=== PATIENT | male | born 1955 | race Caucasian/White ===

== ENCOUNTER 2021-01-15 13:41 | Outpatient (RCR) | payer MEDICAID, SELFPAY ==
[2021-01-15 14:12] VITALS: BP 151/73; PULSE 66; RESP 18; TEMP 36.4; BMI 59.1
--- NOTE | 2021-01-15 15:26 | PN.PCM_ITS ---
History of Present Illness Date of Service: 01/15/21 Chief Complaint: Onel is a 65 YO male who presents to the [facility] today with a deep open wound on the R lateral leg at about mid calf. He denies injury and told me that it just broke open a few weeks ago. This wound has recurred in the past and he has previously been treated at [place]. He has had skin grafting. He has not been seen in the previous wound care center since the beginning of the year. He has been using silver alginate to dress the wound which was left over from the last time the wound was open. He tells me that not too long ago he was in a SNF after he fell and fractured his left ankle. 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 He has a lot of difficulty ambulating because of severe OA in the BL knees. He has seen an orthopedic doctor about knee replacements and tells me that he can not have surgery because he is too old. More likely than not it is due to his super obesity, BMI is 59.1. He is not trying to lose weight. He does not exercise. He does not limit his salt intake. His legs are chronically swollen and he uses a tubigrip to help control the edema. 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 He has not spoken to his doctor about a weight loss program. 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 His STOP BANG score is high and he is at high risk for having TATIANA. He has never had a sleep study. He has been told by his that he snores......they now sleep in different rooms. He seems agitated about being at the [facility] and gets defensive when I discuss salt restriction, weight loss, TATIANA and how it can cause pulmonary HTN leading to increased leg edema. He denies fevers/night sweats and shaking chills. The last time he had venous or arterial studies done was about 4 years ago. Objective Data Objective Data Vital Signs: Vital Signs Temp Pulse Resp BP 97.6 F L 66 18 151/73 H 01/15/21 14:12 01/15/21 14:12 01/15/21 14:12 01/15/21 14:12 Oxygen Delivery Method Room Air Weight: 400 lb Body Mass Index (BMI) 59.1 Charges/Coding Procedures Integumentary [id number]: [id number] Jannette subq tissue 20 sq cm/< Physical Exam Const alert, oriented x3 and no apparent distress Constitutional Narrative: morbidly obese Eyes PERRL, EOMs intact bilaterally, conjunctivae normal and no scleral icterus Resp normal respiratory effort and clear to auscultation bilaterally Cardio regular rate, regular rhythm and no gallops GI soft to palpation and non-tender GI Narrative: obese Skin Wound Narrative: There is a deep wound on the lateral side of the R leg. Please see the measurements below. I can not say why there is such a discrepancy between the nurses measurements but, the post debridement measurements I did myself and they are accurate. There is no odor from the wound. There is no purulent DC. No tunnelling and no undermining. there is mild erythema just at the wound margins but, there is not increased warmth to touch. there is no purulent DC. The base of the wound is 70 % slough with some granulation tissue. The skin of the LE's BL is dry and flakey. He is developing a goblet deformity due to long standing swelling with begining fibrosis of the skin which is no longer elastic distally. His pedal pulse are difficult to palpate with the edema but, I can palpate the DP BL and I can find the PT pulses with the venous doppler. Psych Psych Narrative: He is gruff and ill tempered. He seems as though he is angry and he is abrupt. Debridement Note Debridement Note Wound debrided: venous stasis ulcer RLE with fat layer exposed Laterality: Right Type of Debridement: Excisional debridement Anesthesia Used: 4% Lidocaine Solution Depth: Down to and including healthy tissue and in the subcutaneous layer Percentage of wound debrided: 100 Instrument Used: 5mm curette and Forceps Tissue Removed: necrotic slough and biofilm. Severity: Fat Layer Exposed Amount of bleeding with debridement: Mild Bleeding Controlled with: Pressure Patient tolerated procedure: Patient tolerated procedure well Operative Diagnosis: venous stasis ulcer of the RLE with fat layer exposed Post-Debridement Measurements and Additional Note: Post-Debridement Measurements/Treatment WC - Nurse 1 - General Ulcer Assessment Start: 01/15/21 13:36 Freq: Status: Active Protocol: RADHA.LOWEXT Activity Type Activity Date Activity User E-Sign Co-Sign Detail Recorded Client Recorded Date Recorded By Document 01/15/21 14:12 [facility] [id number] 01/15/21 14:28 [facility] 01/15/21 14:12 WC - Today's Visit Information Type of service Initial Visit Arrival Mode Ambulatory,Cane Transfer Assistance None Patient Identification Verified (Name & Yes ) Patient Requires Transmission-Based No Precautions Height and Weight Height 5 ft 9 in Weight 400 lb Weight in Pounds 400.0 lbs Weight Measurement Method Stated by Patient Body Mass Index (BMI) 59.1 BMI Classification Obese BSA - Bonnie 2.77 Vital Signs Temperature (97.8 F-99.1 F) 97.6 F L Temperature Source Temporal Pulse Rate (60-100) 66 Pulse Location Monitor Respiratory Rate (12-18) 18 Respiratory rate source Observation Oxygen Delivery Method Room Air Blood Pressure (90/60-120/80) 151/73 H Blood Pressure Mean (mm Hg) 99 Source Monitor Position Sitting Blood Pressure Location Left Forearm History Since Last Visit- (Skip if this is Patient's initial visit) Left Footwear Regular Shoe Right Footwear Regular Shoe Pain Scale: 0-10 Numeric Is Patient Pain Free? Yes Lower Extremity Assessment/ Foot Assessment/ Toe Nail Assessment Right -Posterior Tibial Palpable No -Posterior Tibial Doppler Multiphasic -Dorsalis Pedis Palpable Yes -Dorsalis Pedis Doppler Multiphasic -Extremity Color Hyperpigmented -Hair Growth on Legs Yes -Hair Growth on Toes No -Temperature of Extremity Warm -Other Deformity No -Prior Foot Ulcer No -Charcot Joint No -Prior Amputation No -Thick No -Discolored No -Deformed No -Improper Length & Hygeine No Left -Posterior Tibial Palpable No -Posterior Tibial Doppler Monophasic -Dorsalis Pedis Palpable Yes -Dorsalis Pedis Doppler Multiphasic -Extremity Color Hyperpigmented -Hair Growth on Legs Yes -Hair Growth on Toes No -Temperature of Extremity Warm -Other Deformity No -Prior Foot Ulcer No -Charcot Joint No -Prior Amputation No -Thick No -Discolored No -Deformed No -Improper Length & Hygeine No Neuropathy Assessment Feet - Top Side and Bottom <Entered> (a) Communication Assessment Preferred language Chinese Lamination Machine Operator Required No Able to Read Yes Able to Write Yes Communication Tools None Right Hearing Abillity Normal Left Hearing Abillity Normal Visual Assistive Devices Glasses Teaching Assessment Preferences Verbal,Written, Audio/Visual, Demonstration Barriers to Learning None Readiness To Learn Excellent Willingness to Engage in Self Management High Activies Readiness to Engage in Self Management High Activities Anxiety Level Calm Cooperation Cooperative Perception Coherent Interest in Health Problem Asks Questions Education Importance Acknowledges Need Does Patient Smoke tobacco or other No substances Smoking Status Never smoker Is Patient Diabetic No 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 Cultural/Cheondoism Needs that may affect No Treatment Plan Teaching: Wound Center *Welcome to the Wound Center -Person Taught Patient -Teaching Method Discussion -Response to teaching Verbalize understanding Welcome to the Wound Care Center Chinese (a) 1 - + WC - Nurse 1 - General Ulcer Measurement Start: 01/15/21 13:36 Freq: Status: Active Protocol: Activity Type Activity Date Activity User E-Sign Co-Sign Detail Recorded Client Recorded Date Recorded By Document 01/15/21 14:12 [facility] [id number] 01/15/21 14:28 [facility] 01/15/21 14:12 Wound Center Nurse 1 #1- R LAT LE -Combined with other wound No -Current Size (cm) - Length 7 -Current Size (cm) - Width 3 -Current Size (cm) - Depth 1.2 -Total Square Cm 21 -Date of Last Picture (Recall this 01/15/21 field) -Photo Taken Yes -Epithelialization None Present -Tunneling No -Undermining/Tunneling No -Circular Undermining No -Exudate Amt Large -Exudate Type Serosanguineous -Wound Margin Distinct, Outline Attached -Granulation Amt Medium (34-66%) -Granulation Quality Red -Slough/Fibrin Yes -Necrosis Amt Medium (34-66%) -Necrotic Tissue Type Adherent Slough -Texture (Bertha-wound Skin Appearance) Assessed, Excoriation, Scarring,Rash -Moisture (Bertha-wound Skin Appearance) Assessed -Color (Bertha-wound Skin Appearance) Assessed, Erythema -Temperature (Bretha-wound Skin No Abnormality Appearance) (Pt Warm) -Tenderness on Palpation (Bertha-wound No Skin Appearance) -Ulcer Cleansing Soap and Water -Foul Odor after Cleansing No -Anesthetic Used 4% Lidocaine Solution Lower Limb Edema Present Yes Right Calf (cm) 61 Right Ankle (cm) 32 Left Calf (cm) 62 Left Ankle (cm) 34.8 WC - Nurse 2 - General Ulcer CM Notes Start: 01/15/21 13:36 Freq: Status: Active Protocol: Activity Type Activity Date Activity User E-Sign Co-Sign Detail Recorded Client Recorded Date Recorded By Document 01/15/21 14:49 [id number] 01/15/21 15:04 [facility] 01/15/21 14:49 Wound Center Nurse 2 #1- R LAT LE -Time 14:50 -Correct Patient Yes -Correct Side, Site, Position Yes -Correct Procedure Yes -Procedure Performed Yes -Type of Procedure Debridement -Clinical Debridement Subcutaneous -Tissue Removed Subcutaneous -Post Debridement (cm) - Length 7.4 -Post Debridement (cm) - Width 7.5 -Post Debridement (cm) - Depth 0.6 -Total Square (Post) (cm) 55.50 -Area of Debridement (cm) - Length 7.4 -Area of Debridement (cm) - Width 7.5 -Total Square (Area) (cm) 55.50 -Tunneling No -Undermining/Tunneling No -Circular Undermining No -Wound/Ulcer Outcome Not Healed -Ulcer Cleansing Rinsed/ Irrigated with Saline -Foul Odor after Cleansing No -Bioengineered Tissue No -Bleeding Controlled with Pressure -Offloading No -Treatment Response Procedure Tolerated Well -Debridement - Subq, 1st 20sq cm Yes -Debridement, SubQ, ea addt'l 20sq cm 2 or part thereof Pain Scale: 0-10 Numeric Is Patient Pain Free? Yes WC - Nurse 3 - General Ulcer D/C NN Start: 01/15/21 13:36 Freq: Status: Active Protocol: Activity Type Activity Date Activity User E-Sign Co-Sign Detail Recorded Client Recorded Date Recorded By Document 01/15/21 15:19 [facility] [id number] 01/15/21 15:19 [facility] 01/15/21 15:19 Wound Care Nurse 3 #1- R LAT LE -Ulcer Cleansing Rinsed/ Irrigated with Saline -Foul Odor after Cleansing No -Primary Dressing Applied Aquacel AG 4x4 -Primary Dressing Covered/Secured with Dry Gauze & Roll Gauze, Secured with Tape -Other Covering DRSG PER DL BUSINESS INFO CONSULTANT -Aquacel AG 4x4 1 Right -Tubular Bandage Double Layer -Size of Tubigrip Used Size F -Size F ($) 2 Left -Tubular Bandage Double Layer -Size of Tubigrip Used Size F -Size F ($) 2 Treatment Response Procedure Tolerated Well Pain Scale: 0-10 Numeric Is Patient Pain Free? Yes WC - Visit Discharge Discharge Condition Stable Ambulatory Status Ambulatory,Cane Transportation Private Auto Assessment/Plan Assessment/Plan (1) Lymphedema associated with obesity: CODE(S): I89.0 - Lymphedema, not elsewhere classified; E66.9 - Obesity, unspecified (2) History of venous thromboembolism: CODE(S): Z86.718 - Personal history of other venous thrombosis and embolism (3) Morbid obesity: CODE(S): E66.01 - Morbid (severe) obesity due to excess calories (4) Venous stasis ulcer with fat layer exposed with varicose veins: CODE(S): I83.009 - Varicose veins of unspecified lower extremity with ulcer of unspecified site; L97.902 - Non-pressure chronic ulcer of unspecified part of unspecified lower leg with fat layer exposed QUALIFIERS: Venous stasis ulcer site: calf Laterality: left Qualified Code(s): I83.022 - Varicose veins of left lower extremity with ulcer of calf; L97.222 - Non-pressure chronic ulcer of left calf with fat layer exposed PLAN: 1. Wellbutrin XL 150 mg Q AM - he is going to think about this and we will discuss again at the next visit. I stressed the importance of weight loss and exercise if he is ever going to be able to have joint replacements done. Wellbutrin suppresses appetite and he does not have a seizure disorder or glaucoma so he could try Wellbutrin. Effexor XR would be another option. He is very angry that he can not find a doctor to do knee replacements. 2. I told him if the wound is too heal we will have to control the edema and he needs more compression than the Tubigrips. He must elevate his legs and decrease salt. He needs to have a sleep study. I suspect he likely has significant pulmonary hypertension. I doubt a TTE would be able to accurately determine a RV pressure due to his body habitus. He would need a R heart cath or a KIMBERLY. I think he would benefit from a cardiology consult because of the LE edema. 3. He will need venous and arterial studies 4. If he does not have DVT and he has adequate arterial supply will likely need lymphedema pumps. 5. I recommended he consider the [employer] program to lose weight. 6. Continue the Aquacel AG with daily dressing changes 7. RT the WCC in 1 week.
== END 2021-01-17 23:59 ==
LOC: WC 13:41
PROVIDERS: PCP Preventive Medicine Occupational Medicine; Visit Provider Internal Medicine
DX: I83.018 Varicose veins of right lower extremity with ulcer other part of lower leg (principal); L97.812 Non-pressure chronic ulcer of other part of right lower leg with fat layer exposed; E66.9 Obesity, unspecified; I89.0 Lymphedema, not elsewhere classified; Z68.43 Body mass index [BMI] 50.0-59.9, adult; Z86.718 Personal history of other venous thrombosis and embolism
CPT/HCPCS: 11042; 11045; 99203; G0463

== ENCOUNTER 2021-01-28 14:00 | Outpatient (RCR) | payer MEDICAID, SELFPAY ==
[2021-01-18 00:40] VITALS: BP 151/73; PULSE 66; RESP 18; TEMP 36.4; BMI 59.1
--- NOTE | 2021-01-28 12:22 | VDLE_ITS ---
Reason For Study: edema, ulcer RIGHT LEFT CFV is compressible, spontaneous, phasic, FV is compressible, spontaneous, phasic, competent and demonstrates normal competent and demonstrates normal augmentation. augmentation. FV is compressible, spontaneous, phasic, POP V is compressible, spontaneous, phasic, competent and demonstrates normal competent and demonstrates normal augmentation. augmentation. POP V is compressible, spontaneous, phasic, T/P Trunk is compressible. competent and demonstrates normal PTV is compressible. augmentation. LT PerV is compressible. T/P Trunk is compressible. Unable to image CFV due to pt body habitus. PTV is compressible. GSV proximal thigh measures .83 x .78 cm. RT PerV is compressible. GSV at knee measures .95 x 1.04 cm. GSV proximal thigh measures .89 x .84 cm. GSV INCOMPETENT throughout for greater than GSV at knee measures 1.04 x 1.09 cm. 0.5 seconds. GSV INCOMPETENT throughout for greater than SSV proximal calf is INCOMPETENT for greater 0.5 seconds. than 0.5 seconds and measures .4 x .47 cm. SSV proximal calf is competent and measures .32 x .35 cm. ASV mid thigh is INCOMPETENT for greater than 0.5 seconds and measures .77 x .77 cm. Procedure Exam performed in department. The exam was diagnostic. VL/Venous Duplex US - Sonny Extrem Interpretation Summary Deep veins of the lower extremities are bilaterally patent and compressible seg mentally. There is no evidence of deep vein thrombosis on either side. Valvular competence appears in tact within the proximal deep venous systems bilaterally. The great saphenous veins appear bila terally patent and compressible segmentally. The left common femoral vein was not visualized due t o the patient's body habitus. Segmental valvular incompetence is noted within the great saphenous ve ins bilaterally. The right small saphenous vein is patent and competent. The left small saphenous ve in is patent and incompetent. The accessory saphenous vein in the right mid-thigh is incompetent . Ordering Physician: Shelia Hope Performed By: Guilherme Swenson RVT
--- NOTE | 2021-01-28 12:23 | ART_ITS ---
Reason For Study: PAD Procedure A bilateral lower extremity continuous wave Doppler with analog waveform analysis,segmental pressures,and ankle brachial indexes without exercise. No thigh cuff pressures due to pt body habitus. Left Segmental Pressures Left brachial= 156mmHg. Left posterior tibial artery = 153mmHg. Left dorsalis pedis artery = 159mmHg. Left digit = 122 mmHg. The left dorsalis pedis waveforms are triphasic. The left posterior tibial artery waveforms are triphasic. Right Segmental Pressures Right brachial= 149mmHg. Right posterior tibial artery = 157mmHg. Right dorsalis pedis artery = 159mmHg. Right digit = 128 mmHg. The right dorsalis pedis waveforms are triphasic. The right posterior tibial artery waveforms are triphasic. Indices The right ankle brachial index by the dorsalis pedis is 1.02. The right ankle brachial index by the posterior tibial artery is 1.01. The right digital-brachial index is .82. The left ankle brachial index by the posterior tibial artery is .98. The left ankle brachial index by the dorsalis pedis is 1.02. The left digital-brachial index is .78. VL/Lower Ext Art Exam w/o Exercis Interpretation Summary Triphasic Doppler waveforms are noted at ankle level bilaterally. Pulse-volume recordings appear satisfactory at all levels bilaterally, including calf, ankle, and digital leve ls. Resting ankle- brachial indices are normal bilaterally. Digital-brachial indices are normal bi laterally. There is no evidence of significant arterial occlusive disease in the lower extremities bilaterally. Ordering Physician: Shelia Hope Performed By: Guilherme Swenson RVT
== END 2021-02-17 23:59 ==
LOC: CVS 14:00
PROVIDERS: PCP Preventive Medicine Occupational Medicine; Referring Provider Internal Medicine; Visit Provider Internal Medicine
DX: L97.919 Non-pressure chronic ulcer of unspecified part of right lower leg with unspecified severity (principal); R60.0 Localized edema; I73.9 Peripheral vascular disease, unspecified
CPT/HCPCS: 11042; 11045; 93923; 93970

== ENCOUNTER 2021-02-04 09:00 | Outpatient (RCR) | payer MEDICAID, SELFPAY ==
[2021-01-22 13:37] VITALS: BP 119/74; PULSE 70; RESP 18; TEMP 36.3
--- NOTE | 2021-01-22 18:24 | PCM.WC.PN ---
History of Present Illness Date of Service: 01/22/21 Chief Complaint: Onel is a 65 YO male who presents to the [facility] today with a deep open wound on the R lateral leg at about mid calf. He denies injury and told me that it just broke open a few weeks ago. This wound has recurred in the past and he has previously been treated at [facility]. He has had skin grafting. He has not been seen in the previous wound care center since the beginning of the year. He has been using silver alginate to dress the wound which was left over from the last time the wound was open. He tells me that not too long ago he was in a SNF after he fell and fractured his left ankle. 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 He has a lot of difficulty ambulating because of severe OA in the BL knees. He has seen an orthopedic doctor about knee replacements and tells me that he can not have surgery because he is too old. More likely than not it is due to his super obesity, BMI is 59.1. He is not trying to lose weight. He does not exercise. He does not limit his salt intake. His legs are chronically swollen and he uses a tubigrip to help control the edema. 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 He has not spoken to his doctor about a weight loss program. 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 His STOP BANG score is high and he is at high risk for having TATIANA. He has never had a sleep study. He has been told by his that he snores......they now sleep in different rooms. He seems agitated about being at the [facility] and gets defensive when I discuss salt restriction, weight loss, TATIANA and how it can cause pulmonary HTN leading to increased leg edema. He denies fevers/night sweats and shaking chills. The last time he had venous or arterial studies done was about 4 years ago. Subjective Subjective Onel denies fevers/night sweats/shaking chills. He has been trying to elevate his legs more but, he has not tried to limit salt intake. He is scheduled for arterial and venous studies today after his appt with me. He has had VTE in the past but, he is no longer on anticoagulation. He has not received wound care supplies and tells me that no one has contacted him about compression stockings. He has been taking the Wellbutrin with no adverse side effects and he has noticed that it decreases his appetite. He is less disagreeable today and he is not arguing with me today. He is changing the dressing daily and using Aquacel Ag covered with dry gauze and secured with a roll of gauze and tape. He does not tape to the skin, he tapes to the gauze. Objective Data Objective Data Vital Signs: Vital Signs Temp Pulse Resp BP 97.3 F L 70 18 119/74 01/22/21 13:37 01/22/21 13:37 01/22/21 13:37 01/22/21 13:37 Oxygen Delivery Method Room Air Charges/Coding Procedures Integumentary [id number]: [id number] Jannette subq tissue 20 sq cm/< (28.7 cm) Physical Exam Skin Wound Narrative: The wound is not as deep this week. The length was 7.4 cm, the width 7.5 cm and the depth 0.6 cm at the last visit for a total square area of 55.5 cm?. Today it measures 4.1 in length, 7 cm in width and 0.7 cm in depth for a total of 28.7 cm?. Serosanguineous drainage is present but no purulent discharge. He tells me that the dressing is not saturated when he removes the dressing but it is wet. The area immediately around the wound, where the gauze topper is applied over the Aquacel AG is red, dry and irritated (it has the appearance of dyshidrotic eczema). There is no increased warmth to touch and no odor to the wound. There is no tunnelling and no undermining. Debridement Note Debridement Note Wound debrided: Venous stasis ulcer of the distal LLE Laterality: Left Type of Debridement: Excisional debridement Anesthesia Used: 5% Lidocaine Gel Depth: Down to and including healthy tissue and in the subcutaneous layer Percentage of wound debrided: 100 Instrument Used: 5mm curette Tissue Removed: biofilm and slough Severity: Fat Layer Exposed Amount of bleeding with debridement: Mild Bleeding Controlled with: Pressure Patient tolerated procedure: Patient tolerated procedure well Operative Diagnosis: non-helaing venous stasis ulcer of the LLE Post-Debridement Measurements and Additional Note: Post-Debridement Measurements/Treatment - Nurse 1 - General Ulcer Assessment Start: 01/22/21 13:35 Freq: Status: Active Protocol: AJDEN Activity Type Activity Date Activity User E-Sign Co-Sign Detail Recorded Client Recorded Date Recorded By Document 01/22/21 13:37 [facility] [id number] 01/22/21 13:46 [facility] 01/22/21 13:37 WC - Today's Visit Information Type of service Follow-up Visit (Physician/[employer] ) Arrival Mode Ambulatory,Cane Transfer Assistance None Patient Identification Verified (Name & Yes ) Patient Requires Transmission-Based No Precautions Vital Signs Temperature (97.8 F-99.1 F) 97.3 F L Temperature Source Temporal Pulse Rate (60-100) 70 Pulse Location Monitor Respiratory Rate (12-18) 18 Respiratory rate source Observation Oxygen Delivery Method Room Air Blood Pressure (90/60-120/80) 119/74 Blood Pressure Mean (mm Hg) 89 Source Monitor Position Sitting Blood Pressure Location Right Forearm History Since Last Visit- (Skip if this is Patient's initial visit) Have you changed medications since your No last visit? Any new allergies or adverse reactions No Had a fall/change in ADL's that may No increase risk of falls Signs or symptoms of abuse and/or No neglect since last visit Have you been in the hospital since your No last visit? Has dressing in place as prescribed Yes Has compression in place as prescribed Yes Has offloadiing in place as prescribed N/A Experienced any changes in pain level or No management Left Footwear Regular Shoe Right Footwear Regular Shoe Pain Scale: 0-10 Numeric Is Patient Pain Free? Yes - Nurse 1 - General Ulcer Measurement Start: 01/22/21 13:35 Freq: Status: Active Protocol: Activity Type Activity Date Activity User E-Sign Co-Sign Detail Recorded Client Recorded Date Recorded By Document 01/22/21 13:37 [facility] [id number] 01/22/21 13:46 [facility] 01/22/21 13:37 Wound Center Nurse 1 #1- R LAT LE -Combined with other wound No -Current Size (cm) - Length 8 -Current Size (cm) - Width 5.8 -Current Size (cm) - Depth 1.2 -Total Square Cm 46.4 -Photo Taken No -Epithelialization None Present -Tunneling No -Undermining/Tunneling No -Circular Undermining No -Exudate Amt Large -Exudate Type Serosanguineous -Wound Margin Distinct, Outline Attached -Granulation Amt Medium (34-66%) -Granulation Quality Red -Slough/Fibrin Yes -Necrosis Amt Medium (34-66%) -Necrotic Tissue Type Adherent Slough -Texture (Bertha-wound Skin Appearance) Assessed, Excoriation, Scarring -Moisture (Bertha-wound Skin Appearance) Assessed, Maceration,Dry/ Scaly -Color (Bertha-wound Skin Appearance) Assessed, Erythema, Hemosiderin Staining -Temperature (Bertha-wound Skin No Abnormality Appearance) (Pt Warm) -Tenderness on Palpation (Bertha-wound No Skin Appearance) -Ulcer Cleansing Rinsed/ Irrigated with Saline -Foul Odor after Cleansing No -Anesthetic Used 5% Lidocaine Gel Lower Limb Edema Present Yes Right Calf (cm) 62 Right Ankle (cm) 32.4 WC - Nurse 2 - General Ulcer CM Notes Start: 01/22/21 13:35 Freq: Status: Active Protocol: Activity Type Activity Date Activity User E-Sign Co-Sign Detail Recorded Client Recorded Date Recorded By Document 01/22/21 14:41 MW [id number] 01/22/21 14:50 MW 01/22/21 14:41 Wound Center Nurse 2 #1- R LAT LE -Time 14:41 -Correct Patient Yes -Correct Side, Site, Position Yes -Correct Procedure Yes -Procedure Performed Yes -Type of Procedure Debridement -Clinical Debridement Subcutaneous -Tissue Removed Subcutaneous -Post Debridement (cm) - Length 4.1 -Post Debridement (cm) - Width 7.0 -Post Debridement (cm) - Depth 0.7 -Total Square (Post) (cm) 28.70 -Area of Debridement (cm) - Length 4.1 -Area of Debridement (cm) - Width 7.0 -Total Square (Area) (cm) 28.70 -Tunneling No -Undermining/Tunneling No -Circular Undermining No -Wound/Ulcer Outcome Not Healed -Ulcer Cleansing Rinsed/ Irrigated with Saline -Foul Odor after Cleansing No -Bioengineered Tissue No -Bleeding Controlled with Pressure -Offloading No -Treatment Response Procedure Tolerated Well -Debridement - Subq, 1st 20sq cm Yes -Debridement, SubQ, ea addt'l 20sq cm 1 or part thereof Pain Scale: 0-10 Numeric Is Patient Pain Free? Yes WC - Nurse 3 - General Ulcer D/C NN Start: 01/22/21 13:35 Freq: Status: Active Protocol: Activity Type Activity Date Activity User E-Sign Co-Sign Detail Recorded Client Recorded Date Recorded By Document 01/22/21 15:06 [id number] 01/22/21 15:07 [email or web address] 01/22/21 15:06 Wound Care Nurse 3 #1- R LAT LE -Ulcer Cleansing Rinsed/ Irrigated with Saline -Foul Odor after Cleansing No -Primary Dressing Applied Aquacel AG 4x4 -Primary Dressing Covered/Secured with Dry Gauze & Roll Gauze, Secured with Tape -Aquacel AG 4x4 1 Right -Tubular Bandage Double Layer -Size of Tubigrip Used Size F -Size F ($) 2 Pain Scale: 0-10 Numeric Is Patient Pain Free? Yes WC - Visit Discharge Discharge Condition Stable Ambulatory Status Ambulatory,Cane Transportation Private Auto Medication Reconcilliation completed & Yes provided to patient/care provider Clinical Summary of Care Provided Yes Assessment/Plan Assessment/Plan (1) Venous stasis ulcer with fat layer exposed with varicose veins: CODE(S): I83.009 - Varicose veins of unspecified lower extremity with ulcer of unspecified site; L97.902 - Non-pressure chronic ulcer of unspecified part of unspecified lower leg with fat layer exposed QUALIFIERS: Venous stasis ulcer site: calf Laterality: left Qualified Code(s): I83.022 - Varicose veins of left lower extremity with ulcer of calf; L97.222 - Non-pressure chronic ulcer of left calf with fat layer exposed (2) Lymphedema associated with obesity: CODE(S): I89.0 - Lymphedema, not elsewhere classified; E66.9 - Obesity, unspecified (3) Venous insufficiency of both lower extremities: CODE(S): I87.2 - Venous insufficiency (chronic) (peripheral) (4) History of venous thromboembolism: CODE(S): Z86.718 - Personal history of other venous thrombosis and embolism (5) Morbid obesity: CODE(S): E66.01 - Morbid (severe) obesity due to excess calories (6) Dyshidrotic eczema: CODE(S): L30.1 - Dyshidrosis [pompholyx] PLAN: 1. Continue Aquacel Ag. May need to change the dressing twice a day because of the Dishidrotic eczema which is due to the area being wet. Could consider using a combination of a low potency steroid and Amlactin due to the area immediately around the wound to heal the eczema. Will continue to monitor and will re-examine in 1 week. 2. There is no sign of infection so no need for antibiotics. 3. He does not have adequate compression of the legs with the Tubigrip, even with double layer of Tubigrip. Mary will check on the Circaids and the dressing supplies. 4. RTC in 1 week. Call if any fevers/chills or night sweats. 5. He would benefit from lymphedema pumps going forward. I stressed to him that because the skin is fibrotic and can no longer stretch that when the swelling increases the only way to relieve the pressure with the increased venous HTN is for the skin to break open. I reiterated the importance of elevatio, salt restriction, weight loss and increased activity in controlling edema to prevent this from recurring going forward. 6. Will review the results of the arterial and venous studies at the next visit in 1 week. 7. Would consider an advanced wound care product was the edema is controlled and there is a better chance of the graft being successful.
[2021-01-28 10:27] VITALS: BP 178/81; PULSE 62; TEMP 35.8
--- NOTE | 2021-01-30 10:05 | PN.PCM_ITS ---
History of Present Illness Date of Service: 01/28/21 Chief Complaint: Right lateral leg ulcer History of Wound: 65 year old male who presented to the wound center at the end of December. He was originally seen by Dr. Hope. His right lateral leg ulcer re-opened earlier in December. He states that he has a history of an infected ulcer from 2013 and he was being seen at the [facility] wound center. He states that he has had issues with this ulcer on an off for years. He had a fracture of his left ankle which required him to be placed in a SNF and the ulcer on the right improved during that time. 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 He is obese with a BMI 59.1. He sleeps in a recliner because his mattress makes his back hurt. He has significant amount of lower extremity edema. Wound care Silver alginate dressings covered with gauze daily. Double tubigrip for compression. He is scheduled today for vascular studies, his last studies were [address] Hope has ordered compression pumps and some compression stockings. Neither of these have been approved yet. I would like to see his vascular studies before putting compression on him and would like to improve his edema before ordering his stockings. Today he denies fever, chills, nausea or vomiting. He states his appetite is good. Progress of Wound: Right lateral leg ulcer is stable. Objective Data Objective Data Vital Signs: Vital Signs Temp Pulse Resp BP 96.5 F L 62 18 178/81 H 01/28/21 10:27 01/28/21 10:27 01/22/21 13:37 01/28/21 10:27 Oxygen Delivery Method Room Air Charges/Coding Procedures Integumentary 111xxx-113xx: [id number] Jannette subq tissue 20 sq cm/< Add On Codes: 43180 Jannette subq tissue add-on Physical Exam Const alert and oriented x3 HEENT normocephalic Head and Scalp: atraumatic Lymph Lymphatic Narrative: Bilateral lower extremity edema. Resp normal respiratory effort and clear to auscultation bilaterally Cardio regular rate and regular rhythm GI normal to inspection, nondistended, normoactive bowel sounds and non-tender Palpation: soft Extremity normal capillary refill General Extremity: edema Skin Wound Narrative: Right lateral leg ulcer that has increased slough. Bilateral legs and feet are +3 edematous Neuro CN's II-XII intact bilaterally Psych Appearance: grossly normal Debridement Note Debridement Note Wound debrided: Lateral leg ulcer Laterality: Right Type of Debridement: Excisional debridement Anesthesia Used: 5% Lidocaine Gel Depth: Down to and including healthy tissue and in the subcutaneous layer Percentage of wound debrided: 100 Instrument Used: 5mm curette Tissue Removed: Subcutaneous tissue and slough Severity: Fat Layer Exposed Amount of bleeding with debridement: Mild Bleeding Controlled with: Pressure Patient tolerated procedure: Patient tolerated procedure well Post-Debridement Measurements and Additional Note: Post-Debridement Measurements/Treatment - Nurse 1 - General Ulcer Assessment Start: 01/22/21 13:35 Freq: Status: Active Protocol: RADHANovarra Activity Type Activity Date Activity User E-Sign Co-Sign Detail Recorded Client Recorded Date Recorded By Document 01/22/21 13:37 [facility] [id number] 01/22/21 13:46 [facility] Document 01/28/21 10:27 [facility] [id number] 01/28/21 10:34 [facility] 01/22/21 01/28/21 13:37 10:27 - Today's Visit Information Type of service Follow-up Visit Follow-up Visit (Physician/CYBER FORENSIC SPECIALIST (Physician/CYBER FORENSIC SPECIALIST ) ) Arrival Mode Ambulatory,Cane Ambulatory,Cane Transfer Assistance None None Patient Identification Verified (Name & Yes Yes ) Patient Requires Transmission-Based No No Precautions Vital Signs Temperature (97.8 F-99.1 F) 97.3 F L 96.5 F L Temperature Source Temporal Temporal Pulse Rate (60-100) 70 62 Pulse Location Monitor Monitor Respiratory Rate (12-18) 18 Respiratory rate source Observation Observation Oxygen Delivery Method Room Air Room Air Blood Pressure (90/60-120/80) 119/74 178/81 H Blood Pressure Mean (mm Hg) 89 113 Source Monitor Monitor Position Sitting Sitting Blood Pressure Location Right Forearm Left Forearm History Since Last Visit- (Skip if this is Patient's initial visit) Have you changed medications since your No No last visit? Any new allergies or adverse reactions No No Had a fall/change in ADL's that may No No increase risk of falls Signs or symptoms of abuse and/or No No neglect since last visit Have you been in the hospital since your No No last visit? Has dressing in place as prescribed Yes Yes Has compression in place as prescribed Yes Yes Has offloadiing in place as prescribed N/A N/A Experienced any changes in pain level or No No management Left Footwear Regular Shoe Regular Shoe Right Footwear Regular Shoe Regular Shoe Pain Scale: 0-10 Numeric Is Patient Pain Free? Yes Yes WC - Nurse 1 - General Ulcer Measurement Start: 01/22/21 13:35 Freq: Status: Active Protocol: Activity Type Activity Date Activity User E-Sign Co-Sign Detail Recorded Client Recorded Date Recorded By Document 01/22/21 13:37 [facility] [id number] 01/22/21 13:46 BM Document 01/28/21 10:27 [facility] [id number] 01/28/21 10:34 BMF 01/22/21 01/28/21 13:37 10:27 Wound Center Nurse 1 #2- R MED LE cluster -Combined with other wound No -Current Size (cm) - Length 2.5 -Current Size (cm) - Width 1.2 -Current Size (cm) - Depth 0.1 -Total Square Cm 3.00 -Date of Last Picture (Recall this 01/28/21 field) -Photo Taken Yes -Epithelialization None Present -Tunneling No -Undermining/Tunneling No -Circular Undermining No -Exudate Amt Medium -Exudate Type Serosanguineous -Wound Margin Distinct, Outline Attached -Granulation Amt Large (67-100%) -Granulation Quality Red -Slough/Fibrin Yes -Necrosis Amt Small (1-33%) -Necrotic Tissue Type Adherent Slough -Texture (Bertha-wound Skin Appearance) Assessed, Excoriation, Scarring -Moisture (Bertha-wound Skin Appearance) Assessed -Color (Bertha-wound Skin Appearance) Assessed, Erythema -Temperature (Bertha-wound Skin No Abnormality Appearance) (Pt Warm) -Tenderness on Palpation (Bertha-wound No Skin Appearance) -Ulcer Cleansing Rinsed/ Irrigated with Saline -Foul Odor after Cleansing Yes, Due to Product Use -Anesthetic Used 4% Lidocaine Solution #1- R LAT LE -Combined with other wound No No -Current Size (cm) - Length 8 7 -Current Size (cm) - Width 5.8 2.9 -Current Size (cm) - Depth 1.2 1.8 -Total Square Cm 46.4 20.3 -Photo Taken No No -Epithelialization None Present None Present -Tunneling No No -Undermining/Tunneling No No -Circular Undermining No No -Exudate Amt Large Large -Exudate Type Serosanguineous Serosanguineous -Wound Margin Distinct, Distinct, Outline Outline Attached Attached -Granulation Amt Medium (34-66%) Small (1-33%) -Granulation Quality Red Red -Slough/Fibrin Yes Yes -Necrosis Amt Medium (34-66%) Large (67-100%) -Necrotic Tissue Type Adherent Slough Adherent Slough -Texture (Bertha-wound Skin Appearance) Assessed, Assessed, Excoriation, Excoriation, Scarring Scarring,Rash -Moisture (Bertha-wound Skin Appearance) Assessed, Assessed, Maceration,Dry/ Maceration Scaly -Color (Bertha-wound Skin Appearance) Assessed, Assessed, Erythema, Erythema,Palor Hemosiderin Staining -Temperature (Bertha-wound Skin No Abnormality No Abnormality Appearance) (Pt Warm) (Pt Warm) -Tenderness on Palpation (Bertha-wound No No Skin Appearance) -Ulcer Cleansing Rinsed/ Rinsed/ Irrigated with Irrigated with Saline Saline -Foul Odor after Cleansing No No -Anesthetic Used 5% Lidocaine 4% Lidocaine Gel Solution Lower Limb Edema Present Yes Yes Right Calf (cm) 62 63 Right Ankle (cm) 32.4 35.2 WC - Nurse 2 - General Ulcer CM Notes Start: 01/22/21 13:35 Freq: Status: Active Protocol: Activity Type Activity Date Activity User E-Sign Co-Sign Detail Recorded Client Recorded Date Recorded By Document 01/22/21 14:41 MW [id number] 01/22/21 14:50 MW Document 01/28/21 10:47 JF [id number] 01/28/21 11:04 01/22/21 01/28/21 14:41 10:47 Wound Center Nurse 2 #2- R MED LE cluster -Time 10:53 -Correct Patient Yes -Correct Side, Site, Position Yes -Correct Procedure Yes -Procedure Performed Yes -Type of Procedure Debridement -Clinical Debridement Subcutaneous -Tissue Removed Subcutaneous -Post Debridement (cm) - Length 1 -Post Debridement (cm) - Width 2.3 -Post Debridement (cm) - Depth 0.1 -Total Square (Post) (cm) 2.3 -Area of Debridement (cm) - Length 1 -Area of Debridement (cm) - Width 2.3 -Total Square (Area) (cm) 2.3 -Tunneling No -Undermining/Tunneling No -Circular Undermining No -Wound/Ulcer Outcome Not Healed -Ulcer Cleansing Rinsed/ Irrigated with Saline -Foul Odor after Cleansing No -Bioengineered Tissue No -Bleeding Controlled with Pressure -Offloading No -Treatment Response Procedure Tolerated Well -Debridement - Subq, 1st 20sq cm No #1- R LAT LE -Time 14:41 10:54 -Correct Patient Yes Yes -Correct Side, Site, Position Yes Yes -Correct Procedure Yes Yes -Procedure Performed Yes Yes -Type of Procedure Debridement Debridement -Clinical Debridement Subcutaneous Subcutaneous -Tissue Removed Subcutaneous Subcutaneous -Post Debridement (cm) - Length 4.1 5.5 -Post Debridement (cm) - Width 7.0 6.7 -Post Debridement (cm) - Depth 0.7 1 -Total Square (Post) (cm) 28.70 36.85 -Area of Debridement (cm) - Length 4.1 5.5 -Area of Debridement (cm) - Width 7.0 6.7 -Total Square (Area) (cm) 28.70 36.85 -Tunneling No No -Undermining/Tunneling No No -Circular Undermining No No -Wound/Ulcer Outcome Not Healed Not Healed -Ulcer Cleansing Rinsed/ Rinsed/ Irrigated with Irrigated with Saline Saline -Foul Odor after Cleansing No No -Bioengineered Tissue No No -Bleeding Controlled with Pressure Pressure -Offloading No No -Treatment Response Procedure Procedure Tolerated Well Tolerated Well -Debridement - Subq, 1st 20sq cm Yes Yes -Debridement, SubQ, ea addt'l 20sq cm 1 1 or part thereof Pain Scale: 0-10 Numeric Is Patient Pain Free? Yes Yes - Nurse 3 - General Ulcer D/C NN Start: 01/22/21 13:35 Freq: Status: Active Protocol: Activity Type Activity Date Activity User E-Sign Co-Sign Detail Recorded Client Recorded Date Recorded By Document 01/22/21 15:06 JF [id number] 01/22/21 15:07 JF Document 01/28/21 11:34 DL [id number] 01/28/21 11:36 DL 01/22/21 01/28/21 15:06 11:34 Wound Care Nurse 3 #2- R MED LE cluster -Ulcer Cleansing Rinsed/ Irrigated with Saline -Foul Odor after Cleansing No -Primary Dressing Applied C Hydrogel ($) -Primary Dressing Covered/Secured with Dry Gauze & Roll Gauze, Secured with Tape #1- R LAT LE -Ulcer Cleansing Rinsed/ Rinsed/ Irrigated with Irrigated with Saline Saline -Foul Odor after Cleansing No No -Primary Dressing Applied Aquacel AG 4x4 Aquacel AG 4x4 -Primary Dressing Covered/Secured with Dry Gauze & Dry Gauze & Roll Gauze, Roll Gauze, Secured with Secured with Tape Tape -Aquacel AG 4x4 1 1 Right -Tubular Bandage Double Layer Single Layer -Size of Tubigrip Used Size F Size F -Size F ($) 2 1 -Other padmini Treatment Response Procedure Tolerated Well Pain Scale: 0-10 Numeric Is Patient Pain Free? Yes Yes WC - Visit Discharge Discharge Condition Stable Stable Ambulatory Status Ambulatory,Cane Ambulatory,Cane Transportation Private Auto Private Auto Medication Reconcilliation completed & Yes provided to patient/care provider Clinical Summary of Care Provided Yes Assessment/Plan Assessment/Plan (1) Ulcer of left lower extremity with fat layer exposed: CODE(S): L97.922 - Non-pressure chronic ulcer of unspecified part of left lower leg with fat layer exposed (2) Venous stasis ulcer with fat layer exposed with varicose veins: CODE(S): I83.009 - Varicose veins of unspecified lower extremity with ul cer of unspecified site; L97.902 - Non-pressure chronic ulcer of unspecified part of unspecified lower leg with fat layer exposed QUALIFIERS: Laterality: left Venous stasis ulcer site: calf Qualified Code(s): I83.022 - Varicose veins of left lower extremity with ulcer of calf; L97.222 - Non-pressure chronic ulcer of left calf with fat layer exposed (3) Morbid obesity: CODE(S): E66.01 - Morbid (severe) obesity due to excess calories (4) Lymphedema associated with obesity: CODE(S): I89.0 - Lymphedema, not elsewhere classified; E66.9 - Obesity, unspecified (5) Bilateral edema of lower extremity: CODE(S): R60.0 - Localized edema (6) History of venous thromboembolism: CODE(S): Z86.718 - Personal history of other venous thrombosis and embolism PLAN: Wound care right lateral leg ulcer will place daily Silver alginate covered by gauze. Right medial leg will place Collagen hydrogel covered with gauze daily. Compression will be double tubigrip. He is scheduled for vascular studies later today. Discussed increased protein to help with wound healing and taking Vitamin C 1,000 mg. Discussed decreasing his sodium intake to help with the swelling of his legs. Encourage ambulation but avoid legs in an dependent position. Instructed him that sleeping in a bed would be beneficial to help with his leg edema. Follow up one week.
[2021-02-04 08:56] VITALS: BP 129/73; PULSE 63; RESP 24; TEMP 36.4
--- NOTE | 2021-02-04 10:47 | PCM.WC.PN ---
History of Present Illness Date of Service: 02/04/21 Chief Complaint: Right lateral leg ulcer History of Wound: 65 year old male who presented to the wound center at the end of December. He was originally seen by Dr. Hope. His right lateral leg ulcer re-opened earlier in December. He states that he has a history of an infected ulcer from 2013 and he was being seen at the [facility] wound center. He states that he has had issues with this ulcer on an off for years. He had a fracture of his left ankle which required him to be placed in a SNF and the ulcer on the right improved during that time. 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 He is obese with a BMI 59.1. He sleeps in a recliner because his mattress makes his back hurt. He has significant amount of lower extremity edema. Wound care Silver alginate dressings covered with gauze daily. Double tubigrip for compression. Arterial studies from 01/28/21 right AFIA by dorsalis pedis is 1.02. Right AFIA by posterior tibial artery is 1.01. Left AFIA by posterior tibial artery is 0.98. The left AFIA by dorsalis pedis is 1.02. Bilateral triphasic doppler wavelength at ankle level. Venous Duplex ultrasound on 01/28/21 showed segmental valvular incompetence is noted within the great saphenous veins bilaterally. The right small saphenous vein is patent and competent. The left small saphenous vein is patent and incompetent. The accessory saphenous vein in the right mid-thigh is incompetent. We will refer him to Dr. Mathis for further evaluation. Today he denies fever, chills, nausea or vomiting. He states his appetite is good. Progress of Wound: Right lateral leg ulcer is stable. Right medial leg ulcer is almost healed. Objective Data Objective Data Vital Signs: Vital Signs Temp Pulse Resp BP 97.6 F L 63 24 H 129/73 H 02/04/21 08:56 02/04/21 08:56 02/04/21 08:56 02/04/21 08:56 Oxygen Delivery Method Room Air Charges/Coding Procedures Integumentary 111xxx-113xx: 39086 Jannette subq tissue 20 sq cm/< Add On Codes: 28247 Jannette subq tissue add-on Physical Exam Const alert and oriented x3 HEENT normocephalic Head and Scalp: atraumatic Eyes PERRL Resp normal respiratory effort Cardio regular rate GI non-tender Palpation: soft Extremity Extremity Narrative: +3 edema bilateral lower legs Skin Wound Narrative: Right lateral leg ulcer with increased slough and biofilm. Right medial leg ulcer is almost healed. Neuro CN's II-XII intact bilaterally Psych Appearance: grossly normal Debridement Note Debridement Note Wound debrided: lateral leg ulcer Laterality: Right Wound Grade/Stage: Stage IV Type of Debridement: Excisional debridement Anesthesia Used: 5% Lidocaine Gel Depth: Down to and including healthy tissue and in the subcutaneous layer Percentage of wound debrided: 100 Instrument Used: 5mm curette Tissue Removed: Subcutaneous tissue and slough Severity: Fat Layer Exposed Amount of bleeding with debridement: Mild Bleeding Controlled with: Pressure and Compression and gauze Patient tolerated procedure: Patient tolerated procedure well Post-Debridement Measurements and Additional Note: Post-Debridement Measurements/Treatment - Nurse 1 - General Ulcer Assessment Start: 01/22/21 13:35 Freq: Status: Active Protocol: JADEN Activity Type Activity Date Activity User E-Sign Co-Sign Detail Recorded Client Recorded Date Recorded By Document 01/22/21 13:37 [facility] [id number] 01/22/21 13:46 [facility] Document 01/28/21 10:27 [facility] [id number] 01/28/21 10:34 [facility] Document 02/04/21 08:56 DL [id number] 02/04/21 09:04 DL 01/22/21 01/28/21 02/04/21 13:37 10:27 08:56 - Today's Visit Information Type of service Follow-up Visit Follow-up Visit Follow-up Visit (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 (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 (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 ) ) ) Arrival Mode Ambulatory,Cane Ambulatory,Cane Ambulatory,Cane Transfer Assistance None None None Patient Identification Verified (Name & Yes Yes Yes ) Patient Requires Transmission-Based No No No Precautions Vital Signs Temperature (97.8 F-99.1 F) 97.3 F L 96.5 F L 97.6 F L Temperature Source Temporal Temporal Temporal Pulse Rate (60-100) 70 62 63 Pulse Location Monitor Monitor Monitor Respiratory Rate (12-18) 18 24 H Respiratory rate source Observation Observation Observation Oxygen Delivery Method Room Air Room Air Blood Pressure (90/60-120/80) 119/74 178/81 H 129/73 H Blood Pressure Mean (mm Hg) 89 113 91 Source Monitor Monitor Monitor Position Sitting Sitting Blood Pressure Location Right Forearm Left Forearm History Since Last Visit- (Skip if this is Patient's initial visit) Have you changed medications since your No No No last visit? Any new allergies or adverse reactions No No No Had a fall/change in ADL's that may No No No increase risk of falls Signs or symptoms of abuse and/or No No No neglect since last visit Have you been in the hospital since your No No No last visit? Has dressing in place as prescribed Yes Yes Yes Has compression in place as prescribed Yes Yes Yes Has offloadiing in place as prescribed N/A N/A N/A Experienced any changes in pain level or No No No management Left Footwear Regular Shoe Regular Shoe Right Footwear Regular Shoe Regular Shoe Pain Scale: 0-10 Numeric Is Patient Pain Free? Yes Yes Yes WC - Nurse 1 - General Ulcer Measurement Start: 01/22/21 13:35 Freq: Status: Active Protocol: Activity Type Activity Date Activity User E-Sign Co-Sign Detail Recorded Client Recorded Date Recorded By Document 01/22/21 13:37 [facility] [id number] 01/22/21 13:46 BM Document 01/28/21 10:27 [facility] [id number] 01/28/21 10:34 BM Document 02/04/21 08:56 DL [id number] 02/04/21 09:04 DL 01/22/21 01/28/21 02/04/21 13:37 10:27 08:56 Wound Center Nurse 1 #2- R MED LE cluster -Combined with other wound No -Current Size (cm) - Length 2.5 0.2 -Current Size (cm) - Width 1.2 0.2 -Current Size (cm) - Depth 0.1 0.1 -Total Square Cm 3.00 0.04 -Date of Last Picture (Recall this 01/28/21 field) -Photo Taken Yes No -Epithelialization None Present -Tunneling No -Undermining/Tunneling No -Circular Undermining No -Exudate Amt Medium None Present -Exudate Type Serosanguineous -Wound Margin Distinct, Distinct, Outline Outline Attached Attached -Granulation Amt Large (67-100%) Large (67-100%) -Granulation Quality Red Red -Slough/Fibrin Yes -Necrosis Amt Small (1-33%) Small (1-33%) -Necrotic Tissue Type Adherent Slough Adherent Slough -Structure Exposed N/A -Texture (Berhta-wound Skin Appearance) Assessed, Scarring Excoriation, Scarring -Moisture (Bertha-wound Skin Appearance) Assessed Dry/Scaly -Color (Bertha-wound Skin Appearance) Assessed, Hemosiderin Erythema Staining -Temperature (Bertha-wound Skin No Abnormality No Abnormality Appearance) (Pt Warm) (Pt Warm) -Tenderness on Palpation (Bertha-wound No No Skin Appearance) -Ulcer Cleansing Rinsed/ Soap and Water Irrigated with Saline -Foul Odor after Cleansing Yes, Due to No Product Use -Anesthetic Used 4% Lidocaine 4% Lidocaine Solution Solution #1- R LAT LE -Combined with other wound No No -Current Size (cm) - Length 8 7 8.5 -Current Size (cm) - Width 5.8 2.9 3 -Current Size (cm) - Depth 1.2 1.8 0.8 -Total Square Cm 46.4 20.3 25.5 -Photo Taken No No No -Epithelialization None Present None Present -Tunneling No No -Undermining/Tunneling No No -Circular Undermining No No -Exudate Amt Large Large Medium -Exudate Type Serosanguineous Serosanguineous Serosanguineous -Wound Margin Distinct, Distinct, Distinct, Outline Outline Outline Attached Attached Attached -Granulation Amt Medium (34-66%) Small (1-33%) Large (67-100%) -Granulation Quality Red Red Red -Slough/Fibrin Yes Yes -Necrosis Amt Medium (34-66%) Large (67-100%) Small (1-33%) -Necrotic Tissue Type Adherent Slough Adherent Slough Adherent Slough -Structure Exposed N/A -Texture (Bertha-wound Skin Appearance) Assessed, Assessed, Excoriation Excoriation, Excoriation, Scarring Scarring,Rash -Moisture (Bertha-wound Skin Appearance) Assessed, Assessed, Dry/Scaly Maceration,Dry/ Maceration Scaly -Color (Bertha-wound Skin Appearance) Assessed, Assessed, Mottled Erythema, Erythema,Palor Hemosiderin Staining -Temperature (Bertha-wound Skin No Abnormality No Abnormality No Abnormality Appearance) (Pt Warm) (Pt Warm) (Pt Warm) -Tenderness on Palpation (Bertha-wound No No No Skin Appearance) -Ulcer Cleansing Rinsed/ Rinsed/ Soap and Water Irrigated with Irrigated with Saline Saline -Foul Odor after Cleansing No No No -Anesthetic Used 5% Lidocaine 4% Lidocaine 4% Lidocaine Gel Solution Solution Lower Limb Edema Present Yes Yes Right Calf (cm) 62 63 48 Right Ankle (cm) 32.4 35.2 31 WC - Nurse 2 - General Ulcer CM Notes Start: 01/22/21 13:35 Freq: Status: Active Protocol: Activity Type Activity Date Activity User E-Sign Co-Sign Detail Recorded Client Recorded Date Recorded By Document 01/22/21 14:41 MW [id number] 01/22/21 14:50 MW Document 01/28/21 10:47 JF [id number] 01/28/21 11:04 JF Document 02/04/21 09:27 JF [id number] 02/04/21 09:32 JF 01/22/21 01/28/21 02/04/21 14:41 10:47 09:27 Wound Center Nurse 2 #2- R MED LE cluster -Time 10:53 09:27 -Correct Patient Yes Yes -Correct Side, Site, Position Yes Yes -Correct Procedure Yes Yes -Procedure Performed Yes Yes -Type of Procedure Debridement Debridement -Clinical Debridement Subcutaneous Subcutaneous -Tissue Removed Subcutaneous Subcutaneous -Post Debridement (cm) - Length 1 0.5 -Post Debridement (cm) - Width 2.3 0.4 -Post Debridement (cm) - Depth 0.1 0.1 -Total Square (Post) (cm) 2.3 0.20 -Area of Debridement (cm) - Length 1 0.5 -Area of Debridement (cm) - Width 2.3 0.4 -Total Square (Area) (cm) 2.3 0.20 -Tunneling No No -Undermining/Tunneling No No -Circular Undermining No No -Wound/Ulcer Outcome Not Healed Not Healed -Ulcer Cleansing Rinsed/ Rinsed/ Irrigated with Irrigated with Saline Saline -Foul Odor after Cleansing No No -Bioengineered Tissue No No -Bleeding Controlled with Pressure Pressure -Offloading No No -Treatment Response Procedure Procedure Tolerated Well Tolerated Well -Debridement - Subq, 1st 20sq cm No Yes -Debridement, SubQ, ea addt'l 20sq cm 1 or part thereof #1- R LAT LE -Time 14:41 10:54 09:28 -Correct Patient Yes Yes Yes -Correct Side, Site, Position Yes Yes Yes -Correct Procedure Yes Yes Yes -Procedure Performed Yes Yes Yes -Type of Procedure Debridement Debridement Debridement -Clinical Debridement Subcutaneous Subcutaneous Subcutaneous -Tissue Removed Subcutaneous Subcutaneous Subcutaneous -Post Debridement (cm) - Length 4.1 5.5 5.8 -Post Debridement (cm) - Width 7.0 6.7 6.3 -Post Debridement (cm) - Depth 0.7 1 0.8 -Total Square (Post) (cm) 28.70 36.85 36.54 -Area of Debridement (cm) - Length 4.1 5.5 5.8 -Area of Debridement (cm) - Width 7.0 6.7 6.3 -Total Square (Area) (cm) 28.70 36.85 36.54 -Tunneling No No No -Undermining/Tunneling No No -Circular Undermining No No No -Wound/Ulcer Outcome Not Healed Not Healed Not Healed -Ulcer Cleansing Rinsed/ Rinsed/ Rinsed/ Irrigated with Irrigated with Irrigated with Saline Saline Saline -Foul Odor after Cleansing No No No -Bioengineered Tissue No No No -Bleeding Controlled with Pressure Pressure Pressure -Offloading No No No -Treatment Response Procedure Procedure Procedure Tolerated Well Tolerated Well Tolerated Well -Debridement - Subq, 1st 20sq cm Yes Yes No -Debridement, SubQ, ea addt'l 20sq cm 1 1 1 or part thereof Pain Scale: 0-10 Numeric Is Patient Pain Free? Yes Yes Yes WC - Nurse 3 - General Ulcer D/C NN Start: 01/22/21 13:35 Freq: Status: Active Protocol: Activity Type Activity Date Activity User E-Sign Co-Sign Detail Recorded Client Recorded Date Recorded By Document 01/22/21 15:06 JF [id number] 01/22/21 15:07 JF Document 01/28/21 11:34 DL [id number] 01/28/21 11:36 DL Document 02/04/21 09:58 ML [id number] 02/04/21 10:03 ML 01/22/21 01/28/21 02/04/21 15:06 11:34 09:58 Wound Care Nurse 3 #2- R MED LE cluster -Ulcer Cleansing Rinsed/ Rinsed/ Irrigated with Irrigated with Saline Saline -Foul Odor after Cleansing No -Primary Dressing Applied C Hydrogel ($) -Other Dressing hydrogel -Primary Dressing Covered/Secured with Dry Gauze & Dry Gauze, Roll Gauze, Secured with Secured with Tape Tape #1- R LAT LE -Ulcer Cleansing Rinsed/ Rinsed/ Rinsed/ Irrigated with Irrigated with Irrigated with Saline Saline Saline -Foul Odor after Cleansing No No -Primary Dressing Applied Aquacel AG 4x4 Aquacel AG 4x4 Aquacel AG 4x4 -Other Dressing super absorb -Primary Dressing Covered/Secured with Dry Gauze & Dry Gauze & Roll Gauze, Roll Gauze, Secured with Secured with Tape Tape -Aquacel AG 4x4 1 1 1 Left -Tubular Bandage Double Layer -Size of Tubigrip Used Size F -Size F ($) 2 Right -Multi-Layered Wrap Application Multi-Layer Comp - Right ($ ) -Tubular Bandage Double Layer Single Layer Double Layer -Size of Tubigrip Used Size F Size F Size F -Size F ($) 2 1 2 -Other padmini Treatment Response Procedure Tolerated Well Pain Scale: 0-10 Numeric Is Patient Pain Free? Yes Yes Yes WC - Visit Discharge Discharge Condition Stable Stable Stable Ambulatory Status Ambulatory,Cane Ambulatory,Cane Ambulatory,Cane Transportation Private Auto Private Auto Private Auto Medication Reconcilliation completed & Yes No provided to patient/care provider Clinical Summary of Care Provided Yes Yes Additional Wound Wound debrided: medial leg ulcer Laterality: Right Type of Debridement: Excisional debridement Anesthesia Used: 4% Lidocaine Solution Depth: Down to and including healthy tissue and in the subcutaneous layer Percentage of wound debrided: 100 Instrument Used: 3mm curette Tissue Removed: Subcutaneous tissue and slough Severity: Limited To Skin Breakdown Amount of bleeding with debridement: Mild Bleeding Controlled with: Pressure Patient tolerated procedure: Patient tolerated procedure well Assessment/Plan Assessment/Plan (1) Ulcer of left lower extremity with fat layer exposed: CODE(S): L97.922 - Non-pressure chronic ulcer of unspecified part of left lower leg with fat layer exposed (2) Morbid obesity: CODE(S): E66.01 - Morbid (severe) obesity due to excess calories (3) Venous insufficiency of both lower extremities: CODE(S): I87.2 - Venous insufficiency (chronic) (peripheral) (4) Venous stasis ulcer with fat layer exposed with varicose veins: CODE(S): I83.009 - Varicose veins of unspecified lower extremity with ulcer of unspecified site; L97.902 - Non-pressure chronic ulcer of unspecified part of unspecified lower leg with fat layer exposed QUALIFIERS: Venous stasis ulcer site: calf Laterality: left Qualified Code(s): I83.022 - Varicose veins of left lower extremity with ulcer of calf; L97.222 - Non-pressure chronic ulcer of left calf with fat layer exposed (5) Bilateral edema of lower extremity: CODE(S): R60.0 - Localized edema (6) Lymphedema associated with obesity: CODE(S): I89.0 - Lymphedema, not elsewhere classified; E66.9 - Obesity, unspecified (7) History of venous thromboembolism: CODE(S): Z86.718 - Personal history of other venous thrombosis and embolism PLAN: Wound care right lateral leg ulcer will place Silver alginate covered by super absorbant gauze. Right medial leg will place Collagen hydrogel covered with gauze. Will place 3 M 2layer wraps today. He will leave then on until when he will remove them. He is unable to come into the wound center more than once per week to have his 3 M2L compression placed. After removes the 3M2L wrap on , he will change the dressings to both ulcers daily and place double layer tubigrip. We will refer him to Dr. Mathis for further evaluation of his vascular status. Discussed increased protein to help with wound healing and taking Vitamin C 1,000 mg. Discussed decreasing his sodium intake to help with the swelling of his legs. Encourage ambulation but avoid legs in an dependent position. 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 Instructed him that sleeping in a bed would be beneficial to help with his leg edema. Follow up one week.
== END 2021-02-17 23:59 ==
LOC: WC 09:00
PROVIDERS: PCP Preventive Medicine Occupational Medicine; Visit Provider Nurse Practitioner Family
DX: I83.012 Varicose veins of right lower extremity with ulcer of calf (principal); L97.212 Non-pressure chronic ulcer of right calf with fat layer exposed; I89.0 Lymphedema, not elsewhere classified; E66.01 Morbid (severe) obesity due to excess calories; L30.1 Dyshidrosis [pompholyx]; Z86.711 Personal history of pulmonary embolism; Z68.43 Body mass index [BMI] 50.0-59.9, adult; M17.0 Bilateral primary osteoarthritis of knee; I87.2 Venous insufficiency (chronic) (peripheral); Z86.718 Personal history of other venous thrombosis and embolism; R60.0 Localized edema
CPT/HCPCS: 11042; 11045; 29581

== ENCOUNTER 2021-03-04 10:45 | Outpatient (RCR) | payer MEDICAID, SELFPAY ==
[2021-02-18 00:31] VITALS: BP 129/73; PULSE 63; RESP 24; TEMP 36.4
[2021-02-18 11:23] VITALS: BP 167/78; PULSE 70; TEMP 36.2
--- NOTE | 2021-02-18 12:47 | PN.PCM_ITS ---
History of Present Illness Date of Service: 02/18/21 Chief Complaint: Right lateral leg ulcer History of Wound: 65 year old male who presented to the wound center at the end of December. He was originally seen by Dr. Hope. His right lateral leg ulcer re-opened earlier in December. He states that he has a history of an infected ulcer from 2013 and he was being seen at the [place] wound center. He states that he has had issues with this ulcer on an off for years. He had a fracture of his left ankle which required him to be placed in a SNF and the ulcer on the right improved during that time. 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 He is obese with a BMI 59.1. He sleeps in a recliner because his mattress makes his back hurt. He has significant amount of lower extremity edema. Wound care Silver alginate dressings covered with gauze daily. Double tubigrip for compression. Arterial studies from 01/28/21 right AFIA by dorsalis pedis is 1.02. Right AFIA by posterior tibial artery is 1.01. Left AFIA by posterior tibial artery is 0.98. The left AFIA by dorsalis pedis is 1.02. Bilateral triphasic doppler wavelength at ankle level. Venous Duplex ultrasound on 01/28/21 showed segmental valvular incompetence is noted within the great saphenous veins bilaterally. The right small saphenous vein is patent and competent. The left small saphenous vein is patent and incompetent. The accessory saphenous vein in the right mid- thigh is incompetent. We will refer him to Dr. Mathis for further evaluation. Today he denies fever, chills, nausea or vomiting. He states his appetite is good. Progress of Wound: Right medial leg cluster is healed. Left lateral leg ulcer is stable Objective Data Objective Data Vital Signs: Vital Signs Temp Pulse Resp BP 97.1 F L 70 24 H 167/78 H 02/18/21 11:23 02/18/21 11:23 02/18/21 00:31 02/18/21 11:23 Charges/Coding Procedures Integumentary [id number]: [id number] Jannette subq tissue 20 sq cm/< Add On Codes: 10265 Jannette subq tissue add-on (x2) Physical Exam Const alert and oriented x3 HEENT normocephalic Lymph Lymphatic: no lymphedema noted Resp normal respiratory effort Cardio regular rate GI non-tender Extremity normal capillary refill Extremity Narrative: Bilateral lower leg edema. General Extremity: edema Skin Wound Narrative: Right lateral leg ulcer is pink with increased biofilm. Right medial leg ulcer is healed today. Neuro CN's II-XII intact bilaterally Psych Appearance: grossly normal Debridement Note Debridement Note Wound debrided: lateral leg ulcer Laterality: Right Type of Debridement: Excisional debridement Anesthesia Used: 5% Lidocaine Gel Depth: Down to and including healthy tissue and in the subcutaneous layer Percentage of wound debrided: 100 Instrument Used: 5mm curette Tissue Removed: Subcutaneous tissue and slough Severity: Fat Layer Exposed Amount of bleeding with debridement: Mild Bleeding Controlled with: Pressure and Compression and gauze Patient tolerated procedure: Patient tolerated procedure well Post-Debridement Measurements and Additional Note: Post-Debridement Measurements/Treatment WC - Nurse 1 - General Ulcer Assessment Start: 02/18/21 11:23 Freq: Status: Active Protocol: JADEN Activity Type Activity Date Activity User E-Sign Co-Sign Detail Recorded Client Recorded Date Recorded By Document 02/18/21 11:23 KR Desktop 02/18/21 11:32 KR 02/18/21 11:23 WC - Today's Visit Information Type of service Follow-up Visit (Physician/SUPERVISOR TREATING [employer] PUMPING ) Arrival Mode Ambulatory,Cane Patient Identification Verified (Name & Yes ) Vital Signs Temperature (97.8 F-99.1 F) 97.1 F L Temperature Source Temporal Pulse Rate (60-100) 70 Pulse Location Monitor Blood Pressure (90/60-120/80) 167/78 H Blood Pressure Mean (mm Hg) 107 Source Monitor Position Sitting Blood Pressure Location Right Arm History Since Last Visit- (Skip if this is Patient's initial visit) Have you changed medications since your No last visit? Any new allergies or adverse reactions No Had a fall/change in ADL's that may No increase risk of falls Signs or symptoms of abuse and/or No neglect since last visit Have you been in the hospital since your No last visit? Has dressing in place as prescribed Yes Has compression in place as prescribed N/A Has offloadiing in place as prescribed N/A Experienced any changes in pain level or No management Left Footwear Regular Shoe Right Footwear Regular Shoe Pain Scale: 0-10 Numeric Is Patient Pain Free? Yes WC - Nurse 1 - General Ulcer Measurement Start: 02/18/21 11:23 Freq: Status: Active Protocol: Activity Type Activity Date Activity User E-Sign Co-Sign Detail Recorded Client Recorded Date Recorded By Document 02/18/21 11:23 KR Desktop 02/18/21 11:32 KR 02/18/21 11:23 Wound Center Nurse 1 #2- R MED LE cluster -Current Size (cm) - Length 0.1 -Current Size (cm) - Width 0.1 -Current Size (cm) - Depth 0.1 -Total Square Cm 0.01 -Exudate Amt None Present -Wound Margin Distinct, Outline Attached -Granulation Amt Small (1-33%) -Granulation Quality [place] -Necrosis Amt None Present (0 %) -Texture (Bertha-wound Skin Appearance) Assessed, Scarring -Moisture (Bertha-wound Skin Appearance) Assessed,Dry/ Scaly -Color (Bertha-wound Skin Appearance) No Abnormality, Assessed -Temperature (Bertha-wound Skin No Abnormality Appearance) (Pt Warm) -Tenderness on Palpation (Bertha-wound No Skin Appearance) -Ulcer Cleansing Rinsed/ Irrigated with Saline #1- R LAT LE -Current Size (cm) - Length 5.2 -Current Size (cm) - Width 6.7 -Current Size (cm) - Depth 0.6 -Total Square Cm 34.84 -Exudate Amt Large -Exudate Type Serosanguineous -Wound Margin Distinct, Outline Attached -Granulation Amt Medium (34-66%) -Granulation Quality Red -Necrosis Amt Medium (34-66%) -Necrotic Tissue Type Adherent Slough -Texture (Bertha-wound Skin Appearance) Assessed, Scarring -Moisture (Bertha-wound Skin Appearance) Assessed,Dry/ Scaly -Color (Bertha-wound Skin Appearance) No Abnormality, Assessed -Temperature ([place]-wound Skin No Abnormality Appearance) (Pt Warm) -Tenderness on Palpation (Bertha-wound No Skin Appearance) -Ulcer Cleansing Rinsed/ Irrigated with Saline -Foul Odor after Cleansing No -Anesthetic Used 4% Lidocaine Solution Right Calf (cm) 55.5 Right Ankle (cm) 34.5 WC - Nurse 2 - General Ulcer CM Notes Start: 02/18/21 11:23 Freq: Status: Active Protocol: Activity Type Activity Date Activity User E-Sign Co-Sign Detail Recorded Client Recorded Date Recorded By Document 02/18/21 12:17 [id number] [id number] 02/18/21 12:21 JAZMÍN 02/18/21 12:17 Wound Center Nurse 2 #2- R MED SEJAL cluster -Time 12:18 -Correct Patient No -Correct Side, Site, Position No -Correct Procedure No -Procedure Performed No -Clinical Debridement Epidermis / Dermis -Post Debridement (cm) - Length 0 -Post Debridement (cm) - Width 0 -Post Debridement (cm) - Depth 0 -Total Square (Post) (cm) 0 -Area of Debridement (cm) - Length 0 -Area of Debridement (cm) - Width 0 -Total Square (Area) (cm) 0 -Tunneling No -Undermining/Tunneling No -Circular Undermining No -Wound/Ulcer Outcome Healed- Epithelialized -Ulcer Cleansing Rinsed/ Irrigated with Saline -Foul Odor after Cleansing No -Bioengineered Tissue No -Bleeding Controlled with Pressure -Offloading No -Treatment Response Procedure Tolerated Well -Debridement - Subq, 1st 20sq cm Yes #1- R LAT LE -Time 12:18 -Correct Patient Yes -Correct Side, Site, Position Yes -Correct Procedure Yes -Procedure Performed Yes -Type of Procedure Debridement -Clinical Debridement Subcutaneous -Tissue Removed Subcutaneous -Post Debridement (cm) - Length 6.8 -Post Debridement (cm) - Width 6.2 -Post Debridement (cm) - Depth 0.7 -Total Square (Post) (cm) 42.16 -Area of Debridement (cm) - Length 6.8 -Area of Debridement (cm) - Width 6.2 -Total Square (Area) (cm) 42.16 -Tunneling No -Undermining/Tunneling No -Circular Undermining No -Wound/Ulcer Outcome Not Healed -Ulcer Cleansing Rinsed/ Irrigated with Saline -Foul Odor after Cleansing No -Bioengineered Tissue No -Bleeding Controlled with Pressure -Offloading No -Treatment Response Procedure Tolerated Well -Debridement - Subq, 1st 20sq cm Yes -Debridement, SubQ, ea addt'l 20sq cm 2 or part thereof Pain Scale: 0-10 Numeric Is Patient Pain Free? Yes Assessment/Plan Assessment/Plan (1) Ulcer of left lower extremity with fat layer exposed: CODE(S): L97.922 - Non-pressure chronic ulcer of unspecified part of left lower leg with fat layer exposed (2) Venous stasis ulcer with fat layer exposed with varicose veins: CODE(S): I83.009 - Varicose veins of unspecified lower extremity with ulcer of unspecified site; L97.902 - Non-pressure chronic ulcer of unspecified part of unspecified lower leg with fat layer exposed QUALIFIERS: Venous stasis ulcer site: calf Laterality: left Qualified Code(s): I83.022 - Varicose veins of left lower extremity with ulcer of calf; L97.222 - Non-pressure chronic ulcer of left calf with fat layer exposed (3) Venous insufficiency of both lower extremities: CODE(S): I87.2 - Venous insufficiency (chronic) (peripheral) (4) Morbid obesity: CODE(S): E66.01 - Morbid (severe) obesity due to excess calories (5) Bilateral edema of lower extremity: CODE(S): R60.0 - Localized edema (6) Lymphedema associated with obesity: CODE(S): I89.0 - Lymphedema, not elsewhere classified; E66.9 - Obesity, unspecified PLAN: Wound care right lateral leg ulcer will place Silver alginate covered by super absorbant gauze daily. Right medial leg is healed today. Double tubigrip for compression. He sees Dr. Cheney, vascular surgeon in practice with Dr. Mathis on Thursday for further evaluation of his vascular status. Discussed increased protein to help with wound healing and taking Vitamin C 1,000 mg. Discussed decreasing his sodium intake to help with the swelling of his legs. Encourage ambulation but avoid legs in an dependent position. 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 Instructed him that sleeping in a bed would be beneficial to help with his leg edema. Follow up two weeks.
[2021-03-04 11:01] VITALS: BP 157/104; PULSE 69; RESP 18; TEMP 36.4
--- NOTE | 2021-03-04 15:46 | PCM.WC.PN ---
History of Present Illness Date of Service: 03/04/21 Chief Complaint: Right lateral leg ulcer History of Wound: 65 year old male who presented to the wound center at the end of December. He was originally seen by Dr. Hope. His right lateral leg ulcer re-opened earlier in December. He states that he has a history of an infected ulcer from 2013 and he was being seen at the [place] wound center. He states that he has had issues with this ulcer on an off for years. He had a fracture of his left ankle which required him to be placed in a SNF and the ulcer on the right improved during that time. 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 He is obese with a BMI 59.1. He sleeps in a recliner because his mattress makes his back hurt. He has significant amount of lower extremity edema. Wound care to right lateral leg ulcer is Silver alginate dressings covered with ABD. Excoriated bertha-wound will apply A&D ointment or aquaphor 1-2 times daily. Double tubigrip and ESTEFANIA wrap for compression. Arterial studies from 01/28/21 right AFIA by dorsalis pedis is 1.02. Right AFIA by posterior tibial artery is 1.01. Left AFIA by posterior tibial artery is 0.98. The left AFIA by dorsalis pedis is 1.02. Bilateral triphasic doppler wavelength at ankle level. Venous Duplex ultrasound on 01/28/21 showed segmental valvular incompetence is noted within the great saphenous veins bilaterally. The right small saphenous vein is patent and competent. The left small saphenous vein is patent and incompetent. The accessory saphenous vein in the right mid-thigh is incompetent. We will refer him to Dr. Mathis for further evaluation. Today he denies fever, chills, nausea or vomiting. He states his appetite is good. Progress of Wound: Right medial leg cluster remains healed. Right lateral leg ulcer is stable. Bertha wound is excoriated. Objective Data Objective Data Vital Signs: Vital Signs Temp Pulse Resp BP 97.6 F L 69 18 157/104 H 03/04/21 11:01 03/04/21 11:01 03/04/21 11:01 03/04/21 11:01 Charges/Coding Procedures Integumentary 111xxx-113xx: [id number] Jannette subq tissue 20 sq cm/< Physical Exam Const alert and oriented x3 HEENT normocephalic Resp normal respiratory effort Cardio regular rate Extremity normal capillary refill General Extremity: edema Neuro CN's II-XII intact bilaterally Psych Appearance: grossly normal Debridement Note Debridement Note Wound debrided: lateral leg ulcer Laterality: Right Type of Debridement: Excisional debridement Anesthesia Used: 5% Lidocaine Gel Depth: Down to and including healthy tissue and in the subcutaneous layer Percentage of wound debrided: 100 Instrument Used: 5mm curette Tissue Removed: Subcutaneous tissue and slough Severity: Fat Layer Exposed Amount of bleeding with debridement: Mild Bleeding Controlled with: Pressure Patient tolerated procedure: Patient tolerated procedure well Post-Debridement Measurements and Additional Note: Post-Debridement Measurements/Treatment - Nurse 1 - General Ulcer Assessment Start: 02/18/21 11:23 Freq: Status: Active Protocol: JADEN Activity Type Activity Date Activity User E-Sign Co-Sign Detail Recorded Client Recorded Date Recorded By Document 02/18/21 11:23 KR Desktop 02/18/21 11:32 KR Document 03/04/21 11:01 DL [id number] 03/04/21 11:08 DL 02/18/21 03/04/21 11:23 11:01 - Today's Visit Information Type of service Follow-up Visit Follow-up Visit (Physician/MARKET RESEARCH ASSOCIATE (Physician/MARKET RESEARCH ASSOCIATE ) ) Arrival Mode Ambulatory,Cane Ambulatory Transfer Assistance None Patient Identification Verified (Name & Yes Yes ) Patient Requires Transmission-Based No Precautions Vital Signs Temperature (97.8 F-99.1 F) 97.1 F L 97.6 F L Temperature Source Temporal Temporal Pulse Rate (60-100) 70 69 Pulse Location Monitor Monitor Respiratory Rate (12-18) 18 Respiratory rate source Observation Blood Pressure (90/60-120/80) 167/78 H 157/104 H Blood Pressure Mean (mm Hg) 107 121 Source Monitor Monitor Position Sitting Blood Pressure Location Right Arm History Since Last Visit- (Skip if this is Patient's initial visit) Have you changed medications since your No No last visit? Any new allergies or adverse reactions No No Had a fall/change in ADL's that may No No increase risk of falls Signs or symptoms of abuse and/or No No neglect since last visit Have you been in the hospital since your No No last visit? Has dressing in place as prescribed Yes Yes Has compression in place as prescribed N/A Yes Has offloadiing in place as prescribed N/A N/A Experienced any changes in pain level or No No management Left Footwear Regular Shoe Right Footwear Regular Shoe Pain Scale: 0-10 Numeric Is Patient Pain Free? Yes Yes WC - Nurse 1 - General Ulcer Measurement Start: 02/18/21 11:23 Freq: Status: Active Protocol: Activity Type Activity Date Activity User E-Sign Co-Sign Detail Recorded Client Recorded Date Recorded By Document 02/18/21 11:23 KR Desktop 02/18/21 11:32 KR Document 03/04/21 11:01 DL [id number] 03/04/21 11:08 DL 02/18/21 03/04/21 11:23 11:01 Wound Center Nurse 1 #2- R MED LE cluster -Current Size (cm) - Length 0.1 -Current Size (cm) - Width 0.1 -Current Size (cm) - Depth 0.1 -Total Square Cm 0.01 -Exudate Amt None Present -Wound Margin Distinct, Outline Attached -Granulation Amt Small (1-33%) -Granulation Quality [place] -Necrosis Amt None Present (0 %) -Texture (Bertha-wound Skin Appearance) Assessed, Scarring -Moisture (Bertha-wound Skin Appearance) Assessed,Dry/ Scaly -Color (Bertha-wound Skin Appearance) No Abnormality, Assessed -Temperature (Bertha-wound Skin No Abnormality Appearance) (Pt Warm) -Tenderness on Palpation (Bertha-wound No Skin Appearance) -Ulcer Cleansing Rinsed/ Irrigated with Saline #1- R LAT LE -Current Size (cm) - Length 5.2 5.5 -Current Size (cm) - Width 6.7 6.1 -Current Size (cm) - Depth 0.6 0.4 -Total Square Cm 34.84 33.55 -Photo Taken No -Exudate Amt Large Medium -Exudate Type Serosanguineous Serosanguineous -Wound Margin Distinct, Distinct, Outline Outline Attached Attached -Granulation Amt Medium (34-66%) Small (1-33%) -Granulation Quality Red Red -Necrosis Amt Medium (34-66%) Large (67-100%) -Necrotic Tissue Type Adherent Slough Adherent Slough -Structure Exposed N/A -Texture (Bertha-wound Skin Appearance) Assessed, Excoriation, Scarring Scarring,Rash -Moisture (Bertha-wound Skin Appearance) Assessed,Dry/ Dry/Scaly Scaly -Color (Bertha-wound Skin Appearance) No Abnormality, Hemosiderin Assessed Staining -Temperature (Bertha-wound Skin No Abnormality No Abnormality Appearance) (Pt Warm) (Pt Warm) -Tenderness on Palpation (Bertha-wound No No Skin Appearance) -Ulcer Cleansing Rinsed/ Soap and Water Irrigated with Saline -Foul Odor after Cleansing No No -Anesthetic Used 4% Lidocaine 4% Lidocaine Solution Solution Right Calf (cm) 55.5 64 Right Ankle (cm) 34.5 30.3 WC - Nurse 2 - General Ulcer CM Notes Start: 02/18/21 11:23 Freq: Status: Active Protocol: Activity Type Activity Date Activity User E-Sign Co-Sign Detail Recorded Client Recorded Date Recorded By Document 02/18/21 12:17 JF [id number] 02/18/21 12:21 JF Edit Result 02/18/21 12:17 JF (1) [id number] 02/19/21 07:03 PL Document 03/04/21 11:44 JF [id number] 03/04/21 11:48 JF (1) #2- R MED LE cluster - Clinical Debridement Epidermis / Dermis => - Debridement - Subq, 1st 20sq cm Yes => 02/18/21 03/04/21 12:17 11:44 Wound Center Nurse 2 #2- R MED LE cluster -Time 12:18 -Correct Patient No -Correct Side, Site, Position No -Correct Procedure No -Procedure Performed No -Post Debridement (cm) - Length 0 -Post Debridement (cm) - Width 0 -Post Debridement (cm) - Depth 0 -Total Square (Post) (cm) 0 -Area of Debridement (cm) - Length 0 -Area of Debridement (cm) - Width 0 -Total Square (Area) (cm) 0 -Tunneling No -Undermining/Tunneling No -Circular Undermining No -Wound/Ulcer Outcome Healed- Epithelialized -Ulcer Cleansing Rinsed/ Irrigated with Saline -Foul Odor after Cleansing No -Bioengineered Tissue No -Bleeding Controlled with Pressure -Offloading No -Treatment Response Procedure Tolerated Well #1- R LAT LE -Time 12:18 11:44 -Correct Patient Yes Yes -Correct Side, Site, Position Yes Yes -Correct Procedure Yes Yes -Procedure Performed Yes Yes -Type of Procedure Debridement Debridement -Clinical Debridement Subcutaneous Subcutaneous -Tissue Removed Subcutaneous Subcutaneous -Post Debridement (cm) - Length 6.8 6.5 -Post Debridement (cm) - Width 6.2 7 -Post Debridement (cm) - Depth 0.7 0.6 -Total Square (Post) (cm) 42.16 45.5 -Area of Debridement (cm) - Length 6.8 6.5 -Area of Debridement (cm) - Width 6.2 7 -Total Square (Area) (cm) 42.16 45.5 -Tunneling No No -Undermining/Tunneling No No -Circular Undermining No No -Wound/Ulcer Outcome Not Healed Not Healed -Ulcer Cleansing Rinsed/ Rinsed/ Irrigated with Irrigated with Saline Saline -Foul Odor after Cleansing No No -Bioengineered Tissue No No -Bleeding Controlled with Pressure Pressure -Offloading No No -Treatment Response Procedure Procedure Tolerated Well Tolerated Well -Debridement - Subq, 1st 20sq cm Yes Yes -Debridement, SubQ, ea addt'l 20sq cm 2 2 or part thereof Pain Scale: 0-10 Numeric Is Patient Pain Free? Yes Yes - Nurse 3 - General Ulcer D/C NN Start: 02/18/21 11:23 Freq: Status: Active Protocol: Activity Type Activity Date Activity User E-Sign Co-Sign Detail Recorded Client Recorded Date Recorded By Document 03/04/21 11:55 DL [id number] 03/04/21 11:57 DL 03/04/21 11:55 Wound Care Nurse 3 #1- R LAT LE -Ulcer Cleansing Soap and Water -Foul Odor after Cleansing No -Primary Dressing Applied Aquacel AG 4x4 -Primary Dressing Covered/Secured with Dry Gauze & Roll Gauze, Secured with Tape -Aquacel AG 4x4 1 Right -Tubular Bandage Double Layer -Size of Tubigrip Used Size F -Size F ($) 1 -Other estefania Treatment Response Procedure Tolerated Well Pain Scale: 0-10 Numeric Is Patient Pain Free? Yes - Visit Discharge Discharge Condition Stable Ambulatory Status Ambulatory Transportation Private Auto Assessment/Plan Assessment/Plan (1) Venous stasis ulcer with fat layer exposed with varicose veins: CODE(S): I83.009 - Varicose veins of unspecified lower extremity with ulcer of unspecified site; L97.902 - Non-pressure chronic ulcer of unspecified part of unspecified lower leg with fat layer exposed QUALIFIERS: Venous stasis ulcer site: calf Laterality: left Qualified Code(s): I83.022 - Varicose veins of left lower extremity with ulcer of calf; L97.222 - Non-pressure chronic ulcer of left calf with fat layer exposed (2) Ulcer of right lower extremity with fat layer exposed: CODE(S): L97.912 - Non-pressure chronic ulcer of unspecified part of right lower leg with fat layer exposed (3) Bilateral edema of lower extremity: CODE(S): R60.0 - Localized edema (4) Venous insufficiency of both lower extremities: CODE(S): I87.2 - Venous insufficiency (chronic) (peripheral) (5) Morbid obesity: CODE(S): E66.01 - Morbid (severe) obesity due to excess calories (6) Lymphedema associated with obesity: CODE(S): I89.0 - Lymphedema, not elsewhere classified; E66.9 - Obesity, unspecified (7) History of venous thromboembolism: CODE(S): Z86.718 - Personal history of other venous thrombosis and embolism PLAN: Wound care right lateral leg ulcer will place Silver alginate covered by super absorbant gauze daily. His bertha wound is excoriated so instructed him to moisturize with A&D ointment or aquaphor 1-2 times daily. Right medial leg is healed today. Double tubigrip and ESTEFANIA wrap for compression. He saw Dr. Cheney, vascular surgeon in practice with Dr. Mathis. He states they have some plans but is unable to tell me what those are. Discussed increased protein to help with wound healing and taking Vitamin C 1,000 mg. Discussed decreasing his sodium intake to help with the swelling of his legs. Encourage ambulation but avoid legs in an dependent position. 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 He has been approved for his lymphedema pumps. Encouraged him to use them at least 2 times per day. He states that may be difficult because sometimes he is gone for work at least 12 hours. Instructed him that sleeping in a bed would be beneficial to help with his leg edema. Follow up two weeks.
== END 2021-03-19 23:59 ==
LOC: WC 10:45
PROVIDERS: PCP Preventive Medicine Occupational Medicine; Visit Provider Nurse Practitioner Family
DX: I83.012 Varicose veins of right lower extremity with ulcer of calf (principal); E66.9 Obesity, unspecified; Z68.43 Body mass index [BMI] 50.0-59.9, adult; R60.0 Localized edema; L97.212 Non-pressure chronic ulcer of right calf with fat layer exposed; I87.2 Venous insufficiency (chronic) (peripheral); I89.0 Lymphedema, not elsewhere classified
CPT/HCPCS: 11042; 11045

== ENCOUNTER 2022-12-17 10:30 | Outpatient (RCR) | payer MEDICARE, OTHER, SELFPAY ==
[2022-11-26 10:13] VITALS: BP 267/72; PULSE 89; RESP 20; TEMP 36.2; BMI 59.1
--- NOTE | 2022-11-26 11:39 | PCM.WC.HP ---
History of Present Illness Date of Service: 11/26/22 Chief Complaint: Right lateral leg ulcer History of Wound: 66-year-old white obese male. He appears here with a very large deep wound on his right posterior lower leg. He suffers from venous ulcers, and this 1 has been going on for 2 to 3 months. Other than covering it with a gauze dressing he has done nothing else. These are reoccurring ulcer openings have never been taking care of properly because of COVID. Patient did have arterial brachial and venous studies done and 2020 but never got to see the vascular surgeon for repair. Arterial studies fine its his venous he is got a lot of incompetence sees right where all of his wounds are. Patient suffers from cellulitis and also overgrowth of keratosis. He states that he has a history of an infected ulcer from 2013 and he was being seen at the [place] [facility]. He states that he has had issues with this ulcer on an off for years. He states had a fracture of his left ankle which required him to be placed in a SNF and the ulcer on the right improved during that time. 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 He is obese with a BMI 59.1. He sleeps in a recliner because his mattress makes his back hurt. He has significant amount of lower extremity edema. 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 Right AFIA by posterior tibial artery is 1.01. Left AFIA by posterior tibial artery is 0.98. The left AFIA by dorsalis pedis is 1.02. Bilateral triphasic doppler wavelength at ankle level. Venous Duplex ultrasound on 01/28/21 showed segmental valvular incompetence is noted within the great saphenous veins bilaterally. The right small saphenous vein is patent and competent. The left small saphenous vein is patent and incompetent. The accessory saphenous vein in the right mid-thigh is incompetent. We will refer him to Dr. Solis for further evaluation. Today he denies fever, chills, nausea or vomiting. He states his appetite is good. We did discuss weight loss and maybe he needs to try getting those injections from his doctor. 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 [facility] Medical History (Reviewed 11/26/22 @ 11:46 by Krystin Johnson [employer], [employer]) Morbid obesity Venous insufficiency of both lower extremities Home Medications albuterol sulfate 90 mcg/actuation aerosol inhaler (ProAir HFA) 2 puff inhalation Q4H PRN Wheezing 01/15/21 [History Last Taken Unknown] allopurinol 300 mg tablet 300 mg PO DAILY 01/15/21 [History Last Taken 11/26/22] betamethasone dipropionate 0.05 % topical cream 1 applic topical DAILY PRN Rash 01/15/21 [History Last Taken Unknown] fluticasone 250 mcg-salmeterol 50 mcg/dose blistr powdr for inhalation 1 inh inhalation BID 01/15/21 [History Last Taken Unknown] losartan 50 mg tablet 50 mg PO DAILY 01/15/21 [History Last Taken Unknown] metoprolol succinate 100 mg tablet,extended release 24 hr 25 mg PO DAILY 01/15/21 [History Last Taken Unknown] rivaroxaban 20 mg tablet (Xarelto) 20 mg PO DAILY 01/15/21 [History Last Taken 11/26/22] diltiazem HCl 120 mg tablet (Cardizem) 120 mg PO Q8H 11/26/22 [History Last Taken Unknown] furosemide 20 mg tablet (Lasix) 20 mg PO DAILY 11/26/22 [History Last Taken Unknown] levothyroxine 50 mcg tablet (Levo-T) 50 mcg PO DAILY 11/26/22 [History Last Taken Unknown] Allergy/AdvReac Type Severity Reaction Status Date / Time silver AdvReac Rash Verified 11/26/22 10:34 Social History Smoking Status: Never smoker ROS Constitutional Constitutional: Reports systems reviewed and no addt'l complaints, except as documented Eyes Eyes: Reports systems reviewed and no addt'l complaints, except as documented ENT HEENT: Reports systems reviewed and no addt'l complaints, except as documented Cardiovascular Cardiovascular: Reports systems reviewed and no addt'l complaints, except as documented Respiratory/Chest Respiratory/Chest: Reports systems reviewed and no addt'l complaints, except as documented Gastrointestinal Gastrointestinal: Reports systems reviewed and no addt'l complaints, except as documented Genitourinary Genitourinary: Reports systems reviewed and no addt'l complaints, except as documented Musculoskeletal Musculoskeletal: Reports systems reviewed and no addt'l complaints, except as documented and other Details: Suffers from flatfeet Integumentary Integumentary: Reports wounds and other Details: Large cavernous wound on the back of right lower leg. Cellulitis to the anterior part of the right lower leg. Venous insufficiency to bilateral lower legs Neurologic Neurologic: Reports systems reviewed and no addt'l complaints, except as documented Psychiatric Psychiatric: Reports systems reviewed and no addt'l complaints, except as documented Endocrine Endocrinology: Reports systems reviewed and no addt'l complaints, except as documented Hematologic/Lymphatic Hematologic/Lymphatic: Reports systems reviewed and no addt'l complaints, except as documented Allergic/Immunologic Allergic/Immunologic: Reports systems reviewed and no addt'l complaints, except as documented Vital Signs Vital Signs Vital Signs: 11/26/22 10:13 Temperature 97.2 F L Temperature Source Temporal Pulse Rate 89 Respiratory Rate 20 H Blood Pressure 267/72 H Blood Pressure Mean 137 Blood Pressure Source Monitor Weight Weight: 400 lb 13.584 oz Body Mass Index (BMI) 59.1 Physical Exam Const oriented x3 General Appearance: cooperative HEENT normocephalic Head and Scalp: normal to inspection External Ear: external ears normal Eyes PERRL Neck full ROM Resp normal respiratory effort Effort and Inspection: able to speak in complete sentences Auscultation: clear to auscultation bilaterally Cardio regular rate and regular rhythm Palpation: normal PMI Rate: regular rate Rhythm: regular rhythm Extremity Negative for normal to inspection Extremity Narrative: Right lower leg has narrowing from mid hand down to ankle with large wound posterior side of right lower leg calf area Obvious flatfeet with a lot of broken blood vessels in ankle and foot area. No pitting edema noted Coloring of feet and legs good with good cap refill warm to touch General Extremity: normal exam except as noted Skin no rashes or lesions noted Wounds: wounds noted Wound Narrative: Large open wound back of the right lower calf area and cellulitis to the anterior part of the skin of the hand area Has an odor . Psych Appearance: grossly normal Speech: normal speech Thought Content: normal thought content Judgement: judgement good Debridement Note Debridement Note Wound debrided: Right posterior venous insufficiency ulcer Type of Debridement: Excisional debridement Anesthesia Used: 5% Lidocaine Gel Depth: Down to and including healthy tissue and to muscle Percentage of wound debrided: 100 Instrument Used: 7mm curette Tissue Removed: Devitalized tissue fibrin slough Severity: Fat Layer Exposed Amount of bleeding with debridement: Mild Bleeding Controlled with: Compression and gauze Patient tolerated procedure: Patient tolerated procedure well Post-Debridement Measurements and Additional Note: Post-Debridement Measurements/Treatment - Nurse 1 - General Ulcer Assessment Start: 11/26/22 10:13 Freq: Status: Active Protocol: JADEN Activity Type Activity Date Activity User E-sign Co-sign Detail Recorded Client Recorded Date Recorded By Document 11/26/22 10:13 DL [id number] 11/26/22 10:32 DL 11/26/22 10:13 - Today's Visit Information Type of service Initial Visit Arrival Mode Ambulatory, Walker Transfer Assistance None Patient Identification Verified (Name & Yes ) Patient Requires Transmission-Based No Precautions Height and Weight Height 5 ft 9 in Weight 400 lb 13.584 oz Weight in Pounds 400.8 lbs Weight Measurement Method Estimated by Patient Body Mass Index (BMI) 59.1 BMI Classification Obese BSA - Bonnie 2.78 Vital Signs Temperature (97.8 F-99.1 F) 97.2 F L Temperature Source Temporal Pulse Rate (60-100) 89 Pulse Location Monitor Respiratory Rate (12-18) 20 H Respiratory rate source Observation Blood Pressure (90/60-120/80) 267/72 H Blood Pressure Mean 137 Source Monitor History Since Last Visit- (Skip if this is Patient's initial visit) Left Footwear Regular Shoe Right Footwear Regular Shoe Pain Scale: 0-10 Numeric Is Patient Pain Free? Yes Lower Extremity Assessment/ Foot Assessment/ Toe Nail Assessment Left -Posterior Tibial Palpable No -Posterior Tibial Doppler Monophasic -Dorsalis Pedis Palpable No -Dorsalis Pedis Doppler Monophasic -Extremity Color Red, Hyperpigmented, Hemosiderin -Hair Growth on Legs No -Hair Growth on Toes No -Temperature of Extremity Warm -Capillary Refill Greater than 3 Seconds -Dependent Rubor No -Blanched when Elevated No -Lipodermatosclerosis No -Other Deformity No -Prior Foot Ulcer No -Charcot Joint No -Prior Amputation No -Thick No -Discolored No -Deformed No -Improper Length & Hygeine Yes Right -Posterior Tibial Palpable No -Posterior Tibial Doppler Monophasic -Dorsalis Pedis Palpable No -Dorsalis Pedis Doppler Monophasic -Extremity Color Red, Hyperpigmented, Hemosiderin -Hair Growth on Legs No -Hair Growth on Toes No -Temperature of Extremity Warm -Capillary Refill Less than 3 Seconds -Dependent Rubor Yes -Blanched when Elevated No -Lipodermatosclerosis No -Other Deformity No -Prior Foot Ulcer No -Charcot Joint No -Prior Amputation No -Thick No -Discolored No -Deformed No -Improper Length & Hygeine Yes Neuropathy Assessment Feet - Top Side and Bottom <Entered> (a) Communication Assessment Preferred language Palestinian Able to Read Yes Able to Write Yes Communication Tools None Right Hearing Abillity Normal Left Hearing Abillity Normal Visual Assistive Devices Glasses Teaching Assessment Preferences Verbal,Written, Demonstration Barriers to Learning None Readiness To Learn Good Willingness to Engage in Self Management Med Activies Readiness to Engage in Self Management Med Activities Anxiety Level Calm Cooperation Cooperative Perception Coherent Interest in Health Problem Asks Questions Education Importance Acknowledges Need Does Patient Smoke tobacco or other No substances Smoking Status Never smoker Is Patient Diabetic No Functional Assessment Recent Decline in Ability to Perform Ambulation Culture/Voodoo/Coding Spec Cultural/Voodoo Needs that may affect No Treatment Plan Would you allow our hospital deputy county clerk to No meet you for the purpose of spiritual/ emotional support? Coding Spec to contact place of restoration No Teaching: Wound Center Compression Wraps & Stockings -Person Taught Patient Skin Care -Person Taught Patient *Debridement -Person Taught Patient Dressing Your Wound -Person Taught Patient *Welcome to the Wound Center -Person Taught Patient (a) 1 - + WC - Nurse 1 - General Ulcer Measurement Start: 11/26/22 10:13 Freq: Status: Active Protocol: Activity Type Activity Date Activity User E-sign Co-sign Detail Recorded Client Recorded Date Recorded By Document 11/26/22 10:13 DL [id number] 11/26/22 10:32 DL 11/26/22 10:13 Wound Center Nurse 1 #3 R Lat/Post LE -Current Size (cm) - Length 5 -Current Size (cm) - Width 10 -Current Size (cm) - Depth 1.2 -Total Square Cm 50 -Photo Taken Yes -Classification - Thickness Full Thickness without Exposed Support Structure -Exudate Amt Large -Exudate Type Serosanguineous -Wound Margin Distinct, Outline Attached -Granulation Amt Medium (34-66%) -Granulation Quality Red -Necrosis Amt Medium (34-66%) -Necrotic Tissue Type Adherent Slough -Structure Exposed N/A -Texture (Bertha-wound Skin Appearance) Excoriation, Scarring -Moisture (Bertha-wound Skin Appearance) Dry/Scaly -Color (Bertha-wound Skin Appearance) Erythema, Hemosiderin Staining -Temperature (Bertha-wound Skin No Abnormality Appearance) (Pt Warm) -Tenderness on Palpation (Bertha-wound No Skin Appearance) -Ulcer Cleansing Soap and Water -Foul Odor after Cleansing No -Anesthetic Used 4% Lidocaine Solution Right Calf (cm) 69.5 Right Ankle (cm) 32.9 Left Calf (cm) 65.8 Left Ankle (cm) 34.5 RADHA - Nurse 2 - General Ulcer CM Notes Start: 11/26/22 10:13 Freq: Status: Active Protocol: Activity Type Activity Date Activity User E-sign Co-sign Detail Recorded Client Recorded Date Recorded By Document 11/26/22 10:47 MW [id number] 11/26/22 10:58 MW 11/26/22 10:47 Wound Center Nurse 2 #3 R Lat/Post LE -Time 10:53 -Correct Patient Yes -Correct Side, Site, Position Yes -Correct Procedure Yes -Procedure Performed Yes -Type of Procedure Debridement -Clinical Debridement Subcutaneous -Tissue Removed Subcutaneous -Post Debridement (cm) - Length 5.3 -Post Debridement (cm) - Width 10.0 -Post Debridement (cm) - Depth 1.3 -Total Square (Post) (cm) 53.00 -Area of Debridement (cm) - Length 5.3 -Area of Debridement (cm) - Width 10.0 -Total Square (Area) (cm) 53.00 -Tunneling No -Undermining/Tunneling No -Circular Undermining No -Wound/Ulcer Outcome Not Healed -Ulcer Cleansing Rinsed/ Irrigated with Saline -Foul Odor after Cleansing No -Bioengineered Tissue No -Bleeding Controlled with Pressure -Treatment Response Procedure Tolerated Well -Offloading No -Debridement - Subq, 1st 20sq cm Yes -Debridement, SubQ, ea addt'l 20sq cm 2 or part thereof Pain Scale: 0-10 Numeric Is Patient Pain Free? Yes RADHA - Nurse 3 - General Ulcer D/C NN Start: 11/26/22 10:13 Freq: Status: Active Protocol: Activity Type Activity Date Activity User E-sign Co-sign Detail Recorded Client Recorded Date Recorded By Document 11/26/22 11:33 [facility] [id number] 11/26/22 11:34 [facility] 11/26/22 11:33 Wound Care Center Nurse 3 #3 R Lat/Post LE -Ulcer Cleansing Rinsed/ Irrigated with Saline -Foul Odor after Cleansing No -Primary Dressing Applied Fibracol Plus 4x4,NonAdherent Contact Layer -Other Dressing ABD -Primary Dressing Covered/Secured with Dry Gauze & Roll Gauze, Secured with Tape -Fibracol Plus 4x4 2 BLE -Tubular Bandage Single Layer -Size of Tubigrip Used Size F -Size F ($) 2 Treatment Response Procedure Tolerated Well Pain Scale: 0-10 Numeric Is Patient Pain Free? Yes WC - Visit Discharge Discharge Condition Stable Ambulatory Status Ambulatory, Walker Transportation Private Auto Accompanied by Assessment/Plan Assessment/Plan (1) Morbid obesity: CODE(S): E66.01 - Morbid (severe) obesity due to excess calories (2) Venous insufficiency of both lower extremities: CODE(S): I87.2 - Venous insufficiency (chronic) (peripheral) (3) Ulcer of right lower extremity with fat layer exposed: CODE(S): L97.912 - Non-pressure chronic ulcer of unspecified part of right lower leg with fat layer exposed PLAN: Wash right lower leg with antibacterial soap and water. Pat dry Apply Fibracol to wound base with Adaptic over top and ABD and gauze dressing Every day dressing change Double layer Tubigrip or Christiano wrap with Tubigrip over top for compression Cultures were obtained will call patient with results Referral to Dr. Solis for venous insufficiency and swelling Follow-up in 1 week (4) Dyshidrotic eczema: CODE(S): L30.1 - Dyshidrosis [pompholyx]
[2022-12-03 10:20] VITALS: BP 140/66; PULSE 85; RESP 18; TEMP 35.9; BMI 59.1
--- NOTE | 2022-12-03 12:18 | PN.PCM_ITS ---
History of Present Illness Date of Service: 12/03/22 Chief Complaint: Right lateral leg ulcer History of Wound: 66-year-old white obese male. He appears here with a very large deep wound on his right posterior lower leg. He suffers from venous ulcers, and this 1 has been going on for 2 to 3 months. Other than covering it with a gauze dressing he has done nothing else. These are reoccurring ulcer openings have never been taking care of properly because of COVID. Patient did have arterial brachial and venous studies done and 2020 but never got to see the vascular surgeon for repair. Arterial studies fine its his venous he is got a lot of incompetence sees right where all of his wounds are. Patient suffers from cellulitis and also overgrowth of keratosis. He states that he has a history of an infected ulcer from 2013 and he was being seen at the [facility]. He states that he has had issues with this ulcer on an off for years. He states had a fracture of his left ankle which required him to be placed in a SNF and the ulcer on the right improved during that time. 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 He is obese with a BMI 59.1. He sleeps in a recliner because his mattress makes his back hurt. He has significant amount of lower extremity edema. 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 Right AFIA by posterior tibial artery is 1.01. Left AFIA by posterior tibial artery is 0.98. The left AFIA by dorsalis pedis is 1.02. Bilateral triphasic doppler wavelength at ankle level. Venous Duplex ultrasound on 01/28/21 showed segmental valvular incompetence is noted within the great saphenous veins bilaterally. The right small saphenous vein is patent and competent. The left small saphenous vein is patent and incompetent. The accessory saphenous vein in the right mid- thigh is incompetent. We will refer him to Dr. Solis for further evaluation. Today he denies fever, chills, nausea or vomiting. He states his appetite is good. We did discuss weight loss and maybe he needs to try getting those injections from his doctor. 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 Progress of Wound: Wound size is slightly smaller but has a terrible odor. It is growing 4 different bacteria's were still pending on the anaerobes. [facility] on [facility] antibiotic has not gotten to the misread the label and did not give him anything. We will continue with same treatment only adding and Bactroban to the wound base with Fibracol over top Subjective Subjective Family has an appoint with podiatry though daughter did trim his toenails somewhat. Also needs to see Dr. Solis about his lower extremity studies did show incompetence he has back in . Patient should be seen by vascular at this p oint. Objective Data Objective Data Ulcer right lower extremity still has depth still has a bad odor still has that cellulitis on the outside of his legs. We will add in the Bactroban to the wound base with Fibracol over top and moistened Vital Signs: Vital Signs Temp Pulse Resp BP 96.7 F L 85 18 140/66 H 12/03/22 10:20 12/03/22 10:20 12/03/22 10:20 12/03/22 10:20 Weight: 400 lb 13.584 oz Body Mass Index (BMI) 59.1 Lab / Micro Data Micro: Microbiology 11/26/22 10:50 Wound - Leg, Right Gram Stain - Final 11/26/22 10:50 Wound - Leg, Right Wound Culture - Final Proteus mirabilis Escherichia coli Staphylococcus aureus Staphylococcus simulans 11/26/22 10:50 Wound - Leg, Right Anaerobic Culture - Preliminary Checking for anaerobes, further studies to follow. Physical Exam Const oriented x3 General Appearance: cooperative HEENT normocephalic Head and Scalp: normal to inspection External Ear: external ears normal Eyes PERRL Neck full ROM Resp normal respiratory effort Effort and Inspection: able to speak in complete sentences Auscultation: clear to auscultation bilaterally Cardio regular rate and regular rhythm Palpation: normal PMI Rate: regular rate Rhythm: regular rhythm Extremity Negative for normal to inspection Extremity Narrative: Right lower leg has narrowing from mid hand down to ankle with large wound posterior side of right lower leg calf area Obvious flatfeet with a lot of broken blood vessels in ankle and foot area. No pitting edema noted Coloring of feet and legs good with good cap refill warm to touch General Extremity: normal exam except as noted Skin no rashes or lesions noted Wounds: wounds noted Wound Narrative: Large open wound back of the right lower calf area and cellulitis to the anterior part of the skin of the hand area Has an odor . Psych Appearance: grossly normal Speech: normal speech Thought Content: normal thought content Judgement: judgement good Debridement Note Debridement Note Wound debrided: Right lower leg venous insufficiency ulcer now with deep open wound Laterality: Right Type of Debridement: Excisional debridement Anesthesia Used: 5% Lidocaine Gel Depth: in the subcutaneous layer Percentage of wound debrided: 100 Instrument Used: 7mm curette Tissue Removed: Fibrin devitalized tissue Severity: Fat Layer Exposed Amount of bleeding with debridement: Mild Bleeding Controlled with: Compression and gauze Patient tolerated procedure: Patient tolerated procedure well Post-Debridement Measurements and Additional Note: Post-Debridement Measurements/Treatment WC - Nurse 1 - General Ulcer Assessment Start: 11/26/22 10:13 Freq: Status: Active Protocol: JADEN Activity Type Activity Date Activity User E-sign Co-sign Detail Recorded Client Recorded Date Recorded By Document 11/26/22 10:13 DL [id number] 11/26/22 10:32 DL Document 12/03/22 10:20 RB [id number] 12/03/22 10:40 RB 11/26/22 12/03/22 10:13 10:20 - Today's Visit Information Type of service Initial Visit Follow-up Visit (Physician/[employer]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 ) Arrival Mode Ambulatory, Ambulatory, Walker Walker Transfer Assistance None None Patient Identification Verified (Name & Yes Yes ) Patient Requires Transmission-Based No Precautions Height and Weight Height 5 ft 9 in Weight 400 lb 13.584 oz Weight in Pounds 400.8 lbs Weight Measurement Method Estimated by Patient Body Mass Index (BMI) 59.1 59.1 BMI Classification Obese Obese BSA - Bonnie 2.78 Vital Signs Temperature (97.8 F-99.1 F) 97.2 F L 96.7 F L Temperature Source Temporal Temporal Pulse Rate (60-100) 89 85 Pulse Location Monitor Apical Respiratory Rate (12-18) 20 H 18 Respiratory rate source Observation Observation Blood Pressure (90/60-120/80) 267/72 H 140/66 H Blood Pressure Mean (mm Hg) 137 90 Source Monitor Monitor Position Semi-Fowlers Blood Pressure Location Left Arm History Since Last Visit- (Skip if this is Patient's initial visit) Have you changed medications since your No last visit? Any new allergies or adverse reactions No Had a fall/change in ADL's that may No increase risk of falls Signs or symptoms of abuse and/or No neglect since last visit Have you been in the hospital since your No last visit? Has dressing in place as prescribed Yes Has compression in place as prescribed Yes Has offloadiing in place as prescribed No Experienced any changes in pain level or No management Left Footwear Regular Shoe Right Footwear Regular Shoe Pain Scale: 0-10 Numeric Is Patient Pain Free? Yes No Lower Extremity Assessment/ Foot Assessment/ Toe Nail Assessment Left -Posterior Tibial Palpable No -Posterior Tibial Doppler Monophasic -Dorsalis Pedis Palpable No -Dorsalis Pedis Doppler Monophasic -Extremity Color Red, Hyperpigmented, Hemosiderin -Hair Growth on Legs No -Hair Growth on Toes No -Temperature of Extremity Warm -Capillary Refill Greater than 3 Seconds -Dependent Rubor No -Blanched when Elevated No -Lipodermatosclerosis No -Other Deformity No -Prior Foot Ulcer No -Charcot Joint No -Prior Amputation No -Thick No -Discolored No -Deformed No -Improper Length & Hygeine Yes Right -Posterior Tibial Palpable No -Posterior Tibial Doppler Monophasic -Dorsalis Pedis Palpable No -Dorsalis Pedis Doppler Monophasic -Extremity Color Red, Hyperpigmented, Hemosiderin -Hair Growth on Legs No -Hair Growth on Toes No -Temperature of Extremity Warm -Capillary Refill Less than 3 Seconds -Dependent Rubor Yes -Blanched when Elevated No -Lipodermatosclerosis No -Other Deformity No -Prior Foot Ulcer No -Charcot Joint No -Prior Amputation No -Thick No -Discolored No -Deformed No -Improper Length & Hygeine Yes Neuropathy Assessment Feet - Top Side and Bottom <Entered> (a) Communication Assessment Preferred language Icelandic Able to Read Yes Able to Write Yes Communication Tools None Right Hearing Abillity Normal Left Hearing Abillity Normal Visual Assistive Devices Glasses Teaching Assessment Preferences Verbal,Written, Demonstration Barriers to Learning None Readiness To Learn Good Willingness to Engage in Self Management Med Activies Readiness to Engage in Self Management Med Activities Anxiety Level Calm Cooperation Cooperative Perception Coherent Interest in Health Problem Asks Questions Education Importance Acknowledges Need Does Patient Smoke tobacco or other No substances Smoking Status Never smoker Is Patient Diabetic No Functional Assessment Recent Decline in Ability to Perform Ambulation Culture/Roman Catholic/Fixed Capital Clerk Cultural/Roman Catholic Needs that may affect No Treatment Plan Would you allow our hospital batting machine operator insulation to No meet you for the purpose of spiritual/ emotional support? Fixed Capital Clerk to contact place of episcopalian No Teaching: Wound Center Compression Wraps & Stockings -Person Taught Patient Skin Care -Person Taught Patient *Debridement -Person Taught Patient Dressing Your Wound -Person Taught Patient *Welcome to the Wound Center -Person Taught Patient (a) 1 - + WC - Nurse 1 - General Ulcer Measurement Start: 11/26/22 10:13 Freq: Status: Active Protocol: Activity Type Activity Date Activity User E-sign Co-sign Detail Recorded Client Recorded Date Recorded By Document 11/26/22 10:13 DL [id number] 11/26/22 10:32 DL Document 12/03/22 10:20 RB [id number] 12/03/22 10:40 RB 11/26/22 12/03/22 10:13 10:20 Wound Center Nurse 1 #3 R Lat/Post LE -Combined with other wound No -Current Size (cm) - Length 5 5.2 -Current Size (cm) - Width 10 9 -Current Size (cm) - Depth 1.2 1.4 -Total Square Cm 50 46.8 -Photo Taken Yes -Tunneling No -Undermining/Tunneling No -Circular Undermining No -Classification - Thickness Full Thickness without Exposed Support Structure -Exudate Amt Large Medium -Exudate Type Serosanguineous Serosanguineous -Wound Margin Distinct, Distinct, Outline Outline Attached Attached -Granulation Amt Medium (34-66%) Medium (34-66%) -Granulation Quality Red [place] -Slough/Fibrin Yes -Necrosis Amt Medium (34-66%) Medium (34-66%) -Necrotic Tissue Type Adherent Slough Adherent Slough -Structure Exposed N/A N/A -Texture (Bertha-wound Skin Appearance) Excoriation, Assessed Scarring -Moisture (Bertha-wound Skin Appearance) Dry/Scaly Assessed -Color (Bertha-wound Skin Appearance) Erythema, Assessed Hemosiderin Staining -Temperature (Bertha-wound Skin No Abnormality No Abnormality Appearance) (Pt Warm) (Pt Warm) -Tenderness on Palpation (Bertha-wound No No Skin Appearance) -Ulcer Cleansing Soap and Water Wound Cleanser -Foul Odor after Cleansing No No -Anesthetic Used 4% Lidocaine 5% Lidocaine Solution Gel Lower Limb Edema Present Yes Right Calf (cm) 69.5 71 Right Ankle (cm) 32.9 32 Left Calf (cm) 65.8 Left Ankle (cm) 34.5 RADHA - Nurse 2 - General Ulcer CM Notes Start: 11/26/22 10:13 Freq: Status: Active Protocol: Activity Type Activity Date Activity User E-sign Co-sign Detail Recorded Client Recorded Date Recorded By Document 11/26/22 10:47 MW [id number] 11/26/22 10:58 MW Document 12/03/22 10:54 MW [id number] 12/03/22 11:00 MW 11/26/22 12/03/22 10:47 10:54 Wound Center Nurse 2 #3 R Lat/Post LE -Time 10:53 10:54 -Correct Patient Yes Yes -Correct Side, Site, Position Yes Yes -Correct Procedure Yes Yes -Procedure Performed Yes Yes -Type of Procedure Debridement Debridement -Clinical Debridement Subcutaneous Subcutaneous -Tissue Removed Subcutaneous Subcutaneous -Post Debridement (cm) - Length 5.3 5.5 -Post Debridement (cm) - Width 10.0 8.9 -Post Debridement (cm) - Depth 1.3 1.5 -Total Square (Post) (cm) 53.00 48.95 -Area of Debridement (cm) - Length 5.3 5.5 -Area of Debridement (cm) - Width 10.0 8.9 -Total Square (Area) (cm) 53.00 48.95 -Tunneling No No -Undermining/Tunneling No No -Circular Undermining No No -Wound/Ulcer Outcome Not Healed Not Healed -Ulcer Cleansing Rinsed/ Rinsed/ Irrigated with Irrigated with Saline Saline -Foul Odor after Cleansing No No -Bioengineered Tissue No No -Bleeding Controlled with Pressure Pressure -Treatment Response Procedure Procedure Tolerated Well Tolerated Well -Offloading No No -Debridement - Subq, 1st 20sq cm Yes Yes -Debridement, SubQ, ea addt'l 20sq cm 2 2 or part thereof Pain Scale: 0-10 Numeric Is Patient Pain Free? Yes Yes RADHA - Nurse 3 - General Ulcer D/C NN Start: 11/26/22 10:13 Freq: Status: Active Protocol: Activity Type Activity Date Activity User E-sign Co-sign Detail Recorded Client Recorded Date Recorded By Document 11/26/22 11:33 [facility] [id number] 11/26/22 11:34 BM Document 12/03/22 11:26 [facility] [id number] 12/03/22 11:28 [facility] 11/26/22 12/03/22 11:33 11:26 Wound Care Center Nurse 3 #3 R Lat/Post LE -Ulcer Cleansing Rinsed/ Soap and Water Irrigated with Saline -Foul Odor after Cleansing No No -Primary Dressing Applied Fibracol Plus Fibracol Plus 4x4,NonAdherent 4x4,NonAdherent Contact Layer Contact Layer -Other Dressing ABD ABD -Primary Dressing Covered/Secured with Dry Gauze & Dry Gauze & Roll Gauze, Roll Gauze, Secured with Secured with Tape Tape -Fibracol Plus 4x4 2 2 BLE -Tubular Bandage Single Layer -Size of Tubigrip Used Size F -Size F ($) 2 -Other PT REAPPLIED HIS SIZE G. REFUSES SIZE F Treatment Response Procedure Tolerated Well Pain Scale: 0-10 Numeric Is Patient Pain Free? Yes Yes WC - Visit Discharge Discharge Condition Stable Stable Ambulatory Status Ambulatory, Ambulatory, Walker Walker Transportation Private Auto Private Auto Accompanied by Assessment/Plan Assessment/Plan (1) Morbid obesity: CODE(S): E66.01 - Morbid (severe) obesity due to excess calories (2) Venous insufficiency of both lower extremities: CODE(S): I87.2 - Venous insufficiency (chronic) (peripheral) (3) Ulcer of right lower extremity with fat layer exposed: CODE(S): L97.912 - Non-pressure chronic ulcer of unspecified part of right lower leg with fat layer exposed PLAN: Wash right lower leg with antibacterial soap and water. Pat dry Apply Bactroban ointment to wound base nickel thickness then Fibracol to wound base with Adaptic over top and ABD and gauze dressing Every day dressing change Double layer Tubigrip or Christiano wrap with Tubigrip over top for compression Start Levaquin 500 mg 1 p.o. daily for 14 days. Anaerobes still pending Referral to Dr. Solis for venous insufficiency and swelling Follow-up in 1 week (4) Dyshidrotic eczema: CODE(S): L30.1 - Dyshidrosis [pompholyx]
[2022-12-10 10:27] VITALS: BP 112/53; PULSE 81; RESP 16; TEMP 36.6; BMI 59.1
--- NOTE | 2022-12-10 12:44 | PCM.WC.PN ---
History of Present Illness Date of Service: 12/10/22 Chief Complaint: Right lateral leg ulcer History of Wound: 66-year-old white obese male. He appears here with a very large deep wound on his right posterior lower leg. He suffers from venous ulcers, and this 1 has been going on for 2 to 3 months. Other than covering it with a gauze dressing he has done nothing else. These are reoccurring ulcer openings have never been taking care of properly because of COVID. Patient did have arterial brachial and venous studies done and 2020 but never got to see the vascular surgeon for repair. Arterial studies fine its his venous he is got a lot of incompetence sees right where all of his wounds are. Patient suffers from cellulitis and also overgrowth of keratosis. He states that he has a history of an infected ulcer from 2013 and he was being seen at the [facility]. He states that he has had issues with this ulcer on an off for years. He states had a fracture of his left ankle which required him to be placed in a SNF and the ulcer on the right improved during that time. 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 He is obese with a BMI 59.1. He sleeps in a recliner because his mattress makes his back hurt. He has significant amount of lower extremity edema. 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 Right AFIA by posterior tibial artery is 1.01. Left AFIA by posterior tibial artery is 0.98. The left AFIA by dorsalis pedis is 1.02. Bilateral triphasic doppler wavelength at ankle level. Venous Duplex ultrasound on 01/28/21 showed segmental valvular incompetence is noted within the great saphenous veins bilaterally. The right small saphenous vein is patent and competent. The left small saphenous vein is patent and incompetent. The accessory saphenous vein in the right mid-thigh is incompetent. We will refer him to Dr. Solis for further evaluation. Today he denies fever, chills, nausea or vomiting. He states his appetite is good. We did discuss weight loss and maybe he needs to try getting those injections from his doctor. 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 Progress of Wound: Wound size is slightly smaller but has a terrible odor. It is growing 4 different bacteria's into anaerobes. [facility] on his antibiotic has not gotten to the misread the label and did not give him anything. We will continue with same treatment only adding and Bactroban to the wound base with Fibracol over top Much improvement on the depth of the wound was able to scrape out a lot more slough out of the base. No odor noted at this time. Has an appointment with Dr. Solis tomorrow for vascular consult. Patient is on antibiotic and an antimicrobial now Subjective Subjective and are okay with everything Objective Data Objective Data So the medial side of the wound with a deep ended side is improving with shallower and able to actually debride off a lot of slough this time. The lateral aspect of the ankle is much improved also and she can stop using the Xeroform and just start using amLactin cream to the skin area. Vital Signs: Vital Signs Temp Pulse Resp BP O2 Del Method 97.9 F 81 16 112/53 L Room Air 12/10/22 10:27 12/10/22 10:27 12/10/22 10:27 12/10/22 10:27 12/10/22 10:27 Oxygen Delivery Method Room Air Weight: 400 lb 13.584 oz Body Mass Index (BMI) 59.1 Lab / Micro Data Attestation: I reviewed the patient's lab results. Micro: Microbiology 11/26/22 10:50 Wound - Leg, Right Gram Stain - Final 11/26/22 10:50 Wound - Leg, Right Wound Culture - Final Proteus mirabilis Escherichia coli Staphylococcus aureus Staphylococcus simulans 11/26/22 10:50 Wound - Leg, Right Anaerobic Culture - Final Anaerobic cocci Prevotella species Physical Exam Const oriented x3 General Appearance: cooperative HEENT normocephalic Head and Scalp: normal to inspection External Ear: external ears normal Eyes PERRL Neck full ROM Resp normal respiratory effort Effort and Inspection: able to speak in complete sentences Auscultation: clear to auscultation bilaterally Cardio regular rate and regular rhythm Palpation: normal PMI Rate: regular rate Rhythm: regular rhythm Extremity Negative for normal to inspection Extremity Narrative: Right lower leg has narrowing from mid hand down to ankle with large wound posterior side of right lower leg calf area Obvious flatfeet with a lot of broken blood vessels in ankle and foot area. No pitting edema noted Coloring of feet and legs good with good cap refill warm to touch General Extremity: normal exam except as noted Skin no rashes or lesions noted Wounds: wounds noted Wound Narrative: Large open wound back of the right lower calf area and cellulitis to the anterior part of the skin of the hand area Has an odor . Psych Appearance: grossly normal Speech: normal speech Thought Content: normal thought content Judgement: judgement good Debridement Note Debridement Note Wound debrided: Right medial ankle venous ulcer Laterality: Right Type of Debridement: Excisional debridement Anesthesia Used: 5% Lidocaine Gel Depth: in the subcutaneous layer and to muscle Percentage of wound debrided: 100 Instrument Used: 7mm curette Tissue Removed: Devitalized tissue slough Severity: Fat Layer Exposed Amount of bleeding with debridement: Mild Bleeding Controlled with: Compression and gauze Patient tolerated procedure: Patient tolerated procedure well Post-Debridement Measurements and Additional Note: Post-Debridement Measurements/Treatment - Nurse 1 - General Ulcer Assessment Start: 11/26/22 10:13 Freq: Status: Active Protocol: JADEN Activity Type Activity Date Activity User E-sign Co-sign Detail Recorded Client Recorded Date Recorded By Document 11/26/22 10:13 DL [id number] 11/26/22 10:32 DL Document 12/03/22 10:20 RB [id number] 12/03/22 10:40 RB Document 12/10/22 10:27 [facility] Desktop 12/10/22 10:38 [facility] 11/26/22 12/03/22 12/10/22 10:13 10:20 10:27 - Today's Visit Information Type of service Initial Visit Follow-up Visit Follow-up Visit (Physician/[facility] (Physician/[facility] ) ) Arrival Mode Ambulatory, Ambulatory, Ambulatory, Walker Walker Walker Transfer Assistance None None None Patient Identification Verified (Name & Yes Yes Yes ) Patient Requires Transmission-Based No No Precautions Height and Weight Height 5 ft 9 in Weight 400 lb 13.584 oz Weight in Pounds 400.8 lbs Weight Measurement Method Estimated by Patient Body Mass Index (BMI) 59.1 59.1 59.1 BMI Classification Obese Obese Obese BSA - Bonnie 2.78 Vital Signs Temperature (97.8 F-99.1 F) 97.2 F L 96.7 F L 97.9 F Temperature Source Temporal Temporal Temporal Pulse Rate (60-100) 89 85 81 Pulse Location Monitor Apical Monitor Respiratory Rate (12-18) 20 H 18 16 Respiratory rate source Observation Observation Observation Oxygen Delivery Method Room Air Blood Pressure (90/60-120/80) 267/72 H 140/66 H 112/53 L Blood Pressure Mean (mm Hg) 137 90 72 Source Monitor Monitor Monitor Position Semi-Fowlers Sitting Blood Pressure Location Left Arm Right Forearm History Since Last Visit- (Skip if this is Patient's initial visit) Have you changed medications since your No No last visit? Any new allergies or adverse reactions No No Had a fall/change in ADL's that may No No increase risk of falls Signs or symptoms of abuse and/or No No neglect since last visit Have you been in the hospital since your No No last visit? Has dressing in place as prescribed Yes Yes Has compression in place as prescribed Yes No Has offloadiing in place as prescribed No N/A Experienced any changes in pain level or No No management Left Footwear Regular Shoe Regular Shoe Right Footwear Regular Shoe Regular Shoe Pain Scale: 0-10 Numeric Is Patient Pain Free? Yes No Yes Lower Extremity Assessment/ Foot Assessment/ Toe Nail Assessment Left -Posterior Tibial Palpable No -Posterior Tibial Doppler Monophasic -Dorsalis Pedis Palpable No -Dorsalis Pedis Doppler Monophasic -Extremity Color Red, Hyperpigmented, Hemosiderin -Hair Growth on Legs No -Hair Growth on Toes No -Temperature of Extremity Warm -Capillary Refill Greater than 3 Seconds -Dependent Rubor No -Blanched when Elevated No -Lipodermatosclerosis No -Other Deformity No -Prior Foot Ulcer No -Charcot Joint No -Prior Amputation No -Thick No -Discolored No -Deformed No -Improper Length & Hygeine Yes Right -Posterior Tibial Palpable No -Posterior Tibial Doppler Monophasic -Dorsalis Pedis Palpable No -Dorsalis Pedis Doppler Monophasic -Extremity Color Red, Hyperpigmented, Hemosiderin -Hair Growth on Legs No -Hair Growth on Toes No -Temperature of Extremity Warm -Capillary Refill Less than 3 Seconds -Dependent Rubor Yes -Blanched when Elevated No -Lipodermatosclerosis No -Other Deformity No -Prior Foot Ulcer No -Charcot Joint No -Prior Amputation No -Thick No -Discolored No -Deformed No -Improper Length & Hygeine Yes Neuropathy Assessment Feet - Top Side and Bottom <Entered> (a) Communication Assessment Preferred language Citizen Of [place] Able to Read Yes Able to Write Yes Communication Tools None Right Hearing Abillity Normal Left Hearing Abillity Normal Visual Assistive Devices Glasses Teaching Assessment Preferences Verbal,Written, Demonstration Barriers to Learning None Readiness To Learn Good Willingness to Engage in Self Management Med Activies Readiness to Engage in Self Management Med Activities Anxiety Level Calm Cooperation Cooperative Perception Coherent Interest in Health Problem Asks Questions Education Importance Acknowledges Need Does Patient Smoke tobacco or other No substances Smoking Status Never smoker Is Patient Diabetic No Functional Assessment Recent Decline in Ability to Perform Ambulation Culture/Gnosticist/Cell Tuber Hand Cultural/Gnosticist Needs that may affect No Treatment Plan Would you allow [facility] prorate clerk to No meet you for the purpose of spiritual/ emotional support? Cell Tuber Hand to contact place of [facility] No Teaching: Wound Center Compression Wraps & Stockings -Person Taught Patient Skin Care -Person Taught Patient *Debridement -Person Taught Patient Dressing Your Wound -Person Taught Patient *Welcome to the Wound Center -Person Taught Patient (a) 1 - + WC - Nurse 1 - General Ulcer Measurement Start: 11/26/22 10:13 Freq: Status: Active Protocol: Activity Type Activity Date Activity User E-sign Co-sign Detail Recorded Client Recorded Date Recorded By Document 11/26/22 10:13 DL [id number] 11/26/22 10:32 DL Document 12/03/22 10:20 RB [id number] 12/03/22 10:40 RB Document 12/10/22 10:27 [facility] Desktop 12/10/22 10:38 [facility] 11/26/22 12/03/22 12/10/22 10:13 10:20 10:27 Wound Center Nurse 1 #3 R Lat/Post LE -Combined with other wound No No -Current Size (cm) - Length 5 5.2 -Current Size (cm) - Width 10 9 -Current Size (cm) - Depth 1.2 1.4 -Total Square Cm 50 46.8 -Photo Taken Yes -Tunneling No No -Undermining/Tunneling No No -Circular Undermining No No -Classification - Thickness Full Thickness without Exposed Support Structure -Exudate Amt Large Medium Large -Exudate Type Serosanguineous Serosanguineous Serosanguineous -Wound Margin Distinct, Distinct, Distinct, Outline Outline Outline Attached Attached Attached -Granulation Amt Medium (34-66%) Medium (34-66%) Medium (34-66%) -Granulation Quality Red [place] Red -Slough/Fibrin Yes Yes -Necrosis Amt Medium (34-66%) Medium (34-66%) Medium (34-66%) -Necrotic Tissue Type Adherent Slough Adherent Slough Adherent Slough -Structure Exposed N/A N/A -Texture (Bertha-wound Skin Appearance) Excoriation, Assessed Assessed, Scarring Excoriation -Moisture (Bertha-wound Skin Appearance) Dry/Scaly Assessed Assessed, Maceration,Dry/ Scaly -Color (Bertha-wound Skin Appearance) Erythema, Assessed Assessed, Hemosiderin Erythema Staining -Temperature (Bertha-wound Skin No Abnormality No Abnormality No Abnormality Appearance) (Pt Warm) (Pt Warm) (Pt Warm) -Tenderness on Palpation (Bertha-wound No No No Skin Appearance) -Ulcer Cleansing Soap and Water Wound Cleanser Soap and Water -Foul Odor after Cleansing No No No -Anesthetic Used 4% Lidocaine 5% Lidocaine 4% Lidocaine Solution Gel Solution Lower Limb Edema Present Yes Yes Right Calf (cm) 69.5 71 Right Ankle (cm) 32.9 32 32 Left Calf (cm) 65.8 Left Ankle (cm) 34.5 WC - Nurse 2 - General Ulcer CM Notes Start: 11/26/22 10:13 Freq: Status: Active Protocol: Activity Type Activity Date Activity User E-sign Co-sign Detail Recorded Client Recorded Date Recorded By Document 11/26/22 10:47 MW [id number] 11/26/22 10:58 MW Document 12/03/22 10:54 MW [id number] 12/03/22 11:00 MW Document 12/10/22 10:55 MW [id number] 12/10/22 11:01 MW 11/26/22 12/03/22 12/10/22 10:47 10:54 10:55 Wound Center Nurse 2 #3 R Lat/Post LE -Time 10:53 10:54 10:55 -Correct Patient Yes Yes Yes -Correct Side, Site, Position Yes Yes Yes -Correct Procedure Yes Yes Yes -Procedure Performed Yes Yes Yes -Type of Procedure Debridement Debridement Debridement -Clinical Debridement Subcutaneous Subcutaneous Subcutaneous -Tissue Removed Subcutaneous Subcutaneous Subcutaneous -Post Debridement (cm) - Length 5.3 5.5 4.8 -Post Debridement (cm) - Width 10.0 8.9 11.0 -Post Debridement (cm) - Depth 1.3 1.5 0.7 -Total Square (Post) (cm) 53.00 48.95 52.80 -Area of Debridement (cm) - Length 5.3 5.5 4.8 -Area of Debridement (cm) - Width 10.0 8.9 11.0 -Total Square (Area) (cm) 53.00 48.95 52.80 -Tunneling No No No -Undermining/Tunneling No No No -Circular Undermining No No No -Wound/Ulcer Outcome Not Healed Not Healed Not Healed -Ulcer Cleansing Rinsed/ Rinsed/ Rinsed/ Irrigated with Irrigated with Irrigated with Saline Saline Saline -Foul Odor after Cleansing No No No -Bioengineered Tissue No No No -Bleeding Controlled with Pressure Pressure Pressure -Treatment Response Procedure Procedure Procedure Tolerated Well Tolerated Well Tolerated Well -Offloading No No No -Debridement - Subq, 1st 20sq cm Yes Yes Yes -Debridement, SubQ, ea addt'l 20sq cm 2 2 or part thereof Pain Scale: 0-10 Numeric Is Patient Pain Free? Yes Yes Yes WC - Nurse 3 - General Ulcer D/C NN Start: 11/26/22 10:13 Freq: Status: Active Protocol: Activity Type Activity Date Activity User E-sign Co-sign Detail Recorded Client Recorded Date Recorded By Document 11/26/22 11:33 [facility] [id number] 11/26/22 11:34 [facility] Document 12/03/22 11:26 [facility] [id number] 12/03/22 11:28 BM Document 12/10/22 11:36 RB [id number] 12/10/22 11:37 RB 11/26/22 12/03/22 12/10/22 11:33 11:26 11:36 Wound Care Center Nurse 3 #3 R Lat/Post LE -Ulcer Cleansing Rinsed/ Soap and Water Rinsed/ Irrigated with Irrigated with Saline Saline -Foul Odor after Cleansing No No -Primary Dressing Applied Fibracol Plus Fibracol Plus Fibracol Plus 4x4,NonAdherent 4x4,NonAdherent 4x4 Contact Layer Contact Layer -Other Dressing ABD ABD bactroban/abd/ kerlix -Primary Dressing Covered/Secured with Dry Gauze & Dry Gauze & Dry Gauze & Roll Gauze, Roll Gauze, Roll Gauze, Secured with Secured with Secured with Tape Tape Tape -Fibracol Plus 4x4 2 2 1 BLE -Tubular Bandage Single Layer -Size of Tubigrip Used Size F -Size F ($) 2 -Other PT REAPPLIED single layer HIS SIZE G. tubigrip REFUSES SIZE F Treatment Response Procedure Procedure Tolerated Well Tolerated Well Pain Scale: 0-10 Numeric Is Patient Pain Free? Yes Yes Yes WC - Visit Discharge Discharge Condition Stable Stable Stable Ambulatory Status Ambulatory, Ambulatory, Ambulatory, Walker Walker Walker Transportation Private Auto Private Auto Private Auto Accompanied by Medication Reconcilliation completed & No provided to patient/care provider Clinical Summary of Care Provided Yes Assessment/Plan Assessment/Plan (1) Morbid obesity: CODE(S): E66.01 - Morbid (severe) obesity due to excess calories (2) Venous insufficiency of both lower extremities: CODE(S): I87.2 - Venous insufficiency (chronic) (peripheral) (3) Ulcer of right lower extremity with fat layer exposed: CODE(S): L97.912 - Non-pressure chronic ulcer of unspecified part of right lower leg with fat layer exposed PLAN: Wash right lower leg with antibacterial soap and water. Pat dry Apply Bactroban ointment to wound base nickel thickness then Fibracol to wound base moistened with Adaptic over top and ABD and gauze dressing Every day dressing change Double layer Tubigrip or [place] wrap with Tubigrip over top for compression Start Levaquin 500 mg 1 p.o. daily for 14 days. Metronidazole 250 3 times daily for 14 days Keep appointment to Dr. Solis for venous insufficiency and swelling tomorrow 12/11/2022 Follow-up in 1 week (4) Dyshidrotic eczema: CODE(S): L30.1 - Dyshidrosis [pompholyx] PLAN: amLactin cream to all dried Flaky areas of skin
[2022-12-17 10:23] VITALS: BP 149/68; PULSE 99; RESP 22; TEMP 37; BMI 59.1
--- NOTE | 2022-12-17 11:10 | PN.PCM_ITS ---
History of Present Illness Date of Service: 12/17/22 Chief Complaint: Right lateral leg ulcer History of Wound: 66-year-old white obese male. He appears here with a very large deep wound on his right posterior lower leg. He suffers from venous ulcers, and this 1 has been going on for 2 to 3 months. Other than covering it with a gauze dressing he has done nothing else. These are reoccurring ulcer openings have never been taking care of properly because of COVID. Patient did have arterial brachial and venous studies done and 2020 but never got to see the vascular surgeon for repair. Arterial studies fine its his venous he is got a lot of incompetence sees right where all of his wounds are. Patient suffers from cellulitis and also overgrowth of keratosis. He states that he has a history of an infected ulcer from 2013 and he was being seen at the [place] [facility]. He states that he has had issues with this ulcer on an off for years. He states had a fracture of his left ankle which required him to be placed in a SNF and the ulcer on the right improved during that time. 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 He is obese with a BMI 59.1. He sleeps in a recliner because his mattress makes his back hurt. He has significant amount of lower extremity edema. 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 Right AFIA by posterior tibial artery is 1.01. Left AFIA by posterior tibial artery is 0.98. The left AFIA by dorsalis pedis is 1.02. Bilateral triphasic doppler wavelength at ankle level. Venous Duplex ultrasound on 01/28/21 showed segmental valvular incompetence is noted within the great saphenous veins bilaterally. The right small saphenous vein is patent and competent. The left small saphenous vein is patent and incompetent. The accessory saphenous vein in the right mid- thigh is incompetent. We will refer him to Dr. Solis for further evaluation. Today he denies fever, chills, nausea or vomiting. He states his appetite is good. We did discuss weight loss and maybe he needs to try getting those injections from his doctor. 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 Progress of Wound: Wound size is slightly smaller but has a terrible odor. It is growing 4 different bacteria's into anaerobes. Patient is currently on antibiotics and antimicrobials We will continue with same treatment only adding and Bactroban to the wound base with Fibracol over top Much improvement on the depth of the wound was able to scrape out a lot more slough out of the base. No odor noted at this time. Has an appointment with Dr. Solis January 14 for procedures to be done. Patient is on antibiotic and an antimicrobial now Subjective Subjective Discussed applying for TheraSkin for the base of the wound for next week answered all questions. They are open for new treatment Objective Data Objective Data Basically once the procedure is done he should do very well still has a large open area with depth getting smaller but still there no odor noted healing well still debride a lot of fibrin and slough. Vital Signs: Vital Signs Temp Pulse Resp BP O2 Del Method 98.6 F 99 22 H 149/68 H Room Air 12/17/22 10:23 12/17/22 10:23 12/17/22 10:23 12/17/22 10:23 12/10/22 10:27 Oxygen Delivery Method Room Air Weight: 400 lb 13.584 oz Body Mass Index (BMI) 59.1 Lab / Micro Data Attestation: I reviewed the patient's lab results. Micro: Microbiology 11/26/22 10:50 Wound - Leg, Right Gram Stain - Final 11/26/22 10:50 Wound - Leg, Right Wound Culture - Final Proteus mirabilis Escherichia coli Staphylococcus aureus Staphylococcus simulans 11/26/22 10:50 Wound - Leg, Right Anaerobic Culture - Final Anaerobic cocci Prevotella species Physical Exam Const oriented x3 General Appearance: cooperative HEENT normocephalic Head and Scalp: normal to inspection External Ear: external ears normal Eyes PERRL Neck full ROM Resp normal respiratory effort Effort and Inspection: able to speak in complete sentences Auscultation: clear to auscultation bilaterally Cardio regular rate and regular rhythm Palpation: normal PMI Rate: regular rate Rhythm: regular rhythm Extremity Negative for normal to inspection Extremity Narrative: Right lower leg has narrowing from mid hand down to ankle with large wound posterior side of right lower leg calf area Obvious flatfeet with a lot of broken blood vessels in ankle and foot area. No pitting edema noted Coloring of feet and legs good with good cap refill warm to touch General Extremity: normal exam except as noted Skin no rashes or lesions noted Wounds: wounds noted Wound Narrative: Large open wound back of the right lower calf area and cellulitis to the anterior part of the skin of the hand area Has an odor . Psych Appearance: grossly normal Speech: normal speech Thought Content: normal thought content Judgement: judgement good Debridement Note Debridement Note Wound debrided: Right lateral lower leg venous ulcers Laterality: Right Type of Debridement: Excisional debridement Anesthesia Used: 5% Lidocaine Gel Depth: Down to and including healthy tissue Percentage of wound debrided: 100 Instrument Used: 7mm curette Tissue Removed: Slough and fibrin Severity: Fat Layer Exposed Amount of bleeding with debridement: Mild Bleeding Controlled with: Compression and gauze Patient tolerated procedure: Patient tolerated procedure well Post-Debridement Measurements and Additional Note: Post-Debridement Measurements/Treatment - Nurse 1 - General Ulcer Assessment Start: 11/26/22 10:13 Freq: Status: Active Protocol: JADEN Activity Type Activity Date Activity User E-sign Co-sign Detail Recorded Client Recorded Date Recorded By Document 11/26/22 10:13 DL [id number] 11/26/22 10:32 DL Document 12/03/22 10:20 RB [id number] 12/03/22 10:40 RB Document 12/10/22 10:27 [facility] Desktop 12/10/22 10:38 [facility] Document 12/17/22 10:23 PL [id number] 12/17/22 10:24 PL 11/26/22 12/03/22 12/10/22 10:13 10:20 10:27 - Today's Visit Information Type of service Initial Visit Follow-up Visit Follow-up Visit (Physician/ASSISTANT ASSOCIATE FULL PROFESSOR (Physician/ASSISTANT ASSOCIATE FULL PROFESSOR ) ) Arrival Mode Ambulatory, Ambulatory, Ambulatory, Walker Walker Walker Transfer Assistance None None None Patient Identification Verified (Name & Yes Yes Yes ) Patient Requires Transmission-Based No No Precautions Safety Precautions Height and Weight Height 5 ft 9 in Weight 400 lb 13.584 oz Weight in Pounds 400.8 lbs Weight Measurement Method Estimated by Patient Body Mass Index (BMI) 59.1 59.1 59.1 BMI Classification Obese Obese Obese BSA - Bonnie 2.78 Vital Signs Temperature (97.8 F-99.1 F) 97.2 F L 96.7 F L 97.9 F Temperature Source Temporal Temporal Temporal Pulse Rate (60-100) 89 85 81 Pulse Location Monitor Apical Monitor Respiratory Rate (12-18) 20 H 18 16 Respiratory rate source Observation Observation Observation Oxygen Delivery Method Room Air Blood Pressure (90/60-120/80) 267/72 H 140/66 H 112/53 L Blood Pressure Mean (mm Hg) 137 90 72 Source Monitor Monitor Monitor Position Semi-Fowlers Sitting Blood Pressure Location Left Arm Right Forearm History Since Last Visit- (Skip if this is Patient's initial visit) Have you changed medications since your No No last visit? Any new allergies or adverse reactions No No Had a fall/change in ADL's that may No No increase risk of falls Signs or symptoms of abuse and/or No No neglect since last visit Have you been in the hospital since your No No last visit? Has dressing in place as prescribed Yes Yes Has compression in place as prescribed Yes No Has offloadiing in place as prescribed No N/A Experienced any changes in pain level or No No management Left Footwear Regular Shoe Regular Shoe Right Footwear Regular Shoe Regular Shoe Pain Scale: 0-10 Numeric Is Patient Pain Free? Yes No Yes Lower Extremity Assessment/ Foot Assessment/ Toe Nail Assessment Left -Posterior Tibial Palpable No -Posterior Tibial Doppler Monophasic -Dorsalis Pedis Palpable No -Dorsalis Pedis Doppler Monophasic -Extremity Color Red, Hyperpigmented, Hemosiderin -Hair Growth on Legs No -Hair Growth on Toes No -Temperature of Extremity Warm -Capillary Refill Greater than 3 Seconds -Dependent Rubor No -Blanched when Elevated No -Lipodermatosclerosis No -Other Deformity No -Prior Foot Ulcer No -Charcot Joint No -Prior Amputation No -Thick No -Discolored No -Deformed No -Improper Length & Hygeine Yes Right -Posterior Tibial Palpable No -Posterior Tibial Doppler Monophasic -Dorsalis Pedis Palpable No -Dorsalis Pedis Doppler Monophasic -Extremity Color Red, Hyperpigmented, Hemosiderin -Hair Growth on Legs No -Hair Growth on Toes No -Temperature of Extremity Warm -Capillary Refill Less than 3 Seconds -Dependent Rubor Yes -Blanched when Elevated No -Lipodermatosclerosis No -Other Deformity No -Prior Foot Ulcer No -Charcot Joint No -Prior Amputation No -Thick No -Discolored No -Deformed No -Improper Length & Hygeine Yes Neuropathy Assessment Feet - Top Side and Bottom <Entered> (a) Communication Assessment Preferred language Mauritanian Able to Read Yes Able to Write Yes Communication Tools None Right Hearing Abillity Normal Left Hearing Abillity Normal Visual Assistive Devices Glasses Teaching Assessment Preferences Verbal,Written, Demonstration Barriers to Learning None Readiness To Learn Good Willingness to Engage in Self Management Med Activies Readiness to Engage in Self Management Med Activities Anxiety Level Calm Cooperation Cooperative Perception Coherent Interest in Health Problem Asks Questions Education Importance Acknowledges Need Does Patient Smoke tobacco or other No substances Smoking Status Never smoker Is Patient Diabetic No Functional Assessment Recent Decline in Ability to Perform Ambulation Culture/Voodoo/Bulldozer/Loader/Compactor/Scraper Cultural/Voodoo Needs that may affect No Treatment Plan Would you allow our [facility] chief controller to No meet you for the purpose of spiritual/ emotional support? Bulldozer/Loader/Compactor/Scraper to contact place of congregation No Teaching: Wound Center Compression Wraps & Stockings -Person Taught Patient Skin Care -Person Taught Patient *Debridement -Person Taught Patient Dressing Your Wound -Person Taught Patient *Welcome to the Wound Center -Person Taught Patient 12/17/22 10:23 WC - Today's Visit Information Type of service Follow-up Visit (Physician/ASSISTANT ASSOCIATE FULL PROFESSOR ) Arrival Mode Ambulatory, Walker Transfer Assistance None Patient Identification Verified (Name & Yes ) Patient Requires Transmission-Based No Precautions Safety Precautions NA Height and Weight Height Weight Weight in Pounds Weight Measurement Method Body Mass Index (BMI) 59.1 BMI Classification Obese BSA - Bonnie Vital Signs Temperature (97.8 F-99.1 F) 98.6 F Temperature Source Temporal Pulse Rate (60-100) 99 Pulse Location Respiratory Rate (12-18) 22 H Respiratory rate source Oxygen Delivery Method Blood Pressure (90/60-120/80) 149/68 H Blood Pressure Mean (mm Hg) 95 Source Position Blood Pressure Location History Since Last Visit- (Skip if this is Patient's initial visit) Have you changed medications since your No last visit? Any new allergies or adverse reactions No Had a fall/change in ADL's that may No increase risk of falls Signs or symptoms of abuse and/or No neglect since last visit Have you been in the hospital since your No last visit? Has dressing in place as prescribed Yes Has compression in place as prescribed Yes Has offloadiing in place as prescribed N/A Experienced any changes in pain level or No management Left Footwear Right Footwear Pain Scale: 0-10 Numeric Is Patient Pain Free? Yes Lower Extremity Assessment/ Foot Assessment/ Toe Nail Assessment Left -Posterior Tibial Palpable -Posterior Tibial Doppler -Dorsalis Pedis Palpable -Dorsalis Pedis Doppler -Extremity Color -Hair Growth on Legs -Hair Growth on Toes -Temperature of Extremity -Capillary Refill -Dependent Rubor -Blanched when Elevated -Lipodermatosclerosis -Other Deformity -Prior Foot Ulcer -Charcot Joint -Prior Amputation -Thick -Discolored -Deformed -Improper Length & Hygeine Right -Posterior Tibial Palpable -Posterior Tibial Doppler -Dorsalis Pedis Palpable -Dorsalis Pedis Doppler -Extremity Color -Hair Growth on Legs -Hair Growth on Toes -Temperature of Extremity -Capillary Refill -Dependent Rubor -Blanched when Elevated -Lipodermatosclerosis -Other Deformity -Prior Foot Ulcer -Charcot Joint -Prior Amputation -Thick -Discolored -Deformed -Improper Length & Hygeine Neuropathy Assessment Feet - Top Side and Bottom Communication Assessment Preferred language Able to Read Able to Write Communication Tools Right Hearing Abillity Left Hearing Abillity Visual Assistive Devices Teaching Assessment Preferences Barriers to Learning Readiness To Learn Willingness to Engage in Self Management Activies Readiness to Engage in Self Management Activities Anxiety Level Cooperation Perception Interest in Health Problem Education Importance Does Patient Smoke tobacco or other substances Smoking Status Is Patient Diabetic Functional Assessment Recent Decline in Ability to Perform Culture/Voodoo/Bulldozer/Loader/Compactor/Scraper Cultural/Voodoo Needs that may affect Treatment Plan Would you allow our hospital chief controller to meet you for the purpose of spiritual/ emotional support? Bulldozer/Loader/Compactor/Scraper to contact place of congregation Teaching: Wound Center Compression Wraps & Stockings -Person Taught Skin Care -Person Taught *Debridement -Person Taught Dressing Your Wound -Person Taught *Welcome to the Wound Center -Person Taught (a) 1 - + WC - Nurse 1 - General Ulcer Measurement Start: 11/26/22 10:13 Freq: Status: Active Protocol: Activity Type Activity Date Activity User E-sign Co-sign Detail Recorded Client Recorded Date Recorded By Document 11/26/22 10:13 DL [id number] 11/26/22 10:32 DL Document 12/03/22 10:20 RB [id number] 12/03/22 10:40 RB Document 12/10/22 10:27 [facility] Desktop 12/10/22 10:38 BMF 11/26/22 12/03/22 12/10/22 10:13 10:20 10:27 Wound Center Nurse 1 #3 R Lat/Post LE -Combined with other wound No No -Current Size (cm) - Length 5 5.2 -Current Size (cm) - Width 10 9 -Current Size (cm) - Depth 1.2 1.4 -Total Square Cm 50 46.8 -Photo Taken Yes -Tunneling No No -Undermining/Tunneling No No -Circular Undermining No No -Classification - Thickness Full Thickness without Exposed Support Structure -Exudate Amt Large Medium Large -Exudate Type Serosanguineous Serosanguineous Serosanguineous -Wound Margin Distinct, Distinct, Distinct, Outline Outline Outline Attached Attached Attached -Granulation Amt Medium (34-66%) Medium (34-66%) Medium (34-66%) -Granulation Quality Red [place] Red -Slough/Fibrin Yes Yes -Necrosis Amt Medium (34-66%) Medium (34-66%) Medium (34-66%) -Necrotic Tissue Type Adherent Slough Adherent Slough Adherent Slough -Structure Exposed N/A N/A -Texture (Bertha-wound Skin Appearance) Excoriation, Assessed Assessed, Scarring Excoriation -Moisture (Bertha-wound Skin Appearance) Dry/Scaly Assessed Assessed, Maceration,Dry/ Scaly -Color (Bertha-wound Skin Appearance) Erythema, Assessed Assessed, Hemosiderin Erythema Staining -Temperature (Bertha-wound Skin No Abnormality No Abnormality No Abnormality Appearance) (Pt Warm) (Pt Warm) (Pt Warm) -Tenderness on Palpation (Bertha-wound No No No Skin Appearance) -Ulcer Cleansing Soap and Water Wound Cleanser Soap and Water -Foul Odor after Cleansing No No No -Anesthetic Used 4% Lidocaine 5% Lidocaine 4% Lidocaine Solution Gel Solution Lower Limb Edema Present Yes Yes Right Calf (cm) 69.5 71 Right Ankle (cm) 32.9 32 32 Left Calf (cm) 65.8 Left Ankle (cm) 34.5 WC - Nurse 2 - General Ulcer CM Notes Start: 11/26/22 10:13 Freq: Status: Active Protocol: Activity Type Activity Date Activity User E-sign Co-sign Detail Recorded Client Recorded Date Recorded By Document 11/26/22 10:47 MW [id number] 11/26/22 10:58 MW Document 12/03/22 10:54 MW [id number] 12/03/22 11:00 MW Document 12/10/22 10:55 MW [id number] 12/10/22 11:01 MW Edit Result 12/10/22 10:55 MW (1) [id number] 12/11/22 06:32 PL (1) #3 R Lat/Post LE - Debridement, SubQ, ea addt'l 20sq cm => 2 or part thereof 11/26/22 12/03/22 12/10/22 10:47 10:54 10:55 Wound Center Nurse 2 #3 R Lat/Post LE -Time 10:53 10:54 10:55 -Correct Patient Yes Yes Yes -Correct Side, Site, Position Yes Yes Yes -Correct Procedure Yes Yes Yes -Procedure Performed Yes Yes Yes -Type of Procedure Debridement Debridement Debridement -Clinical Debridement Subcutaneous Subcutaneous Subcutaneous -Tissue Removed Subcutaneous Subcutaneous Subcutaneous -Post Debridement (cm) - Length 5.3 5.5 4.8 -Post Debridement (cm) - Width 10.0 8.9 11.0 -Post Debridement (cm) - Depth 1.3 1.5 0.7 -Total Square (Post) (cm) 53.00 48.95 52.80 -Area of Debridement (cm) - Length 5.3 5.5 4.8 -Area of Debridement (cm) - Width 10.0 8.9 11.0 -Total Square (Area) (cm) 53.00 48.95 52.80 -Tunneling No No No -Undermining/Tunneling No No No -Circular Undermining No No No -Wound/Ulcer Outcome Not Healed Not Healed Not Healed -Ulcer Cleansing Rinsed/ Rinsed/ Rinsed/ Irrigated with Irrigated with Irrigated with Saline Saline Saline -Foul Odor after Cleansing No No No -Bioengineered Tissue No No No -Bleeding Controlled with Pressure Pressure Pressure -Treatment Response Procedure Procedure Procedure Tolerated Well Tolerated Well Tolerated Well -Offloading No No No -Debridement - Subq, 1st 20sq cm Yes Yes Yes -Debridement, SubQ, ea addt'l 20sq cm 2 2 2 or part thereof Pain Scale: 0-10 Numeric Is Patient Pain Free? Yes Yes Yes - Nurse 3 - General Ulcer D/C NN Start: 11/26/22 10:13 Freq: Status: Active Protocol: Activity Type Activity Date Activity User E-sign Co-sign Detail Recorded Client Recorded Date Recorded By Document 11/26/22 11:33 [facility] [id number] 11/26/22 11:34 [facility] Document 12/03/22 11:26 [facility] [id number] 12/03/22 11:28 [facility] Document 12/10/22 11:36 RB [id number] 12/10/22 11:37 RB 11/26/22 12/03/22 12/10/22 11:33 11:26 11:36 Wound Care Center Nurse 3 #3 R Lat/Post LE -Ulcer Cleansing Rinsed/ Soap and Water Rinsed/ Irrigated with Irrigated with Saline Saline -Foul Odor after Cleansing No No -Primary Dressing Applied Fibracol Plus Fibracol Plus Fibracol Plus 4x4,NonAdherent 4x4,NonAdherent 4x4 Contact Layer Contact Layer -Other Dressing ABD ABD bactroban/abd/ kerlix -Primary Dressing Covered/Secured with Dry Gauze & Dry Gauze & Dry Gauze & Roll Gauze, Roll Gauze, Roll Gauze, Secured with Secured with Secured with Tape Tape Tape -Fibracol Plus 4x4 2 2 1 BLE -Tubular Bandage Single Layer -Size of Tubigrip Used Size F -Size F ($) 2 -Other PT REAPPLIED single layer HIS SIZE G. tubigrip REFUSES SIZE F Treatment Response Procedure Procedure Tolerated Well Tolerated Well Pain Scale: 0-10 Numeric Is Patient Pain Free? Yes Yes Yes - Visit Discharge Discharge Condition Stable Stable Stable Ambulatory Status Ambulatory, Ambulatory, Ambulatory, Walker Walker Walker Transportation Private Auto Private Auto Private Auto Accompanied by Medication Reconcilliation completed & No provided to patient/care provider Clinical Summary of Care Provided Yes Assessment/Plan Assessment/Plan (1) Morbid obesity: CODE(S): E66.01 - Morbid (severe) obesity due to excess calories (2) Venous insufficiency of both lower extremities: CODE(S): I87.2 - Venous insufficiency (chronic) (peripheral) (3) Ulcer of right lower extremity with fat layer exposed: CODE(S): L97.912 - Non-pressure chronic ulcer of unspecified part of right lower leg with fat layer exposed PLAN: Wash right lower leg with antibacterial soap and water. Pat dry Apply Bactroban ointment to wound base nickel thickness then Fibracol to wound base moistened with Adaptic over top and ABD and gauze dressing Every day dressing change Double layer Tubigrip or [place] wrap with Tubigrip over top for compression Continue Levaquin 500 mg 1 p.o. daily for 14 days. Metronidazole 250 3 times daily for 14 days Keep appointment to Dr. Solis for venous ablation January 14 follow-up in 1 week (4) Dyshidrotic eczema: CODE(S): L30.1 - Dyshidrosis [pompholyx] PLAN: amLactin cream to all dried Flaky areas of skin
== END 2022-12-18 23:59 | disposition home or self-care (01) ==
LOC: WC 10:30
PROVIDERS: PCP Preventive Medicine Occupational Medicine; Referring Provider Preventive Medicine Occupational Medicine; Visit Provider Nurse Practitioner
DX: I87.2 Venous insufficiency (chronic) (peripheral) (principal); L97.312 Non-pressure chronic ulcer of right ankle with fat layer exposed; I48.91 Unspecified atrial fibrillation; E66.01 Morbid (severe) obesity due to excess calories; Z68.43 Body mass index [BMI] 50.0-59.9, adult; G62.9 Polyneuropathy, unspecified; Z79.01 Long term (current) use of anticoagulants; R60.0 Localized edema; Z79.899 Other long term (current) drug therapy; Z79.51 Long term (current) use of inhaled steroids; L30.1 Dyshidrosis [pompholyx]
CPT/HCPCS: 11042; 11045; 87070; 87075; 87077; 87186; 87205; 99203; G0463

== ENCOUNTER 2023-01-06 10:30 | Outpatient (RCR) | payer MEDICARE, OTHER, SELFPAY ==
[2022-12-19 00:08] VITALS: BP 149/68; PULSE 99; RESP 22; TEMP 37; BMI 59.1
[2022-12-24 10:53] VITALS: BP 153/72; PULSE 84; RESP 18; TEMP 36.1; BMI 59.1
--- NOTE | 2022-12-24 12:23 | PCM.WC.PN ---
History of Present Illness Date of Service: 12/24/22 Chief Complaint: Right lateral leg ulcer History of Wound: 66-year-old white obese male. He appears here with a very large deep wound on his right posterior lower leg. He suffers from venous ulcers, and this 1 has been going on for 2 to 3 months. Other than covering it with a gauze dressing he has done nothing else. These are reoccurring ulcer openings have never been taking care of properly because of COVID. Patient did have arterial brachial and venous studies done and 2020 but never got to see the vascular surgeon for repair. Arterial studies fine its his venous he is got a lot of incompetence sees right where all of his wounds are. Patient suffers from cellulitis and also overgrowth of keratosis. He states that he has a history of an infected ulcer from 2013 and he was being seen at the [place] wound center. He states that he has had issues with this ulcer on an off for years. He states had a fracture of his left ankle which required him to be placed in a SNF and the ulcer on the right improved during that time. 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 He is obese with a BMI 59.1. He sleeps in a recliner because his mattress makes his back hurt. He has significant amount of lower extremity edema. 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 Right AFIA by posterior tibial artery is 1.01. Left AFIA by posterior tibial artery is 0.98. The left AFIA by dorsalis pedis is 1.02. Bilateral triphasic doppler wavelength at ankle level. Venous Duplex ultrasound on 01/28/21 showed segmental valvular incompetence is noted within the great saphenous veins bilaterally. The right small saphenous vein is patent and competent. The left small saphenous vein is patent and incompetent. The accessory saphenous vein in the right mid-thigh is incompetent. We will refer him to Dr. Solis for further evaluation. Today he denies fever, chills, nausea or vomiting. He states his appetite is good. We did discuss weight loss and maybe he needs to try getting those injections from his doctor. 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 Progress of Wound: Applied for TheraSkin and was approved patient will get his first application today. Still has an appointment with Dr. Solis on January 14 for vein surgery. Subjective Subjective He was happy that they do not have to do dressing changes. Objective Data Objective Data Measurements are about the same same depth no odor continues to have a large opening we will see how the TheraSkin works to fill in the gap. Surrounding skin looks good outer leg cellulitis is much improved. Brian Gonzalez keeps falling off because the shape of his leg we will try using Coban today. Vital Signs: Vital Signs Temp Pulse Resp BP 96.9 F L 84 18 153/72 H 12/24/22 10:53 12/24/22 10:53 12/24/22 10:53 12/24/22 10:53 Weight: 400 lb 13.584 oz Body Mass Index (BMI) 59.1 Physical Exam Const oriented x3 General Appearance: cooperative HEENT normocephalic Head and Scalp: normal to inspection External Ear: external ears normal Eyes PERRL Neck full ROM Resp normal respiratory effort Effort and Inspection: able to speak in complete sentences Auscultation: clear to auscultation bilaterally Cardio regular rate and regular rhythm Palpation: normal PMI Rate: regular rate Rhythm: regular rhythm Extremity Negative for normal to inspection Extremity Narrative: Right lower leg has narrowing from mid hand down to ankle with large wound posterior side of right lower leg calf area Obvious flatfeet with a lot of broken blood vessels in ankle and foot area. No pitting edema noted Coloring of feet and legs good with good cap refill warm to touch General Extremity: normal exam except as noted Skin no rashes or lesions noted Wounds: wounds noted Wound Narrative: Large open wound back of the right lower calf area and cellulitis to the anterior part of the skin of the hand area Has an odor . Psych Appearance: grossly normal Speech: normal speech Thought Content: normal thought content Judgement: judgement good Debridement Note Debridement Note Wound debrided: Venous ulcer of right lower extremity with fat layer exposed Type of Debridement: Excisional debridement Anesthesia Used: 5% Lidocaine Gel Depth: Down to and including healthy tissue Percentage of wound debrided: 100 Instrument Used: 7mm curette Tissue Removed: Fibrin Severity: Fat Layer Exposed Amount of bleeding with debridement: Mild Bleeding Controlled with: Compression and gauze Patient tolerated procedure: Patient tolerated procedure well Post-Debridement Measurements and Additional Note: Post-Debridement Measurements/Treatment - Nurse 1 - General Ulcer Assessment Start: 12/24/22 10:53 Freq: Status: Active Protocol: JADEN Activity Type Activity Date Activity User E-sign Co-sign Detail Recorded Client Recorded Date Recorded By Document 12/24/22 10:53 MOUSTAPHA [id number] 12/24/22 10:56 MOUSTAPHA 12/24/22 10:53 WC - Today's Visit Information Type of service Follow-up Visit (Physician/AUTOMATIC SPINNING 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 ) Arrival Mode Ambulatory Transfer Assistance None Patient Identification Verified (Name & Yes ) Patient Requires Transmission-Based No Precautions Height and Weight Body Mass Index (BMI) 59.1 BMI Classification Obese Vital Signs Temperature (97.8 F-99.1 F) 96.9 F L Temperature Source Temporal Pulse Rate (60-100) 84 Pulse Location Monitor Respiratory Rate (12-18) 18 Respiratory rate source Observation Blood Pressure (90/60-120/80) 153/72 H Blood Pressure Mean (mm Hg) 99 Source Monitor Position Semi-Fowlers Blood Pressure Location Left Arm History Since Last Visit- (Skip if this is Patient's initial visit) Have you changed medications since your No last visit? Any new allergies or adverse reactions No Had a fall/change in ADL's that may No increase risk of falls Signs or symptoms of abuse and/or No neglect since last visit Have you been in the hospital since your No last visit? Has dressing in place as prescribed Yes Has compression in place as prescribed Yes Has offloadiing in place as prescribed No Experienced any changes in pain level or No management Pain Scale: 0-10 Numeric Is Patient Pain Free? Yes - Nurse 1 - General Ulcer Measurement Start: 12/24/22 10:53 Freq: Status: Active Protocol: Activity Type Activity Date Activity User E-sign Co-sign Detail Recorded Client Recorded Date Recorded By Document 12/24/22 10:53 MOUSTAPHA [id number] 12/24/22 10:56 MOUSTAPHA 12/24/22 10:53 Wound Center Nurse 1 #3 R Lat/Post LE -Combined with other wound No -Current Size (cm) - Length 4.2 -Current Size (cm) - Width 8 -Current Size (cm) - Depth 0.8 -Total Square Cm 33.6 -Tunneling No -Undermining/Tunneling No -Circular Undermining No -Exudate Amt Large -Exudate Type Serosanguineous -Wound Margin Distinct, Outline Attached -Granulation Amt Medium (34-66%) -Granulation Quality [place] -Slough/Fibrin Yes -Necrosis Amt Medium (34-66%) -Necrotic Tissue Type Adherent Slough -Structure Exposed N/A -Texture (Bertha-wound Skin Appearance) Assessed -Moisture (Bertha-wound Skin Appearance) Assessed -Color (Bertha-wound Skin Appearance) Assessed -Temperature (Bertha-wound Skin No Abnormality Appearance) (Pt Warm) -Tenderness on Palpation (Bertha-wound No Skin Appearance) -Ulcer Cleansing Wound Cleanser -Foul Odor after Cleansing No -Anesthetic Used 5% Lidocaine Gel Lower Limb Edema Present Yes Right Calf (cm) 73 Right Ankle (cm) 33 WC - Nurse 2 - General Ulcer CM Notes Start: 12/24/22 10:53 Freq: Status: Active Protocol: Activity Type Activity Date Activity User E-sign Co-sign Detail Recorded Client Recorded Date Recorded By Document 12/24/22 11:02 MW [id number] 12/24/22 11:17 MW 12/24/22 11:02 Wound Center Nurse 2 #3 R Lat/Post LE -Time 11:10 -Correct Patient Yes -Correct Side, Site, Position Yes -Correct Procedure Yes -Procedure Performed Yes -Type of Procedure Debridement -Clinical Debridement Subcutaneous -Tissue Removed Subcutaneous -Post Debridement (cm) - Length 5.0 -Post Debridement (cm) - Width 9.0 -Post Debridement (cm) - Depth 0.8 -Total Square (Post) (cm) 45.00 -Area of Debridement (cm) - Length 5.0 -Area of Debridement (cm) - Width 9.0 -Total Square (Area) (cm) 45.00 -Tunneling No -Undermining/Tunneling No -Circular Undermining No -Wound/Ulcer Outcome Not Healed -Ulcer Cleansing Rinsed/ Irrigated with Saline -Foul Odor after Cleansing No -Bioengineered Tissue Yes -Type of Bioengineered Tissue Theraskin -Expiration Date 08/15/26 -Product Lot Number [id number] -Percent Used 100 -Lot number of Saline Used [id number] -Bleeding Controlled with Pressure -Treatment Response Procedure Tolerated Well -Offloading No -Debridement - Subq, 1st 20sq cm No -Apply Skin Sub - 1st 25 sq cm - Legs 1 -Theraskin (per sq cm) 39 Pain Scale: 0-10 Numeric Is Patient Pain Free? Yes - Nurse 3 - General Ulcer D/C NN Start: 12/24/22 10:53 Freq: Status: Active Protocol: Activity Type Activity Date Activity User E-sign Co-sign Detail Recorded Client Recorded Date Recorded By Document 12/24/22 11:18 MW [id number] 12/24/22 11:19 MW 12/24/22 11:18 Wound Care Center Nurse 3 #3 R Lat/Post LE -Ulcer Cleansing Rinsed/ Irrigated with Saline -Foul Odor after Cleansing No -Negative Pressure Wound Therapy N/A -Primary Dressing Applied Aquacel Extra -Other Dressing abd pad -Other Covering coban -Aquacel Extra 2 Treatment Response Procedure Tolerated Well Pain Scale: 0-10 Numeric Is Patient Pain Free? Yes Teaching: Wound Center Dressing Your Wound -Person Taught Patient -Teaching Method Discussion, Demonstration -Response to teaching Verbalize understanding WC - Visit Discharge Discharge Condition Stable Ambulatory Status Ambulatory, Walker Transportation Private Auto Accompanied by Medication Reconcilliation completed & No provided to patient/care provider Clinical Summary of Care Provided Yes Assessment/Plan Assessment/Plan (1) Morbid obesity: CODE(S): E66.01 - Morbid (severe) obesity due to excess calories (2) Venous insufficiency of both lower extremities: CODE(S): I87.2 - Venous insufficiency (chronic) (peripheral) (3) Ulcer of right lower extremity with fat layer exposed: CODE(S): L97.912 - Non-pressure chronic ulcer of unspecified part of right lower leg with fat layer exposed PLAN: TheraSkin #1 applied to right lateral posterior leg. Using the glue to hold in place veil Steri-Strips then Aquacel extra on top with an absorbent dressing and Coban to hold in place. Instructed not to shower get wet follow-up if there is any issues outside dressing can be changed down to Steri-Strips only. Continue Levaquin 500 mg 1 p.o. daily for 14 days. Metronidazole 250 3 times daily for 14 days Keep appointment to Dr. Solis for venous ablation January 14 follow-up in 1 week (4) Dyshidrotic eczema: CODE(S): L30.1 - Dyshidrosis [pompholyx] PLAN: amLactin cream to all dried Flaky areas of skin
[2023-01-06 10:58] VITALS: BP 141/92; PULSE 92; RESP 20; TEMP 36.2; BMI 59.1
--- NOTE | 2023-01-06 12:29 | PN.PCM_ITS ---
History of Present Illness Date of Service: 01/06/23 Chief Complaint: Right lateral leg ulcer History of Wound: 66-year-old white obese male. He appears here with a very large deep wound on his right posterior lower leg. He suffers from venous ulcers, and this 1 has been going on for 2 to 3 months. Other than covering it with a gauze dressing he has done nothing else. These are reoccurring ulcer openings have never been taking care of properly because of COVID. Patient did have arterial brachial and venous studies done and 2020 but never got to see the vascular surgeon for repair. Arterial studies fine its his venous he is got a lot of incompetence sees right where all of his wounds are. Patient suffers from cellulitis and also overgrowth of keratosis. He states that he has a history of an infected ulcer from 2013 and he was being seen at the [place] wound center. He states that he has had issues with this ulcer on an off for years. He states had a fracture of his left ankle which required him to be placed in a SNF and the ulcer on the right improved during that time. 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 He is obese with a BMI 59.1. He sleeps in a recliner because his mattress makes his back hurt. He has significant amount of lower extremity edema. 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 Right AFIA by posterior tibial artery is 1.01. Left AFIA by posterior tibial artery is 0.98. The left AFIA by dorsalis pedis is 1.02. Bilateral triphasic doppler wavelength at ankle level. Venous Duplex ultrasound on 01/28/21 showed segmental valvular incompetence is noted within the great saphenous veins bilaterally. The right small saphenous vein is patent and competent. The left small saphenous vein is patent and incompetent. The accessory saphenous vein in the right mid- thigh is incompetent. We will refer him to Dr. Solis for further evaluation. Today he denies fever, chills, nausea or vomiting. He states his appetite is good. We did discuss weight loss and maybe he needs to try getting those injections from his doctor. 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 Progress of Wound: DepthApplied for TheraSkin and was approved patient will get his first application today. Still has an appointment with Dr. Solis on January 14 for vein surgery. Patient has not been here for 2 weeks so the wound looks really good though if brought in the skin very well. Patient has an odor though we will we recultured him and will use Aquacel extra till we get the cultures back and reapply TheraSkin next week. Patient has a lot of problems with mobility and sometimes cannot walk because of his weight Subjective Subjective is pleased with outcomes but she states that sometimes he cannot walk because of his weight. Objective Data Objective Data Definitely has a distinct odor so we will culture and recheck him and make sure that there is no bacteria or anaerobes growing. Still to continue seeing Will for reopening of the veins in his right lower leg. Vital Signs: Vital Signs Temp Pulse Resp BP O2 Del Method 97.1 F L 92 20 H 141/92 H Room Air 01/06/23 10:58 01/06/23 10:58 01/06/23 10:58 01/06/23 10:58 01/06/23 10:58 Oxygen Delivery Method Room Air Weight: 400 lb 13.584 oz Body Mass Index (BMI) 59.1 Lab / Micro Data Attestation: I reviewed the patient's lab results. Physical Exam Const oriented x3 General Appearance: cooperative HEENT normocephalic Head and Scalp: normal to inspection External Ear: external ears normal Eyes PERRL Neck full ROM Resp normal respiratory effort Effort and Inspection: able to speak in complete sentences Auscultation: clear to auscultation bilaterally Cardio regular rate and regular rhythm Palpation: normal PMI Rate: regular rate Rhythm: regular rhythm Extremity Negative for normal to inspection Extremity Narrative: Right lower leg has narrowing from mid hand down to ankle with large wound posterior side of right lower leg calf area Obvious flatfeet with a lot of broken blood vessels in ankle and foot area. No pitting edema noted Coloring of feet and legs good with good cap refill warm to touch General Extremity: normal exam except as noted Skin no rashes or lesions noted Wounds: wounds noted Wound Narrative: Large open wound back of the right lower calf area and cellulitis to the anterior part of the skin of the hand area Has an odor . Psych Appearance: grossly normal Speech: normal speech Thought Content: normal thought content Judgement: judgement good Debridement Note Debridement Note Post-Debridement Measurements and Additional Note: Post-Debridement Measurements/Treatment - Nurse 1 - General Ulcer Assessment Start: 12/24/22 10:53 Freq: Status: Active Protocol: RADHA.LOWEXT Activity Type Activity Date Activity User E-sign Co-sign Detail Recorded Client Recorded Date Recorded By Document 12/24/22 10:53 [id number] 12/24/22 10:56 RB Document 01/06/23 10:58 [facility] Desktop 01/06/23 11:09 [facility] 12/24/22 01/06/23 10:53 10:58 - Today's Visit Information Type of service Follow-up Visit Follow-up Visit (Physician/FRUIT CULLER (Physician/FRUIT CULLER ) ) Arrival Mode Ambulatory Ambulatory, Walker Transfer Assistance None None Transfer Assist (Other) Patient Identification Verified (Name & Yes Yes ) Patient Requires Transmission-Based No No Precautions Height and Weight Body Mass Index (BMI) 59.1 59.1 BMI Classification Obese Obese Vital Signs Temperature (97.8 F-99.1 F) 96.9 F L 97.1 F L Temperature Source Temporal Temporal Pulse Rate (60-100) 84 92 Pulse Location Monitor Monitor Respiratory Rate (12-18) 18 20 H Respiratory rate source Observation Observation Oxygen Delivery Method Room Air Blood Pressure (90/60-120/80) 153/72 H 141/92 H Blood Pressure Mean (mm Hg) 99 108 Source Monitor Monitor Position Semi-Fowlers Sitting Blood Pressure Location Left Arm Right Forearm History Since Last Visit- (Skip if this is Patient's initial visit) Have you changed medications since your No No last visit? Any new allergies or adverse reactions No No Had a fall/change in ADL's that may No No increase risk of falls Signs or symptoms of abuse and/or No No neglect since last visit Have you been in the hospital since your No No last visit? Has dressing in place as prescribed Yes Yes Has compression in place as prescribed Yes No Has offloadiing in place as prescribed No N/A Experienced any changes in pain level or No No management Left Footwear Diabetic Shoe Right Footwear Diabetic Shoe Pain Scale: 0-10 Numeric Is Patient Pain Free? Yes Yes - Nurse 1 - General Ulcer Measurement Start: 12/24/22 10:53 Freq: Status: Active Protocol: Activity Type Activity Date Activity User E-sign Co-sign Detail Recorded Client Recorded Date Recorded By Document 12/24/22 10:53 RB [id number] 12/24/22 10:56 RB Document 01/06/23 10:58 [facility] Desktop 01/06/23 11:09 [facility] 12/24/22 01/06/23 10:53 10:58 Wound Center Nurse 1 #3 R Lat/Post LE -Combined with other wound No No -Current Size (cm) - Length 4.2 5.6 -Current Size (cm) - Width 8 8 -Current Size (cm) - Depth 0.8 0.7 -Total Square Cm 33.6 44.8 -Date of Last Picture (Recall this 01/06/23 field) -Photo Taken Yes -Tunneling No No -Undermining/Tunneling No No -Circular Undermining No No -Exudate Amt Large Large -Exudate Type Serosanguineous Serosanguineous -Wound Margin Distinct, Distinct, Outline Outline Attached Attached -Granulation Amt Medium (34-66%) Small (1-33%) -Granulation Quality [place] -Slough/Fibrin Yes Yes -Necrosis Amt Medium (34-66%) Large (67-100%) -Necrotic Tissue Type Adherent Slough Adherent Slough -Structure Exposed N/A -Texture (Bertha-wound Skin Appearance) Assessed Assessed, Scarring -Moisture (Bertha-wound Skin Appearance) Assessed Assessed,Dry/ Scaly -Color (Bertha-wound Skin Appearance) Assessed Assessed -Temperature (Bertha-wound Skin No Abnormality No Abnormality Appearance) (Pt Warm) (Pt Warm) -Tenderness on Palpation (Bertha-wound No No Skin Appearance) -Ulcer Cleansing Wound Cleanser Soap and Water -Foul Odor after Cleansing No No -Anesthetic Used 5% Lidocaine 4% Lidocaine Gel Solution Lower Limb Edema Present Yes Yes Right Calf (cm) 73 71 Right Ankle (cm) 33 31.2 WC - Nurse 2 - General Ulcer CM Notes Start: 12/24/22 10:53 Freq: Status: Active Protocol: Activity Type Activity Date Activity User E-sign Co-sign Detail Recorded Client Recorded Date Recorded By Document 12/24/22 11:02 MW [id number] 12/24/22 11:17 MW Document 01/06/23 11:21 MW Desktop 01/06/23 11:37 MW 12/24/22 01/06/23 11:02 11:21 Wound Center Nurse 2 #3 R Lat/Post LE -Time 11:10 11:31 -Correct Patient Yes Yes -Correct Side, Site, Position Yes Yes -Correct Procedure Yes Yes -Procedure Performed Yes Yes -Type of Procedure Debridement Debridement -Clinical Debridement Subcutaneous Subcutaneous -Tissue Removed Subcutaneous Subcutaneous -Post Debridement (cm) - Length 5.0 5.5 -Post Debridement (cm) - Width 9.0 9.5 -Post Debridement (cm) - Depth 0.8 0.3 -Total Square (Post) (cm) 45.00 52.25 -Area of Debridement (cm) - Length 5.0 5.5 -Area of Debridement (cm) - Width 9.0 9.5 -Total Square (Area) (cm) 45.00 52.25 -Tunneling No No -Undermining/Tunneling No No -Circular Undermining No No -Wound/Ulcer Outcome Not Healed Not Healed -Ulcer Cleansing Rinsed/ Rinsed/ Irrigated with Irrigated with Saline Saline -Foul Odor after Cleansing No No -Bioengineered Tissue Yes No -Type of Bioengineered Tissue Theraskin -Expiration Date 08/15/26 -Product Lot Number [id number] -Percent Used 100 -Lot number of Saline Used [id number] -Bleeding Controlled with Pressure Pressure -Treatment Response Procedure Procedure Not Tolerated Well Tolerated Well -Offloading No -Debridement - Subq, 1st 20sq cm No Yes -Apply Skin Sub - 1st 25 sq cm - Legs 1 -Theraskin (per sq cm) 39 Pain Scale: 0-10 Numeric Is Patient Pain Free? Yes Yes WC - Nurse 3 - General Ulcer D/C NN Start: 12/24/22 10:53 Freq: Status: Active Protocol: Activity Type Activity Date Activity User E-sign Co-sign Detail Recorded Client Recorded Date Recorded By Document 12/24/22 11:18 MW [id number] 12/24/22 11:19 MW Document 01/06/23 11:38 MW Desktop 01/06/23 11:39 MW 09/06/23 09/19/23 11:18 11:38 Wound Care Center Nurse 3 #3 R Lat/Post LE -Ulcer Cleansing Rinsed/ Rinsed/ Irrigated with Irrigated with Saline Saline -Foul Odor after Cleansing No No -Negative Pressure Wound Therapy N/A N/A -Primary Dressing Applied Aquacel Extra Aquacel Extra -Other Dressing abd pad -Primary Dressing Covered/Secured with Dry Gauze & Roll Gauze, Secured with Tape -Other Covering coban ABD, kerlix -Aquacel Extra 2 1 Treatment Response Procedure Procedure Tolerated Well Tolerated Well Pain Scale: 0-10 Numeric Is Patient Pain Free? Yes Yes Teaching: Wound Center Dressing Your Wound -Person Taught Patient Patient -Teaching Method Discussion, Discussion Demonstration -Response to teaching Verbalize Verbalize understanding understanding WC - Visit Discharge Discharge Condition Stable Stable Ambulatory Status Ambulatory, Ambulatory Walker Transportation Private Auto Private Auto Accompanied by Medication Reconcilliation completed & No No provided to patient/care provider Clinical Summary of Care Provided Yes Yes Assessment/Plan Assessment/Plan (1) Morbid obesity: CODE(S): E66.01 - Morbid (severe) obesity due to excess calories (2) Venous insufficiency of both lower extremities: CODE(S): I87.2 - Venous insufficiency (chronic) (peripheral) (3) Ulcer of right lower extremity with fat layer exposed: CODE(S): L97.912 - Non-pressure chronic ulcer of unspecified part of right lower leg with fat layer exposed PLAN: We will start using Aquacel extra moistened with gauze and ABDs over top Iqra and Christiano wrap to right lower leg daily We will call with culture results results Keep appointment to Dr. Solis for venous ablation January 14 follow-up in 1 week (4) Dyshidrotic eczema: CODE(S): L30.1 - Dyshidrosis [pompholyx] PLAN: amLactin cream to all dried Flaky areas of skin
== END 2023-01-17 23:59 | disposition home or self-care (01) ==
LOC: WC 10:30
PROVIDERS: PCP Preventive Medicine Occupational Medicine; Referring Provider Preventive Medicine Occupational Medicine; Visit Provider Nurse Practitioner
DX: I87.2 Venous insufficiency (chronic) (peripheral) (principal); L97.812 Non-pressure chronic ulcer of other part of right lower leg with fat layer exposed; I48.91 Unspecified atrial fibrillation; Z68.43 Body mass index [BMI] 50.0-59.9, adult; E66.01 Morbid (severe) obesity due to excess calories; R26.9 Unspecified abnormalities of gait and mobility; R60.0 Localized edema; Z86.16 Personal history of COVID-19; L30.1 Dyshidrosis [pompholyx]; Z86.718 Personal history of other venous thrombosis and embolism; Z79.01 Long term (current) use of anticoagulants
CPT/HCPCS: 11042; 15271; 87070; 87075; 87077; 87186; 87205; Q4121

== ENCOUNTER 2023-01-14 10:18 | Day surgery (SDC) | payer MEDICARE, OTHER, SELFPAY ==
[2023-01-06 13:08] LABS: Absolute Lymphocyte Count 0.76 X10^3/uL (0.83-4.51); Basophil# 0.03 X10^3/uL; Basophil% 0.3 % (0-1); Eosinophil# 0.26 X10^3/uL; Eosinophils% 2.3 % (0-5); Hematocrit 40.6 % (40-54); Hemoglobin 12.3 g/dL (13.0-16.5); Lymphocyte # 0.76 X10^3/ul (0.83-4.51); Lymphocyte % 6.8 % (19-41); Mean Corp Hgb Conc 30.3 g/dL (32-36); Mean Corpuscular Hgb 27.8 pg (27.0-32.0); Mean Corpuscular Volume 91.6 fL (80-94); Mean Platelet Vol. 10.6 fl (6.2-12.0); Monocyte# 1.13 X10^3/uL; Monocyte% 10.1 % (0-10); NRBC Flagged by Analyzer 0 % (0-5); Neutrophil # 9.02 X10^3/uL (2.7-7.7); Neutrophil % 80.2 % (47-70); Platelet Count 200 K/mm3 (150-450); RBC Distribution Width CV 18.3 % (11.6-14.6); RBC Distribution Width SD 61.9 fl (35.1-43.9); Red Blood Count 4.43 M/mm3 (4.6-6.2); White Blood Count 11.2 K/mm3 (4.4-11.0)
[2023-01-06 13:28] LABS: Anion Gap 3 (5-15); BUN 23 mg/dL (7-18); BUN/Creat Ratio 23.4 RATIO (10-20); Calcium,Total 8.5 mg/dL (8.5-10.1); Chloride 107 mmol/L (98-107); Creatinine, Serum 0.98 mg/dL (0.70-1.30); EST Glomerular Filtration Rate 81 mL/min (>60); Est Glom Filt Rate - Afr Amer 98 mL/min (>60); Glucose 97 mg/dL (74-106); Potassium 4.1 mmol/L (3.5-5.1); Sodium Level 141 mmol/L (136-145)
[2023-01-13 09:28] VITALS: BMI 59.1
--- NOTE | 2023-01-14 13:14 | PCM.HP.STD ---
HPI - General HPI Narrative MICHELE HAWLEY, is a 67 M who presents today for recurrent right lower extremity posterior lateral calf wounds. Previously resolved with local care, compression, and required a skin graft. The location and appearance are consistent with venous etiology and a reflux study revealed significant valvular insufficiency of the RLE. He was wearing compression when most recent wound developed. [facility] Medical History Morbid obesity Venous insufficiency of both lower extremities Home Medications albuterol sulfate 90 mcg/actuation aerosol inhaler (ProAir HFA) 2 puff inhalation Q4H PRN Wheezing 01/15/21 [History Last Taken Unknown] allopurinol 300 mg tablet 300 mg PO DAILY 01/15/21 [History Last Taken 11/26/22] betamethasone dipropionate 0.05 % topical cream 1 applic topical DAILY PRN Rash 01/15/21 [History Last Taken Unknown] metoprolol succinate 100 mg tablet,extended release 24 hr 25 mg PO DAILY 01/15/21 [History Last Taken Unknown] rivaroxaban 20 mg tablet (Xarelto) 20 mg PO DAILY 01/15/21 [History Last Taken 11/26/22] diltiazem HCl 120 mg tablet (Cardizem) 120 mg PO Q8H 11/26/22 [History Last Taken Unknown] levothyroxine 50 mcg tablet (Levo-T) 50 mcg PO DAILY 11/26/22 [History Last Taken Unknown] furosemide 20 mg tablet (Lasix) 20 mg PO DAILY PRN swelling 12/11/22 [History Last Taken Unknown] Allergy/AdvReac Type Severity Reaction Status Date / Time silver AdvReac Rash Verified 12/11/22 14:14 Social History Smoking Status: Never smoker ROS Constitutional Constitutional: Denies chills, fever(s), frequent falls, lethargy or weakness Eyes Eyes: Denies blind spots, change in vision or loss of vision ENT HEENT: Denies bleeding gums, hoarseness or sore throat Cardiovascular Cardiovascular: Denies abdominal pain, bluish discoloration of hand/feet, chest pain with activity, claudication, cold extremities, cyanosis, dyspnea on exertion, erythema on extremities, irregular heart rhythm, leg edema, leg ulcers, numbness in extremities or weakness in extremities Respiratory/Chest Respiratory/Chest: Reports shortness of breath at rest and shortness of breath with exertion; Denies cough, excessive phlegm production or wheezing Gastrointestinal Gastrointestinal: Denies anorexia, change in stool character, constipation, diarrhea, melena or rectal bleeding Genitourinary Genitourinary: Denies dysuria or hematuria Musculoskeletal Musculoskeletal: Denies abnormal gait Integumentary Integumentary: Reports wounds; Denies erythema or non-healing lesions Neurologic Neurologic: Denies abnormal speech, focal weakness, headache(s), loss of vision, numbness, paresthesias or sensory deficit Hematologic/Lymphatic Hematologic/Lymphatic: Denies easy bleeding, easy bruising or lymphadenopathy Vital Signs Vital Signs Vital Signs: Weight Weight: 400 lb Body Mass Index (BMI) 59.1 Physical Exam Const alert, oriented x3 and no apparent distress General Appearance: cooperative; Negative for combative or lethargic Orientation / Consciousness: awake Exam Limitations: no limitations HEENT Head and Scalp: normocephalic and atraumatic Eyes EOMs intact bilaterally General Eye: normal appearance of both eyes Neck full ROM and thyroid normal General: trachea midline Thyroid: thyroid normal Resp normal respiratory effort and no use of accessory muscles Effort and Inspection: Negative for labored, stridor or audible wheezes Cardio regular rate and regular rhythm GI non-tender Back/Spine Cervical Spine: cervical ROM normal Extremity full ROM and normal capillary refill General Extremity: edema Skin no rashes or lesions noted Skin Narrative: lateral right lowerr leg wound Neuro oriented x3 and CN's II-XII intact bilaterally Psych thought process normal, cooperative, affect normal, speech normal and activity/motor behavior normal Results Lab / Micro Data 01/06/23 12:37 01/06/23 12:37 Assessment & Plan Assessment/Plan (1) Venous insufficiency of both lower extremities: PLAN: -right GSV ablation
--- NOTE | 2023-01-14 16:28 | OP.PCM_ITS ---
Report of Operation Date of Procedure: 01/14/23 Pre-Operative Diagnosis: venous insufficiency with ulceration, right lower extr emity Post-Operative Diagnosis: same Surgery/Procedure Performed:: chemical ablation right great saphenous vein Surgeon: Aquiles Solis Type of Anesthesia: Local and Sedation,Conscious Estimated Blood Loss (mL): 2
--- NOTE | 2023-01-14 16:28 | PCM.OPRPT ---
Report of Operation Date of Procedure: 01/14/23 Pre-Operative Diagnosis: venous insufficiency with ulceration, right lower extremity Post-Operative Diagnosis: same Surgery/Procedure Performed:: chemical ablation right great saphenous vein Surgeon: Aquiles Solis Type of Anesthesia: Local and Sedation,Conscious Estimated Blood Loss (mL): 2 Description of Procedure: HPI: Patient is a 67-year-old male with right lower extremity venous insufficiency and ulceration refractory to local care and compression therapy. He is found to have great saphenous vein with reflux throughout from the saphenofemoral junction to the malleolus. Given the extent of reflux she is taken for chemical ablation to treat the entire length of the saphenous vein. Description of procedure: Upon obtaining informed consent and verification correct patient procedure and site patient taken to [facility] where he was positioned prepped and draped in usual sterile fashion. Time was focused performed conscious ideation administered Versed and fentanyl. Saphenous vein was assessed with ultrasound and skin overlying the status vein at the medial malleolus was anesthetized with 1% lidocaine. The vessel was then accessed in retrograde fashion with a microneedle wire then exchanged out for a 7 Czech sheath. Through the 7 Czech sheath an 035 wire was advanced traversing the great saphenous vein up to the knee. At the knee as the vessel became deeper we had poor visualization and there was inability to advance the wire. It appeared as if the saphenous was occluded at this point with reconstitution in the mid thigh via large collaterals. Is felt that ablation of the lower leg segment and then repeat access Senecal ablation of the upper leg segment would give adequate treatment of the vessel so the glue delivery guide was then advanced over the wire and positioned at the knee. The glue was then deposited along the great saphenous vein per revenue manager instructions after which the delivery guide and catheter withdrawn and the sheath withdrawn and manual pressure held with satisfactory hemostasis. Next under ultrasound guidance the mid thigh great saphenous vein was assessed in the skin overlying anesthetized 1% lidocaine. Using micropuncture needle wire we accessed the mid thigh great saphenous vein and then exchanged out for the 7 Czech sheath. Through the 7 Czech sheath a 035 wire was advanced and again of the Inkollu delivery guide advanced to the saphenofemoral junction. This was then withdrawn down 5 cm and the glue delivery catheter advanced through the guide and then made at the hub. Glue deposition was then performed along the remainder of the thigh great saphenous vein. At the completion the saphenofemoral junction and the common femoral vein were assessed with no evidence of thrombus or glue deposition. Patient's leg was then wrapped with Kerlix after dry sterile dressing was applied followed by Christiano wrap from the foot to the proximal thigh. Patient was then taken the recovery room with dissipated discharge home
== END 2023-01-14 16:25 | disposition home or self-care (01) ==
PROVIDERS: PCP Preventive Medicine Occupational Medicine; Referring Provider Surgery Trauma Surgery; Visit Provider Surgery Trauma Surgery
DX: I87.2 Venous insufficiency (chronic) (peripheral) (principal); L97.919 Non-pressure chronic ulcer of unspecified part of right lower leg with unspecified severity; I83.018 Varicose veins of right lower extremity with ulcer other part of lower leg; E66.01 Morbid (severe) obesity due to excess calories; Z68.43 Body mass index [BMI] 50.0-59.9, adult; Z79.899 Other long term (current) drug therapy; Z79.01 Long term (current) use of anticoagulants
CPT/HCPCS: 36415; 36482; 80048; 85025; 99152; 99153; C1894; J7040; A4216

== ENCOUNTER → 2023-01-19 | Outpatient (CLI) | payer MEDICARE, OTHER, SELFPAY ==
--- NOTE | 2023-01-19 09:56 | VDLE_ITS ---
Reason For Study: S/P Venoseal procedure. RIGHT CFV is compressible, spontaneous, phasic, competent and demonstrates normal augmentation. FV is compressible, spontaneous, phasic, competent and demonstrates normal augmentation. POP V is compressible, spontaneous, phasic, competent and demonstrates normal augmentation. T/P Trunk is compressible. PTV is compressible. RT PerV is compressible. PTV and Caridad V visualized in segments. GSV appears compressible and patent from junction to prox thigh. GSV Prox to distal thigh appear partially compressible with bright intraluminal echoes. Flow noted in color and pulsed wave doppler. GSV knee to ankle appears NONCOMPRESSIBLE with bright intraluminal echoes. No flow visualized. Procedure This is a venous duplex using B-mode, color flow and spectral Doppler. Exam performed in department. The study was technically difficult due to body habitus and patient positioning. VL/Venous Duplex US, Unilateral Interpretation Summary Deep veins of the right lower extremity are patent and compressible segmentally . There is no evidence of right lower extremity deep vein thrombosis. Successful chemical ablation of great saphenous vein in calf. Partial ablation of proximal to distal thigh great saphenous vein. Ordering Physician: Francheska Thomas Referring Physician: Scar Andrews Performed By: Markos Chawla RVT
== END | disposition home or self-care (01) ==
LOC: CVS 09:55
PROVIDERS: PCP Preventive Medicine Occupational Medicine; Referring Provider Physician Assistant; Visit Provider Physician Assistant
DX: L97.912 Non-pressure chronic ulcer of unspecified part of right lower leg with fat layer exposed (principal); R60.0 Localized edema
CPT/HCPCS: 93971

== ENCOUNTER 2023-01-21 10:17 | Outpatient (RCR) | payer MEDICARE, OTHER, SELFPAY ==
[2023-01-18 00:11] VITALS: BP 141/92; PULSE 92; RESP 20; TEMP 36.2; BMI 59.1
[2023-01-21 10:19] VITALS: BP 140/67; PULSE 88; RESP 18; TEMP 35.7; BMI 59.1
--- NOTE | 2023-01-21 11:03 | PCM.WC.PN ---
History of Present Illness Date of Service: 01/21/23 Chief Complaint: Right lateral leg ulcer History of Wound: 66-year-old white obese male. He appears here with a very large deep wound on his right posterior lower leg. He suffers from venous ulcers, and this 1 has been going on for 2 to 3 months. Other than covering it with a gauze dressing he has done nothing else. These are reoccurring ulcer openings have never been taking care of properly because of COVID. Patient did have arterial brachial and venous studies done and 2020 but never got to see the vascular surgeon for repair. Arterial studies fine its his venous he is got a lot of incompetence sees right where all of his wounds are. Patient suffers from cellulitis and also overgrowth of keratosis. He states that he has a history of an infected ulcer from 2013 and he was being seen at the [facility]. He states that he has had issues with this ulcer on an off for years. He states had a fracture of his left ankle which required him to be placed in a SNF and the ulcer on the right improved during that time. 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 He is obese with a BMI 59.1. He sleeps in a recliner because his mattress makes his back hurt. He has significant amount of lower extremity edema. 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 Right AFIA by posterior tibial artery is 1.01. Left AFIA by posterior tibial artery is 0.98. The left AFIA by dorsalis pedis is 1.02. Bilateral triphasic doppler wavelength at ankle level. Venous Duplex ultrasound on 01/28/21 showed segmental valvular incompetence is noted within the great saphenous veins bilaterally. The right small saphenous vein is patent and competent. The left small saphenous vein is patent and incompetent. The accessory saphenous vein in the right mid-thigh is incompetent. We will refer him to Dr. Solis for further evaluation. Today he denies fever, chills, nausea or vomiting. He states his appetite is good. We did discuss weight loss and maybe he needs to try getting those injections from his doctor. 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 Progress of Wound: Patient only manages to get here every 2 weeks. Last week he saw Dr. Solis and he ablated that vein in his saphenous area and it looks really good now the wound the depth is gone from 3 cm down to 0.7 cm. Still has odor they do not see Dr. Cool till next week. I am going to reculture the area and see if it changes. Otherwise the wound looks very good Subjective Subjective is pleased with outcomes which she had done this earlier. Noted an odor this morning Objective Data Objective Data Still has a distinct odor in the wound otherwise no erythema the cellulitis on the top part of the foot leg looks very good is gone. Just having that vein opened has helped tremendously with circulation and swelling and healing. Vital Signs: Vital Signs Temp Pulse Resp BP O2 Del Method 96.2 F L 88 18 140/67 H Room Air 01/21/23 10:19 01/21/23 10:19 01/21/23 10:19 01/21/23 10:19 01/21/23 10:19 Oxygen Delivery Method Room Air Weight: 400 lb 13.584 oz Body Mass Index (BMI) 59.1 Lab / Micro Data Attestation: I reviewed the patient's lab results. Physical Exam Const alert, oriented x3 and no apparent distress General Appearance: cooperative; Negative for combative or lethargic Orientation / Consciousness: awake Exam Limitations: no limitations HEENT Head and Scalp: normocephalic and atraumatic Eyes EOMs intact bilaterally General Eye: normal appearance of both eyes Neck full ROM and thyroid normal General: trachea midline Thyroid: thyroid normal Resp normal respiratory effort and no use of accessory muscles Effort and Inspection: Negative for labored, stridor or audible wheezes Cardio regular rate and regular rhythm GI non-tender Back/Spine Cervical Spine: cervical ROM normal Extremity full ROM and normal capillary refill General Extremity: edema Skin no rashes or lesions noted Skin Narrative: lateral right lowerr leg wound Neuro oriented x3 and CN's II-XII intact bilaterally Psych thought process normal, cooperative, affect normal, speech normal and activity/motor behavior normal Debridement Note Debridement Note Wound debrided: Right lower leg posterior venous ulcer Type of Debridement: Excisional debridement Anesthesia Used: 5% Lidocaine Gel Depth: in the subcutaneous layer Percentage of wound debrided: 100 Instrument Used: 5mm curette Tissue Removed: Fibrin Severity: Fat Layer Exposed Amount of bleeding with debridement: Mild Bleeding Controlled with: Compression and gauze Patient tolerated procedure: Patient tolerated procedure well Post-Debridement Measurements and Additional Note: Post-Debridement Measurements/Treatment - Nurse 1 - General Ulcer Assessment Start: 01/21/23 10:19 Freq: Status: Active Protocol: JADEN Activity Type Activity Date Activity User E-sign Co-sign Detail Recorded Client Recorded Date Recorded By Document 01/21/23 10:19 RB [email or web address] 01/21/23 10:29 RB 01/21/23 10:19 WC - Today's Visit Information Type of service Follow-up Visit (Physician/LOSS PREVENTION DETECTIVE ) Arrival Mode Ambulatory, Walker Transfer Assistance None Patient Identification Verified (Name & Yes ) Patient Requires Transmission-Based No Precautions Height and Weight Body Mass Index (BMI) 59.1 BMI Classification Obese Vital Signs Temperature (97.8 F-99.1 F) 96.2 F L Temperature Source Temporal Pulse Rate (60-100) 88 Pulse Location Monitor Respiratory Rate (12-18) 18 Respiratory rate source Observation Oxygen Delivery Method Room Air Blood Pressure (90/60-120/80) 140/67 H Blood Pressure Mean (mm Hg) 91 Source Monitor History Since Last Visit- (Skip if this is Patient's initial visit) Have you changed medications since your No last visit? Any new allergies or adverse reactions No Had a fall/change in ADL's that may No increase risk of falls Have you been in the hospital since your No last visit? Has dressing in place as prescribed Yes Has compression in place as prescribed N/A Has offloadiing in place as prescribed N/A Experienced any changes in pain level or No management Left Footwear Regular Shoe Right Footwear Regular Shoe Pain Scale: 0-10 Numeric Is Patient Pain Free? Yes - Nurse 1 - General Ulcer Measurement Start: 01/21/23 10:19 Freq: Status: Active Protocol: Activity Type Activity Date Activity User E-sign Co-sign Detail Recorded Client Recorded Date Recorded By Document 01/21/23 10:19 RB Desktop 01/21/23 10:29 RB 01/21/23 10:19 Wound Center Nurse 1 #3 R Lat/Post LE -Combined with other wound No -Current Size (cm) - Length 5.5 -Current Size (cm) - Width 8 -Current Size (cm) - Depth 0.6 -Total Square Cm 44.0 -Date of Last Picture (Recall this 01/21/23 field) -Photo Taken Yes -Epithelialization Small 1-33% -Tunneling No -Undermining/Tunneling No -Circular Undermining No -Exudate Amt Large -Exudate Type Serosanguineous -Wound Margin Distinct, Outline Attached -Granulation Amt Small (1-33%) -Granulation Quality Red -Slough/Fibrin Yes -Necrosis Amt Large (67-100%) -Necrotic Tissue Type Adherent Slough -Texture (Bertha-wound Skin Appearance) Assessed, Excoriation, Scarring -Moisture (Bertha-wound Skin Appearance) Assessed -Color (Bertha-wound Skin Appearance) Assessed, Erythema -Temperature (Bertha-wound Skin No Abnormality Appearance) (Pt Warm) -Tenderness on Palpation (Bertha-wound No Skin Appearance) -Ulcer Cleansing Soap and Water -Foul Odor after Cleansing No -Anesthetic Used 4% Lidocaine Solution Lower Limb Edema Present Yes Right Calf (cm) 71 Right Ankle (cm) 33 WC - Nurse 2 - General Ulcer CM Notes Start: 01/21/23 10:19 Freq: Status: Active Protocol: Activity Type Activity Date Activity User E-sign Co-sign Detail Recorded Client Recorded Date Recorded By Document 01/21/23 10:37 MW Desktop 01/21/23 10:46 MW 01/21/23 10:37 Wound Center Nurse 2 #3 R Lat/Post LE -Time 10:38 -Correct Patient Yes -Correct Side, Site, Position Yes -Correct Procedure Yes -Procedure Performed Yes -Type of Procedure Debridement -Clinical Debridement Subcutaneous -Tissue Removed Subcutaneous -Post Debridement (cm) - Length 5.5 -Post Debridement (cm) - Width 8.5 -Post Debridement (cm) - Depth 0.7 -Total Square (Post) (cm) 46.75 -Area of Debridement (cm) - Length 5.5 -Area of Debridement (cm) - Width 8.5 -Total Square (Area) (cm) 46.75 -Tunneling No -Undermining/Tunneling No -Circular Undermining No -Wound/Ulcer Outcome Not Healed -Ulcer Cleansing Rinsed/ Irrigated with Saline -Foul Odor after Cleansing No -Bioengineered Tissue No -Bleeding Controlled with Pressure -Treatment Response Procedure Tolerated Well -Offloading No -Debridement - Subq, 1st 20sq cm Yes Pain Scale: 0-10 Numeric Is Patient Pain Free? Yes - Nurse 3 - General Ulcer D/C NN Start: 01/21/23 10:19 Freq: Status: Active Protocol: Activity Type Activity Date Activity User E-sign Co-sign Detail Recorded Client Recorded Date Recorded By Document 01/21/23 10:50 RB Desktop 01/21/23 10:52 RB 01/21/23 10:50 Wound Care Center Nurse 3 #3 R Lat/Post LE -Ulcer Cleansing Rinsed/ Irrigated with Saline -Primary Dressing Applied Fibracol Plus 4x4 -Other Dressing abd -Primary Dressing Covered/Secured with Dry Gauze,Dry Gauze & Roll Gauze,Secured with Tape -Fibracol Plus 4x4 1 Right -Other tubigrip single pt own Treatment Response Procedure Tolerated Well Pain Scale: 0-10 Numeric Is Patient Pain Free? Yes WC - Visit Discharge Discharge Condition Stable Ambulatory Status Ambulatory, Walker Transportation Private Auto Medication Reconcilliation completed & No provided to patient/care provider Clinical Summary of Care Provided Yes Assessment/Plan Assessment/Plan (1) Morbid obesity: CODE(S): E66.01 - Morbid (severe) obesity due to excess calories (2) Venous insufficiency of both lower extremities: CODE(S): I87.2 - Venous insufficiency (chronic) (peripheral) (3) Ulcer of right lower extremity with fat layer exposed: CODE(S): L97.912 - Non-pressure chronic ulcer of unspecified part of right lower leg with fat layer exposed PLAN: We will start using Fibracol moistened with gauze and ABDs over top Iqra and Christiano wrap to right lower leg daily We will call with culture results results Keep appointment with Dr. Brady in 1 week follow-up in 2 week (4) Dyshidrotic eczema: CODE(S): L30.1 - Dyshidrosis [pompholyx] PLAN: amLactin cream to all dried Flaky areas of skin
== END 2023-02-17 23:59 | disposition home or self-care (01) ==
LOC: WC 10:17
PROVIDERS: PCP Preventive Medicine Occupational Medicine; Referring Provider Preventive Medicine Occupational Medicine; Visit Provider Nurse Practitioner
DX: I87.2 Venous insufficiency (chronic) (peripheral) (principal); L97.812 Non-pressure chronic ulcer of other part of right lower leg with fat layer exposed; I48.91 Unspecified atrial fibrillation; Z68.43 Body mass index [BMI] 50.0-59.9, adult; E66.01 Morbid (severe) obesity due to excess calories; R60.0 Localized edema; Z86.16 Personal history of COVID-19; Z86.718 Personal history of other venous thrombosis and embolism; Z79.01 Long term (current) use of anticoagulants; L30.1 Dyshidrosis [pompholyx]
CPT/HCPCS: 11042; 11045; 87070; 87075; 87077; 87186; 87205

== ENCOUNTER 2023-06-17 09:38 | Outpatient (RCR) | payer MEDICARE, OTHER, SELFPAY ==
[2023-02-18 00:34] VITALS: BP 140/67; PULSE 88; RESP 18; TEMP 35.7; BMI 59.1
--- NOTE | 2023-02-24 08:31 | WC ---
Patient called in requesting more supplies since he didn't get help with [facility]. States he needs Fibracol, ABD pads and Kerlix. Placed an order with [facility] and called patient letting him aware of this but reinforced that with his insurance, he needs to have a current wound visit for billing reasons and his last appt was 01/21/23. He is scheduled to come in next week to see Krystin SALMON and encouraged patient not to cancel appt. He verbalized understanding.
[2023-06-17 09:48] VITALS: BP 117/57; PULSE 80; RESP 18; TEMP 35.8; BMI 59.1
--- NOTE | 2023-06-17 12:06 | PN.PCM_ITS ---
History of Present Illness Date of Service: 06/17/23 Chief Complaint: Right lateral leg ulcer History of Wound: 66-year-old white obese male. He appears here with a very large deep wound on his right posterior lower leg. He suffers from venous ulcers, and this 1 has been going on for 2 to 3 months. Other than covering it with a gauze dressing he has done nothing else. These are reoccurring ulcer openings have never been taking care of properly because of COVID. Patient did have arterial brachial and venous studies done and 2020 but never got to see the vascular surgeon for repair. Arterial studies fine its his venous he is got a lot of incompetence sees right where all of his wounds are. Patient suffers from cellulitis and also overgrowth of keratosis. He states that he has a history of an infected ulcer from 2013 and he was being seen at the [place] wound center. He states that he has had issues with this ulcer on an off for years. He states had a fracture of his left ankle which required him to be placed in a SNF and the ulcer on the right improved during that time. 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 He is obese with a BMI 59.1. He sleeps in a recliner because his mattress makes his back hurt. He has significant amount of lower extremity edema. 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 Right AFIA by posterior tibial artery is 1.01. Left AFIA by posterior tibial artery is 0.98. The left AFIA by dorsalis pedis is 1.02. Bilateral triphasic doppler wavelength at ankle level. Venous Duplex ultrasound on 01/28/21 showed segmental valvular incompetence is noted within the great saphenous veins bilaterally. The right small saphenous vein is patent and competent. The left small saphenous vein is patent and incompetent. The accessory saphenous vein in the right mid- thigh is incompetent. We will refer him to Dr. Solis for further evaluation. Today he denies fever, chills, nausea or vomiting. He states his appetite is good. We did discuss weight loss and maybe he needs to try getting those injections from his doctor. 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 Progress of Wound: Patient was last seen in January 2023 for the same wound. In the meantime he has been hospitalized and was at a retirement and was at [facility] and [facility] also. Still grossly obese wound is much smaller they have been using Fibracol on it at home he is here to follow-up on the wound. The skin around the wound looks good and normal and pink and not hot or red or ugly no drainage noted and the extra skin of his regular legs has been smooth and soft from amLac tin cream. We will continue using the Fibracol with Adaptic and Iqra and Tubigrip's with Christiano wrap over top to get the pressure and Subjective Subjective Patient approved to plan Objective Data Objective Data As stated above no redness or swelling no sign of infection no odor wound is much smaller and flatter hardly any depth looks good Vital Signs: Vital Signs Temp Pulse Resp BP O2 Del Method 96.5 F L 80 18 117/57 L Room Air 06/17/23 09:48 06/17/23 09:48 06/17/23 09:48 06/17/23 09:48 06/17/23 09:48 Oxygen Delivery Method Room Air Weight: 400 lb Body Mass Index (BMI) 59.1 Lab / Micro Data Attestation: I reviewed the patient's lab results. Physical Exam Const alert, oriented x3 and no apparent distress General Appearance: cooperative; Negative for combative or lethargic Orientation / Consciousness: awake Exam Limitations: no limitations HEENT Head and Scalp: normocephalic and atraumatic Eyes EOMs intact bilaterally General Eye: normal appearance of both eyes Neck full ROM and thyroid normal General: trachea midline Thyroid: thyroid normal Resp normal respiratory effort and no use of accessory muscles Effort and Inspection: Negative for labored, stridor or audible wheezes Cardio regular rate and regular rhythm GI non-tender Back/Spine Cervical Spine: cervical ROM normal Extremity full ROM and normal capillary refill General Extremity: edema Skin no rashes or lesions noted Skin Narrative: lateral right lowerr leg wound Neuro oriented x3 and CN's II-XII intact bilaterally Psych thought process normal, cooperative, affect normal, speech normal and activity/motor behavior normal Debridement Note Debridement Note Wound debrided: Right lower leg posterior venous ulcer Type of Debridement: Excisional debridement Anesthesia Used: 5% Lidocaine Gel Depth: in the subcutaneous layer Percentage of wound debrided: 100 Instrument Used: 5mm curette Tissue Removed: Fibrin Severity: Fat Layer Exposed Amount of bleeding with debridement: Mild Bleeding Controlled with: Compression and gauze Patient tolerated procedure: Patient tolerated procedure well Post-Debridement Measurements and Additional Note: Post-Debridement Measurements/Treatment - Nurse 1 - General Ulcer Assessment Start: 06/17/23 09:46 Freq: Status: Active Protocol: JADEN Activity Type Activity Date Activity User E-sign Co-sign Detail Recorded Client Recorded Date Recorded By Document 06/17/23 09:48 [facility] [employer] 06/17/23 09:54 [facility] 06/17/23 09:48 - Today's Visit Information Type of service Initial Visit Arrival Mode Ambulatory, Walker Transfer Assistance None Accompanied by Patient Identification Verified (Name & Yes ) Patient Requires Transmission-Based No Precautions Height and Weight Height 5 ft 9 in Weight 400 lb Weight in Pounds 400.0 lbs Weight Measurement Method Estimated by Patient Body Mass Index (BMI) 59.1 BMI Classification Obese BSA - Bonnie 2.77 Vital Signs Temperature (97.8 F-99.1 F) 96.5 F L Temperature Source Temporal Pulse Rate (60-100) 80 Pulse Location Monitor Respiratory Rate (12-18) 18 Respiratory rate source Observation Oxygen Delivery Method Room Air Blood Pressure (90/60-120/80) 117/57 L Blood Pressure Mean (mm Hg) 77 Source Monitor Position Supine Blood Pressure Location Right Arm History Since Last Visit- (Skip if this is Patient's initial visit) Left Footwear Regular Shoe Right Footwear Regular Shoe Pain Scale: 0-10 Numeric Is Patient Pain Free? Yes - Nurse 1 - General Ulcer Measurement Start: 06/17/23 09:46 Freq: Status: Active Protocol: Activity Type Activity Date Activity User E-sign Co-sign Detail Recorded Client Recorded Date Recorded By Document 06/17/23 09:48 [facility] [employer] 06/17/23 09:54 [facility] 06/17/23 09:48 Wound Center Nurse 1 #4- R LAT LE -Combined with other wound No -Current Size (cm) - Length 1.7 -Current Size (cm) - Width 4.6 -Current Size (cm) - Depth 0.1 -Total Square Cm 7.82 -Date of Last Picture (Recall this 06/17/23 field) -Photo Taken Yes -Tunneling No -Undermining/Tunneling No -Circular Undermining No -Exudate Amt Medium -Exudate Type Serosanguineous -Wound Margin Distinct, Outline Attached -Granulation Amt Large (67-100%) -Granulation Quality Hyper- granulation,Red -Slough/Fibrin Yes -Necrosis Amt Small (1-33%) -Necrotic Tissue Type Adherent Slough -Texture (Bertha-wound Skin Appearance) Assessed, Scarring -Moisture (Bertha-wound Skin Appearance) Assessed,Dry/ Scaly -Color (Bertha-wound Skin Appearance) Assessed -Temperature (Bertha-wound Skin No Abnormality Appearance) (Pt Warm) -Tenderness on Palpation (Bertha-wound No Skin Appearance) -Ulcer Cleansing Rinsed/ Irrigated with Saline -Foul Odor after Cleansing No -Anesthetic Used 5% Lidocaine Gel Lower Limb Edema Present Yes Right Calf (cm) 62 Right Ankle (cm) 29.8 Left Calf (cm) 57.2 Left Ankle (cm) 32.5 WC - Nurse 2 - General Ulcer CM Notes Start: 06/17/23 09:46 Freq: Status: Active Protocol: Activity Type Activity Date Activity User E-sign Co-sign Detail Recorded Client Recorded Date Recorded By Document 06/17/23 10:05 MW Desktop 06/17/23 10:10 MW 06/17/23 10:05 Wound Center Nurse 2 #4- R LAT LE -Time 10:06 -Correct Patient Yes -Correct Side, Site, Position Yes -Correct Procedure Yes -Procedure Performed Yes -Type of Procedure Debridement -Clinical Debridement Subcutaneous -Tissue Removed Subcutaneous -Post Debridement (cm) - Length 1.8 -Post Debridement (cm) - Width 4.4 -Post Debridement (cm) - Depth 0.2 -Total Square (Post) (cm) 7.92 -Area of Debridement (cm) - Length 1.8 -Area of Debridement (cm) - Width 4.4 -Total Square (Area) (cm) 7.92 -Tunneling No -Undermining/Tunneling No -Circular Undermining No -Wound/Ulcer Outcome Not Healed -Ulcer Cleansing Rinsed/ Irrigated with Saline -Foul Odor after Cleansing No -Bioengineered Tissue No -Bleeding Controlled with Pressure -Treatment Response Procedure Tolerated Well -Offloading No -Debridement - Subq, 1st 20sq cm Yes Pain Scale: 0-10 Numeric Is Patient Pain Free? 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 Yes - Visit Discharge Discharge Condition Stable Ambulatory Status Ambulatory, Walker Transportation Private Auto Accompanied by Assessment/Plan Assessment/Plan (1) Morbid obesity: CODE(S): E66.01 - Morbid (severe) obesity due to excess calories (2) Venous insufficiency of both lower extremities: CODE(S): I87.2 - Venous insufficiency (chronic) (peripheral) (3) Ulcer of right lower extremity with fat layer exposed: CODE(S): L97.912 - Non-pressure chronic ulcer of unspecified part of right lower leg with fat layer exposed PLAN: Fibracol moistened with gauze and ABDs over top Iqra and Christiano wrap to right lower leg daily double layer Tubigrip follow-up in 2 week (4) Dyshidrotic eczema: CODE(S): L30.1 - Dyshidrosis [pompholyx] PLAN: amLactin cream to all dried Flaky areas of skin
== END 2023-06-18 23:59 | disposition home or self-care (01) ==
LOC: WC 09:38
PROVIDERS: PCP Preventive Medicine Occupational Medicine; Referring Provider Preventive Medicine Occupational Medicine; Visit Provider Nurse Practitioner
DX: I87.2 Venous insufficiency (chronic) (peripheral) (principal); L97.812 Non-pressure chronic ulcer of other part of right lower leg with fat layer exposed; I48.91 Unspecified atrial fibrillation; Z68.43 Body mass index [BMI] 50.0-59.9, adult; E66.01 Morbid (severe) obesity due to excess calories; R60.0 Localized edema; L30.1 Dyshidrosis [pompholyx]
CPT/HCPCS: 11042; 99213; G0463

== ENCOUNTER 2023-07-15 10:30 | Outpatient (RCR) | payer MEDICARE, OTHER, SELFPAY ==
[2023-06-19 00:21] VITALS: BP 117/57; PULSE 80; RESP 18; TEMP 35.8; BMI 59.1
[2023-07-01 10:06] VITALS: RESP 24; TEMP 35.7; BMI 59.1
--- NOTE | 2023-07-01 12:40 | PN.PCM_ITS ---
History of Present Illness Date of Service: 07/01/23 Chief Complaint: Right lateral leg ulcer History of Wound: 66-year-old white obese male. He appears here with a very large deep wound on his right posterior lower leg. He suffers from venous ulcers, and this 1 has been going on for 2 to 3 months. Other than covering it with a gauze dressing he has done nothing else. These are reoccurring ulcer openings have never been taking care of properly because of COVID. Patient did have arterial brachial and venous studies done and 2020 but never got to see the vascular surgeon for repair. Arterial studies fine its his venous he is got a lot of incompetence sees right where all of his wounds are. Patient suffers from cellulitis and also overgrowth of keratosis. He states that he has a history of an infected ulcer from 2013 and he was being seen at the [place] wound center. He states that he has had issues with this ulcer on an off for years. He states had a fracture of his left ankle which required him to be placed in a SNF and the ulcer on the right improved during that time. 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 He is obese with a BMI 59.1. He sleeps in a recliner because his mattress makes his back hurt. He has significant amount of lower extremity edema. 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 Right AFIA by posterior tibial artery is 1.01. Left AFIA by posterior tibial artery is 0.98. The left AFIA by dorsalis pedis is 1.02. Bilateral triphasic doppler wavelength at ankle level. Venous Duplex ultrasound on 01/28/21 showed segmental valvular incompetence is noted within the great saphenous veins bilaterally. The right small saphenous vein is patent and competent. The left small saphenous vein is patent and incompetent. The accessory saphenous vein in the right mid- thigh is incompetent. We will refer him to Dr. Solis for further evaluation. Today he denies fever, chills, nausea or vomiting. He states his appetite is good. We did discuss weight loss and maybe he needs to try getting those injections from his doctor. 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 Progress of Wound: Measurements are smaller flatter less depth Gettings little hypergranulation in the center will try switching over to Promogran and finish off to get the topping on the wound base. Subjective Subjective and patient happy with outcomes and agreeable with plan Objective Data Objective Data No sign of infection no redness no swelling normal color of the perimeter edges are flat not rolled no drainage noted beefy red in the center debrided well for bloody drainage tolerated well. Will start using Promogran to wound base moistened cover with Adaptic ABDs and Iqra Vital Signs: Vital Signs Temp Pulse Resp BP 96.3 F L 80 24 H 117/57 L 07/01/23 10:06 06/19/23 00:21 07/01/23 10:06 06/19/23 00:21 Weight: 400 lb Body Mass Index (BMI) 59.1 Physical Exam Const alert, oriented x3 and no apparent distress General Appearance: cooperative; Negative for combative or lethargic Orientation / Consciousness: awake Exam Limitations: no limitations HEENT Head and Scalp: normocephalic and atraumatic Eyes EOMs intact bilaterally General Eye: normal appearance of both eyes Neck full ROM and thyroid normal General: trachea midline Thyroid: thyroid normal Resp normal respiratory effort and no use of accessory muscles Effort and Inspection: Negative for labored, stridor or audible wheezes Cardio regular rate and regular rhythm GI non-tender Back/Spine Cervical Spine: cervical ROM normal Extremity full ROM and normal capillary refill General Extremity: edema Skin no rashes or lesions noted Skin Narrative: lateral right lowerr leg wound Neuro oriented x3 and CN's II-XII intact bilaterally Psych thought process normal, cooperative, affect normal, speech normal and activity/motor behavior normal Debridement Note Debridement Note Wound debrided: Right lower leg posterior venous ulcer Type of Debridement: Excisional debridement Anesthesia Used: 5% Lidocaine Gel Depth: in the subcutaneous layer Percentage of wound debrided: 100 Instrument Used: 5mm curette Tissue Removed: Fibrin Severity: Fat Layer Exposed Amount of bleeding with debridement: Mild Bleeding Controlled with: Compression and gauze Patient tolerated procedure: Patient tolerated procedure well Post-Debridement Measurements and Additional Note: Post-Debridement Measurements/Treatment WC - Nurse 1 - General Ulcer Assessment Start: 07/01/23 10:04 Freq: Status: Active Protocol: JADEN Activity Type Activity Date Activity User E-sign Co-sign Detail Recorded Client Recorded Date Recorded By Document 07/01/23 10:06 Desktop 07/01/23 10:15 07/01/23 10:06 - Today's Visit Information Type of service 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 Any new allergies or adverse reactions No Had a fall/change in ADL's that may No increase risk of falls Signs or symptoms of abuse and/or No neglect since last visit Have you been in the hospital since your No last visit? Has dressing in place as prescribed Yes Has compression in place as prescribed Yes Has offloadiing in place as prescribed N/A Experienced any changes in pain level or No management Pain Scale: 0-10 Numeric Is Patient Pain Free? Yes - Nurse 1 - General Ulcer Measurement Start: 07/01/23 10:04 Freq: Status: Active Protocol: Activity Type Activity Date Activity User E-sign Co-sign Detail Recorded Client Recorded Date Recorded By Document 07/01/23 10:06 [employer] 07/01/23 10:15 07/01/23 10:06 Wound Center Nurse 1 #4- R LAT LE -Current Size (cm) - Length 1.5 -Current Size (cm) - Width 3.9 -Current Size (cm) - Depth 0.1 -Total Square Cm 5.85 -Photo Taken No -Exudate Amt Small -Exudate Type Serosanguineous -Wound Margin Distinct, Outline Attached -Granulation Amt None Present (0 %) -Granulation Quality Hyper- granulation -Necrosis Amt Large (67-100%) -Necrotic Tissue Type Adherent Slough -Structure Exposed N/A -Texture (Bertha-wound Skin Appearance) Excoriation, Localized Edema ,Scarring,Rash -Moisture (Bertha-wound Skin Appearance) No Abnormality -Color (Bertha-wound Skin Appearance) Hemosiderin Staining -Temperature (Bertha-wound Skin No Abnormality Appearance) (Pt Warm) -Ulcer Cleansing Soap and Water -Foul Odor after Cleansing No -Anesthetic Used 5% Lidocaine Gel Right Calf (cm) 65 Right Ankle (cm) 30.2 WC - Nurse 2 - General Ulcer CM Notes Start: 07/01/23 10:04 Freq: Status: Active Protocol: Activity Type Activity Date Activity User E-sign Co-sign Detail Recorded Client Recorded Date Recorded By Document 07/01/23 10:34 [facility] Desktop 07/01/23 10:40 [facility] 07/01/23 10:34 Wound Center Nurse 2 #4- R LAT LE -Time 10:35 -Correct Patient Yes -Correct Side, Site, Position Yes -Correct Procedure Yes -Procedure Performed Yes -Type of Procedure Debridement -Clinical Debridement Subcutaneous -Tissue Removed Subcutaneous -Post Debridement (cm) - Length 2.4 -Post Debridement (cm) - Width 4.2 -Post Debridement (cm) - Depth 0.1 -Total Square (Post) (cm) 10.08 -Area of Debridement (cm) - Length 2.4 -Area of Debridement (cm) - Width 4.2 -Total Square (Area) (cm) 10.08 -Tunneling No -Undermining/Tunneling No -Circular Undermining No -Wound/Ulcer Outcome Not Healed -Ulcer Cleansing Rinsed/ Irrigated with Saline -Foul Odor after Cleansing No -Bioengineered Tissue No -Bleeding Controlled with Pressure -Treatment Response Procedure Tolerated Well -Offloading No -Debridement - Subq, 1st 20sq cm Yes Pain Scale: 0-10 Numeric Is Patient Pain Free? Yes Assessment/Plan Assessment/Plan (1) Morbid obesity: CODE(S): E66.01 - Morbid (severe) obesity due to excess calories (2) Venous insufficiency of both lower extremities: CODE(S): I87.2 - Venous insufficiency (chronic) (peripheral) (3) Ulcer of right lower extremity with fat layer exposed: CODE(S): L97.912 - Non-pressure chronic ulcer of unspecified part of right lower leg with fat layer exposed PLAN: Wash leg with Dial rinse pat dry Promogran moistened with gauze and ABDs over top Iqra and Christiano wrap to right lower leg daily double layer Tubigrip follow-up in 1 week (4) Dyshidrotic eczema: CODE(S): L30.1 - Dyshidrosis [pompholyx] PLAN: amLactin cream to all dried Flaky areas of skin
[2023-07-15 10:26] VITALS: BP 119/62; PULSE 81; RESP 20; TEMP 35.9; BMI 59.1
--- NOTE | 2023-07-15 11:51 | PCM.WC.PN ---
History of Present Illness Date of Service: 07/15/23 Chief Complaint: Right lateral leg ulcer History of Wound: 66-year-old white obese male. He appears here with a very large deep wound on his right posterior lower leg. He suffers from venous ulcers, and this 1 has been going on for 2 to 3 months. Other than covering it with a gauze dressing he has done nothing else. These are reoccurring ulcer openings have never been taking care of properly because of COVID. Patient did have arterial brachial and venous studies done and 2020 but never got to see the vascular surgeon for repair. Arterial studies fine its his venous he is got a lot of incompetence sees right where all of his wounds are. Patient suffers from cellulitis and also overgrowth of keratosis. He states that he has a history of an infected ulcer from 2013 and he was being seen at the [place] wound center. He states that he has had issues with this ulcer on an off for years. He states had a fracture of his left ankle which required him to be placed in a SNF and the ulcer on the right improved during that time. 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 He is obese with a BMI 59.1. He sleeps in a recliner because his mattress makes his back hurt. He has significant amount of lower extremity edema. 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 Right AFIA by posterior tibial artery is 1.01. Left AFIA by posterior tibial artery is 0.98. The left AFIA by dorsalis pedis is 1.02. Bilateral triphasic doppler wavelength at ankle level. Venous Duplex ultrasound on 01/28/21 showed segmental valvular incompetence is noted within the great saphenous veins bilaterally. The right small saphenous vein is patent and competent. The left small saphenous vein is patent and incompetent. The accessory saphenous vein in the right mid-thigh is incompetent. We will refer him to Dr. Solis for further evaluation. Today he denies fever, chills, nausea or vomiting. He states his appetite is good. We did discuss weight loss and maybe he needs to try getting those injections from his doctor. 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 Progress of Wound: Measurements are smaller flatter less depth Gettings little hypergranulation in the center will try switching over to Promogran and finish off to get the topping on the wound base. Subjective Subjective Still agreeable to plan Objective Data Objective Data Measuring smaller no odor no sign of infection and healing well with the Promogran. Vital Signs: Vital Signs Temp Pulse Resp BP O2 Del Method 96.6 F L 81 20 H 119/62 Room Air 07/15/23 10:26 07/15/23 10:26 07/15/23 10:07/15/23 10:07/15/23 10:26 Oxygen Delivery Method Room Air Weight: 400 lb Body Mass Index (BMI) 59.1 Physical Exam Const alert, oriented x3 and no apparent distress General Appearance: cooperative; Negative for combative or lethargic Orientation / Consciousness: awake Exam Limitations: no limitations HEENT Head and Scalp: normocephalic and atraumatic Eyes EOMs intact bilaterally General Eye: normal appearance of both eyes Neck full ROM and thyroid normal General: trachea midline Thyroid: thyroid normal Resp normal respiratory effort and no use of accessory muscles Effort and Inspection: Negative for labored, stridor or audible wheezes Cardio regular rate and regular rhythm GI non-tender Back/Spine Cervical Spine: cervical ROM normal Extremity full ROM and normal capillary refill General Extremity: edema Skin no rashes or lesions noted Skin Narrative: lateral right lowerr leg wound Neuro oriented x3 and CN's II-XII intact bilaterally Psych thought process normal, cooperative, affect normal, speech normal and activity/motor behavior normal Debridement Note Debridement Note Wound debrided: Right lower leg posterior venous ulcer Type of Debridement: Excisional debridement Anesthesia Used: 5% Lidocaine Gel Depth: in the subcutaneous layer Percentage of wound debrided: 100 Instrument Used: 5mm curette Tissue Removed: Fibrin Severity: Fat Layer Exposed Amount of bleeding with debridement: Mild Bleeding Controlled with: Compression and gauze Patient tolerated procedure: Patient tolerated procedure well Post-Debridement Measurements and Additional Note: Post-Debridement Measurements/Treatment RADHA - Nurse 1 - General Ulcer Assessment Start: 07/01/23 10:04 Freq: Status: Active Protocol: JADEN Activity Type Activity Date Activity User E-sign Co-sign Detail Recorded Client Recorded Date Recorded By Document 07/01/23 10:06 Desktop 07/01/23 10:15 DL Document 07/15/23 10:26 [email or web address] 07/15/23 10:35 07/01/23 07/15/23 10:06 10:26 - Today's Visit Information Type of service Follow-up Visit Follow-up Visit (Physician/REINFORCED CONCRETE INSPECTOR (Physician/REINFORCED CONCRETE INSPECTOR ) ) Arrival Mode Ambulatory, Ambulatory, Walker Walker Transfer Assistance None Accompanied by Patient Identification Verified (Name & Yes Yes ) Patient Requires Transmission-Based No No Precautions Safety Precautions Fall Prevention Height and Weight Body Mass Index (BMI) 59.1 59.1 BMI Classification Obese Obese Vital Signs Temperature (97.8 F-99.1 F) 96.3 F L 96.6 F L Temperature Source Temporal Temporal Pulse Rate (60-100) 81 Pulse Location Monitor Respiratory Rate (12-18) 24 H 20 H Respiratory rate source Observation Observation Oxygen Delivery Method Room Air Blood Pressure (90/60-120/80) 119/62 Blood Pressure Mean (mm Hg) 81 Source Monitor Position Sitting Blood Pressure Location Right Forearm History Since Last Visit- (Skip if this is Patient's initial visit) Have you changed medications since your No No last visit? Any new allergies or adverse reactions No No Had a fall/change in ADL's that may No No increase risk of falls Signs or symptoms of abuse and/or No No neglect since last visit Have you been in the hospital since your No No last visit? Has dressing in place as prescribed Yes Yes Has compression in place as prescribed Yes Yes Has offloadiing in place as prescribed N/A Yes Experienced any changes in pain level or No No management Left Footwear Regular Shoe Right Footwear Regular Shoe Pain Scale: 0-10 Numeric Is Patient Pain Free? Yes Yes - Nurse 1 - General Ulcer Measurement Start: 07/01/23 10:04 Freq: Status: Active Protocol: Activity Type Activity Date Activity User E-sign Co-sign Detail Recorded Client Recorded Date Recorded By Document 07/01/23 10:06 DL [email or web address] 07/01/23 10:15 DL Document 07/15/23 10:26 [email or web address] 07/15/23 10:35 07/01/23 07/15/23 10:06 10:26 Wound Center Nurse 1 #4- R LAT LE -Current Size (cm) - Length 1.5 1.5 -Current Size (cm) - Width 3.9 4.5 -Current Size (cm) - Depth 0.1 0.1 -Total Square Cm 5.85 6.75 -Photo Taken No No -Epithelialization Small 1-33% -Tunneling No -Undermining/Tunneling No -Circular Undermining No -Exudate Amt Small Small -Exudate Type Serosanguineous Serosanguineous -Wound Margin Distinct, Distinct, Outline Outline Attached Attached -Granulation Amt None Present (0 Medium (34-66%) %) -Granulation Quality Hyper- Red granulation -Necrosis Amt Large (67-100%) Small (1-33%) -Necrotic Tissue Type Adherent Slough -Structure Exposed N/A N/A -Texture (Bertha-wound Skin Appearance) Excoriation, Assessed Localized Edema ,Scarring,Rash -Moisture (Bertha-wound Skin Appearance) No Abnormality Assessed -Color (Bertha-wound Skin Appearance) Hemosiderin Assessed Staining -Temperature (Bertha-wound Skin No Abnormality No Abnormality Appearance) (Pt Warm) (Pt Warm) -Tenderness on Palpation (Bertha-wound No Skin Appearance) -Ulcer Cleansing Soap and Water Soap and Water -Foul Odor after Cleansing No No -Anesthetic Used 5% Lidocaine 5% Lidocaine Gel Gel Right Calf (cm) 65 70 Right Ankle (cm) 30.2 32.4 WC - Nurse 2 - General Ulcer CM Notes Start: 07/01/23 10:04 Freq: Status: Active Protocol: Activity Type Activity Date Activity User E-sign Co-sign Detail Recorded Client Recorded Date Recorded By Document 07/01/23 10:34 [facility] Desktop 07/01/23 10:40 BMF Document 07/15/23 10:54 MW Desktop 07/15/23 10:57 MW 07/01/23 07/15/23 10:34 10:54 Wound Center Nurse 2 #4- R LAT LE -Time 10:35 10:54 -Correct Patient Yes Yes -Correct Side, Site, Position Yes Yes -Correct Procedure Yes Yes -Procedure Performed Yes Yes -Type of Procedure Debridement Debridement -Clinical Debridement Subcutaneous Subcutaneous -Tissue Removed Subcutaneous Subcutaneous -Post Debridement (cm) - Length 2.4 1.5 -Post Debridement (cm) - Width 4.2 4.0 -Post Debridement (cm) - Depth 0.1 0.1 -Total Square (Post) (cm) 10.08 6.00 -Area of Debridement (cm) - Length 2.4 1.5 -Area of Debridement (cm) - Width 4.2 4.0 -Total Square (Area) (cm) 10.08 6.00 -Tunneling No No -Undermining/Tunneling No No -Circular Undermining No No -Wound/Ulcer Outcome Not Healed Not Healed -Ulcer Cleansing Rinsed/ Rinsed/ Irrigated with Irrigated with Saline Saline -Foul Odor after Cleansing No No -Bioengineered Tissue No No -Bleeding Controlled with Pressure Pressure -Treatment Response Procedure Procedure Tolerated Well Tolerated Well -Offloading No No -Debridement - Subq, 1st 20sq cm Yes Yes Pain Scale: 0-10 Numeric Is Patient Pain Free? Yes Yes - Nurse 3 - General Ulcer D/C NN Start: 07/01/23 10:04 Freq: Status: Active Protocol: Activity Type Activity Date Activity User E-sign Co-sign Detail Recorded Client Recorded Date Recorded By Document 07/15/23 11:11 DL Desktop 07/15/23 11:12 DL 07/15/23 11:11 Wound Care Center Nurse 3 #4- R LAT LE -Ulcer Cleansing Rinsed/ Irrigated with Saline -Foul Odor after Cleansing No -Primary Dressing Applied NonAdherent Contact Layer, Promogran -Primary Dressing Covered/Secured with Dry Gauze & Roll Gauze, Secured with Tape -Other Covering tubigrip G -Promogran 1 Treatment Response Procedure Tolerated Well Pain Scale: 0-10 Numeric Is Patient Pain Free? Yes - Visit Discharge Discharge Condition Stable Ambulatory Status Ambulatory, Walker Transportation Private Auto Assessment/Plan Assessment/Plan (1) Morbid obesity: CODE(S): E66.01 - Morbid (severe) obesity due to excess calories (2) Venous insufficiency of both lower extremities: CODE(S): I87.2 - Venous insufficiency (chronic) (peripheral) (3) Ulcer of right lower extremity with fat layer exposed: CODE(S): L97.912 - Non-pressure chronic ulcer of unspecified part of right lower leg with fat layer exposed PLAN: Wash leg with Dial rinse pat dry Promogran moistened with gauze and ABDs over top Iqra and Christiano wrap to right lower leg daily double layer Tubigrip follow-up in 1 week (4) Dyshidrotic eczema: CODE(S): L30.1 - Dyshidrosis [pompholyx] PLAN: amLactin cream to all dried Flaky areas of skin
== END 2023-07-19 23:59 | disposition home or self-care (01) ==
LOC: WC 10:30
PROVIDERS: PCP Preventive Medicine Occupational Medicine; Referring Provider Preventive Medicine Occupational Medicine; Visit Provider Nurse Practitioner
DX: I87.2 Venous insufficiency (chronic) (peripheral) (principal); L97.812 Non-pressure chronic ulcer of other part of right lower leg with fat layer exposed; I48.91 Unspecified atrial fibrillation; E66.01 Morbid (severe) obesity due to excess calories; Z68.43 Body mass index [BMI] 50.0-59.9, adult; R60.0 Localized edema; L30.1 Dyshidrosis [pompholyx]
CPT/HCPCS: 11042

== ENCOUNTER 2023-08-05 10:30 | Outpatient (RCR) | payer MEDICARE, OTHER, SELFPAY ==
[2023-07-20 00:19] VITALS: BP 119/62; PULSE 81; RESP 20; TEMP 35.9; BMI 59.1
[2023-07-22 10:34] VITALS: BP 148/65; PULSE 71; RESP 16; TEMP 35.8; BMI 59.1
--- NOTE | 2023-07-22 11:44 | PN.PCM_ITS ---
History of Present Illness Date of Service: 07/22/23 Chief Complaint: Right lateral leg ulcer History of Wound: 66-year-old white obese male. He appears here with a very large deep wound on his right posterior lower leg. He suffers from venous ulcers, and this 1 has been going on for 2 to 3 months. Other than covering it with a gauze dressing he has done nothing else. These are reoccurring ulcer openings have never been taking care of properly because of COVID. Patient did have arterial brachial and venous studies done and 2020 but never got to see the vascular surgeon for repair. Arterial studies fine its his venous he is got a lot of incompetence sees right where all of his wounds are. Patient suffers from cellulitis and also overgrowth of keratosis. He states that he has a history of an infected ulcer from 2013 and he was being seen at the [place] wound center. He states that he has had issues with this ulcer on an off for years. He states had a fracture of his left ankle which required him to be placed in a SNF and the ulcer on the right improved during that time. 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 He is obese with a BMI 59.1. He sleeps in a recliner because his mattress makes his back hurt. He has significant amount of lower extremity edema. 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 Right AFIA by posterior tibial artery is 1.01. Left AFIA by posterior tibial artery is 0.98. The left AFIA by dorsalis pedis is 1.02. Bilateral triphasic doppler wavelength at ankle level. Venous Duplex ultrasound on 01/28/21 showed segmental valvular incompetence is noted within the great saphenous veins bilaterally. The right small saphenous vein is patent and competent. The left small saphenous vein is patent and incompetent. The accessory saphenous vein in the right mid- thigh is incompetent. We will refer him to Dr. Solis for further evaluation. Today he denies fever, chills, nausea or vomiting. He states his appetite is good. We did discuss weight loss and maybe he needs to try getting those injections from his doctor. 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 Progress of Wound: Measurements are slightly smaller but lots flatter and he is getting a lot of skin buds on top with the Promogran. Subjective Subjective Patient is agreeable to plan continue Promogran Objective Data Objective Data No sign of infection no odor noted measurements are slightly smaller doing well no concerns Vital Signs: Vital Signs Temp Pulse Resp BP O2 Del Method 96.4 F L 71 16 148/65 H Room Air 07/22/23 10:34 07/22/23 10:34 07/22/23 10:34 07/22/23 10:34 07/22/23 10:34 Oxygen Delivery Method Room Air Weight: 400 lb Body Mass Index (BMI) 59.1 Physical Exam Const alert, oriented x3 and no apparent distress General Appearance: cooperative; Negative for combative or lethargic Orientation / Consciousness: awake Exam Limitations: no limitations HEENT Head and Scalp: normocephalic and atraumatic Eyes EOMs intact bilaterally General Eye: normal appearance of both eyes Neck full ROM and thyroid normal General: trachea midline Thyroid: thyroid normal Resp normal respiratory effort and no use of accessory muscles Effort and Inspection: Negative for labored, stridor or audible wheezes Cardio regular rate and regular rhythm GI non-tender Back/Spine Cervical Spine: cervical ROM normal Extremity full ROM and normal capillary refill General Extremity: edema Skin no rashes or lesions noted Skin Narrative: lateral right lowerr leg wound Neuro oriented x3 and CN's II-XII intact bilaterally Psych thought process normal, cooperative, affect normal, speech normal and activity/motor behavior normal Debridement Note Debridement Note Wound debrided: Right lower leg posterior venous ulcer Type of Debridement: Excisional debridement Anesthesia Used: 5% Lidocaine Gel Depth: in the subcutaneous layer Percentage of wound debrided: 100 Instrument Used: 5mm curette Tissue Removed: Fibrin Severity: Fat Layer Exposed Amount of bleeding with debridement: Mild Bleeding Controlled with: Compression and gauze Patient tolerated procedure: Patient tolerated procedure well Post-Debridement Measurements and Additional Note: Post-Debridement Measurements/Treatment WC - Nurse 1 - General Ulcer Assessment Start: 07/22/23 10:33 Freq: Status: Active Protocol: [email or web address].[email or web address] Activity Type Activity Date Activity User E-sign Co-sign Detail Recorded Client Recorded Date Recorded By Document 07/22/23 10:34 [facility] Desktop 07/22/23 10:42 [facility] 07/22/23 10:34 - Today's Visit Information Type of service Follow-up Visit (Physician/TERRA COTTA SETTER ) Arrival Mode Ambulatory, Walker Transfer Assistance None Accompanied by DAUGHTER Patient Identification Verified (Name & Yes ) Patient Requires Transmission-Based No Precautions Height and Weight Body Mass Index (BMI) 59.1 BMI Classification Obese Vital Signs Temperature (97.8 F-99.1 F) 96.4 F L Temperature Source Temporal Pulse Rate (60-100) 71 Pulse Location Monitor Respiratory Rate (12-18) 16 Respiratory rate source Observation Oxygen Delivery Method Room Air Blood Pressure (90/60-120/80) 148/65 H Blood Pressure Mean (mm Hg) 92 Source Monitor Position Sitting Blood Pressure Location Left Arm History Since Last Visit- (Skip if this is Patient's initial visit) Have you changed medications since your No last visit? Any new allergies or adverse reactions No Had a fall/change in ADL's that may No increase risk of falls Signs or symptoms of abuse and/or No neglect since last visit Have you been in the hospital since your No last visit? Has dressing in place as prescribed Yes Has compression in place as prescribed Yes Has offloadiing in place as prescribed N/A Experienced any changes in pain level or No management Left Footwear Regular Shoe Right Footwear Regular Shoe Pain Scale: 0-10 Numeric Is Patient Pain Free? Yes - Nurse 1 - General Ulcer Measurement Start: 07/22/23 10:33 Freq: Status: Active Protocol: Activity Type Activity Date Activity User E-sign Co-sign Detail Recorded Client Recorded Date Recorded By Document 07/22/23 10:34 [facility] [employer] 07/22/23 10:42 [facility] 07/22/23 10:34 Wound Center Nurse 1 #4- R LAT LE -Combined with other wound No -Current Size (cm) - Length 1.2 -Current Size (cm) - Width 3.8 -Current Size (cm) - Depth 0.1 -Total Square Cm 4.56 -Date of Last Picture (Recall this 07/22/23 field) -Photo Taken Yes -Epithelialization None Present -Tunneling No -Undermining/Tunneling No -Circular Undermining No -Exudate Amt Medium -Exudate Type Serosanguineous -Wound Margin Distinct, Outline Attached -Granulation Amt Large (67-100%) -Granulation Quality Red -Slough/Fibrin Yes -Necrosis Amt Small (1-33%) -Necrotic Tissue Type Adherent Slough -Texture (Bertha-wound Skin Appearance) Assessed, Scarring -Moisture (Bertha-wound Skin Appearance) Assessed,Dry/ Scaly -Color (Bertha-wound Skin Appearance) Assessed, Hemosiderin Staining -Temperature (Bertha-wound Skin No Abnormality Appearance) (Pt Warm) -Tenderness on Palpation (Bertha-wound No Skin Appearance) -Ulcer Cleansing Rinsed/ Irrigated with Saline -Foul Odor after Cleansing No -Anesthetic Used 5% Lidocaine Gel Lower Limb Edema Present Yes Right Calf (cm) 71.2 Right Ankle (cm) 30.8 WC - Nurse 2 - General Ulcer CM Notes Start: 07/22/23 10:33 Freq: Status: Active Protocol: Activity Type Activity Date Activity User E-sign Co-sign Detail Recorded Client Recorded Date Recorded By Document 07/22/23 10:54 MW Desktop 07/22/23 10:56 MW 07/22/23 10:54 Wound Center Nurse 2 #4- R LAT LE -Time 10:55 -Correct Patient Yes -Correct Side, Site, Position Yes -Correct Procedure Yes -Procedure Performed Yes -Type of Procedure Debridement -Clinical Debridement Subcutaneous -Tissue Removed Subcutaneous -Post Debridement (cm) - Length 1.5 -Post Debridement (cm) - Width 3.8 -Post Debridement (cm) - Depth 0.1 -Total Square (Post) (cm) 5.70 -Area of Debridement (cm) - Length 1.5 -Area of Debridement (cm) - Width 3.8 -Total Square (Area) (cm) 5.70 -Tunneling No -Undermining/Tunneling No -Circular Undermining No -Wound/Ulcer Outcome Not Healed -Ulcer Cleansing Rinsed/ Irrigated with Saline -Foul Odor after Cleansing No -Bioengineered Tissue No -Bleeding Controlled with Pressure -Treatment Response Procedure Tolerated Well -Offloading No -Debridement - Subq, 1st 20sq cm Yes Pain Scale: 0-10 Numeric Is Patient Pain Free? Yes WC - Nurse 3 - General Ulcer D/C NN Start: 07/22/23 10:33 Freq: Status: Active Protocol: Activity Type Activity Date Activity User E-sign Co-sign Detail Recorded Client Recorded Date Recorded By Document 07/22/23 11:14 [facility] Desktop 07/22/23 11:15 [facility] 07/22/23 11:14 Wound Care Center Nurse 3 #4- R LAT LE -Ulcer Cleansing Rinsed/ Irrigated with Saline -Foul Odor after Cleansing No -Primary Dressing Applied NonAdherent Contact Layer, Promogran -Other Dressing DRSG PER DL SOLAR SALES AMBASSADOR -Primary Dressing Covered/Secured with Dry Gauze & Roll Gauze, Secured with Tape -Promogran 1 Right -Other PTS OWN SINGLE LAYER SIZE G REAPPLIED PER DL SOLAR SALES AMBASSADOR Treatment Response Procedure Tolerated Well Pain Scale: 0-10 Numeric Is Patient Pain Free? Yes WC - Visit Discharge Discharge Condition Stable Ambulatory Status Ambulatory, Walker Transportation Private Auto Accompanied by DAUGHTER Assessment/Plan Assessment/Plan (1) Morbid obesity: CODE(S): E66.01 - Morbid (severe) obesity due to excess calories (2) Venous insufficiency of both lower extremities: CODE(S): I87.2 - Venous insufficiency (chronic) (peripheral) (3) Ulcer of right lower extremity with fat layer exposed: CODE(S): L97.912 - Non-pressure chronic ulcer of unspecified part of right lower leg with fat layer exposed PLAN: Wash leg with Dial rinse pat dry Promogran moistened with gauze and ABDs over top Iqra and Christiano wrap to right lower leg daily double layer Tubigrip follow-up in 1 week (4) Dyshidrotic eczema: CODE(S): L30.1 - Dyshidrosis [pompholyx] PLAN: amLactin cream to all dried Flaky areas of skin
--- NOTE | 2023-07-24 12:09 | WC ---
4.3.24 RT LAT LE
[2023-07-29 10:27] VITALS: BP 132/66; PULSE 57; TEMP 35.7; BMI 59.1
--- NOTE | 2023-07-29 12:26 | PCM.WC.PN ---
History of Present Illness Date of Service: 07/29/23 Chief Complaint: Right lateral leg ulcer History of Wound: 66-year-old white obese male. He appears here with a very large deep wound on his right posterior lower leg. He suffers from venous ulcers, and this 1 has been going on for 2 to 3 months. Other than covering it with a gauze dressing he has done nothing else. These are reoccurring ulcer openings have never been taking care of properly because of COVID. Patient did have arterial brachial and venous studies done and 2020 but never got to see the vascular surgeon for repair. Arterial studies fine its his venous he is got a lot of incompetence sees right where all of his wounds are. Patient suffers from cellulitis and also overgrowth of keratosis. He states that he has a history of an infected ulcer from 2013 and he was being seen at the [facility]. He states that he has had issues with this ulcer on an off for years. He states had a fracture of his left ankle which required him to be placed in a SNF and the ulcer on the right improved during that time. 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 He is obese with a BMI 59.1. He sleeps in a recliner because his mattress makes his back hurt. He has significant amount of lower extremity edema. 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 Right AFIA by posterior tibial artery is 1.01. Left AFIA by posterior tibial artery is 0.98. The left AFIA by dorsalis pedis is 1.02. Bilateral triphasic doppler wavelength at ankle level. Venous Duplex ultrasound on 01/28/21 showed segmental valvular incompetence is noted within the great saphenous veins bilaterally. The right small saphenous vein is patent and competent. The left small saphenous vein is patent and incompetent. The accessory saphenous vein in the right mid-thigh is incompetent. We will refer him to Dr. Solis for further evaluation. Today he denies fever, chills, nausea or vomiting. He states his appetite is good. We did discuss weight loss and maybe he needs to try getting those injections from his doctor. 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 Progress of Wound: Measurements are about the same but flatter and he is getting a lot of skin buds on top with the Promogran. Will try getting cultures this week to see if there is any change that is impeding healing. Subjective Subjective Agreeable to plan Objective Data Objective Data No sign of infection but it stagnant the wound we will try culturing to make sure that there were not missing anything continue with the Promogran seems to be working. Vital Signs: Vital Signs Temp Pulse Resp BP O2 Del Method 96.3 F L 57 L 16 132/66 H Room Air 07/29/23 10:27 07/29/23 10:27 07/22/23 10:34 07/29/23 10:27 07/29/23 10:27 Oxygen Delivery Method Room Air Weight: 400 lb Body Mass Index (BMI) 59.1 Lab / Micro Data Attestation: I reviewed the patient's lab results. Physical Exam Const alert, oriented x3 and no apparent distress General Appearance: cooperative; Negative for combative or lethargic Orientation / Consciousness: awake Exam Limitations: no limitations HEENT Head and Scalp: normocephalic and atraumatic Eyes EOMs intact bilaterally General Eye: normal appearance of both eyes Neck full ROM and thyroid normal General: trachea midline Thyroid: thyroid normal Resp normal respiratory effort and no use of accessory muscles Effort and Inspection: Negative for labored, stridor or audible wheezes Cardio regular rate and regular rhythm GI non-tender Back/Spine Cervical Spine: cervical ROM normal Extremity full ROM and normal capillary refill General Extremity: edema Skin no rashes or lesions noted Skin Narrative: lateral right lowerr leg wound Neuro oriented x3 and CN's II-XII intact bilaterally Psych thought process normal, cooperative, affect normal, speech normal and activity/motor behavior normal Debridement Note Debridement Note Wound debrided: Right lower leg posterior venous ulcer Type of Debridement: Excisional debridement Anesthesia Used: 5% Lidocaine Gel Depth: in the subcutaneous layer Percentage of wound debrided: 100 Instrument Used: 5mm curette Tissue Removed: Fibrin Severity: Fat Layer Exposed Amount of bleeding with debridement: Mild Bleeding Controlled with: Compression and gauze Patient tolerated procedure: Patient tolerated procedure well Post-Debridement Measurements and Additional Note: Post-Debridement Measurements/Treatment WC - Nurse 1 - General Ulcer Assessment Start: 07/22/23 10:33 Freq: Status: Active Protocol: JADEN Activity Type Activity Date Activity User E-sign Co-sign Detail Recorded Client Recorded Date Recorded By Document 07/22/23 10:34 babberly Desktop 07/22/23 10:42 F Document 07/29/23 10:27 babberly Desktop 07/29/23 10:34 BMF 07/22/23 07/29/23 10:34 10:27 - Today's Visit Information Type of service Follow-up Visit Follow-up Visit (Physician/[facility] (Physician/[facility] ) ) Arrival Mode Ambulatory, Ambulatory, Walker Walker Transfer Assistance None None Transfer Assist (Other) Accompanied by DAUGHTER Patient Identification Verified (Name & Yes Yes ) Patient Requires Transmission-Based No No Precautions Height and Weight Body Mass Index (BMI) 59.1 59.1 BMI Classification Obese Obese Vital Signs Temperature (97.8 F-99.1 F) 96.4 F L 96.3 F L Temperature Source Temporal Temporal Pulse Rate (60-100) 71 57 L Pulse Location Monitor Monitor Respiratory Rate (12-18) 16 Respiratory rate source Observation Observation Oxygen Delivery Method Room Air Room Air Blood Pressure (90/60-120/80) 148/65 H 132/66 H Blood Pressure Mean (mm Hg) 92 88 Source Monitor Monitor Position Sitting Sitting Blood Pressure Location Left Arm Left Forearm History Since Last Visit- (Skip if this is Patient's initial visit) Have you changed medications since your No No last visit? Any new allergies or adverse reactions No No Had a fall/change in ADL's that may No No increase risk of falls Signs or symptoms of abuse and/or No No neglect since last visit Have you been in the hospital since your No No last visit? Has dressing in place as prescribed Yes Yes Has compression in place as prescribed Yes Yes Has offloadiing in place as prescribed N/A N/A Experienced any changes in pain level or No No management Left Footwear Regular Shoe Regular Shoe Right Footwear Regular Shoe Regular Shoe Pain Scale: 0-10 Numeric Is Patient Pain Free? Yes Yes - Nurse 1 - General Ulcer Measurement Start: 07/22/23 10:33 Freq: Status: Active Protocol: Activity Type Activity Date Activity User E-sign Co-sign Detail Recorded Client Recorded Date Recorded By Document 07/22/23 10:34 BMF Desktop 07/22/23 10:42 BMF Document 07/29/23 10:27 [facility] Desktop 07/29/23 10:34 F 07/22/23 07/29/23 10:34 10:27 Wound Center Nurse 1 #4- R LAT LE -Combined with other wound No No -Current Size (cm) - Length 1.2 1.3 -Current Size (cm) - Width 3.8 4.7 -Current Size (cm) - Depth 0.1 0.1 -Total Square Cm 4.56 6.11 -Date of Last Picture (Recall this 07/22/23 field) -Photo Taken Yes No -Epithelialization None Present -Tunneling No No -Undermining/Tunneling No No -Circular Undermining No No -Exudate Amt Medium Medium -Exudate Type Serosanguineous Serosanguineous -Wound Margin Distinct, Distinct, Outline Outline Attached Attached -Granulation Amt Large (67-100%) Large (67-100%) -Granulation Quality Red Red -Slough/Fibrin Yes Yes -Necrosis Amt Small (1-33%) Small (1-33%) -Necrotic Tissue Type Adherent Slough Adherent Slough -Texture (Bertha-wound Skin Appearance) Assessed, Assessed, Scarring Scarring -Moisture (Bertha-wound Skin Appearance) Assessed,Dry/ Assessed, Scaly Maceration,Dry/ Scaly -Color (Bertha-wound Skin Appearance) Assessed, Assessed Hemosiderin Staining -Temperature (Bertha-wound Skin No Abnormality No Abnormality Appearance) (Pt Warm) (Pt Warm) -Tenderness on Palpation (Bertha-wound No No Skin Appearance) -Ulcer Cleansing Rinsed/ Rinsed/ Irrigated with Irrigated with Saline Saline -Foul Odor after Cleansing No No -Anesthetic Used 5% Lidocaine 5% Lidocaine Gel Gel Lower Limb Edema Present Yes Yes Right Calf (cm) 71.2 70 Right Ankle (cm) 30.8 30.9 WC - Nurse 2 - General Ulcer CM Notes Start: 07/22/23 10:33 Freq: Status: Active Protocol: Activity Type Activity Date Activity User E-sign Co-sign Detail Recorded Client Recorded Date Recorded By Document 07/22/23 10:54 MW Desktop 07/22/23 10:56 MW Document 07/29/23 10:45 MW Desktop 07/29/23 10:53 MW 07/22/23 07/29/23 10:54 10:45 Wound Center Nurse 2 #4- R LAT LE -Time 10:55 10:46 -Correct Patient Yes Yes -Correct Side, Site, Position Yes Yes -Correct Procedure Yes Yes -Procedure Performed Yes Yes -Type of Procedure Debridement Debridement -Clinical Debridement Subcutaneous Subcutaneous -Tissue Removed Subcutaneous Subcutaneous -Post Debridement (cm) - Length 1.5 1.5 -Post Debridement (cm) - Width 3.8 4.5 -Post Debridement (cm) - Depth 0.1 0.1 -Total Square (Post) (cm) 5.70 6.75 -Area of Debridement (cm) - Length 1.5 1.5 -Area of Debridement (cm) - Width 3.8 4.5 -Total Square (Area) (cm) 5.70 6.75 -Tunneling No No -Undermining/Tunneling No No -Circular Undermining No No -Wound/Ulcer Outcome Not Healed Not Healed -Ulcer Cleansing Rinsed/ Rinsed/ Irrigated with Irrigated with Saline Saline -Foul Odor after Cleansing No No -Bioengineered Tissue No No -Bleeding Controlled with Pressure Pressure -Treatment Response Procedure Procedure Tolerated Well Tolerated Well -Offloading No No -Debridement - Subq, 1st 20sq cm Yes Yes Pain Scale: 0-10 Numeric Is Patient Pain Free? Yes Yes WC - Nurse 3 - General Ulcer D/C NN Start: 07/22/23 10:33 Freq: Status: Active Protocol: Activity Type Activity Date Activity User E-sign Co-sign Detail Recorded Client Recorded Date Recorded By Document 07/22/23 11:14 [facility] Desktop 07/22/23 11:15 [facility] Document 07/29/23 10:59 Desktop 07/29/23 11:01 DL 07/22/23 07/29/23 11:14 10:59 Wound Care Center Nurse 3 #4- R LAT LE -Ulcer Cleansing Rinsed/ Rinsed/ Irrigated with Irrigated with Saline Saline -Foul Odor after Cleansing No No -Primary Dressing Applied NonAdherent NonAdherent Contact Layer, Contact Layer, Promogran Promogran -Other Dressing DRSG PER [employer] -Primary Dressing Covered/Secured with Dry Gauze & Dry Gauze & Roll Gauze, Roll Gauze, Secured with Secured with Tape Tape -Other Covering Tubigrip -Promogran 1 1 Right -Other PTS OWN SINGLE LAYER SIZE G REAPPLIED PER [employer] Treatment Response Procedure Procedure Tolerated Well Tolerated Well Pain Scale: 0-10 Numeric Is Patient Pain Free? Yes Yes WC - Visit Discharge Discharge Condition Stable Stable Ambulatory Status Ambulatory, Ambulatory, Walker Walker Transportation Private Auto Private Auto Accompanied by DAUGHTER Assessment/Plan Assessment/Plan (1) Morbid obesity: CODE(S): E66.01 - Morbid (severe) obesity due to excess calories (2) Venous insufficiency of both lower extremities: CODE(S): I87.2 - Venous insufficiency (chronic) (peripheral) (3) Ulcer of right lower extremity with fat layer exposed: CODE(S): L97.912 - Non-pressure chronic ulcer of unspecified part of right lower leg with fat layer exposed PLAN: Wash leg with Dial rinse pat dry Promogran moistened with gauze and ABDs over top Iqra and Christiano wrap to right lower leg daily double layer Tubigrip follow-up in 1 week (4) Dyshidrotic eczema: CODE(S): L30.1 - Dyshidrosis [pompholyx] PLAN: amLactin cream to all dried Flaky areas of skin
--- NOTE | 2023-07-31 11:00 | WC ---
Krystin ordered ATB Doxycycline Hyclate 100mg PO BID for 14 days d/t wound cultures. Called into PT preferred pharmacy [facility] then called pt and left message to notify him about ATB pickup and start.
[2023-08-05 10:16] VITALS: BP 132/71; PULSE 76; RESP 22; TEMP 35.7; BMI 59.1
--- NOTE | 2023-08-05 10:34 | PCM.WC.PN ---
History of Present Illness Date of Service: 08/05/23 Chief Complaint: Right lateral leg ulcer History of Wound: 66-year-old white obese male. He appears here with a very large deep wound on his right posterior lower leg. He suffers from venous ulcers, and this 1 has been going on for 2 to 3 months. Other than covering it with a gauze dressing he has done nothing else. These are reoccurring ulcer openings have never been taking care of properly because of COVID. Patient did have arterial brachial and venous studies done and 2020 but never got to see the vascular surgeon for repair. Arterial studies fine its his venous he is got a lot of incompetence sees right where all of his wounds are. Patient suffers from cellulitis and also overgrowth of keratosis. He states that he has a history of an infected ulcer from 2013 and he was being seen at the [facility] wound [facility]. He states that he has had issues with this ulcer on an off for years. He states had a fracture of his left ankle which required him to be placed in a SNF and the ulcer on the right improved during that time. 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 He is obese with a BMI 59.1. He sleeps in a recliner because his mattress makes his back hurt. He has significant amount of lower extremity edema. 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 Right AFIA by posterior tibial artery is 1.01. Left AFIA by posterior tibial artery is 0.98. The left AFIA by dorsalis pedis is 1.02. Bilateral triphasic doppler wavelength at ankle level. Venous Duplex ultrasound on 01/28/21 showed segmental valvular incompetence is noted within the great saphenous veins bilaterally. The right small saphenous vein is patent and competent. The left small saphenous vein is patent and incompetent. The accessory saphenous vein in the right mid-thigh is incompetent. We will refer him to Dr. Solis for further evaluation. Today he denies fever, chills, nausea or vomiting. He states his appetite is good. We did discuss weight loss and maybe he needs to try getting those injections from his doctor. 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 Progress of Wound: Measurements are smaller and flatter and he is getting a lot of skin buds on top with the Promogran. Cultures came back with staph so we went ahead and treated him and seems to be helping the antibiotic. Subjective Subjective Agreeable to plan tolerating antibiotic well Objective Data Objective Data No sign of infection and varies much smaller than last week Vital Signs: Vital Signs Temp Pulse Resp BP O2 Del Method 96.3 F L 76 22 H 132/71 H Room Air 08/05/23 10:16 08/05/23 10:16 08/05/23 10:16 08/05/23 10:16 07/29/23 10:27 Oxygen Delivery Method Room Air Weight: 400 lb Body Mass Index (BMI) 59.1 Lab / Micro Data Micro: Microbiology 07/29/23 10:50 Wound - Leg, Right Gram Stain - Final 07/29/23 10:50 Wound - Leg, Right Wound Culture - Final Staphylococcus aureus Corynebacterium striatum 07/29/23 10:50 Wound - Leg, Right Anaerobic Culture - Final No anaerobic bacteria isolated. Physical Exam Const alert, oriented x3 and no apparent distress General Appearance: cooperative; Negative for combative or lethargic Orientation / Consciousness: awake Exam Limitations: no limitations HEENT Head and Scalp: normocephalic and atraumatic Eyes EOMs intact bilaterally General Eye: normal appearance of both eyes Neck full ROM and thyroid normal General: trachea midline Thyroid: thyroid normal Resp normal respiratory effort and no use of accessory muscles Effort and Inspection: Negative for labored, stridor or audible wheezes Cardio regular rate and regular rhythm GI non-tender Back/Spine Cervical Spine: cervical ROM normal Extremity full ROM and normal capillary refill General Extremity: edema Skin no rashes or lesions noted Skin Narrative: lateral right lowerr leg wound Neuro oriented x3 and CN's II-XII intact bilaterally Psych thought process normal, cooperative, affect normal, speech normal and activity/motor behavior normal Debridement Note Debridement Note Wound debrided: Right lower leg posterior venous ulcer Type of Debridement: Excisional debridement Anesthesia Used: 5% Lidocaine Gel Depth: in the subcutaneous layer Percentage of wound debrided: 100 Instrument Used: 3mm curette Tissue Removed: Fibrin Severity: Fat Layer Exposed Amount of bleeding with debridement: Mild Bleeding Controlled with: Compression and gauze Patient tolerated procedure: Patient tolerated procedure well Post-Debridement Measurements and Additional Note: Post-Debridement Measurements/Treatment WC - Nurse 1 - General Ulcer Assessment Start: 07/22/23 10:33 Freq: Status: Active Protocol: JADEN Activity Type Activity Date Activity User E-sign Co-sign Detail Recorded Client Recorded Date Recorded By Document 07/22/23 10:34 BMF Desktop 07/22/23 10:42 BMF Document 07/29/23 10:27 BMF Desktop 07/29/23 10:34 BMF Document 08/05/23 10:16 DL Desktop 08/05/23 10:24 DL 07/22/23 07/29/23 08/05/23 10:34 10:27 10:16 WC - Today's Visit Information Type of service Follow-up Visit Follow-up Visit Follow-up Visit (Physician/DEBT RECOVERY OFFICER (Physician/DEBT RECOVERY OFFICER (Physician/DEBT RECOVERY OFFICER ) ) ) Arrival Mode Ambulatory, Ambulatory, Ambulatory, Walker Walker Walker Transfer Assistance None None None Transfer Assist (Other) Accompanied by DAUGHTER Patient Identification Verified (Name & Yes Yes Yes ) Patient Requires Transmission-Based No No No Precautions Height and Weight Body Mass Index (BMI) 59.1 59.1 59.1 BMI Classification Obese Obese Obese Vital Signs Temperature (97.8 F-99.1 F) 96.4 F L 96.3 F L 96.3 F L Temperature Source Temporal Temporal Temporal Pulse Rate (60-100) 71 57 L 76 Pulse Location Monitor Monitor Monitor Respiratory Rate (12-18) 16 22 H Respiratory rate source Observation Observation Observation Oxygen Delivery Method Room Air Room Air Blood Pressure (90/60-120/80) 148/65 H 132/66 H 132/71 H Blood Pressure Mean (mm Hg) 92 88 91 Source Monitor Monitor Monitor Position Sitting Sitting Blood Pressure Location Left Arm Left Forearm History Since Last Visit- (Skip if this is Patient's initial visit) Have you changed medications since your No No No last visit? Any new allergies or adverse reactions No No No Had a fall/change in ADL's that may No No No increase risk of falls Signs or symptoms of abuse and/or No No No neglect since last visit Have you been in the hospital since your No No No last visit? Has dressing in place as prescribed Yes Yes Yes Has compression in place as prescribed Yes Yes Yes Has offloadiing in place as prescribed N/A N/A Yes Experienced any changes in pain level or No No No management Left Footwear Regular Shoe Regular Shoe Slipper Right Footwear Regular Shoe Regular Shoe Regular Shoe Pain Scale: 0-10 Numeric Is Patient Pain Free? Yes Yes Yes WC - Nurse 1 - General Ulcer Measurement Start: 07/22/23 10:33 Freq: Status: Active Protocol: Activity Type Activity Date Activity User E-sign Co-sign Detail Recorded Client Recorded Date Recorded By Document 07/22/23 10:34 BMF Desktop 07/22/23 10:42 BMF Document 07/29/23 10:27 BMF Desktop 07/29/23 10:34 BMF Document 08/05/23 10:16 DL Desktop 08/05/23 10:24 DL 07/22/23 07/29/23 08/05/23 10:34 10:27 10:16 Wound Center Nurse 1 #4- R LAT LE -Combined with other wound No No -Current Size (cm) - Length 1.2 1.3 1.3 -Current Size (cm) - Width 3.8 4.7 4.4 -Current Size (cm) - Depth 0.1 0.1 0.3 -Total Square Cm 4.56 6.11 5.72 -Date of Last Picture (Recall this 07/22/23 field) -Photo Taken Yes No -Epithelialization None Present -Tunneling No No -Undermining/Tunneling No No -Circular Undermining No No -Exudate Amt Medium Medium Medium -Exudate Type Serosanguineous Serosanguineous Serosanguineous -Wound Margin Distinct, Distinct, Distinct, Outline Outline Outline Attached Attached Attached -Granulation Amt Large (67-100%) Large (67-100%) Large (67-100%) -Granulation Quality Red Red Red -Slough/Fibrin Yes Yes -Necrosis Amt Small (1-33%) Small (1-33%) Small (1-33%) -Necrotic Tissue Type Adherent Slough Adherent Slough Adherent Slough -Structure Exposed N/A -Texture (Bertha-wound Skin Appearance) Assessed, Assessed, Scarring,Rash Scarring Scarring -Moisture (Bertha-wound Skin Appearance) Assessed,Dry/ Assessed, Maceration Scaly Maceration,Dry/ Scaly -Color (Bertha-wound Skin Appearance) Assessed, Assessed Hemosiderin Staining -Temperature (Bertha-wound Skin No Abnormality No Abnormality Appearance) (Pt Warm) (Pt Warm) -Tenderness on Palpation (Bertha-wound No No Skin Appearance) -Ulcer Cleansing Rinsed/ Rinsed/ Soap and Water Irrigated with Irrigated with Saline Saline -Foul Odor after Cleansing No No No -Anesthetic Used 5% Lidocaine 5% Lidocaine 5% Lidocaine Gel Gel Gel Lower Limb Edema Present Yes Yes Right Calf (cm) 71.2 70 66.4 Right Ankle (cm) 30.8 30.9 31.3 WC - Nurse 2 - General Ulcer CM Notes Start: 07/22/23 10:33 Freq: Status: Active Protocol: Activity Type Activity Date Activity User E-sign Co-sign Detail Recorded Client Recorded Date Recorded By Document 07/22/23 10:54 MW Desktop 07/22/23 10:56 MW Document 07/29/23 10:45 MW Desktop 07/29/23 10:53 MW Document 08/05/23 10:30 MW Desktop 08/05/23 10:33 MW 07/22/23 07/29/23 08/05/23 10:54 10:45 10:30 Wound Center Nurse 2 #4- R LAT LE -Time 10:55 10:46 10:32 -Correct Patient Yes Yes Yes -Correct Side, Site, Position Yes Yes Yes -Correct Procedure Yes Yes Yes -Procedure Performed Yes Yes Yes -Type of Procedure Debridement Debridement Debridement -Clinical Debridement Subcutaneous Subcutaneous Subcutaneous -Tissue Removed Subcutaneous Subcutaneous Subcutaneous -Post Debridement (cm) - Length 1.5 1.5 1.5 -Post Debridement (cm) - Width 3.8 4.5 3.8 -Post Debridement (cm) - Depth 0.1 0.1 0.1 -Total Square (Post) (cm) 5.70 6.75 5.70 -Area of Debridement (cm) - Length 1.5 1.5 1.5 -Area of Debridement (cm) - Width 3.8 4.5 3.8 -Total Square (Area) (cm) 5.70 6.75 5.70 -Tunneling No No No -Undermining/Tunneling No No No -Circular Undermining No No No -Wound/Ulcer Outcome Not Healed Not Healed Not Healed -Ulcer Cleansing Rinsed/ Rinsed/ Rinsed/ Irrigated with Irrigated with Irrigated with Saline Saline Saline -Foul Odor after Cleansing No No No -Bioengineered Tissue No No No -Bleeding Controlled with Pressure Pressure Pressure -Treatment Response Procedure Procedure Procedure Tolerated Well Tolerated Well Tolerated Well -Offloading No No No -Debridement - Subq, 1st 20sq cm Yes Yes Yes Pain Scale: 0-10 Numeric Is Patient Pain Free? Yes Yes Yes - Nurse 3 - General Ulcer D/C NN Start: 07/22/23 10:33 Freq: Status: Active Protocol: Activity Type Activity Date Activity User E-sign Co-sign Detail Recorded Client Recorded Date Recorded By Document 07/22/23 11:14 BMF Desktop 07/22/23 11:15 BMF Document 07/29/23 10:59 DL Desktop 07/29/23 11:01 DL 07/22/23 07/29/23 11:14 10:59 Wound Care Center Nurse 3 #4- R LAT LE -Ulcer Cleansing Rinsed/ Rinsed/ Irrigated with Irrigated with Saline Saline -Foul Odor after Cleansing No No -Primary Dressing Applied NonAdherent NonAdherent Contact Layer, Contact Layer, Promogran Promogran -Other Dressing DRSG PER DL [employer]DIAN BLANKET WEAVER -Primary Dressing Covered/Secured with Dry Gauze & Dry Gauze & Roll Gauze, Roll Gauze, Secured with Secured with Tape Tape -Other Covering Tubigrip -Promogran 1 1 Right -Other PTS OWN SINGLE LAYER SIZE G REAPPLIED PER DL [employer] BLANKET WEAVER Treatment Response Procedure Procedure Tolerated Well Tolerated Well Pain Scale: 0-10 Numeric Is Patient Pain Free? Yes Yes - Visit Discharge Discharge Condition Stable Stable Ambulatory Status Ambulatory, Ambulatory, Walker Walker Transportation Private Auto Private Auto Accompanied by DAUGHTER Assessment/Plan Assessment/Plan (1) Morbid obesity: CODE(S): E66.01 - Morbid (severe) obesity due to excess calories (2) Venous insufficiency of both lower extremities: CODE(S): I87.2 - Venous insufficiency (chronic) (peripheral) (3) Ulcer of right lower extremity with fat layer exposed: CODE(S): L97.912 - Non-pressure chronic ulcer of unspecified part of right lower leg with fat layer exposed PLAN: Wash leg with Dial rinse pat dry Promogran moistened with gauze and ABDs over top Iqra and Christiano wrap to right lower leg daily double layer Tubigrip follow-up in 1 week (4) Dyshidrotic eczema: CODE(S): L30.1 - Dyshidrosis [pompholyx] PLAN: amLactin cream to all dried Flaky areas of skin
== END 2023-08-18 23:59 | disposition home or self-care (01) ==
LOC: WC 10:30
PROVIDERS: PCP Preventive Medicine Occupational Medicine; Referring Provider Preventive Medicine Occupational Medicine; Visit Provider Nurse Practitioner
DX: I87.2 Venous insufficiency (chronic) (peripheral) (principal); L97.812 Non-pressure chronic ulcer of other part of right lower leg with fat layer exposed; I48.91 Unspecified atrial fibrillation; E66.01 Morbid (severe) obesity due to excess calories; Z68.43 Body mass index [BMI] 50.0-59.9, adult; R60.0 Localized edema; Z86.718 Personal history of other venous thrombosis and embolism; Z79.01 Long term (current) use of anticoagulants
CPT/HCPCS: 11042; 87070; 87075; 87077; 87186; 87205

== ENCOUNTER 2023-09-09 10:30 | Outpatient (RCR) | payer MEDICARE, OTHER, SELFPAY ==
[2023-08-19 00:41] VITALS: BP 132/71; PULSE 76; RESP 22; TEMP 35.7; BMI 59.1
[2023-08-19 10:45] VITALS: BP 133/75; PULSE 75; RESP 18; TEMP 36; BMI 59.1
--- NOTE | 2023-08-19 12:56 | PCM.WC.PN ---
History of Present Illness Date of Service: 08/19/23 Chief Complaint: Right lateral leg ulcer History of Wound: 66-year-old white obese male. He appears here with a very large deep wound on his right posterior lower leg. He suffers from venous ulcers, and this 1 has been going on for 2 to 3 months. Other than covering it with a gauze dressing he has done nothing else. These are reoccurring ulcer openings have never been taking care of properly because of COVID. Patient did have arterial brachial and venous studies done and 2020 but never got to see the vascular surgeon for repair. Arterial studies fine its his venous he is got a lot of incompetence sees right where all of his wounds are. Patient suffers from cellulitis and also overgrowth of keratosis. He states that he has a history of an infected ulcer from 2013 and he was being seen at the [facility] wound [facility]. He states that he has had issues with this ulcer on an off for years. He states had a fracture of his left ankle which required him to be placed in a SNF and the ulcer on the right improved during that time. 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 He is obese with a BMI 59.1. He sleeps in a recliner because his mattress makes his back hurt. He has significant amount of lower extremity edema. 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 Right AFIA by posterior tibial artery is 1.01. Left AFIA by posterior tibial artery is 0.98. The left AFIA by dorsalis pedis is 1.02. Bilateral triphasic doppler wavelength at ankle level. Venous Duplex ultrasound on 01/28/21 showed segmental valvular incompetence is noted within the great saphenous veins bilaterally. The right small saphenous vein is patent and competent. The left small saphenous vein is patent and incompetent. The accessory saphenous vein in the right mid-thigh is incompetent. We will refer him to Dr. Solis for further evaluation. Today he denies fever, chills, nausea or vomiting. He states his appetite is good. We did discuss weight loss and maybe he needs to try getting those injections from his doctor. 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 Progress of Wound: Measurements are about the same but it looks flatter and more healthy beefy red in the center starting develop cells. No sign of infection no redness around the area skin tissue around the area looks more healthy Subjective Subjective agrees that the wound looks much better than it has in the past and the skin in the area looks much better Objective Data Objective Data Will continue using the Promogran and have patient follow-up in a week or doing well Vital Signs: Vital Signs Temp Pulse Resp BP 96.8 F L 75 18 133/75 H 08/19/23 10:45 08/19/23 10:45 08/19/23 10:45 08/19/23 10:45 Weight: 400 lb Body Mass Index (BMI) 59.1 Physical Exam Const alert, oriented x3 and no apparent distress General Appearance: cooperative; Negative for combative or lethargic Orientation / Consciousness: awake Exam Limitations: no limitations HEENT Head and Scalp: normocephalic and atraumatic Eyes EOMs intact bilaterally General Eye: normal appearance of both eyes Neck full ROM and thyroid normal General: trachea midline Thyroid: thyroid normal Resp normal respiratory effort and no use of accessory muscles Effort and Inspection: Negative for labored, stridor or audible wheezes Cardio regular rate and regular rhythm GI non-tender Back/Spine Cervical Spine: cervical ROM normal Extremity full ROM and normal capillary refill General Extremity: edema Skin no rashes or lesions noted Skin Narrative: lateral right lowerr leg wound Neuro oriented x3 and CN's II-XII intact bilaterally Psych thought process normal, cooperative, affect normal, speech normal and activity/motor behavior normal Debridement Note Debridement Note Wound debrided: Right lower leg posterior venous ulcer Type of Debridement: Excisional debridement Anesthesia Used: 5% Lidocaine Gel Depth: in the subcutaneous layer Percentage of wound debrided: 100 Instrument Used: 3mm curette Tissue Removed: Fibrin Severity: Fat Layer Exposed Amount of bleeding with debridement: Mild Bleeding Controlled with: Compression and gauze Patient tolerated procedure: Patient tolerated procedure well Post-Debridement Measurements and Additional Note: Post-Debridement Measurements/Treatment RADHA - Nurse 1 - General Ulcer Assessment Start: 08/19/23 10:45 Freq: Status: Active Protocol: JADEN Activity Type Activity Date Activity User E-sign Co-sign Detail Recorded Client Recorded Date Recorded By Document 08/19/23 10:45 Desktop 08/19/23 10:48 RB 08/19/23 10:45 WC - Today's Visit Information Type of service Follow-up Visit (Physician/VIRTUAL REALITY SPECIALIST ) Arrival Mode Ambulatory, Walker Transfer Assistance None Patient Identification Verified (Name & Yes ) Patient Requires Transmission-Based No Precautions Height and Weight Body Mass Index (BMI) 59.1 BMI Classification Obese Vital Signs Temperature (97.8 F-99.1 F) 96.8 F L Temperature Source Temporal Pulse Rate (60-100) 75 Pulse Location Monitor Respiratory Rate (12-18) 18 Respiratory rate source Observation Blood Pressure (90/60-120/80) 133/75 H Blood Pressure Mean (mm Hg) 94 Source Monitor Position Semi-Fowlers Blood Pressure Location Left Arm History Since Last Visit- (Skip if this is Patient's initial visit) Have you changed medications since your No last visit? Any new allergies or adverse reactions No Had a fall/change in ADL's that may No increase risk of falls Signs or symptoms of abuse and/or No neglect since last visit Have you been in the hospital since your No last visit? Has dressing in place as prescribed Yes Has compression in place as prescribed Yes Has offloadiing in place as prescribed No Experienced any changes in pain level or No management Pain Scale: 0-10 Numeric Is Patient Pain Free? Yes - Nurse 1 - General Ulcer Measurement Start: 08/19/23 10:45 Freq: Status: Active Protocol: Activity Type Activity Date Activity User E-sign Co-sign Detail Recorded Client Recorded Date Recorded By Document 08/19/23 10:45 Desktop 08/19/23 10:48 RB 08/19/23 10:45 Wound Center Nurse 1 #4- R LAT LE -Combined with other wound No -Current Size (cm) - Length 1.4 -Current Size (cm) - Width 4.5 -Current Size (cm) - Depth 0.1 -Total Square Cm 6.30 -Tunneling No -Undermining/Tunneling No -Circular Undermining No -Exudate Amt Large -Exudate Type Serosanguineous -Wound Margin Distinct, Outline Attached -Granulation Amt Medium (34-66%) -Granulation Quality [place] -Slough/Fibrin Yes -Necrosis Amt Medium (34-66%) -Necrotic Tissue Type Adherent Slough -Structure Exposed N/A -Texture (Bertha-wound Skin Appearance) Assessed -Moisture (Bertha-wound Skin Appearance) Assessed,Dry/ Scaly -Color (Bertha-wound Skin Appearance) Assessed -Temperature (Bertha-wound Skin No Abnormality Appearance) (Pt Warm) -Tenderness on Palpation (Bertha-wound No Skin Appearance) -Ulcer Cleansing Wound Cleanser -Foul Odor after Cleansing No -Anesthetic Used 5% Lidocaine Gel Lower Limb Edema Present Yes Right Calf (cm) 72 Right Ankle (cm) 30.8 WC - Nurse 2 - General Ulcer CM Notes Start: 08/19/23 10:45 Freq: Status: Active Protocol: Activity Type Activity Date Activity User E-sign Co-sign Detail Recorded Client Recorded Date Recorded By Document 08/19/23 11:02 [facility] [employer] 08/19/23 11:09 [facility] 08/19/23 11:02 Wound Center Nurse 2 #4- R LAT LE -Time 11:03 -Correct Patient Yes -Correct Side, Site, Position Yes -Correct Procedure Yes -Procedure Performed Yes -Type of Procedure Debridement -Clinical Debridement Subcutaneous -Tissue Removed Subcutaneous -Post Debridement (cm) - Length 1.1 -Post Debridement (cm) - Width 3.5 -Post Debridement (cm) - Depth 0.1 -Total Square (Post) (cm) 3.85 -Area of Debridement (cm) - Length 1.1 -Area of Debridement (cm) - Width 3.5 -Total Square (Area) (cm) 3.85 -Tunneling No -Undermining/Tunneling No -Circular Undermining No -Wound/Ulcer Outcome Not Healed -Ulcer Cleansing Rinsed/ Irrigated with Saline -Foul Odor after Cleansing No -Bioengineered Tissue No -Bleeding Controlled with Pressure -Treatment Response Procedure Tolerated Well -Debridement - Subq, 1st 20sq cm Yes Pain Scale: 0-10 Numeric Is Patient Pain Free? Yes RADHA - Nurse 3 - General Ulcer D/C NN Start: 08/19/23 10:45 Freq: Status: Active Protocol: Activity Type Activity Date Activity User E-sign Co-sign Detail Recorded Client Recorded Date Recorded By Document 08/19/23 11:14 [employer] Desktop 08/19/23 11:15 [facility] 08/19/23 11:14 Wound Care Center Nurse 3 #4- R LAT LE -Ulcer Cleansing Rinsed/ Irrigated with Saline -Foul Odor after Cleansing No -Primary Dressing Applied NonAdherent Contact Layer, Promogran -Other Dressing ABD -Primary Dressing Covered/Secured with Dry Gauze & Roll Gauze, Secured with Tape -Promogran 1 Right -Other APPLIED PTS OWN SINGLE LAYER SIZE G Treatment Response Procedure Tolerated Well Pain Scale: 0-10 Numeric Is Patient Pain Free? Yes WC - Visit Discharge Discharge Condition Stable Ambulatory Status Ambulatory, Walker Transportation Private Auto Accompanied by Assessment/Plan Assessment/Plan (1) Morbid obesity: CODE(S): E66.01 - Morbid (severe) obesity due to excess calories (2) Venous insufficiency of both lower extremities: CODE(S): I87.2 - Venous insufficiency (chronic) (peripheral) (3) Ulcer of right lower extremity with fat layer exposed: CODE(S): L97.912 - Non-pressure chronic ulcer of unspecified part of right lower leg with fat layer exposed PLAN: Wash leg with Dial rinse pat dry Promogran moistened with gauze and ABDs over top Iqra and Christiano wrap to right lower leg daily double layer Tubigrip follow-up in 1 week (4) Dyshidrotic eczema: CODE(S): L30.1 - Dyshidrosis [pompholyx] PLAN: amLactin cream to all dried Flaky areas of skin
[2023-08-26 11:04] VITALS: BP 116/67; PULSE 78; RESP 20; TEMP 35.9; BMI 59.1
--- NOTE | 2023-08-26 12:10 | PCM.WC.PN ---
History of Present Illness Date of Service: 08/26/23 Chief Complaint: Right lateral leg ulcer History of Wound: 66-year-old white obese male. He appears here with a very large deep wound on his right posterior lower leg. He suffers from venous ulcers, and this 1 has been going on for 2 to 3 months. Other than covering it with a gauze dressing he has done nothing else. These are reoccurring ulcer openings have never been taking care of properly because of COVID. Patient did have arterial brachial and venous studies done and 2020 but never got to see the vascular surgeon for repair. Arterial studies fine its his venous he is got a lot of incompetence sees right where all of his wounds are. Patient suffers from cellulitis and also overgrowth of keratosis. He states that he has a history of an infected ulcer from 2013 and he was being seen at the [place] [facility]. He states that he has had issues with this ulcer on an off for years. He states had a fracture of his left ankle which required him to be placed in a SNF and the ulcer on the right improved during that time. 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 He is obese with a BMI 59.1. He sleeps in a recliner because his mattress makes his back hurt. He has significant amount of lower extremity edema. 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 Right AFIA by posterior tibial artery is 1.01. Left AFIA by posterior tibial artery is 0.98. The left AFIA by dorsalis pedis is 1.02. Bilateral triphasic doppler wavelength at ankle level. Venous Duplex ultrasound on 01/28/21 showed segmental valvular incompetence is noted within the great saphenous veins bilaterally. The right small saphenous vein is patent and competent. The left small saphenous vein is patent and incompetent. The accessory saphenous vein in the right mid-thigh is incompetent. We will refer him to Dr. Solis for further evaluation. Today he denies fever, chills, nausea or vomiting. He states his appetite is good. We did discuss weight loss and maybe he needs to try getting those injections from his doctor. 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 Progress of Wound: We seem to be at a standstill we will collect cultures today and have him follow-up in 2 weeks for going to change the product to Fibracol from the Promogran. Subjective Subjective Patient is very pleased that he does not have to come in next week Objective Data Objective Data Seem to be stagnant working to do cultures and find out if he is growing something that is inhibiting healing. Have him follow-up in 2 weeks it is in the low vacation. Vital Signs: Vital Signs Temp Pulse Resp BP 96.6 F L 78 20 H 116/67 08/26/23 11:04 08/26/23 11:04 08/26/23 11:04 08/26/23 11:04 Weight: 400 lb Body Mass Index (BMI) 59.1 Lab / Micro Data Attestation: I reviewed the patient's lab results. Physical Exam Const alert, oriented x3 and no apparent distress General Appearance: cooperative; Negative for combative or lethargic Orientation / Consciousness: awake Exam Limitations: no limitations HEENT Head and Scalp: normocephalic and atraumatic Eyes EOMs intact bilaterally General Eye: normal appearance of both eyes Neck full ROM and thyroid normal General: trachea midline Thyroid: thyroid normal Resp normal respiratory effort and no use of accessory muscles Effort and Inspection: Negative for labored, stridor or audible wheezes Cardio regular rate and regular rhythm GI non-tender Back/Spine Cervical Spine: cervical ROM normal Extremity full ROM and normal capillary refill General Extremity: edema Skin no rashes or lesions noted Skin Narrative: lateral right lowerr leg wound Neuro oriented x3 and CN's II-XII intact bilaterally Psych thought process normal, cooperative, affect normal, speech normal and activity/motor behavior normal Debridement Note Debridement Note Wound debrided: Right lower leg posterior venous ulcer Type of Debridement: Excisional debridement Anesthesia Used: 5% Lidocaine Gel Depth: in the subcutaneous layer Percentage of wound debrided: 100 Instrument Used: 3mm curette Tissue Removed: Fibrin Severity: Fat Layer Exposed Amount of bleeding with debridement: Mild Bleeding Controlled with: Compression and gauze Patient tolerated procedure: Patient tolerated procedure well Post-Debridement Measurements and Additional Note: Post-Debridement Measurements/Treatment WC - Nurse 1 - General Ulcer Assessment Start: 08/19/23 10:45 Freq: Status: Active Protocol: JADEN Activity Type Activity Date Activity User E-sign Co-sign Detail Recorded Client Recorded Date Recorded By Document 08/19/23 10:45 RB Desktop 08/19/23 10:48 RB Document 08/26/23 11:04 DL Desktop 08/26/23 11:12 DL 08/19/23 08/26/23 10:45 11:04 WC - Today's Visit Information Type of service Follow-up Visit Follow-up Visit (Physician/MEDICAL OFFICE TECHNOLOGY INSTRUCTOR (Physician/MEDICAL OFFICE TECHNOLOGY INSTRUCTOR ) ) Arrival Mode Ambulatory, Ambulatory, Walker Walker Transfer Assistance None None Patient Identification Verified (Name & Yes Yes ) Patient Requires Transmission-Based No No Precautions Height and Weight Body Mass Index (BMI) 59.1 59.1 BMI Classification Obese Obese Vital Signs Temperature (97.8 F-99.1 F) 96.8 F L 96.6 F L Temperature Source Temporal Temporal Pulse Rate (60-100) 75 78 Pulse Location Monitor Monitor Respiratory Rate (12-18) 18 20 H Respiratory rate source Observation Observation Blood Pressure (90/60-120/80) 133/75 H 116/67 Blood Pressure Mean (mm Hg) 94 83 Source Monitor Monitor Position Semi-Fowlers Blood Pressure Location Left Arm History Since Last Visit- (Skip if this is Patient's initial visit) Have you changed medications since your No No last visit? Any new allergies or adverse reactions No No Had a fall/change in ADL's that may No No increase risk of falls Signs or symptoms of abuse and/or No No neglect since last visit Have you been in the hospital since your No No last visit? Has dressing in place as prescribed Yes Yes Has compression in place as prescribed Yes Yes Has offloadiing in place as prescribed No N/A Experienced any changes in pain level or No No management Pain Scale: 0-10 Numeric Is Patient Pain Free? Yes Yes - Nurse 1 - General Ulcer Measurement Start: 08/19/23 10:45 Freq: Status: Active Protocol: Activity Type Activity Date Activity User E-sign Co-sign Detail Recorded Client Recorded Date Recorded By Document 08/19/23 10:45 RB Desktop 08/19/23 10:48 RB Document 08/26/23 11:04 DL Desktop 08/26/23 11:12 DL 08/19/23 08/26/23 10:45 11:04 Wound Center Nurse 1 #4- R LAT LE -Combined with other wound No -Current Size (cm) - Length 1.4 1.3 -Current Size (cm) - Width 4.5 4 -Current Size (cm) - Depth 0.1 0.1 -Total Square Cm 6.30 5.2 -Tunneling No -Undermining/Tunneling No -Circular Undermining No -Exudate Amt Large Medium -Exudate Type Serosanguineous Serosanguineous -Wound Margin Distinct, Distinct, Outline Outline Attached Attached -Granulation Amt Medium (34-66%) Medium (34-66%) -Granulation Quality [place] Red -Slough/Fibrin Yes -Necrosis Amt Medium (34-66%) Medium (34-66%) -Necrotic Tissue Type Adherent Slough Adherent Slough -Structure Exposed N/A N/A -Texture (Bertha-wound Skin Appearance) Assessed Scarring,Rash -Moisture (Bertha-wound Skin Appearance) Assessed,Dry/ Weeping Scaly -Color (Bertha-wound Skin Appearance) Assessed Hemosiderin Staining -Temperature (Bertha-wound Skin No Abnormality No Abnormality Appearance) (Pt Warm) (Pt Warm) -Tenderness on Palpation (Bertha-wound No Skin Appearance) -Ulcer Cleansing Wound Cleanser Soap and Water -Foul Odor after Cleansing No No -Anesthetic Used 5% Lidocaine 5% Lidocaine Gel Gel Lower Limb Edema Present Yes Right Calf (cm) 72 68.8 Right Ankle (cm) 30.8 30.5 WC - Nurse 2 - General Ulcer CM Notes Start: 08/19/23 10:45 Freq: Status: Active Protocol: Activity Type Activity Date Activity User E-sign Co-sign Detail Recorded Client Recorded Date Recorded By Document 08/19/23 11:[address] [facility] Desktop 08/19/23 11:[address] [facility] Document 08/26/23 11:[address] [facility] Desktop 08/26/23 11:[address] [facility] 08/19/23 08/26/23 11:02 11:33 Wound Center Nurse 2 #4- R LAT LE -Time 11:03 11:36 -Correct Patient Yes Yes -Correct Side, Site, Position Yes Yes -Correct Procedure Yes Yes -Procedure Performed Yes Yes -Type of Procedure Debridement Debridement -Clinical Debridement Subcutaneous Subcutaneous -Tissue Removed Subcutaneous Subcutaneous -Post Debridement (cm) - Length 1.1 1.3 -Post Debridement (cm) - Width 3.5 3.4 -Post Debridement (cm) - Depth 0.1 0.2 -Total Square (Post) (cm) 3.85 4.42 -Area of Debridement (cm) - Length 1.1 1.3 -Area of Debridement (cm) - Width 3.5 3.4 -Total Square (Area) (cm) 3.85 4.42 -Tunneling No No -Undermining/Tunneling No No -Circular Undermining No No -Wound/Ulcer Outcome Not Healed Not Healed -Ulcer Cleansing Rinsed/ Rinsed/ Irrigated with Irrigated with Saline Saline -Foul Odor after Cleansing No No -Bioengineered Tissue No No -Bleeding Controlled with Pressure Pressure -Treatment Response Procedure Procedure Tolerated Well Tolerated Well -Debridement - Subq, 1st 20sq cm Yes Yes Pain Scale: 0-10 Numeric Is Patient Pain Free? Yes Yes - Nurse 3 - General Ulcer D/C NN Start: 08/19/23 10:45 Freq: Status: Active Protocol: Activity Type Activity Date Activity User E-sign Co-sign Detail Recorded Client Recorded Date Recorded By Document 08/19/23 11:[address] [facility] Desktop 08/19/23 11:[address] [facility] Document 08/26/23 11:41 DL Desktop 08/26/23 11:42 DL 08/19/23 08/26/23 11:14 11:41 Wound Care Center Nurse 3 #4- R LAT LE -Ulcer Cleansing Rinsed/ Rinsed/ Irrigated with Irrigated with Saline Saline -Foul Odor after Cleansing No No -Primary Dressing Applied NonAdherent Fibracol Plus Contact Layer, 4x4 Promogran -Other Dressing ABD -Primary Dressing Covered/Secured with Dry Gauze & Dry Gauze,Dry Roll Gauze, Gauze & Roll Secured with Gauze Tape -Other Covering ABD -Fibracol Plus 4x4 1 -Promogran 1 Right -Other APPLIED tubigrip G PTS OWN SINGLE LAYER SIZE G Treatment Response Procedure Procedure Tolerated Well Tolerated Well Pain Scale: 0-10 Numeric Is Patient Pain Free? Yes Yes WC - Visit Discharge Discharge Condition Stable Stable Ambulatory Status Ambulatory, Ambulatory, Walker Walker Transportation Private Auto Private Auto Accompanied by Assessment/Plan Assessment/Plan (1) Morbid obesity: CODE(S): E66.01 - Morbid (severe) obesity due to excess calories (2) Venous insufficiency of both lower extremities: CODE(S): I87.2 - Venous insufficiency (chronic) (peripheral) (3) Ulcer of right lower extremity with fat layer exposed: CODE(S): L97.912 - Non-pressure chronic ulcer of unspecified part of right lower leg with fat layer exposed PLAN: Wash leg with Dial rinse pat dry Fibracol plus moistened with gauze and ABDs over top Iqra and Christiano wrap to right lower leg daily double layer Tubigrip follow-up in 1 week (4) Dyshidrotic eczema: CODE(S): L30.1 - Dyshidrosis [pompholyx] PLAN: amLactin cream to all dried Flaky areas of skin
[2023-09-09 10:26] VITALS: BP 144/78; PULSE 79; RESP 22; TEMP 35.9; BMI 59.1
--- NOTE | 2023-09-09 12:46 | PCM.WC.PN ---
History of Present Illness Date of Service: 09/09/23 Chief Complaint: Right lateral leg ulcer History of Wound: 66-year-old white obese male. He appears here with a very large deep wound on his right posterior lower leg. He suffers from venous ulcers, and this 1 has been going on for 2 to 3 months. Other than covering it with a gauze dressing he has done nothing else. These are reoccurring ulcer openings have never been taking care of properly because of COVID. Patient did have arterial brachial and venous studies done and 2020 but never got to see the vascular surgeon for repair. Arterial studies fine its his venous he is got a lot of incompetence sees right where all of his wounds are. Patient suffers from cellulitis and also overgrowth of keratosis. He states that he has a history of an infected ulcer from 2013 and he was being seen at the [facility]. He states that he has had issues with this ulcer on an off for years. He states had a fracture of his left ankle which required him to be placed in a SNF and the ulcer on the right improved during that time. 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 He is obese with a BMI 59.1. He sleeps in a recliner because his mattress makes his back hurt. He has significant amount of lower extremity edema. 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 Right AFIA by posterior tibial artery is 1.01. Left AFIA by posterior tibial artery is 0.98. The left AFIA by dorsalis pedis is 1.02. Bilateral triphasic doppler wavelength at ankle level. Venous Duplex ultrasound on 01/28/21 showed segmental valvular incompetence is noted within the great saphenous veins bilaterally. The right small saphenous vein is patent and competent. The left small saphenous vein is patent and incompetent. The accessory saphenous vein in the right mid-thigh is incompetent. We will refer him to Dr. Solis for further evaluation. Today he denies fever, chills, nausea or vomiting. He states his appetite is good. We did discuss weight loss and maybe he needs to try getting those injections from his doctor. 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 Progress of Wound: Cultures came back negative for growth still develops a irritation of the skin inferior to the wound we will just put dry Aquacel on to protect the skin with the dressing. The wound itself is getting shallower rather than deeper. Subjective Subjective They are good with coming every 2 weeks and the continued care is good and they approve a plan Objective Data Objective Data No sign of infection just really slow he has no follow-up so far with Dr. Solis Vital Signs: Vital Signs Temp Pulse Resp BP 96.6 F L 79 22 H 144/78 H 09/09/23 10:26 09/09/23 10:26 09/09/23 10:26 09/09/23 10: Weight: 400 lb Body Mass Index (BMI) 59.1 Lab / Micro Data Attestation: I reviewed the patient's lab results. Micro: Microbiology 08/26/23 11:30 Wound - Leg, Right Gram Stain - Final 08/26/23 11:30 Wound - Leg, Right Wound Culture - Final Corynebacterium striatum 08/26/23 11:30 Wound - Leg, Right Anaerobic Culture - Final No growth in 5 days. Physical Exam Const alert, oriented x3 and no apparent distress General Appearance: cooperative; Negative for combative or lethargic Orientation / Consciousness: awake Exam Limitations: no limitations HEENT Head and Scalp: normocephalic and atraumatic Eyes EOMs intact bilaterally General Eye: normal appearance of both eyes Neck full ROM and thyroid normal General: trachea midline Thyroid: thyroid normal Resp normal respiratory effort and no use of accessory muscles Effort and Inspection: Negative for labored, stridor or audible wheezes Cardio regular rate and regular rhythm GI non-tender Back/Spine Cervical Spine: cervical ROM normal Extremity full ROM and normal capillary refill General Extremity: edema Skin no rashes or lesions noted Skin Narrative: lateral right lowerr leg wound Neuro oriented x3 and CN's II-XII intact bilaterally Psych thought process normal, cooperative, affect normal, speech normal and activity/motor behavior normal Debridement Note Debridement Note Wound debrided: Right lower leg posterior venous ulcer Type of Debridement: Excisional debridement Anesthesia Used: 5% Lidocaine Gel Depth: in the subcutaneous layer Percentage of wound debrided: 100 Instrument Used: 3mm curette Tissue Removed: Fibrin Severity: Fat Layer Exposed Amount of bleeding with debridement: Mild Bleeding Controlled with: Compression and gauze Patient tolerated procedure: Patient tolerated procedure well Post-Debridement Measurements and Additional Note: Post-Debridement Measurements/Treatment - Nurse 1 - General Ulcer Assessment Start: 08/19/23 10:45 Freq: Status: Active Protocol: RADHA.[email or web address] Activity Type Activity Date Activity User E-sign Co-sign Detail Recorded Client Recorded Date Recorded By Document 08/19/23 10:45 RB Desktop 08/19/23 10:48 RB Document 08/26/23 11:04 DL Desktop 08/26/23 11:12 DL Document 09/09/23 10:26 DL [email or web address] 09/09/23 10:33 DL 08/19/23 08/26/23 09/09/23 10:45 11:04 10:26 - Today's Visit Information Type of service Follow-up Visit Follow-up Visit Follow-up Visit (Physician/STEAM TABLE ASSOCIATE (Physician/STEAM TABLE ASSOCIATE (Physician/STEAM TABLE ASSOCIATE ) ) ) Arrival Mode Ambulatory, Ambulatory, Ambulatory, Walker Walker Walker Transfer Assistance None None None Patient Identification Verified (Name & Yes Yes Yes ) Patient Requires Transmission-Based No No No Precautions Height and Weight Body Mass Index (BMI) 59.1 59.1 59.1 BMI Classification Obese Obese Obese Vital Signs Temperature (97.8 F-99.1 F) 96.8 F L 96.6 F L 96.6 F L Temperature Source Temporal Temporal Temporal Pulse Rate (60-100) 75 78 79 Pulse Location Monitor Monitor Monitor Respiratory Rate (12-18) 18 20 H 22 H Respiratory rate source Observation Observation Observation Blood Pressure (90/60-120/80) 133/75 H 116/67 144/78 H Blood Pressure Mean (mm Hg) 94 83 100 Source Monitor Monitor Monitor Position Semi-Fowlers Blood Pressure Location Left Arm History Since Last Visit- (Skip if this is Patient's initial visit) Have you changed medications since your No No No last visit? Any new allergies or adverse reactions No No No Had a fall/change in ADL's that may No No No increase risk of falls Signs or symptoms of abuse and/or No No No neglect since last visit Have you been in the hospital since your No No No last visit? Has dressing in place as prescribed Yes Yes Yes Has compression in place as prescribed Yes Yes Yes Has offloadiing in place as prescribed No N/A N/A Experienced any changes in pain level or No No No management Pain Scale: 0-10 Numeric Is Patient Pain Free? Yes Yes Yes WC - Nurse 1 - General Ulcer Measurement Start: 08/19/23 10:45 Freq: Status: Active Protocol: Activity Type Activity Date Activity User E-sign Co-sign Detail Recorded Client Recorded Date Recorded By Document 08/19/23 10:45 RB Desktop 08/19/23 10:48 RB Document 08/26/23 11:04 DL Desktop 08/26/23 11:12 DL Document 09/09/23 10:26 DL [email or web address] 09/09/23 10:33 DL Edit Result 09/09/23 10:26 DL (1) [email or web address] 09/09/23 10:35 DL (1) #4- R LAT LE - Current Size (cm) - Length 3.8 => 1.1 - Current Size (cm) - Width 1.1 => 3.8 08/19/23 08/26/23 09/09/23 10:45 11:04 10:26 Wound Center Nurse 1 #4- R LAT LE -Combined with other wound No -Current Size (cm) - Length 1.4 1.3 1.1 -Current Size (cm) - Width 4.5 4 3.8 -Current Size (cm) - Depth 0.1 0.1 0.1 -Total Square Cm 6.30 5.2 4.18 -Tunneling No -Undermining/Tunneling No -Circular Undermining No -Exudate Amt Large Medium Medium -Exudate Type Serosanguineous Serosanguineous Serosanguineous -Wound Margin Distinct, Distinct, Distinct, Outline Outline Outline Attached Attached Attached -Granulation Amt Medium (34-66%) Medium (34-66%) Medium (34-66%) -Granulation Quality [place] Red Red -Slough/Fibrin Yes -Necrosis Amt Medium (34-66%) Medium (34-66%) Medium (34-66%) -Necrotic Tissue Type Adherent Slough Adherent Slough Adherent Slough -Structure Exposed N/A N/A N/A -Texture (Bertha-wound Skin Appearance) Assessed Scarring,Rash Scarring,Rash -Moisture (Bertha-wound Skin Appearance) Assessed,Dry/ Weeping Weeping Scaly -Color (Bertha-wound Skin Appearance) Assessed Hemosiderin Hemosiderin Staining Staining -Temperature (Bertha-wound Skin No Abnormality No Abnormality No Abnormality Appearance) (Pt Warm) (Pt Warm) (Pt Warm) -Tenderness on Palpation (Bertha-wound No No Skin Appearance) -Ulcer Cleansing Wound Cleanser Soap and Water Soap and Water -Foul Odor after Cleansing No No No -Anesthetic Used 5% Lidocaine 5% Lidocaine 5% Lidocaine Gel Gel Gel Lower Limb Edema Present Yes Right Calf (cm) 72 68.8 68.5 Right Ankle (cm) 30.8 30.5 30.6 WC - Nurse 2 - General Ulcer CM Notes Start: 08/19/23 10:45 Freq: Status: Active Protocol: Activity Type Activity Date Activity User E-sign Co-sign Detail Recorded Client Recorded Date Recorded By Document 08/19/23 11:02 [employer] Desktop 08/19/23 11:09 [employer] Document 08/26/23 11:33 [facility] Desktop 08/26/23 11:37 [facility] Document 09/09/23 10:39 [facility] [id number] 09/09/23 10:45 [facility] 08/19/23 08/26/23 09/09/23 11:02 11:33 10:39 Wound Center Nurse 2 #4- R LAT LE -Time 11:03 11:36 10:40 -Correct Patient Yes Yes Yes -Correct Side, Site, Position Yes Yes Yes -Correct Procedure Yes Yes Yes -Procedure Performed Yes Yes Yes -Type of Procedure Debridement Debridement Debridement -Clinical Debridement Subcutaneous Subcutaneous Subcutaneous -Tissue Removed Subcutaneous Subcutaneous Subcutaneous -Post Debridement (cm) - Length 1.1 1.3 1.2 -Post Debridement (cm) - Width 3.5 3.4 3.6 -Post Debridement (cm) - Depth 0.1 0.2 0.1 -Total Square (Post) (cm) 3.85 4.42 4.32 -Area of Debridement (cm) - Length 1.1 1.3 1.2 -Area of Debridement (cm) - Width 3.5 3.4 3.6 -Total Square (Area) (cm) 3.85 4.42 4.32 -Tunneling No No No -Undermining/Tunneling No No No -Circular Undermining No No No -Wound/Ulcer Outcome Not Healed Not Healed Not Healed -Ulcer Cleansing Rinsed/ Rinsed/ Rinsed/ Irrigated with Irrigated with Irrigated with Saline Saline Saline -Foul Odor after Cleansing No No No -Bioengineered Tissue No No No -Bleeding Controlled with Pressure Pressure Pressure -Treatment Response Procedure Procedure Procedure Tolerated Well Tolerated Well Tolerated Well -Debridement - Subq, 1st 20sq cm Yes Yes Yes Pain Scale: 0-10 Numeric Is Patient Pain Free? Yes Yes Yes - Nurse 3 - General Ulcer D/C NN Start: 08/19/23 10:45 Freq: Status: Active Protocol: Activity Type Activity Date Activity User E-sign Co-sign Detail Recorded Client Recorded Date Recorded By Document 08/19/23 11:14 [facility] Desktop 08/19/23 11:15 [facility] Document 08/26/23 11:41 DL Desktop 08/26/23 11:42 DL Document 09/09/23 10:55 DL [email or web address] 09/09/23 10:59 DL 08/19/23 08/26/23 09/09/23 11:14 11:41 10:55 Wound Care Center Nurse 3 #4- R LAT LE -Ulcer Cleansing Rinsed/ Rinsed/ Rinsed/ Irrigated with Irrigated with Irrigated with Saline Saline Saline -Foul Odor after Cleansing No No No -Primary Dressing Applied NonAdherent Fibracol Plus Aquacel Extra, Contact Layer, 4x4 Fibracol Plus Promogran 4x4 -Other Dressing ABD -Primary Dressing Covered/Secured with Dry Gauze & Dry Gauze,Dry Dry Gauze & Roll Gauze, Gauze & Roll Roll Gauze, Secured with Gauze Secured with Tape Tape -Other Covering ABD -Aquacel Extra 1 -Fibracol Plus 4x4 1 1 -Promogran 1 Right -Other APPLIED tubigrip G Tubigrip PTS OWN SINGLE LAYER SIZE G Treatment Response Procedure Procedure Procedure Tolerated Well Tolerated Well Tolerated Well Pain Scale: 0-10 Numeric Is Patient Pain Free? Yes Yes Yes - Visit Discharge Discharge Condition Stable Stable Stable Ambulatory Status Ambulatory, Ambulatory, Ambulatory, Walker Walker Walker Transportation Private Auto Private Auto Private Auto Accompanied by Assessment/Plan Assessment/Plan (1) Morbid obesity: CODE(S): E66.01 - Morbid (severe) obesity due to excess calories (2) Venous insufficiency of both lower extremities: CODE(S): I87.2 - Venous insufficiency (chronic) (peripheral) (3) Ulcer of right lower extremity with fat layer exposed: CODE(S): L97.912 - Non-pressure chronic ulcer of unspecified part of right lower leg with fat layer exposed PLAN: Wash leg with Dial rinse pat dry Fibracol plus moistened with gauze and ABDs over top Iqra and Christiano wrap to right lower leg daily double layer Tubigrip follow-up in 2 week (4) Dyshidrotic eczema: CODE(S): L30.1 - Dyshidrosis [pompholyx] PLAN: amLactin cream to all dried Flaky areas of skin
== END 2023-09-18 23:59 | disposition home or self-care (01) ==
LOC: WC 10:30
PROVIDERS: PCP Preventive Medicine Occupational Medicine; Referring Provider Preventive Medicine Occupational Medicine; Visit Provider Nurse Practitioner
DX: I87.2 Venous insufficiency (chronic) (peripheral) (principal); L97.812 Non-pressure chronic ulcer of other part of right lower leg with fat layer exposed; I48.91 Unspecified atrial fibrillation; E66.01 Morbid (severe) obesity due to excess calories; Z68.43 Body mass index [BMI] 50.0-59.9, adult; R60.0 Localized edema; L30.1 Dyshidrosis [pompholyx]
CPT/HCPCS: 11042; 87070; 87075; 87077; 87205

== ENCOUNTER 2023-10-14 10:45 | Outpatient (RCR) | payer MEDICARE, OTHER, SELFPAY ==
[2023-09-19 00:59] VITALS: BP 132/71; PULSE 76; RESP 22; TEMP 35.7; BMI 59.1
[2023-09-23 10:45] VITALS: BP 131/69; PULSE 75; RESP 22; TEMP 35.9; BMI 59.1
--- NOTE | 2023-09-23 11:43 | PCM.WC.PN ---
History of Present Illness Date of Service: 09/23/23 Chief Complaint: Right lateral leg ulcer History of Wound: 66-year-old white obese male. He appears here with a very large deep wound on his right posterior lower leg. He suffers from venous ulcers, and this 1 has been going on for 2 to 3 months. Other than covering it with a gauze dressing he has done nothing else. These are reoccurring ulcer openings have never been taking care of properly because of COVID. Patient did have arterial brachial and venous studies done and 2020 but never got to see the vascular surgeon for repair. Arterial studies fine its his venous he is got a lot of incompetence sees right where all of his wounds are. Patient suffers from cellulitis and also overgrowth of keratosis. He states that he has a history of an infected ulcer from 2013 and he was being seen at the [facility]. He states that he has had issues with this ulcer on an off for years. He states had a fracture of his left ankle which required him to be placed in a SNF and the ulcer on the right improved during that time. 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 He is obese with a BMI 59.1. He sleeps in a recliner because his mattress makes his back hurt. He has significant amount of lower extremity edema. 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 Right AFIA by posterior tibial artery is 1.01. Left AFIA by posterior tibial artery is 0.98. The left AFIA by dorsalis pedis is 1.02. Bilateral triphasic doppler wavelength at ankle level. Venous Duplex ultrasound on 01/28/21 showed segmental valvular incompetence is noted within the great saphenous veins bilaterally. The right small saphenous vein is patent and competent. The left small saphenous vein is patent and incompetent. The accessory saphenous vein in the right mid-thigh is incompetent. We will refer him to Dr. Solis for further evaluation. Today he denies fever, chills, nausea or vomiting. He states his appetite is good. We did discuss weight loss and maybe he needs to try getting those injections from his doctor. 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 Progress of Wound: We appear to be at a standstill on his wound on the right lateral lower leg. We are going to apply for EpiFix to see if we can get it going. Cultures came back negative. Continues to get a thick fibrin over the wound and it does not close. Subjective Subjective and patient agreeable to plan and were interviewed by Gallo to explain what EpiFix this and to answer any questions 20 minutes [id number] given Objective Data Objective Data No sign of infection cultures are negative wound measurements are about the same will apply for EpiFix and in the meantime we will continue using the Fibracol and Aquacel extra to the surrounding tissue that looks irritated and excoriated. Vital Signs: Vital Signs Temp Pulse Resp BP 96.6 F L 75 22 H 131/69 H 09/23/23 10:45 09/23/23 10:45 09/23/23 10:45 09/23/23 10:45 Weight: 400 lb Body Mass Index (BMI) 59.1 Physical Exam Const alert, oriented x3 and no apparent distress General Appearance: cooperative; Negative for combative or lethargic Orientation / Consciousness: awake Exam Limitations: no limitations HEENT Head and Scalp: normocephalic and atraumatic Eyes EOMs intact bilaterally General Eye: normal appearance of both eyes Neck full ROM and thyroid normal General: trachea midline Thyroid: thyroid normal Resp normal respiratory effort and no use of accessory muscles Effort and Inspection: Negative for labored, stridor or audible wheezes Cardio regular rate and regular rhythm GI non-tender Back/Spine Cervical Spine: cervical ROM normal Extremity full ROM and normal capillary refill General Extremity: edema Skin no rashes or lesions noted Skin Narrative: lateral right lowerr leg wound Neuro oriented x3 and CN's II-XII intact bilaterally Psych thought process normal, cooperative, affect normal, speech normal and activity/motor behavior normal Debridement Note Debridement Note Wound debrided: Right lower leg posterior venous ulcer Type of Debridement: Excisional debridement Anesthesia Used: 5% Lidocaine Gel Depth: in the subcutaneous layer Percentage of wound debrided: 100 Instrument Used: 3mm curette Tissue Removed: Fibrin Severity: Fat Layer Exposed Amount of bleeding with debridement: Mild Bleeding Controlled with: Compression and gauze Patient tolerated procedure: Patient tolerated procedure well Post-Debridement Measurements and Additional Note: Post-Debridement Measurements/Treatment RADHA - Nurse 1 - General Ulcer Assessment Start: 09/23/23 10:44 Freq: Status: Active Protocol: JADEN Activity Type Activity Date Activity User E-sign Co-sign Detail Recorded Client Recorded Date Recorded By Document 09/23/23 10:45 [place] [email or web address] 09/23/23 10:52 [place] 09/23/23 10:45 WC - Today's Visit Information Type of service Follow-up Visit (Physician/EMT DISPATCHER ) Arrival Mode Ambulatory Accompanied by Patient Identification Verified (Name & Yes ) Safety Precautions Fall Prevention Height and Weight Body Mass Index (BMI) 59.1 BMI Classification Obese Vital Signs Temperature (97.8 F-99.1 F) 96.6 F L Temperature Source Temporal Pulse Rate (60-100) 75 Respiratory Rate (12-18) 22 H Respiratory rate source Observation Blood Pressure (90/60-120/80) 131/69 H Blood Pressure Mean (mm Hg) 89 Source Monitor Position Sitting Blood Pressure Location Left Arm History Since Last Visit- (Skip if this is Patient's initial visit) Has dressing in place as prescribed Yes Has compression in place as prescribed Yes Has offloadiing in place as prescribed N/A Experienced any changes in pain level or No management Left Footwear Regular Shoe Right Footwear Regular Shoe Pain Scale: 0-10 Numeric Is Patient Pain Free? Yes RADHA Oliva Nurse 1 - General Ulcer Measurement Start: 09/23/23 10:44 Freq: Status: Active Protocol: Activity Type Activity Date Activity User E-sign Co-sign Detail Recorded Client Recorded Date Recorded By Document 09/23/23 10:45 [place] [email or web address] 09/23/23 10:52 [place] 09/23/23 10:45 Wound Center Nurse 1 #4- R LAT LE -Current Size (cm) - Length 3.5 -Current Size (cm) - Width 1.4 -Current Size (cm) - Depth 0.1 -Total Square Cm 4.90 -Photo Taken No -Tunneling No -Undermining/Tunneling No -Circular Undermining No -Exudate Amt Medium -Exudate Type Sanguineous -Wound Margin Flat & Intact -Granulation Amt Medium (34-66%) -Granulation Quality Pale,[place] -Necrosis Amt Medium (34-66%) -Necrotic Tissue Type Adherent Slough -Texture (Bertha-wound Skin Appearance) Assessed -Color (Bertha-wound Skin Appearance) Assessed -Temperature (Bertha-wound Skin No Abnormality Appearance) (Pt Warm) -Tenderness on Palpation (Bertha-wound No Skin Appearance) -Ulcer Cleansing Soap and Water -Foul Odor after Cleansing No -Anesthetic Used 5% Lidocaine Gel Left Calf (cm) 69 Left Ankle (cm) 31 WC - Nurse 2 - General Ulcer CM Notes Start: 09/23/23 10:44 Freq: Status: Active Protocol: Activity Type Activity Date Activity User E-sign Co-sign Detail Recorded Client Recorded Date Recorded By Document 09/23/23 11:[address] [facility] [id number] 09/23/23 11:[address] [facility] 09/23/23 11:00 Wound Center Nurse 2 #4- R LAT LE -Time 11:00 -Correct Patient Yes -Correct Side, Site, Position Yes -Correct Procedure Yes -Procedure Performed Yes -Type of Procedure Debridement -Clinical Debridement Subcutaneous -Tissue Removed Subcutaneous -Post Debridement (cm) - Length 1.1 -Post Debridement (cm) - Width 3.9 -Post Debridement (cm) - Depth 0.1 -Total Square (Post) (cm) 4.29 -Area of Debridement (cm) - Length 1.1 -Area of Debridement (cm) - Width 3.9 -Total Square (Area) (cm) 4.29 -Tunneling No -Undermining/Tunneling No -Circular Undermining No -Wound/Ulcer Outcome Not Healed -Ulcer Cleansing Rinsed/ Irrigated with Saline -Foul Odor after Cleansing No -Bioengineered Tissue No -Bleeding Controlled with Pressure -Treatment Response Procedure Tolerated Well -Debridement - Subq, 1st 20sq cm Yes Pain Scale: 0-10 Numeric Is Patient Pain Free? Yes Assessment/Plan Assessment/Plan (1) Morbid obesity: CODE(S): E66.01 - Morbid (severe) obesity due to excess calories (2) Venous insufficiency of both lower extremities: CODE(S): I87.2 - Venous insufficiency (chronic) (peripheral) (3) Ulcer of right lower extremity with fat layer exposed: CODE(S): L97.912 - Non-pressure chronic ulcer of unspecified part of right lower leg with fat layer exposed PLAN: Wash leg with Dial rinse pat dry Fibracol plus moistened with gauze and ABDs over top Iqra and Christiano wrap to right lower leg daily double layer Tubigrip follow-up in 1 week Apply for EpiFix (4) Dyshidrotic eczema: CODE(S): L30.1 - Dyshidrosis [pompholyx] PLAN: amLactin cream to all dried Flaky areas of skin
[2023-10-07 10:59] VITALS: BP 129/78; PULSE 76; RESP 20; TEMP 35.7; BMI 59.1
--- NOTE | 2023-10-07 11:48 | PCM.WC.PN ---
History of Present Illness Date of Service: 10/07/23 Chief Complaint: Right lateral leg ulcer History of Wound: 66-year-old white obese male. He appears here with a very large deep wound on his right posterior lower leg. He suffers from venous ulcers, and this 1 has been going on for 2 to 3 months. Other than covering it with a gauze dressing he has done nothing else. These are reoccurring ulcer openings have never been taking care of properly because of COVID. Patient did have arterial brachial and venous studies done and 2020 but never got to see the vascular surgeon for repair. Arterial studies fine its his venous he is got a lot of incompetence sees right where all of his wounds are. Patient suffers from cellulitis and also overgrowth of keratosis. He states that he has a history of an infected ulcer from 2013 and he was being seen at the [facility]. He states that he has had issues with this ulcer on an off for years. He states had a fracture of his left ankle which required him to be placed in a SNF and the ulcer on the right improved during that time. 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 He is obese with a BMI 59.1. He sleeps in a recliner because his mattress makes his back hurt. He has significant amount of lower extremity edema. 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 Right AFIA by posterior tibial artery is 1.01. Left AFIA by posterior tibial artery is 0.98. The left AFIA by dorsalis pedis is 1.02. Bilateral triphasic doppler wavelength at ankle level. Venous Duplex ultrasound on 01/28/21 showed segmental valvular incompetence is noted within the great saphenous veins bilaterally. The right small saphenous vein is patent and competent. The left small saphenous vein is patent and incompetent. The accessory saphenous vein in the right mid-thigh is incompetent. We will refer him to Dr. Solis for further evaluation. Today he denies fever, chills, nausea or vomiting. He states his appetite is good. We did discuss weight loss and maybe he needs to try getting those injections from his doctor. 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 Progress of Wound: So this week his wounds finally started to look senior living decent and healing a little bit smaller and measurements but he was approved for EpiFix so we will apply the first 1 today. We also suggested he get the Chavo and start take drinking Chavo's for his wound healing. Subjective Subjective Patient agreeable to EpiFix #1 Objective Data Objective Data No sign of infection the wound actually looks better than it has in the past it was at a standstill but it seems to have leg improved in the last 2 weeks. We will start with the EpiFix #1 Vital Signs: Vital Signs Temp Pulse Resp BP 96.3 F L 76 20 H 129/78 H 10/07/23 10:59 10/07/23 10:59 10/07/23 10:59 10/07/23 10:59 Weight: 400 lb Body Mass Index (BMI) 59.1 Lab / Micro Data Attestation: I reviewed the patient's lab results. Physical Exam Const alert, oriented x3 and no apparent distress General Appearance: cooperative; Negative for combative or lethargic Orientation / Consciousness: awake Exam Limitations: no limitations HEENT Head and Scalp: normocephalic and atraumatic Eyes EOMs intact bilaterally General Eye: normal appearance of both eyes Neck full ROM and thyroid normal General: trachea midline Thyroid: thyroid normal Resp normal respiratory effort and no use of accessory muscles Effort and Inspection: Negative for labored, stridor or audible wheezes Cardio regular rate and regular rhythm GI non-tender Back/Spine Cervical Spine: cervical ROM normal Extremity full ROM and normal capillary refill General Extremity: edema Skin no rashes or lesions noted Skin Narrative: lateral right lowerr leg wound Neuro oriented x3 and CN's II-XII intact bilaterally Psych thought process normal, cooperative, affect normal, speech normal and activity/motor behavior normal Debridement Note Debridement Note Wound debrided: Right lower leg posterior venous ulcer Type of Debridement: Excisional debridement Anesthesia Used: 5% Lidocaine Gel Depth: in the subcutaneous layer Percentage of wound debrided: 100 Instrument Used: 3mm curette Tissue Removed: Fibrin Severity: Fat Layer Exposed Amount of bleeding with debridement: Mild Bleeding Controlled with: Compression and gauze Patient tolerated procedure: Patient tolerated procedure well Post-Debridement Measurements and Additional Note: Post-Debridement Measurements/Treatment WC - Nurse 1 - General Ulcer Assessment Start: 09/23/23 10:44 Freq: Status: Active Protocol: JADEN Activity Type Activity Date Activity User E-sign Co-sign Detail Recorded Client Recorded Date Recorded By Document 09/23/23 10:45 MT [email or web address] 09/23/23 10:52 MT Document 10/07/23 10:59 DL 10.10.25.7 10/07/23 11:08 DL 09/23/23 10/07/23 10:45 10:59 WC - Today's Visit Information Type of service Follow-up Visit Follow-up Visit (Physician/HELPER MAINTENANCE CLEANING (Physician/HELPER MAINTENANCE CLEANING ) ) Arrival Mode Ambulatory Ambulatory, Walker Transfer Assistance None Accompanied by Patient Identification Verified (Name & Yes Yes ) Patient Requires Transmission-Based No Precautions Safety Precautions Fall Prevention Height and Weight Body Mass Index (BMI) 59.1 59.1 BMI Classification Obese Obese Vital Signs Temperature (97.8 F-99.1 F) 96.6 F L 96.3 F L Temperature Source Temporal Temporal Pulse Rate (60-100) 75 76 Pulse Location Monitor Respiratory Rate (12-18) 22 H 20 H Respiratory rate source Observation Observation Blood Pressure (90/60-120/80) 131/69 H 129/78 H Blood Pressure Mean (mm Hg) 89 95 Source Monitor Monitor Position Sitting Blood Pressure Location Left Arm History Since Last Visit- (Skip if this is Patient's initial visit) Have you changed medications since your No last visit? Any new allergies or adverse reactions No Had a fall/change in ADL's that may No increase risk of falls Signs or symptoms of abuse and/or No neglect since last visit Have you been in the hospital since your No last visit? Has dressing in place as prescribed Yes Yes Has compression in place as prescribed Yes Yes Has offloadiing in place as prescribed N/A N/A Experienced any changes in pain level or No No management Left Footwear Regular Shoe Right Footwear Regular Shoe Pain Scale: 0-10 Numeric Is Patient Pain Free? Yes Yes - Nurse 1 - General Ulcer Measurement Start: 09/23/23 10:44 Freq: Status: Active Protocol: Activity Type Activity Date Activity User E-sign Co-sign Detail Recorded Client Recorded Date Recorded By Document 09/23/23 10:45 ND [email or web address] 09/23/23 10:52 MT Document 10/07/23 10:59 DL [email or web address] 10/07/23 11:08 DL 09/23/23 10/07/23 10:45 10:59 Wound Center Nurse 1 #4- R LAT LE -Current Size (cm) - Length 3.5 1.2 -Current Size (cm) - Width 1.4 3.8 -Current Size (cm) - Depth 0.1 0.1 -Total Square Cm 4.90 4.56 -Photo Taken No -Tunneling No -Undermining/Tunneling No -Circular Undermining No -Exudate Amt Medium Medium -Exudate Type Sanguineous Serosanguineous -Wound Margin Flat & Intact Distinct, Outline Attached -Granulation Amt Medium (34-66%) Large (67-100%) -Granulation Quality Pale,[place] Red -Necrosis Amt Medium (34-66%) Small (1-33%) -Necrotic Tissue Type Adherent Slough Adherent Slough -Structure Exposed N/A -Texture (Bertha-wound Skin Appearance) Assessed Scarring -Moisture (Bertha-wound Skin Appearance) Dry/Scaly -Color (Bertha-wound Skin Appearance) Assessed Hemosiderin Staining -Temperature (Bertha-wound Skin No Abnormality No Abnormality Appearance) (Pt Warm) (Pt Warm) -Tenderness on Palpation (Bertha-wound No Skin Appearance) -Ulcer Cleansing Soap and Water Soap and Water -Foul Odor after Cleansing No No -Anesthetic Used 5% Lidocaine 5% Lidocaine Gel Gel Right Calf (cm) 70.2 Right Ankle (cm) 30.7 Left Calf (cm) 69 Left Ankle (cm) 31 WC - Nurse 2 - General Ulcer CM Notes Start: 09/23/23 10:44 Freq: Status: Active Protocol: Activity Type Activity Date Activity User E-sign Co-sign Detail Recorded Client Recorded Date Recorded By Document 09/23/23 11:00 [facility] [id number] 09/23/23 11:14 [facility] Document 10/07/23 11:17 [facility] 1606-03-29 10/07/23 11:26 BM 09/23/23 10/07/23 11:00 11:17 Wound Center Nurse 2 #4- R LAT LE -Time 11:00 11:20 -Correct Patient Yes Yes -Correct Side, Site, Position Yes Yes -Correct Procedure Yes Yes -Procedure Performed Yes Yes -Type of Procedure Debridement Debridement -Clinical Debridement Subcutaneous Subcutaneous -Tissue Removed Subcutaneous Subcutaneous -Post Debridement (cm) - Length 1.1 3.8 -Post Debridement (cm) - Width 3.9 1 -Post Debridement (cm) - Depth 0.1 0.1 -Total Square (Post) (cm) 4.29 3.8 -Area of Debridement (cm) - Length 1.1 3.8 -Area of Debridement (cm) - Width 3.9 1 -Total Square (Area) (cm) 4.29 3.8 -Tunneling No No -Undermining/Tunneling No No -Circular Undermining No No -Wound/Ulcer Outcome Not Healed Not Healed -Ulcer Cleansing Rinsed/ Rinsed/ Irrigated with Irrigated with Saline Saline -Foul Odor after Cleansing No No -Bioengineered Tissue No Yes -Expiration Date 05/21/28 -Product Lot Number [id number] -Percent Used 100 -Lot number of Saline Used [id number] -Bleeding Controlled with Pressure Pressure -Treatment Response Procedure Procedure Tolerated Well Tolerated Well -Debridement - Subq, 1st 20sq cm Yes No -Apply Skin Sub - 1st 25 sq cm - Legs 1 -Epicord (per sq cm) 4 Pain Scale: 0-10 Numeric Is Patient Pain Free? Yes Yes - Nurse 3 - General Ulcer D/C NN Start: 09/23/23 10:44 Freq: Status: Active Protocol: Activity Type Activity Date Activity User E-sign Co-sign Detail Recorded Client Recorded Date Recorded By Document 09/23/23 13:36 ND [id number] 09/23/23 13:36 ND Document 10/07/23 11:37 DL 10.10.25.7 10/07/23 11:39 DL 09/23/23 10/07/23 13:36 11:37 Wound Care Center Nurse 3 #4- R LAT LE -Foul Odor after Cleansing No -Primary Dressing Applied Aquacel Extra, Aquacel Extra Fibracol Plus 4x4 -Other Dressing Epifix -Primary Dressing Covered/Secured with Dry Gauze & Dry Gauze & Roll Gauze, Roll Gauze, Secured with Secured with Tape Tape -Aquacel Extra 2 1 -Fibracol Plus 4x4 1 Right -Other single G Treatment Response Procedure Tolerated Well Pain Scale: 0-10 Numeric Is Patient Pain Free? Yes Yes - Visit Discharge Discharge Condition Stable Ambulatory Status Ambulatory Transportation Private Auto Assessment/Plan Assessment/Plan (1) Morbid obesity: CODE(S): E66.01 - Morbid (severe) obesity due to excess calories (2) Venous insufficiency of both lower extremities: CODE(S): I87.2 - Venous insufficiency (chronic) (peripheral) (3) Ulcer of right lower extremity with fat layer exposed: CODE(S): L97.912 - Non-pressure chronic ulcer of unspecified part of right lower leg with fat layer exposed PLAN: EpiFix #1 applied with a mesh covering and Steri-Strips. Aquacel extra over top with a gauze dressing and compression. Patient is to start Chavo we gave him samples needs to go over to the cafeteria and pickling grader more for wound healing. Follow-up in 1 week (4) Dyshidrotic eczema: CODE(S): L30.1 - Dyshidrosis [pompholyx] PLAN: amLactin cream to all dried Flaky areas of skin
[2023-10-14 11:31] VITALS: BP 136/77; PULSE 76; RESP 18; TEMP 36.3; BMI 59.1
--- NOTE | 2023-10-14 12:56 | PN.PCM_ITS ---
History of Present Illness Date of Service: 10/14/23 Chief Complaint: Right lateral leg ulcer History of Wound: 66-year-old white obese male. He appears here with a very large deep wound on his right posterior lower leg. He suffers from venous ulcers, and this 1 has been going on for 2 to 3 months. Other than covering it with a gauze dressing he has done nothing else. These are reoccurring ulcer openings have never been taking care of properly because of COVID. Patient did have arterial brachial and venous studies done and 2020 but never got to see the vascular surgeon for repair. Arterial studies fine its his venous he is got a lot of incompetence sees right where all of his wounds are. Patient suffers from cellulitis and also overgrowth of keratosis. He states that he has a history of an infected ulcer from 2013 and he was being seen at the [place] [facility]. He states that he has had issues with this ulcer on an off for years. He states had a fracture of his left ankle which required him to be placed in a SNF and the ulcer on the right improved during that time. 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 He is obese with a BMI 59.1. He sleeps in a recliner because his mattress makes his back hurt. He has significant amount of lower extremity edema. 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 Right AFIA by posterior tibial artery is 1.01. Left AFIA by posterior tibial artery is 0.98. The left AFIA by dorsalis pedis is 1.02. Bilateral triphasic doppler wavelength at ankle level. Venous Duplex ultrasound on 01/28/21 showed segmental valvular incompetence is noted within the great saphenous veins bilaterally. The right small saphenous vein is patent and competent. The left small saphenous vein is patent and incompetent. The accessory saphenous vein in the right mid- thigh is incompetent. We will refer him to Dr. Solis for further evaluation. Today he denies fever, chills, nausea or vomiting. He states his appetite is good. We did discuss weight loss and maybe he needs to try getting those injections from his doctor. 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 Progress of Wound: Wound measures are about the same or a little bit smaller after EpiFix #1. Will continue using EpiFix seems to be happy helping a lot. Patient developed a fever last Thursday and was very ill. Still looks very pale he has a very sedentary life and he is overweight so I told him he should probably see his family doctor. Subjective Subjective Happy with outcomes Objective Data Objective Data EpiFix #2 applied doing well no sign of infection. Last culture showed rare Vital Signs: Vital Signs Temp Pulse Resp BP 97.4 F L 76 18 136/77 H 10/14/23 11:31 10/14/23 11:31 10/14/23 11:31 10/14/23 11:31 Weight: 400 lb Body Mass Index (BMI) 59.1 Physical Exam Const alert, oriented x3 and no apparent distress General Appearance: cooperative; Negative for combative or lethargic Orientation / Consciousness: awake Exam Limitations: no limitations HEENT Head and Scalp: normocephalic and atraumatic Eyes EOMs intact bilaterally General Eye: normal appearance of both eyes Neck full ROM and thyroid normal General: trachea midline Thyroid: thyroid normal Resp normal respiratory effort and no use of accessory muscles Effort and Inspection: Negative for labored, stridor or audible wheezes Cardio regular rate and regular rhythm GI non-tender Back/Spine Cervical Spine: cervical ROM normal Extremity full ROM and normal capillary refill General Extremity: edema Skin no rashes or lesions noted Skin Narrative: lateral right lowerr leg wound Neuro oriented x3 and CN's II-XII intact bilaterally Psych thought process normal, cooperative, affect normal, speech normal and activity/motor behavior normal Debridement Note Debridement Note Wound debrided: Right lower leg posterior venous ulcer Type of Debridement: Excisional debridement Anesthesia Used: 5% Lidocaine Gel Depth: in the subcutaneous layer Percentage of wound debrided: 100 Instrument Used: 3mm curette Tissue Removed: Fibrin Severity: Fat Layer Exposed Amount of bleeding with debridement: Mild Bleeding Controlled with: Compression and gauze Patient tolerated procedure: Patient tolerated procedure well Post-Debridement Measurements and Additional Note: Post-Debridement Measurements/Treatment WC - Nurse 1 - General Ulcer Assessment Start: 09/23/23 10:44 Freq: Status: Active Protocol: JADEN Activity Type Activity Date Activity User E-sign Co-sign Detail Recorded Client Recorded Date Recorded By Document 09/23/23 10:45 MT [email or web address] 09/23/23 10:52 MT Document 10/07/23 10:59 DL 10.10.25.7 10/07/23 11:08 DL Document 10/14/23 11:31 RB wound 10/14/23 11:43 RB 09/23/23 10/07/23 10/14/23 10:45 10:59 11:31 WC - Today's Visit Information Type of service Follow-up Visit Follow-up Visit Follow-up Visit (Physician/TRUCK BODY REPAIRER (Physician/TRUCK BODY REPAIRER (Physician/TRUCK BODY REPAIRER ) ) ) Arrival Mode Ambulatory Ambulatory, Ambulatory Walker Transfer Assistance None None Accompanied by Patient Identification Verified (Name & Yes Yes Yes ) Patient Requires Transmission-Based No No Precautions Safety Precautions Fall Prevention Height and Weight Body Mass Index (BMI) 59.1 59.1 59.1 BMI Classification Obese Obese Obese Vital Signs Temperature (97.8 F-99.1 F) 96.6 F L 96.3 F L 97.4 F L Temperature Source Temporal Temporal Temporal Pulse Rate (60-100) 75 76 76 Pulse Location Monitor Monitor Respiratory Rate (12-18) 22 H 20 H 18 Respiratory rate source Observation Observation Observation Blood Pressure (90/60-120/80) 131/69 H 129/78 H 136/77 H Blood Pressure Mean (mm Hg) 89 95 96 Source Monitor Monitor Monitor Position Sitting Semi-Fowlers Blood Pressure Location Left Arm Left Arm History Since Last Visit- (Skip if this is Patient's initial visit) Have you changed medications since your No No last visit? Any new allergies or adverse reactions No No Had a fall/change in ADL's that may No No increase risk of falls Signs or symptoms of abuse and/or No No neglect since last visit Have you been in the hospital since your No No last visit? Has dressing in place as prescribed Yes Yes Yes Has compression in place as prescribed Yes Yes Yes Has offloadiing in place as prescribed N/A N/A No Experienced any changes in pain level or No No No management Left Footwear Regular Shoe Right Footwear Regular Shoe Pain Scale: 0-10 Numeric Is Patient Pain Free? Yes Yes Yes - Nurse 1 - General Ulcer Measurement Start: 09/23/23 10:44 Freq: Status: Active Protocol: Activity Type Activity Date Activity User E-sign Co-sign Detail Recorded Client Recorded Date Recorded By Document 09/23/23 10:45 MT [email or web address] 09/23/23 10:52 MT Document 10/07/23 10:59 DL 10.10.25.7 10/07/23 11:08 DL Document 10/14/23 11:31 RB wound 10/14/23 11:43 RB 09/23/23 10/07/23 10/14/23 10:45 10:59 11:31 Wound Center Nurse 1 #4- R LAT LE -Combined with other wound No -Current Size (cm) - Length 3.5 1.2 3.8 -Current Size (cm) - Width 1.4 3.8 1.5 -Current Size (cm) - Depth 0.1 0.1 0.1 -Total Square Cm 4.90 4.56 5.70 -Photo Taken No -Tunneling No No -Undermining/Tunneling No No -Circular Undermining No No -Exudate Amt Medium Medium Medium -Exudate Type Sanguineous Serosanguineous Serosanguineous -Wound Margin Flat & Intact Distinct, Distinct, Outline Outline Attached Attached -Granulation Amt Medium (34-66%) Large (67-100%) Medium (34-66%) -Granulation Quality Pale,[place] Red [place] -Slough/Fibrin Yes -Necrosis Amt Medium (34-66%) Small (1-33%) Medium (34-66%) -Necrotic Tissue Type Adherent Slough Adherent Slough Adherent Slough -Structure Exposed N/A N/A -Texture (Bertha-wound Skin Appearance) Assessed Scarring Assessed, Excoriation -Moisture (Bertha-wound Skin Appearance) Dry/Scaly Assessed -Color (Bertha-wound Skin Appearance) Assessed Hemosiderin Assessed Staining -Temperature (Bertha-wound Skin No Abnormality No Abnormality No Abnormality Appearance) (Pt Warm) (Pt Warm) (Pt Warm) -Tenderness on Palpation (Bertha-wound No No Skin Appearance) -Ulcer Cleansing Soap and Water Soap and Water Wound Cleanser -Foul Odor after Cleansing No No No -Anesthetic Used 5% Lidocaine 5% Lidocaine 5% Lidocaine Gel Gel Gel Lower Limb Edema Present Yes Right Calf (cm) 70.2 70 Right Ankle (cm) 30.7 31.5 Left Calf (cm) 69 Left Ankle (cm) 31 WC - Nurse 2 - General Ulcer CM Notes Start: 09/23/23 10:44 Freq: Status: Active Protocol: Activity Type Activity Date Activity User E-sign Co-sign Detail Recorded Client Recorded Date Recorded By Document 09/23/23 11:00 [facility] 1606-03-29 09/23/23 11:14 BM Document 10/07/23 11:17 [facility] 1606-03-29 10/07/23 11:26 [facility] Document 10/14/23 11:46 [facility] 10.10.25.7 10/14/23 11:54 [facility] 09/23/23 10/07/23 10/14/23 11:00 11:17 11:46 Wound Center Nurse 2 #4- R LAT LE -Time 11:00 11:20 11:46 -Correct Patient Yes Yes Yes -Correct Side, Site, Position Yes Yes Yes -Correct Procedure Yes Yes Yes -Procedure Performed Yes Yes Yes -Type of Procedure Debridement Debridement Debridement -Clinical Debridement Subcutaneous Subcutaneous Subcutaneous -Tissue Removed Subcutaneous Subcutaneous Subcutaneous -Post Debridement (cm) - Length 1.1 3.8 1 -Post Debridement (cm) - Width 3.9 1 3.5 -Post Debridement (cm) - Depth 0.1 0.1 0.2 -Total Square (Post) (cm) 4.29 3.8 3.5 -Area of Debridement (cm) - Length 1.1 3.8 1 -Area of Debridement (cm) - Width 3.9 1 3.5 -Total Square (Area) (cm) 4.29 3.8 3.5 -Tunneling No No No -Undermining/Tunneling No No No -Circular Undermining No No No -Wound/Ulcer Outcome Not Healed Not Healed Not Healed -Ulcer Cleansing Rinsed/ Rinsed/ Rinsed/ Irrigated with Irrigated with Irrigated with Saline Saline Saline -Foul Odor after Cleansing No No No -Bioengineered Tissue No Yes No -Type of Bioengineered Tissue Epifix -Expiration Date 05/21/28 05/21/28 -Product Lot Number [id number] -Percent Used 100 100 -Lot number of Saline Used [id number] -Bleeding Controlled with Pressure Pressure Pressure -Treatment Response Procedure Procedure Procedure Tolerated Well Tolerated Well Tolerated Well -Debridement - Subq, 1st 20sq cm Yes No No -Apply Skin Sub - 1st 25 sq cm - Legs 1 1 -Epicord (per sq cm) 4 -Epifix (per sq cm) 4 Pain Scale: 0-10 Numeric Is Patient Pain Free? Yes Yes Yes - Nurse 3 - General Ulcer D/C NN Start: 09/23/23 10:44 Freq: Status: Active Protocol: Activity Type Activity Date Activity User E-sign Co-sign Detail Recorded Client Recorded Date Recorded By Document 09/23/23 13:36 MI [id number] 09/23/23 13:36 MI Document 10/07/23 11:37 DL 10.10.25.7 10/07/23 11:39 DL Document 10/14/23 11:57 KW ; 10/14/23 11:59 KW 09/23/23 10/07/23 10/14/23 13:36 11:37 11:57 Wound Care Center Nurse 3 #4- R LAT LE -Foul Odor after Cleansing No -Primary Dressing Applied Aquacel Extra, Aquacel Extra Aquacel Extra Fibracol Plus 4x4 -Other Dressing Epifix -Primary Dressing Covered/Secured with Dry Gauze & Dry Gauze & Dry Gauze & Roll Gauze, Roll Gauze, Roll Gauze, Secured with Secured with Secured with Tape Tape Tape -Aquacel Extra 2 1 1 -Fibracol Plus 4x4 1 Right -Other single G PT OWN TUBIGRIP Treatment Response Procedure Tolerated Well Pain Scale: 0-10 Numeric Is Patient Pain Free? Yes Yes Yes - Visit Discharge Discharge Condition Stable Stable Ambulatory Status Ambulatory Ambulatory, Walker Transportation Private Auto Private Auto Medication Reconcilliation completed & No provided to patient/care provider Clinical Summary of Care Provided Yes Assessment/Plan Assessment/Plan (1) Morbid obesity: CODE(S): E66.01 - Morbid (severe) obesity due to excess calories (2) Venous insufficiency of both lower extremities: CODE(S): I87.2 - Venous insufficiency (chronic) (peripheral) (3) Ulcer of right lower extremity with fat layer exposed: CODE(S): L97.912 - Non-pressure chronic ulcer of unspecified part of right lower leg with fat layer exposed PLAN: EpiFix #2 applied with a mesh covering and Steri-Strips. Aquacel extra over top with a gauze dressing and compression. 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 Follow-up in 1 week (4) Dyshidrotic eczema: CODE(S): L30.1 - Dyshidrosis [pompholyx] PLAN: amLactin cream to all dried Flaky areas of skin
== END 2023-10-18 23:59 | disposition home or self-care (01) ==
LOC: WC 10:45
PROVIDERS: PCP Preventive Medicine Occupational Medicine; Referring Provider Preventive Medicine Occupational Medicine; Visit Provider Nurse Practitioner
DX: I87.2 Venous insufficiency (chronic) (peripheral) (principal); L97.812 Non-pressure chronic ulcer of other part of right lower leg with fat layer exposed; I48.91 Unspecified atrial fibrillation; E66.01 Morbid (severe) obesity due to excess calories; Z68.43 Body mass index [BMI] 50.0-59.9, adult; R60.0 Localized edema; Z86.718 Personal history of other venous thrombosis and embolism; L30.1 Dyshidrosis [pompholyx]; Z79.01 Long term (current) use of anticoagulants
CPT/HCPCS: 11042; 15271; Q4186; Q4187

== ENCOUNTER 2023-11-18 10:45 | Outpatient (RCR) | payer MEDICARE, OTHER, SELFPAY ==
[2023-10-19 00:36] VITALS: BP 132/71; PULSE 76; RESP 22; TEMP 35.7; BMI 59.1
[2023-10-21 11:13] VITALS: BP 125/57; PULSE 78; RESP 18; TEMP 35.9; BMI 59.1
--- NOTE | 2023-10-21 12:08 | PN.PCM_ITS ---
History of Present Illness Date of Service: 10/21/23 Chief Complaint: Right lateral leg ulcer History of Wound: 66-year-old white obese male. He appears here with a very large deep wound on his right posterior lower leg. He suffers from venous ulcers, and this 1 has been going on for 2 to 3 months. Other than covering it with a gauze dressing he has done nothing else. These are reoccurring ulcer openings have never been taking care of properly because of COVID. Patient did have arterial brachial and venous studies done and 2020 but never got to see the vascular surgeon for repair. Arterial studies fine its his venous he is got a lot of incompetence sees right where all of his wounds are. Patient suffers from cellulitis and also overgrowth of keratosis. He states that he has a history of an infected ulcer from 2013 and he was being seen at the [facility] wound center. He states that he has had issues with this ulcer on an off for years. He states had a fracture of his left ankle which required him to be placed in a SNF and the ulcer on the right improved during that time. 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 He is obese with a BMI 59.1. He sleeps in a recliner because his mattress makes his back hurt. He has significant amount of lower extremity edema. 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 Right AFIA by posterior tibial artery is 1.01. Left AFIA by posterior tibial artery is 0.98. The left AFIA by dorsalis pedis is 1.02. Bilateral triphasic doppler wavelength at ankle level. Venous Duplex ultrasound on 01/28/21 showed segmental valvular incompetence is noted within the great saphenous veins bilaterally. The right small saphenous vein is patent and competent. The left small saphenous vein is patent and incompetent. The accessory saphenous vein in the right mid- thigh is incompetent. We will refer him to Dr. Solis for further evaluation. Today he denies fever, chills, nausea or vomiting. He states his appetite is good. We did discuss weight loss and maybe he needs to try getting those injections from his doctor. 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 Progress of Wound: Patient just finished EpiFix #2 and is about the same it is shallower though it is filling in that way rather than an dimensions. Subjective Subjective Patient is tolerating treatment well and has no concerns Objective Data Objective Data Will continue with EpiFix #3. The perimeter of the wound looks good coloring of his whole leg looks better Vital Signs: Vital Signs Temp Pulse Resp BP 96.6 F L 78 18 125/57 H 10/21/23 11:13 10/21/23 11:13 10/21/23 11:13 10/21/23 11:13 Weight: 400 lb Body Mass Index (BMI) 59.1 Physical Exam Const alert, oriented x3 and no apparent distress General Appearance: cooperative; Negative for combative or lethargic Orientation / Consciousness: awake Exam Limitations: no limitations HEENT Head and Scalp: normocephalic and atraumatic Eyes EOMs intact bilaterally General Eye: normal appearance of both eyes Neck full ROM and thyroid normal General: trachea midline Thyroid: thyroid normal Resp normal respiratory effort and no use of accessory muscles Effort and Inspection: Negative for labored, stridor or audible wheezes Cardio regular rate and regular rhythm GI non-tender Back/Spine Cervical Spine: cervical ROM normal Extremity full ROM and normal capillary refill General Extremity: edema Skin no rashes or lesions noted Skin Narrative: lateral right lowerr leg wound Neuro oriented x3 and CN's II-XII intact bilaterally Psych thought process normal, cooperative, affect normal, speech normal and activity/motor behavior normal Debridement Note Debridement Note Wound debrided: Right lower leg posterior venous ulcer Type of Debridement: Excisional debridement Anesthesia Used: 5% Lidocaine Gel Depth: in the subcutaneous layer Percentage of wound debrided: 100 Instrument Used: 3mm curette Tissue Removed: Fibrin Severity: Fat Layer Exposed Amount of bleeding with debridement: Mild Bleeding Controlled with: Compression and gauze Patient tolerated procedure: Patient tolerated procedure well Post-Debridement Measurements and Additional Note: Post-Debridement Measurements/Treatment RADHA - Nurse 1 - General Ulcer Assessment Start: 10/21/23 11:13 Freq: Status: Active Protocol: JADEN Activity Type Activity Date Activity User E-sign Co-sign Detail Recorded Client Recorded Date Recorded By Document 10/21/23 11:13 RB wound 10/21/23 11:16 RB 10/21/23 11:13 - Today's Visit Information Type of service Follow-up Visit (Physician/MEDICAL PHYSIOLOGIST ) Arrival Mode Ambulatory, Walker Transfer Assistance None Patient Identification Verified (Name & Yes ) Patient Requires Transmission-Based No Precautions Height and Weight Body Mass Index (BMI) 59.1 BMI Classification Obese Vital Signs Temperature (97.8 F-99.1 F) 96.6 F L Temperature Source Temporal Pulse Rate (60-100) 78 Pulse Location Monitor Respiratory Rate (12-18) 18 Respiratory rate source Observation Blood Pressure (90/60-120/80) 125/57 H Blood Pressure Mean (mm Hg) 79 Source Monitor Position Semi-Fowlers Blood Pressure Location Left Arm History Since Last Visit- (Skip if this is Patient's initial visit) Have you changed medications since your No last visit? Any new allergies or adverse reactions No Had a fall/change in ADL's that may No increase risk of falls Signs or symptoms of abuse and/or No neglect since last visit Have you been in the hospital since your No last visit? Has dressing in place as prescribed Yes Has compression in place as prescribed Yes Has offloadiing in place as prescribed No Experienced any changes in pain level or No management Pain Scale: 0-10 Numeric Is Patient Pain Free? Yes - Nurse 1 - General Ulcer Measurement Start: 10/21/23 11:13 Freq: Status: Active Protocol: Activity Type Activity Date Activity User E-sign Co-sign Detail Recorded Client Recorded Date Recorded By Document 10/21/23 11:13 RB wound 10/21/23 11:16 RB 10/21/23 11:13 Wound Center Nurse 1 #4- R LAT LE -Combined with other wound No -Current Size (cm) - Length 1.5 -Current Size (cm) - Width 3.3 -Current Size (cm) - Depth 0.1 -Total Square Cm 4.95 -Tunneling No -Undermining/Tunneling No -Circular Undermining No -Exudate Amt Large -Exudate Type Serosanguineous -Wound Margin Distinct, Outline Attached -Granulation Amt Medium (34-66%) -Granulation Quality [place] -Slough/Fibrin Yes -Necrosis Amt Medium (34-66%) -Necrotic Tissue Type Adherent Slough -Structure Exposed N/A -Texture (Bertha-wound Skin Appearance) Assessed, Excoriation -Moisture (Bertha-wound Skin Appearance) Assessed -Color (Bertha-wound Skin Appearance) Assessed -Temperature (Bertha-wound Skin No Abnormality Appearance) (Pt Warm) -Tenderness on Palpation (Bertha-wound No Skin Appearance) -Ulcer Cleansing Wound Cleanser -Foul Odor after Cleansing No -Anesthetic Used 5% Lidocaine Gel Right Calf (cm) 69 Right Ankle (cm) 31 WC - Nurse 2 - General Ulcer CM Notes Start: 10/21/23 11:13 Freq: Status: Active Protocol: Activity Type Activity Date Activity User E-sign Co-sign Detail Recorded Client Recorded Date Recorded By Document 10/21/23 11:21 [facility] [email or web address] 10/21/23 11:27 [facility] 10/21/23 11:21 Wound Center Nurse 2 #4- R LAT LE -Time 11:21 -Correct Patient Yes -Correct Side, Site, Position Yes -Correct Procedure Yes -Procedure Performed Yes -Type of Procedure Debridement -Clinical Debridement Subcutaneous -Tissue Removed Subcutaneous -Post Debridement (cm) - Length 3.7 -Post Debridement (cm) - Width 1.4 -Post Debridement (cm) - Depth 0.1 -Total Square (Post) (cm) 5.18 -Area of Debridement (cm) - Length 3.7 -Area of Debridement (cm) - Width 1.4 -Total Square (Area) (cm) 5.18 -Tunneling No -Undermining/Tunneling No -Circular Undermining No -Wound/Ulcer Outcome Not Healed -Ulcer Cleansing Rinsed/ Irrigated with Saline -Foul Odor after Cleansing No -Bioengineered Tissue No -Type of Bioengineered Tissue Epifix Mesh -Expiration Date 04/20/28 -Product Lot Number [id number] -Percent Used 100 -Lot number of Saline Used [id number] -Bleeding Controlled with Pressure -Treatment Response Procedure Tolerated Well -Debridement - Subq, 1st 20sq cm No -Apply Skin Sub - 1st 25 sq cm - Legs 1 -Epifix Mesh (per sq cm) 11 Pain Scale: 0-10 Numeric Is Patient Pain Free? Yes WC - Nurse 3 - General Ulcer D/C NN Start: 10/21/23 11:13 Freq: Status: Active Protocol: Activity Type Activity Date Activity User E-sign Co-sign Detail Recorded Client Recorded Date Recorded By Document 10/21/23 11:40 RB wound 10/21/23 11:43 RB 10/21/23 11:40 Wound Care Center Nurse 3 #4- R LAT LE -Primary Dressing Covered/Secured with Dry Gauze,Dry Gauze & Roll Gauze,Secured with Tape Right -Other single layer G Treatment Response Procedure Tolerated Well Pain Scale: 0-10 Numeric Is Patient Pain Free? Yes WC - Visit Discharge Discharge Condition Stable Ambulatory Status Ambulatory Transportation Private Auto Medication Reconcilliation completed & No provided to patient/care provider Clinical Summary of Care Provided Yes Assessment/Plan Assessment/Plan (1) Morbid obesity: CODE(S): E66.01 - Morbid (severe) obesity due to excess calories (2) Venous insufficiency of both lower extremities: CODE(S): I87.2 - Venous insufficiency (chronic) (peripheral) (3) Ulcer of right lower extremity with fat layer exposed: CODE(S): L97.912 - Non-pressure chronic ulcer of unspecified part of right lower leg with fat layer exposed PLAN: EpiFix #3 applied with a mesh covering and Steri-Strips. Aquacel extra over top with a gauze dressing and compression. 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 Follow-up in 1 week (4) Dyshidrotic eczema: CODE(S): L30.1 - Dyshidrosis [pompholyx] PLAN: amLactin cream to all dried Flaky areas of skin
[2023-10-28 11:15] VITALS: BP 113/70; PULSE 78; RESP 20; TEMP 36.4; BMI 59.1
--- NOTE | 2023-10-28 12:35 | PN.PCM_ITS ---
History of Present Illness Date of Service: 10/28/23 Chief Complaint: Right lateral leg ulcer History of Wound: 66-year-old white obese male. He appears here with a very large deep wound on his right posterior lower leg. He suffers from venous ulcers, and this 1 has been going on for 2 to 3 months. Other than covering it with a gauze dressing he has done nothing else. These are reoccurring ulcer openings have never been taking care of properly because of COVID. Patient did have arterial brachial and venous studies done and 2020 but never got to see the vascular surgeon for repair. Arterial studies fine its his venous he is got a lot of incompetence sees right where all of his wounds are. Patient suffers from cellulitis and also overgrowth of keratosis. He states that he has a history of an infected ulcer from 2013 and he was being seen at the [facility] wound center. He states that he has had issues with this ulcer on an off for years. He states had a fracture of his left ankle which required him to be placed in a SNF and the ulcer on the right improved during that time. 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 He is obese with a BMI 59.1. He sleeps in a recliner because his mattress makes his back hurt. He has significant amount of lower extremity edema. 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 Right AFIA by posterior tibial artery is 1.01. Left AFIA by posterior tibial artery is 0.98. The left AFIA by dorsalis pedis is 1.02. Bilateral triphasic doppler wavelength at ankle level. Venous Duplex ultrasound on 01/28/21 showed segmental valvular incompetence is noted within the great saphenous veins bilaterally. The right small saphenous vein is patent and competent. The left small saphenous vein is patent and incompetent. The accessory saphenous vein in the right mid- thigh is incompetent. We will refer him to Dr. Solis for further evaluation. Today he denies fever, chills, nausea or vomiting. He states his appetite is good. We did discuss weight loss and maybe he needs to try getting those injections from his doctor. 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 Progress of Wound: Patient just finished EpiFix #3 and is about the same it is shallower though it is filling in that way rather than an dimensions. Patient is doing well and tolerating well is getting flatter and smaller you can tell the edges are finally starting to heal over. Subjective Subjective and are pleased with results Objective Data Objective Data Will continue with EpiFix #4 to be applied today and will apply hydrogel on top to keep it protected and moist. Vital Signs: Vital Signs Temp Pulse Resp BP 97.6 F L 78 20 H 113/70 10/28/23 11:15 10/28/23 11:15 10/28/23 11:15 10/28/23 11:15 Weight: 400 lb Body Mass Index (BMI) 59.1 Lab / Micro Data Attestation: I reviewed the patient's lab results. Physical Exam Const alert, oriented x3 and no apparent distress General Appearance: cooperative; Negative for combative or lethargic Orientation / Consciousness: awake Exam Limitations: no limitations HEENT Head and Scalp: normocephalic and atraumatic Eyes EOMs intact bilaterally General Eye: normal appearance of both eyes Neck full ROM and thyroid normal General: trachea midline Thyroid: thyroid normal Resp normal respiratory effort and no use of accessory muscles Effort and Inspection: Negative for labored, stridor or audible wheezes Cardio regular rate and regular rhythm GI non-tender Back/Spine Cervical Spine: cervical ROM normal Extremity full ROM and normal capillary refill General Extremity: edema Skin no rashes or lesions noted Skin Narrative: lateral right lowerr leg wound Neuro oriented x3 and CN's II-XII intact bilaterally Psych thought process normal, cooperative, affect normal, speech normal and activity/motor behavior normal Debridement Note Debridement Note Wound debrided: Right lower leg posterior venous ulcer Type of Debridement: Excisional debridement Anesthesia Used: 5% Lidocaine Gel Depth: in the subcutaneous layer Percentage of wound debrided: 100 Instrument Used: 3mm curette Tissue Removed: Fibrin Severity: Fat Layer Exposed Amount of bleeding with debridement: Mild Bleeding Controlled with: Compression and gauze Patient tolerated procedure: Patient tolerated procedure well Post-Debridement Measurements and Additional Note: Post-Debridement Measurements/Treatment WC - Nurse 1 - General Ulcer Assessment Start: 10/21/23 11:13 Freq: Status: Active Protocol: JADEN Activity Type Activity Date Activity User E-sign Co-sign Detail Recorded Client Recorded Date Recorded By Document 10/21/23 11:13 RB wound 10/21/23 11:16 RB Document 10/28/23 11:15 DL ..25.7 10/28/23 11:23 DL 10/21/23 10/28/23 11:13 11:15 - Today's Visit Information Type of service Follow-up Visit Follow-up Visit (Physician/GOVERNMENT SALES MANAGER (Physician/GOVERNMENT SALES MANAGER ) ) Arrival Mode Ambulatory, Ambulatory, Walker Walker Transfer Assistance None None Patient Identification Verified (Name & Yes Yes ) Patient Requires Transmission-Based No No Precautions Height and Weight Body Mass Index (BMI) 59.1 59.1 BMI Classification Obese Obese Vital Signs Temperature (97.8 F-99.1 F) 96.6 F L 97.6 F L Temperature Source Temporal Temporal Pulse Rate (60-100) 78 78 Pulse Location Monitor Monitor Respiratory Rate (12-18) 18 20 H Respiratory rate source Observation Observation Blood Pressure (90/60-120/80) 125/57 H 113/70 Blood Pressure Mean (mm Hg) 79 84 Source Monitor Position Semi-Fowlers Blood Pressure Location Left Arm History Since Last Visit- (Skip if this is Patient's initial visit) Have you changed medications since your No No last visit? Any new allergies or adverse reactions No No Had a fall/change in ADL's that may No No increase risk of falls Signs or symptoms of abuse and/or No No neglect since last visit Have you been in the hospital since your No No last visit? Has dressing in place as prescribed Yes Yes Has compression in place as prescribed Yes Yes Has offloadiing in place as prescribed No Yes Experienced any changes in pain level or No No management Pain Scale: 0-10 Numeric Is Patient Pain Free? Yes Yes - Nurse 1 - General Ulcer Measurement Start: 10/21/23 11:13 Freq: Status: Active Protocol: Activity Type Activity Date Activity User E-sign Co-sign Detail Recorded Client Recorded Date Recorded By Document 10/21/23 11:13 RB wound 10/21/23 11:16 RB Document 10/28/23 11:15 DL [id number] 10/28/23 11:23 DL 07/03/24 07/10/24 11:13 11:15 Wound Center Nurse 1 #4- R LAT LE -Combined with other wound No -Current Size (cm) - Length 1.5 1.7 -Current Size (cm) - Width 3.3 3.7 -Current Size (cm) - Depth 0.1 0.1 -Total Square Cm 4.95 6.29 -Tunneling No -Undermining/Tunneling No -Circular Undermining No -Exudate Amt Large Large -Exudate Type Serosanguineous Yellow/Green -Wound Margin Distinct, Distinct, Outline Outline Attached Attached -Granulation Amt Medium (34-66%) Large (67-100%) -Granulation Quality [place] Red -Slough/Fibrin Yes -Necrosis Amt Medium (34-66%) Medium (34-66%) -Necrotic Tissue Type Adherent Slough Adherent Slough -Structure Exposed N/A N/A -Texture (Bertha-wound Skin Appearance) Assessed, Scarring,Rash Excoriation -Moisture (Bertha-wound Skin Appearance) Assessed Maceration, Weeping -Color (Bertha-wound Skin Appearance) Assessed Erythema, Hemosiderin Staining -Temperature (Bertha-wound Skin No Abnormality No Abnormality Appearance) (Pt Warm) (Pt Warm) -Tenderness on Palpation (Bertha-wound No No Skin Appearance) -Ulcer Cleansing Wound Cleanser Soap and Water -Foul Odor after Cleansing No -Anesthetic Used 5% Lidocaine 5% Lidocaine Gel Gel Right Calf (cm) 69 Right Ankle (cm) 31 - Nurse 2 - General Ulcer CM Notes Start: 10/21/23 11:13 Freq: Status: Active Protocol: Activity Type Activity Date Activity User E-sign Co-sign Detail Recorded Client Recorded Date Recorded By Document 10/21/23 11:21 [facility] [email or web address] 10/21/23 11:27 BM Document 10/28/23 11:29 [facility] [id number] 10/28/23 11:37 [facility] 10/21/23 10/28/23 11:21 11:29 Wound Center Nurse 2 #4- R LAT LE -Time 11:21 11:29 -Correct Patient Yes Yes -Correct Side, Site, Position Yes Yes -Correct Procedure Yes Yes -Procedure Performed Yes Yes -Type of Procedure Debridement Debridement -Clinical Debridement Subcutaneous Subcutaneous -Tissue Removed Subcutaneous Subcutaneous -Post Debridement (cm) - Length 3.7 1.5 -Post Debridement (cm) - Width 1.4 3.5 -Post Debridement (cm) - Depth 0.1 0.1 -Total Square (Post) (cm) 5.18 5.25 -Area of Debridement (cm) - Length 3.7 1.5 -Area of Debridement (cm) - Width 1.4 3.5 -Total Square (Area) (cm) 5.18 5.25 -Tunneling No No -Undermining/Tunneling No No -Circular Undermining No No -Wound/Ulcer Outcome Not Healed Not Healed -Ulcer Cleansing Rinsed/ Rinsed/ Irrigated with Irrigated with Saline Saline -Foul Odor after Cleansing No No -Bioengineered Tissue No Yes -Type of Bioengineered Tissue Epifix Mesh Epifix Mesh -Expiration Date 04/20/28 04/20/28 -Product Lot Number [id number] -Percent Used 100 100 -Lot number of Saline Used [id number] -Bleeding Controlled with Pressure Pressure -Treatment Response Procedure Procedure Tolerated Well Tolerated Well -Debridement - Subq, 1st 20sq cm No No -Apply Skin Sub - 1st 25 sq cm - Legs 1 1 -Epifix Mesh (per sq cm) 11 11 Pain Scale: 0-10 Numeric Is Patient Pain Free? Yes Yes - Nurse 3 - General Ulcer D/C NN Start: 10/21/23 11:13 Freq: Status: Active Protocol: Activity Type Activity Date Activity User E-sign Co-sign Detail Recorded Client Recorded Date Recorded By Document 10/21/23 11:40 RB wound 10/21/23 11:43 RB Document 10/28/23 11:50 DL [email or web address] 10/28/23 11:52 DL 10/21/23 10/28/23 11:40 11:50 Wound Care Center Nurse 3 #4- R LAT LE -Foul Odor after Cleansing No -Primary Dressing Applied NonAdherent Contact Layer -Other Dressing Epifix -Primary Dressing Covered/Secured with Dry Gauze,Dry Dry Gauze & Gauze & Roll Roll Gauze, Gauze,Secured Secured with with Tape Tape Right -Other single layer G tubigrip G Treatment Response Procedure Procedure Tolerated Well Tolerated Well Pain Scale: 0-10 Numeric Is Patient Pain Free? Yes Yes - Visit Discharge Discharge Condition Stable Stable Ambulatory Status Ambulatory Ambulatory, Walker Transportation Private Auto Private Auto Medication Reconcilliation completed & No provided to patient/care provider Clinical Summary of Care Provided Yes Assessment/Plan Assessment/Plan (1) Morbid obesity: CODE(S): E66.01 - Morbid (severe) obesity due to excess calories (2) Venous insufficiency of both lower extremities: CODE(S): I87.2 - Venous insufficiency (chronic) (peripheral) (3) Ulcer of right lower extremity with fat layer exposed: CODE(S): L97.912 - Non-pressure chronic ulcer of unspecified part of right lower leg with fat layer exposed PLAN: EpiFix #4 applied with a mesh covering and Steri-Strips. Hydrogel over top with a gauze dressing and compression. Patient is to start Chavo we gave him samples needs to go over to the cafeteria and seed cone picker more for wound healing. Follow-up in 1 week (4) Dyshidrotic eczema: CODE(S): L30.1 - Dyshidrosis [pompholyx] PLAN: amLactin cream to all dried Flaky areas of skin
[2023-11-04 10:12] VITALS: BP 121/78; PULSE 70; RESP 18; TEMP 35.8; BMI 59.1
--- NOTE | 2023-11-04 13:04 | PN.PCM_ITS ---
History of Present Illness Date of Service: 11/04/23 Chief Complaint: Right lateral leg ulcer History of Wound: 66-year-old white obese male. He appears here with a very large deep wound on his right posterior lower leg. He suffers from venous ulcers, and this 1 has been going on for 2 to 3 months. Other than covering it with a gauze dressing he has done nothing else. These are reoccurring ulcer openings have never been taking care of properly because of COVID. Patient did have arterial brachial and venous studies done and 2020 but never got to see the vascular surgeon for repair. Arterial studies fine its his venous he is got a lot of incompetence sees right where all of his wounds are. Patient suffers from cellulitis and also overgrowth of keratosis. He states that he has a history of an infected ulcer from 2013 and he was being seen at the [place] [facility]. He states that he has had issues with this ulcer on an off for years. He states had a fracture of his left ankle which required him to be placed in a SNF and the ulcer on the right improved during that time. 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 He is obese with a BMI 59.1. He sleeps in a recliner because his mattress makes his back hurt. He has significant amount of lower extremity edema. 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 Right AFIA by posterior tibial artery is 1.01. Left AFIA by posterior tibial artery is 0.98. The left AFIA by dorsalis pedis is 1.02. Bilateral triphasic doppler wavelength at ankle level. Venous Duplex ultrasound on 01/28/21 showed segmental valvular incompetence is noted within the great saphenous veins bilaterally. The right small saphenous vein is patent and competent. The left small saphenous vein is patent and incompetent. The accessory saphenous vein in the right mid- thigh is incompetent. We will refer him to Dr. Solis for further evaluation. Today he denies fever, chills, nausea or vomiting. He states his appetite is good. We did discuss weight loss and maybe he needs to try getting those injections from his doctor. 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 Progress of Wound: Patient just finished EpiFix #3 and is much improved. Patient is doing well and tolerating well is getting flatter and smaller you can tell the edges are finally starting to heal over. Had an incident of a venous bleed on the left foot had 2 sutures put in the emergency room needs some removed today it has been 7 days. Subjective Subjective Pleased with outcomes Objective Data Objective Data No sign of infection healing well he is on epi number for this week we will continue he is just very slow to heal. Vital Signs: Vital Signs Temp Pulse Resp BP 96.4 F L 70 18 121/78 H 11/04/23 10:12 11/04/23 10:12 11/04/23 10:12 11/04/23 10:12 Weight: 400 lb Body Mass Index (BMI) 59.1 Physical Exam Const alert, oriented x3 and no apparent distress General Appearance: cooperative; Negative for combative or lethargic Orientation / Consciousness: awake Exam Limitations: no limitations HEENT Head and Scalp: normocephalic and atraumatic Eyes EOMs intact bilaterally General Eye: normal appearance of both eyes Neck full ROM and thyroid normal General: trachea midline Thyroid: thyroid normal Resp normal respiratory effort and no use of accessory muscles Effort and Inspection: Negative for labored, stridor or audible wheezes Cardio regular rate and regular rhythm GI non-tender Back/Spine Cervical Spine: cervical ROM normal Extremity full ROM and normal capillary refill General Extremity: edema Skin no rashes or lesions noted Skin Narrative: lateral right lowerr leg wound Neuro oriented x3 and CN's II-XII intact bilaterally Psych thought process normal, cooperative, affect normal, speech normal and activity/motor behavior normal Debridement Note Debridement Note Wound debrided: Right lower leg posterior venous ulcer Type of Debridement: Excisional debridement Anesthesia Used: 5% Lidocaine Gel Depth: in the subcutaneous layer Percentage of wound debrided: 100 Instrument Used: 3mm curette Tissue Removed: Fibrin Severity: Fat Layer Exposed Amount of bleeding with debridement: Mild Bleeding Controlled with: Compression and gauze Patient tolerated procedure: Patient tolerated procedure well Post-Debridement Measurements and Additional Note: Post-Debridement Measurements/Treatment WC - Nurse 1 - General Ulcer Assessment Start: 10/21/23 11:13 Freq: Status: Active Protocol: JADEN Activity Type Activity Date Activity User E-sign Co-sign Detail Recorded Client Recorded Date Recorded By Document 10/21/23 11:13 RB wound 10/21/23 11:16 RB Document 10/28/23 11:15 DL [id number] 10/28/23 11:23 DL Document 11/04/23 10:12 DL [email or web address] 11/04/23 10:20 DL 10/21/23 10/28/23 11/04/23 11:13 11:15 10:12 - Today's Visit Information Type of service Follow-up Visit Follow-up Visit Follow-up Visit (Physician/APPARATUS LINEMAN (Physician/APPARATUS LINEMAN (Physician/APPARATUS LINEMAN ) ) ) Arrival Mode Ambulatory, Ambulatory, Ambulatory, Walker Walker Walker Transfer Assistance None None None Patient Identification Verified (Name & Yes Yes Yes ) Patient Requires Transmission-Based No No No Precautions Height and Weight Body Mass Index (BMI) 59.1 59.1 59.1 BMI Classification Obese Obese Obese Vital Signs Temperature (97.8 F-99.1 F) 96.6 F L 97.6 F L 96.4 F L Temperature Source Temporal Temporal Temporal Pulse Rate (60-100) 78 78 70 Pulse Location Monitor Monitor Monitor Respiratory Rate (12-18) 18 20 H 18 Respiratory rate source Observation Observation Observation Blood Pressure (90/60-120/80) 125/57 H 113/70 121/78 H Blood Pressure Mean (mm Hg) 79 84 92 Source Monitor Monitor Position Semi-Fowlers Blood Pressure Location Left Arm History Since Last Visit- (Skip if this is Patient's initial visit) Have you changed medications since your No No No last visit? Any new allergies or adverse reactions No No No Had a fall/change in ADL's that may No No No increase risk of falls Signs or symptoms of abuse and/or No No No neglect since last visit Have you been in the hospital since your No No No last visit? Has dressing in place as prescribed Yes Yes Yes Has compression in place as prescribed Yes Yes Yes Has offloadiing in place as prescribed No Yes Yes Experienced any changes in pain level or No No No management Pain Scale: 0-10 Numeric Is Patient Pain Free? Yes Yes Yes - Nurse 1 - General Ulcer Measurement Start: 10/21/23 11:13 Freq: Status: Active Protocol: Activity Type Activity Date Activity User E-sign Co-sign Detail Recorded Client Recorded Date Recorded By Document 10/21/23 11:13 RB wound 10/21/23 11:16 RB Document 10/28/23 11:15 DL [email or web address] 10/28/23 11:23 DL Document 11/04/23 10:12 DL [email or web address] 11/04/23 10:20 DL 10/21/23 10/28/23 11/04/23 11:13 11:15 10:12 Wound Center Nurse 1 #4- R LAT LE -Combined with other wound No -Current Size (cm) - Length 1.5 1.7 3.5 -Current Size (cm) - Width 3.3 3.7 1.8 -Current Size (cm) - Depth 0.1 0.1 0.1 -Total Square Cm 4.95 6.29 6.30 -Tunneling No -Undermining/Tunneling No -Circular Undermining No -Exudate Amt Large Large Medium -Exudate Type Serosanguineous Yellow/Green Serosanguineous -Wound Margin Distinct, Distinct, Distinct, Outline Outline Outline Attached Attached Attached -Granulation Amt Medium (34-66%) Large (67-100%) Large (67-100%) -Granulation Quality [place] Red Red -Slough/Fibrin Yes -Necrosis Amt Medium (34-66%) Medium (34-66%) Small (1-33%) -Necrotic Tissue Type Adherent Slough Adherent Slough Adherent Slough -Structure Exposed N/A N/A N/A -Texture (Bertha-wound Skin Appearance) Assessed, Scarring,Rash Excoriation, Excoriation Scarring -Moisture (Bertha-wound Skin Appearance) Assessed Maceration, Weeping Weeping -Color (Bertha-wound Skin Appearance) Assessed Erythema, Hemosiderin Hemosiderin Staining Staining -Temperature (Bertha-wound Skin No Abnormality No Abnormality No Abnormality Appearance) (Pt Warm) (Pt Warm) (Pt Warm) -Tenderness on Palpation (Bertha-wound No No No Skin Appearance) -Ulcer Cleansing Wound Cleanser Soap and Water Soap and Water -Foul Odor after Cleansing No No -Anesthetic Used 5% Lidocaine 5% Lidocaine 5% Lidocaine Gel Gel Gel Right Calf (cm) 69 Right Ankle (cm) 31 WC - Nurse 2 - General Ulcer CM Notes Start: 10/21/23 11:13 Freq: Status: Active Protocol: Activity Type Activity Date Activity User E-sign Co-sign Detail Recorded Client Recorded Date Recorded By Document 10/21/23 11:21 [facility] 10.10.25.7 10/21/23 11:27 BM Document 10/28/23 11:29 [facility] ..25.7 10/28/23 11:37 [facility] Document 11/04/23 10:35 [facility] .10.25.7 11/04/23 10:46 [facility] 10/21/23 10/28/23 11/04/23 11:21 11:29 10:35 Wound Center Nurse 2 #4- R LAT LE -Time 11:21 11:29 10:36 -Correct Patient Yes Yes Yes -Correct Side, Site, Position Yes Yes Yes -Correct Procedure Yes Yes Yes -Procedure Performed Yes Yes Yes -Type of Procedure Debridement Debridement Debridement -Clinical Debridement Subcutaneous Subcutaneous Subcutaneous -Tissue Removed Subcutaneous Subcutaneous Subcutaneous -Post Debridement (cm) - Length 3.7 1.5 1 -Post Debridement (cm) - Width 1.4 3.5 3 -Post Debridement (cm) - Depth 0.1 0.1 0.1 -Total Square (Post) (cm) 5.18 5.25 3 -Area of Debridement (cm) - Length 3.7 1.5 1 -Area of Debridement (cm) - Width 1.4 3.5 3 -Total Square (Area) (cm) 5.18 5.25 3 -Tunneling No No No -Undermining/Tunneling No No No -Circular Undermining No No No -Wound/Ulcer Outcome Not Healed Not Healed Not Healed -Ulcer Cleansing Rinsed/ Rinsed/ Rinsed/ Irrigated with Irrigated with Irrigated with Saline Saline Saline -Foul Odor after Cleansing No No No -Bioengineered Tissue No Yes Yes -Type of Bioengineered Tissue Epifix Mesh Epifix Mesh Epifix -Expiration Date 04/20/28 04/20/28 06/18/28 -Product Lot Number [id number] -Percent Used 100 100 100 -Lot number of Saline Used [id number] -Bleeding Controlled with Pressure Pressure Pressure -Treatment Response Procedure Procedure Procedure Tolerated Well Tolerated Well Tolerated Well -Debridement - Subq, 1st 20sq cm No No No -Apply Skin Sub - 1st 25 sq cm - Legs 1 1 1 -Epifix (per sq cm) 4 -Epifix Mesh (per sq cm) 11 11 Pain Scale: 0-10 Numeric Is Patient Pain Free? Yes Yes Yes - Nurse 3 - General Ulcer D/C NN Start: 10/21/23 11:13 Freq: Status: Active Protocol: Activity Type Activity Date Activity User E-sign Co-sign Detail Recorded Client Recorded Date Recorded By Document 10/21/23 11:40 RB wound 10/21/23 11:43 RB Document 10/28/23 11:50 DL [email or web address] 10/28/23 11:52 DL Document 11/04/23 11:18 RB WOUND 11/04/23 11:19 RB 10/21/23 10/28/23 11/04/23 11:40 11:50 11:18 Wound Care Center Nurse 3 #4- R LAT LE -Foul Odor after Cleansing No -Primary Dressing Applied NonAdherent NonAdherent Contact Layer Contact Layer -Other Dressing Epifix abd -Primary Dressing Covered/Secured with Dry Gauze,Dry Dry Gauze & Dry Gauze,Dry Gauze & Roll Roll Gauze, Gauze & Roll Gauze,Secured Secured with Gauze,Secured with Tape Tape with Tape Right -Other single layer G tubigrip G single layer G tubigrip Treatment Response Procedure Procedure Procedure Tolerated Well Tolerated Well Tolerated Well Pain Scale: 0-10 Numeric Is Patient Pain Free? Yes Yes Yes - Visit Discharge Discharge Condition Stable Stable Stable Ambulatory Status Ambulatory Ambulatory, Ambulatory, Walker Walker Transportation Private Auto Private Auto Private Auto Medication Reconcilliation completed & No No provided to patient/care provider Clinical Summary of Care Provided Yes Yes Assessment/Plan Assessment/Plan (1) Morbid obesity: CODE(S): E66.01 - Morbid (severe) obesity due to excess calories (2) Venous insufficiency of both lower extremities: CODE(S): I87.2 - Venous insufficiency (chronic) (peripheral) (3) Ulcer of right lower extremity with fat layer exposed: CODE(S): L97.912 - Non-pressure chronic ulcer of unspecified part of right lower leg with fat layer exposed PLAN: EpiFix #5 applied with a mesh covering and Steri-Strips. over top with a gauze dressing and compression. Patient is to start Chavo we gave him samples needs to go over to the cafeteria and garbage pick up man more for wound healing. Follow-up in 1 week (4) Dyshidrotic eczema: CODE(S): L30.1 - Dyshidrosis [pompholyx] PLAN: amLactin cream to all dried Flaky areas of skin
[2023-11-11 10:58] VITALS: BP 130/68; PULSE 63; RESP 18; TEMP 36.1; BMI 59.1
--- NOTE | 2023-11-11 12:45 | PN.PCM_ITS ---
History of Present Illness Date of Service: 11/11/23 Chief Complaint: Right lateral leg ulcer History of Wound: 66-year-old white obese male. He appears here with a very large deep wound on his right posterior lower leg. He suffers from venous ulcers, and this 1 has been going on for 2 to 3 months. Other than covering it with a gauze dressing he has done nothing else. These are reoccurring ulcer openings have never been taking care of properly because of COVID. Patient did have arterial brachial and venous studies done and 2020 but never got to see the vascular surgeon for repair. Arterial studies fine its his venous he is got a lot of incompetence sees right where all of his wounds are. Patient suffers from cellulitis and also overgrowth of keratosis. He states that he has a history of an infected ulcer from 2013 and he was being seen at the [place] wound center. He states that he has had issues with this ulcer on an off for years. He states had a fracture of his left ankle which required him to be placed in a SNF and the ulcer on the right improved during that time. 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 He is obese with a BMI 59.1. He sleeps in a recliner because his mattress makes his back hurt. He has significant amount of lower extremity edema. 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 Right AFIA by posterior tibial artery is 1.01. Left AFIA by posterior tibial artery is 0.98. The left AFIA by dorsalis pedis is 1.02. Bilateral triphasic doppler wavelength at ankle level. Venous Duplex ultrasound on 01/28/21 showed segmental valvular incompetence is noted within the great saphenous veins bilaterally. The right small saphenous vein is patent and competent. The left small saphenous vein is patent and incompetent. The accessory saphenous vein in the right mid- thigh is incompetent. We will refer him to Dr. Solis for further evaluation. Today he denies fever, chills, nausea or vomiting. He states his appetite is good. We did discuss weight loss and maybe he needs to try getting those injections from his doctor. 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 Progress of Wound: Patient just finished EpiFix #4 and is much improved. Patient is doing well and tolerating well is getting flatter and smaller you can tell the edges are finally starting to heal over. Subjective Subjective Pleased with outcomes Objective Data Objective Data Will continue using the EpiFix. Tolerating well healing is coming its just slow. Vital Signs: Vital Signs Temp Pulse Resp BP O2 Del Method 97 F L 63 18 130/68 H Room Air 11/11/23 10:58 11/11/23 10:58 11/11/23 10:58 11/11/23 10:58 11/11/23 10:58 Oxygen Delivery Method Room Air Weight: 400 lb Body Mass Index (BMI) 59.1 Lab / Micro Data Attestation: I reviewed the patient's lab results. Physical Exam Const alert, oriented x3 and no apparent distress General Appearance: cooperative; Negative for combative or lethargic Orientation / Consciousness: awake Exam Limitations: no limitations HEENT Head and Scalp: normocephalic and atraumatic Eyes EOMs intact bilaterally General Eye: normal appearance of both eyes Neck full ROM and thyroid normal General: trachea midline Thyroid: thyroid normal Resp normal respiratory effort and no use of accessory muscles Effort and Inspection: Negative for labored, stridor or audible wheezes Cardio regular rate and regular rhythm GI non-tender Back/Spine Cervical Spine: cervical ROM normal Extremity full ROM and normal capillary refill General Extremity: edema Skin no rashes or lesions noted Skin Narrative: lateral right lowerr leg wound Neuro oriented x3 and CN's II-XII intact bilaterally Psych thought process normal, cooperative, affect normal, speech normal and activity/motor behavior normal Debridement Note Debridement Note Wound debrided: Right lower leg posterior venous ulcer Type of Debridement: Excisional debridement Anesthesia Used: 5% Lidocaine Gel Depth: in the subcutaneous layer Percentage of wound debrided: 100 Instrument Used: 5mm curette Tissue Removed: Fibrin Severity: Fat Layer Exposed Amount of bleeding with debridement: Mild Bleeding Controlled with: Compression and gauze Patient tolerated procedure: Patient tolerated procedure well Post-Debridement Measurements and Additional Note: Post-Debridement Measurements/Treatment RADHA - Nurse 1 - General Ulcer Assessment Start: 10/21/23 11:13 Freq: Status: Active Protocol: WC.LOWEXT Activity Type Activity Date Activity User E-sign Co-sign Detail Recorded Client Recorded Date Recorded By Document 10/21/23 11:13 RB wound 10/21/23 11:16 RB Document 10/28/23 11:15 DL 10.10.25.7 10/28/23 11:23 DL Document 11/04/23 10:12 DL 10..25.7 11/04/23 10:20 DL Document 11/11/23 10:58 [place] [id number] 11/11/23 11:16 MT 10/21/23 10/28/23 11/04/23 11:13 11:15 10:12 WC - Today's Visit Information Type of service Follow-up Visit Follow-up Visit Follow-up Visit (Physician/PSYCHOLOGIST COUNSELING (Physician/PSYCHOLOGIST COUNSELING (Physician/PSYCHOLOGIST COUNSELING ) ) ) Arrival Mode Ambulatory, Ambulatory, Ambulatory, Walker Walker Walker Transfer Assistance None None None Accompanied by Patient Identification Verified (Name & Yes Yes Yes ) Patient Requires Transmission-Based No No No Precautions Safety Precautions Height and Weight Body Mass Index (BMI) 59.1 59.1 59.1 BMI Classification Obese Obese Obese Vital Signs Temperature (97.8 F-99.1 F) 96.6 F L 97.6 F L 96.4 F L Temperature Source Temporal Temporal Temporal Pulse Rate (60-100) 78 78 70 Pulse Location Monitor Monitor Monitor Respiratory Rate (12-18) 18 20 H 18 Respiratory rate source Observation Observation Observation Oxygen Delivery Method Blood Pressure (90/60-120/80) 125/57 H 113/70 121/78 H Blood Pressure Mean (mm Hg) 79 84 92 Source Monitor Monitor Position Semi-Fowlers Blood Pressure Location Left Arm History Since Last Visit- (Skip if this is Patient's initial visit) Have you changed medications since your No No No last visit? Any new allergies or adverse reactions No No No Had a fall/change in ADL's that may No No No increase risk of falls Signs or symptoms of abuse and/or No No No neglect since last visit Have you been in the hospital since your No No No last visit? Has dressing in place as prescribed Yes Yes Yes Has compression in place as prescribed Yes Yes Yes Has offloadiing in place as prescribed No Yes Yes Experienced any changes in pain level or No No No management Left Footwear Right Footwear Pain Scale: 0-10 Numeric Is Patient Pain Free? Yes Yes Yes 11/11/23 10:58 - Today's Visit Information Type of service Arrival Mode Ambulatory Transfer Assistance Accompanied by Patient Identification Verified (Name & Yes ) Patient Requires Transmission-Based Precautions Safety Precautions Fall Prevention Height and Weight Body Mass Index (BMI) 59.1 BMI Classification Obese Vital Signs Temperature (97.8 F-99.1 F) 97 F L Temperature Source Temporal Pulse Rate (60-100) 63 Pulse Location Monitor Respiratory Rate (12-18) 18 Respiratory rate source Observation Oxygen Delivery Method Room Air Blood Pressure (90/60-120/80) 130/68 H Blood Pressure Mean (mm Hg) 88 Source Monitor Position Sitting Blood Pressure Location Right Arm History Since Last Visit- (Skip if this is Patient's initial visit) Have you changed medications since your last visit? Any new allergies or adverse reactions Had a fall/change in ADL's that may increase risk of falls Signs or symptoms of abuse and/or neglect since last visit Have you been in the hospital since your last visit? Has dressing in place as prescribed Yes Has compression in place as prescribed Yes Has offloadiing in place as prescribed Yes Experienced any changes in pain level or Yes management Left Footwear Regular Shoe Right Footwear Regular Shoe Pain Scale: 0-10 Numeric Is Patient Pain Free? Yes - Nurse 1 - General Ulcer Measurement Start: 10/21/23 11:13 Freq: Status: Active Protocol: Activity Type Activity Date Activity User E-sign Co-sign Detail Recorded Client Recorded Date Recorded By Document 10/21/23 11:13 RB wound 10/21/23 11:16 RB Document 10/28/23 11:15 DL 10.10.25.7 10/28/23 11:23 DL Document 11/04/23 10:12 DL 10.10.25.7 11/04/23 10:20 DL Document 11/11/23 10:58 [place] [id number] 11/11/23 11:16 [place] 10/21/23 10/28/23 11/04/23 11:13 11:15 10:12 Wound Center Nurse 1 #4- R LAT LE -Combined with other wound No -Current Size (cm) - Length 1.5 1.7 3.5 -Current Size (cm) - Width 3.3 3.7 1.8 -Current Size (cm) - Depth 0.1 0.1 0.1 -Total Square Cm 4.95 6.29 6.30 -Photo Taken -Tunneling No -Undermining/Tunneling No -Circular Undermining No -Exudate Amt Large Large Medium -Exudate Type Serosanguineous Yellow/Green Serosanguineous -Wound Margin Distinct, Distinct, Distinct, Outline Outline Outline Attached Attached Attached -Granulation Amt Medium (34-66%) Large (67-100%) Large (67-100%) -Granulation Quality Manderson Red Red -Slough/Fibrin Yes -Necrosis Amt Medium (34-66%) Medium (34-66%) Small (1-33%) -Necrotic Tissue Type Adherent Slough Adherent Slough Adherent Slough -Structure Exposed N/A N/A N/A -Texture (Bertha-wound Skin Appearance) Assessed, Scarring,Rash Excoriation, Excoriation Scarring -Moisture (Bertha-wound Skin Appearance) Assessed Maceration, Weeping Weeping -Color (Bertha-wound Skin Appearance) Assessed Erythema, Hemosiderin Hemosiderin Staining Staining -Temperature (Bertha-wound Skin No Abnormality No Abnormality No Abnormality Appearance) (Pt Warm) (Pt Warm) (Pt Warm) -Tenderness on Palpation (Bertha-wound No No No Skin Appearance) -Ulcer Cleansing Wound Cleanser Soap and Water Soap and Water -Foul Odor after Cleansing No No -Anesthetic Used 5% Lidocaine 5% Lidocaine 5% Lidocaine Gel Gel Gel Right Calf (cm) 69 Right Ankle (cm) 31 11/11/23 10:58 Wound Center Nurse 1 #4- R LAT LE -Combined with other wound -Current Size (cm) - Length 1.8 -Current Size (cm) - Width 4.0 -Current Size (cm) - Depth 0.1 -Total Square Cm 7.20 -Photo Taken No -Tunneling No -Undermining/Tunneling No -Circular Undermining No -Exudate Amt Medium -Exudate Type Serosanguineous -Wound Margin Thickened -Granulation Amt Large (67-100%) -Granulation Quality Pale,Manderson -Slough/Fibrin -Necrosis Amt Small (1-33%) -Necrotic Tissue Type Adherent Slough -Structure Exposed -Texture (Bertha-wound Skin Appearance) Assessed -Moisture (Bertha-wound Skin Appearance) Assessed -Color (Bertha-wound Skin Appearance) Assessed -Temperature (Bertha-wound Skin No Abnormality Appearance) (Pt Warm) -Tenderness on Palpation (Bertha-wound No Skin Appearance) -Ulcer Cleansing Rinsed/ Irrigated with Saline -Foul Odor after Cleansing No -Anesthetic Used 5% Lidocaine Gel Right Calf (cm) 67 Right Ankle (cm) 31 WC - Nurse 2 - General Ulcer CM Notes Start: 10/21/23 11:13 Freq: Status: Active Protocol: Activity Type Activity Date Activity User E-sign Co-sign Detail Recorded Client Recorded Date Recorded By Document 10/21/23 11:21 BMF 10..25.7 10/21/23 11:27 BMF Document 10/28/23 11:29 BMF 10..25.7 10/28/23 11:37 BMF Document 11/04/23 10:35 BMF 10..25.7 11/04/23 10:46 BMF Document 11/11/23 11:24 BMF 10..25.7 11/11/23 11:33 BMF 10/21/23 10/28/23 11/04/23 11:21 11:29 10:35 Wound Center Nurse 2 #4- R LAT LE -Time 11:21 11:29 10:36 -Correct Patient Yes Yes Yes -Correct Side, Site, Position Yes Yes Yes -Correct Procedure Yes Yes Yes -Procedure Performed Yes Yes Yes -Type of Procedure Debridement Debridement Debridement -Clinical Debridement Subcutaneous Subcutaneous Subcutaneous -Tissue Removed Subcutaneous Subcutaneous Subcutaneous -Post Debridement (cm) - Length 3.7 1.5 1 -Post Debridement (cm) - Width 1.4 3.5 3 -Post Debridement (cm) - Depth 0.1 0.1 0.1 -Total Square (Post) (cm) 5.18 5.25 3 -Area of Debridement (cm) - Length 3.7 1.5 1 -Area of Debridement (cm) - Width 1.4 3.5 3 -Total Square (Area) (cm) 5.18 5.25 3 -Tunneling No No No -Undermining/Tunneling No No No -Circular Undermining No No No -Wound/Ulcer Outcome Not Healed Not Healed Not Healed -Ulcer Cleansing Rinsed/ Rinsed/ Rinsed/ Irrigated with Irrigated with Irrigated with Saline Saline Saline -Foul Odor after Cleansing No No No -Bioengineered Tissue No Yes Yes -Type of Bioengineered Tissue Epifix Mesh Epifix Mesh Epifix -Expiration Date 04/20/28 04/20/28 06/18/28 -Product Lot Number [id number] -Percent Used 100 100 100 -Lot number of Saline Used [id number] -Bleeding Controlled with Pressure Pressure Pressure -Treatment Response Procedure Procedure Procedure Tolerated Well Tolerated Well Tolerated Well -Debridement - Subq, 1st 20sq cm No No No -Apply Skin Sub - 1st 25 sq cm - Legs 1 1 1 -Epifix (per sq cm) 4 -Epifix Mesh (per sq cm) 11 11 Pain Scale: 0-10 Numeric Is Patient Pain Free? Yes Yes Yes 11/11/23 11:24 Wound Center Nurse 2 #4- R LAT LE -Time 11:24 -Correct Patient Yes -Correct Side, Site, Position Yes -Correct Procedure Yes -Procedure Performed Yes -Type of Procedure Debridement -Clinical Debridement Subcutaneous -Tissue Removed Subcutaneous -Post Debridement (cm) - Length 1.7 -Post Debridement (cm) - Width 3.6 -Post Debridement (cm) - Depth 0.1 -Total Square (Post) (cm) 6.12 -Area of Debridement (cm) - Length 1.7 -Area of Debridement (cm) - Width 3.6 -Total Square (Area) (cm) 6.12 -Tunneling No -Undermining/Tunneling No -Circular Undermining No -Wound/Ulcer Outcome Not Healed -Ulcer Cleansing Rinsed/ Irrigated with Saline -Foul Odor after Cleansing No -Bioengineered Tissue Yes -Type of Bioengineered Tissue -Expiration Date 04/20/28 -Product Lot Number [id number] -Percent Used 100 -Lot number of Saline Used [id number] -Bleeding Controlled with Pressure -Treatment Response Procedure Tolerated Well -Debridement - Subq, 1st 20sq cm No -Apply Skin Sub - 1st 25 sq cm - Legs 1 -Epifix (per sq cm) -Epifix Mesh (per sq cm) 11 Pain Scale: 0-10 Numeric Is Patient Pain Free? Yes WC - Nurse 3 - General Ulcer D/C NN Start: 10/21/23 11:13 Freq: Status: Active Protocol: Activity Type Activity Date Activity User E-sign Co-sign Detail Recorded Client Recorded Date Recorded By Document 10/21/23 11:40 RB wound 10/21/23 11:43 RB Document 10/28/23 11:50 DL 10.10.25.7 10/28/23 11:52 DL Document 11/04/23 11:18 RB WOUND 11/04/23 11:19 RB Document 11/11/23 11:40 [id number] 11/11/23 11:41 [place] 10/21/23 10/28/23 11/04/23 11:40 11:50 11:18 Wound Care Center Nurse 3 #4- R LAT LE -Foul Odor after Cleansing No -Primary Dressing Applied NonAdherent NonAdherent Contact Layer Contact Layer -Other Dressing Epifix abd -Primary Dressing Covered/Secured with Dry Gauze,Dry Dry Gauze & Dry Gauze,Dry Gauze & Roll Roll Gauze, Gauze & Roll Gauze,Secured Secured with Gauze,Secured with Tape Tape with Tape Right -Other single layer G tubigrip G single layer G tubigrip Treatment Response Procedure Procedure Procedure Tolerated Well Tolerated Well Tolerated Well Pain Scale: 0-10 Numeric Is Patient Pain Free? Yes Yes Yes WC - Visit Discharge Discharge Condition Stable Stable Stable Ambulatory Status Ambulatory Ambulatory, Ambulatory, Walker Walker Transportation Private Auto Private Auto Private Auto Medication Reconcilliation completed & No No provided to patient/care provider Clinical Summary of Care Provided Yes Yes 11/11/23 11:40 Wound Care Center Nurse 3 #4- R LAT LE -Foul Odor after Cleansing -Primary Dressing Applied -Other Dressing abd, adaptic -Primary Dressing Covered/Secured with Dry Gauze, Secured with Tape Right -Other Treatment Response Pain Scale: 0-10 Numeric Is Patient Pain Free? Yes WC - Visit Discharge Discharge Condition Ambulatory Status Transportation Medication Reconcilliation completed & provided to patient/care provider Clinical Summary of Care Provided Assessment/Plan Assessment/Plan (1) Morbid obesity: CODE(S): E66.01 - Morbid (severe) obesity due to excess calories (2) Venous insufficiency of both lower extremities: CODE(S): I87.2 - Venous insufficiency (chronic) (peripheral) (3) Ulcer of right lower extremity with fat layer exposed: CODE(S): L97.912 - Non-pressure chronic ulcer of unspecified part of right lower leg with fat layer exposed PLAN: EpiFix #5 applied with a mesh covering and Steri-Strips. over top with a gauze dressing and compression. 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 Follow-up in 1 week (4) Dyshidrotic eczema: CODE(S): L30.1 - Dyshidrosis [pompholyx] PLAN: amLactin cream to all dried Flaky areas of skin
[2023-11-18 10:51] VITALS: BP 139/65; PULSE 74; RESP 18; TEMP 36.5; BMI 59.1
--- NOTE | 2023-11-18 12:25 | PCM.WC.PN ---
History of Present Illness Date of Service: 11/18/23 Chief Complaint: Right lateral leg ulcer History of Wound: 66-year-old white obese male. He appears here with a very large deep wound on his right posterior lower leg. He suffers from venous ulcers, and this 1 has been going on for 2 to 3 months. Other than covering it with a gauze dressing he has done nothing else. These are reoccurring ulcer openings have never been taking care of properly because of COVID. Patient did have arterial brachial and venous studies done and 2020 but never got to see the vascular surgeon for repair. Arterial studies fine its his venous he is got a lot of incompetence sees right where all of his wounds are. Patient suffers from cellulitis and also overgrowth of keratosis. He states that he has a history of an infected ulcer from 2013 and he was being seen at the [facility]. He states that he has had issues with this ulcer on an off for years. He states had a fracture of his left ankle which required him to be placed in a SNF and the ulcer on the right improved during that time. 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 He is obese with a BMI 59.1. He sleeps in a recliner because his mattress makes his back hurt. He has significant amount of lower extremity edema. He also suffers from flatfeet hyperkeratosis of skin Arterial studies from 01/28/21 right AIFA by dorsalis pedis is 1.02. Right AFIA by posterior tibial artery is 1.01. Left AFIA by posterior tibial artery is 0.98. The left AFIA by dorsalis pedis is 1.02. Bilateral triphasic doppler wavelength at ankle level. Venous Duplex ultrasound on 01/28/21 showed segmental valvular incompetence is noted within the great saphenous veins bilaterally. The right small saphenous vein is patent and competent. The left small saphenous vein is patent and incompetent. The accessory saphenous vein in the right mid-thigh is incompetent. We will refer him to Dr. Solis for further evaluation. Today he denies fever, chills, nausea or vomiting. He states his appetite is good. We did discuss weight loss and maybe he needs to try getting those injections from his doctor. 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 Progress of Wound: Patient just finished EpiFix #6 and is much improved. Patient is doing well and tolerating well is getting flatter ,you can tell the edges are finally starting to heal over. Subjective Subjective Patient and are happy with outcomes Objective Data Objective Data Slow but sure it is healing it just the edges are getting flatter and the inside there is a strip of raw tissue but it is flat it is not has depth anymore. Will continue using epi fix #7 Vital Signs: Vital Signs Temp Pulse Resp BP O2 Del Method 97.7 F L 74 18 139/65 H Room Air 11/18/23 10:51 11/18/23 10:51 11/18/23 10:51 11/18/23 10:51 11/18/23 10:51 Oxygen Delivery Method Room Air Weight: 400 lb Body Mass Index (BMI) 59.1 Physical Exam Const alert, oriented x3 and no apparent distress General Appearance: cooperative; Negative for combative or lethargic Orientation / Consciousness: awake Exam Limitations: no limitations HEENT Head and Scalp: normocephalic and atraumatic Eyes EOMs intact bilaterally General Eye: normal appearance of both eyes Neck full ROM and thyroid normal General: trachea midline Thyroid: thyroid normal Resp normal respiratory effort and no use of accessory muscles Effort and Inspection: Negative for labored, stridor or audible wheezes Cardio regular rate and regular rhythm GI non-tender Back/Spine Cervical Spine: cervical ROM normal Extremity full ROM and normal capillary refill General Extremity: edema Skin no rashes or lesions noted Skin Narrative: lateral right lowerr leg wound Neuro oriented x3 and CN's II-XII intact bilaterally Psych thought process normal, cooperative, affect normal, speech normal and activity/motor behavior normal Debridement Note Debridement Note Wound debrided: Right lower leg posterior venous ulcer Type of Debridement: Excisional debridement Anesthesia Used: 5% Lidocaine Gel Depth: in the subcutaneous layer Percentage of wound debrided: 100 Instrument Used: 5mm curette Tissue Removed: Fibrin Severity: Fat Layer Exposed Amount of bleeding with debridement: Mild Bleeding Controlled with: Compression and gauze Patient tolerated procedure: Patient tolerated procedure well Post-Debridement Measurements and Additional Note: Post-Debridement Measurements/Treatment WC - Nurse 1 - General Ulcer Assessment Start: 10/21/23 11:13 Freq: Status: Active Protocol: RADHA.LOWEXT Activity Type Activity Date Activity User E-sign Co-sign Detail Recorded Client Recorded Date Recorded By Document 10/21/23 11:13 RB wound 10/21/23 11:16 RB Document 10/28/23 11:15 DL 10.10.25.7 10/28/23 11:23 DL Document 11/04/23 10:12 DL 10.10.25.7 11/04/23 10:20 DL Document 11/11/23 10:58 MT [id number] 11/11/23 11:16 MT Document 11/18/23 10:51 MT [id number] 11/18/23 11:06 MT 10/21/23 10/28/23 11/04/23 11:13 11:15 10:12 - Today's Visit Information Type of service Follow-up Visit Follow-up Visit Follow-up Visit (Physician/ENGINE OILER (Physician/ENGINE OILER (Physician/ENGINE OILER ) ) ) Arrival Mode Ambulatory, Ambulatory, Ambulatory, Walker Walker Walker Transfer Assistance None None None Accompanied by Patient Identification Verified (Name & Yes Yes Yes ) Patient Requires Transmission-Based No No No Precautions Safety Precautions Height and Weight Body Mass Index (BMI) 59.1 59.1 59.1 BMI Classification Obese Obese Obese Vital Signs Temperature (97.8 F-99.1 F) 96.6 F L 97.6 F L 96.4 F L Temperature Source Temporal Temporal Temporal Pulse Rate (60-100) 78 78 70 Pulse Location Monitor Monitor Monitor Respiratory Rate (12-18) 18 20 H 18 Respiratory rate source Observation Observation Observation Oxygen Delivery Method Blood Pressure (90/60-120/80) 125/57 H 113/70 121/78 H Blood Pressure Mean (mm Hg) 79 84 92 Source Monitor Monitor Position Semi-Fowlers Blood Pressure Location Left Arm History Since Last Visit- (Skip if this is Patient's initial visit) Have you changed medications since your No No No last visit? Any new allergies or adverse reactions No No No Had a fall/change in ADL's that may No No No increase risk of falls Signs or symptoms of abuse and/or No No No neglect since last visit Have you been in the hospital since your No No No last visit? Has dressing in place as prescribed Yes Yes Yes Has compression in place as prescribed Yes Yes Yes Has offloadiing in place as prescribed No Yes Yes Experienced any changes in pain level or No No No management Left Footwear Right Footwear Pain Scale: 0-10 Numeric Is Patient Pain Free? Yes Yes Yes 11/11/23 11/18/23 10:58 10:51 - Today's Visit Information Type of service Follow-up Visit (Physician/ENGINE OILER ) Arrival Mode Ambulatory Ambulatory, Walker Transfer Assistance Accompanied by Patient Identification Verified (Name & Yes Yes ) Patient Requires Transmission-Based Precautions Safety Precautions Fall Prevention Fall Prevention Height and Weight Body Mass Index (BMI) 59.1 59.1 BMI Classification Obese Obese Vital Signs Temperature (97.8 F-99.1 F) 97 F L 97.7 F L Temperature Source Temporal Temporal Pulse Rate (60-100) 63 74 Pulse Location Monitor Monitor Respiratory Rate (12-18) 18 18 Respiratory rate source Observation Observation Oxygen Delivery Method Room Air Room Air Blood Pressure (90/60-120/80) 130/68 H 139/65 H Blood Pressure Mean (mm Hg) 88 89 Source Monitor Monitor Position Sitting Sitting Blood Pressure Location Right Arm Left Forearm History Since Last Visit- (Skip if this is Patient's initial visit) Have you changed medications since your last visit? Any new allergies or adverse reactions Had a fall/change in ADL's that may increase risk of falls Signs or symptoms of abuse and/or neglect since last visit Have you been in the hospital since your last visit? Has dressing in place as prescribed Yes Yes Has compression in place as prescribed Yes Yes Has offloadiing in place as prescribed Yes Yes Experienced any changes in pain level or Yes Yes management Left Footwear Regular Shoe Regular Shoe Right Footwear Regular Shoe Regular Shoe Pain Scale: 0-10 Numeric Is Patient Pain Free? Yes Yes - Nurse 1 - General Ulcer Measurement Start: 10/21/23 11:13 Freq: Status: Active Protocol: Activity Type Activity Date Activity User E-sign Co-sign Detail Recorded Client Recorded Date Recorded By Document 10/21/23 11:13 RB wound 10/21/23 11:16 RB Document 10/28/23 11:15 DL 10.10.25.7 10/28/23 11:23 DL Document 11/04/23 10:12 DL 10.10.25.7 11/04/23 10:20 DL Document 11/11/23 10:58 MT [id number] 11/11/23 11:16 SD Document 11/18/23 10:51 [id number] 11/18/23 11:06 SD 10/21/23 10/28/23 11/04/23 11:13 11:15 10:12 Wound Center Nurse 1 #4- R LAT LE -Combined with other wound No -Current Size (cm) - Length 1.5 1.7 3.5 -Current Size (cm) - Width 3.3 3.7 1.8 -Current Size (cm) - Depth 0.1 0.1 0.1 -Total Square Cm 4.95 6.29 6.30 -Photo Taken -Epithelialization -Tunneling No -Undermining/Tunneling No -Circular Undermining No -Exudate Amt Large Large Medium -Exudate Type Serosanguineous Yellow/Green Serosanguineous -Wound Margin Distinct, Distinct, Distinct, Outline Outline Outline Attached Attached Attached -Granulation Amt Medium (34-66%) Large (67-100%) Large (67-100%) -Granulation Quality [place] Red Red -Slough/Fibrin Yes -Necrosis Amt Medium (34-66%) Medium (34-66%) Small (1-33%) -Necrotic Tissue Type Adherent Slough Adherent Slough Adherent Slough -Structure Exposed N/A N/A N/A -Texture (Bertha-wound Skin Appearance) Assessed, Scarring,Rash Excoriation, Excoriation Scarring -Moisture (Bertha-wound Skin Appearance) Assessed Maceration, Weeping Weeping -Color (Bertha-wound Skin Appearance) Assessed Erythema, Hemosiderin Hemosiderin Staining Staining -Temperature (Bertha-wound Skin No Abnormality No Abnormality No Abnormality Appearance) (Pt Warm) (Pt Warm) (Pt Warm) -Tenderness on Palpation (Bertha-wound No No No Skin Appearance) -Ulcer Cleansing Wound Cleanser Soap and Water Soap and Water -Foul Odor after Cleansing No No -Anesthetic Used 5% Lidocaine 5% Lidocaine 5% Lidocaine Gel Gel Gel Right Calf (cm) 69 Right Ankle (cm) 31 11/11/23 11/18/23 10:58 10:51 Wound Center Nurse 1 #4- R LAT LE -Combined with other wound No -Current Size (cm) - Length 1.8 4 -Current Size (cm) - Width 4.0 2 -Current Size (cm) - Depth 0.1 0.2 -Total Square Cm 7.20 8 -Photo Taken No No -Epithelialization Medium 34-66% -Tunneling No No -Undermining/Tunneling No No -Circular Undermining No No -Exudate Amt Medium Medium -Exudate Type Serosanguineous Serosanguineous -Wound Margin Thickened Flat & Intact -Granulation Amt Large (67-100%) Large (67-100%) -Granulation Quality Pale,[place] Red -Slough/Fibrin No -Necrosis Amt Small (1-33%) -Necrotic Tissue Type Adherent Slough -Structure Exposed -Texture (Bertha-wound Skin Appearance) Assessed Assessed -Moisture (Bertha-wound Skin Appearance) Assessed Assessed, Maceration -Color (Bertha-wound Skin Appearance) Assessed Assessed, Erythema -Temperature (Bertha-wound Skin No Abnormality No Abnormality Appearance) (Pt Warm) (Pt Warm) -Tenderness on Palpation (Bertha-wound No No Skin Appearance) -Ulcer Cleansing Rinsed/ Wound Cleanser Irrigated with Saline -Foul Odor after Cleansing No No -Anesthetic Used 5% Lidocaine 5% Lidocaine Gel Gel Right Calf (cm) 67 67 Right Ankle (cm) 31 31 WC - Nurse 2 - General Ulcer CM Notes Start: 10/21/23 11:13 Freq: Status: Active Protocol: Activity Type Activity Date Activity User E-sign Co-sign Detail Recorded Client Recorded Date Recorded By Document 10/21/23 11:21 BMF 10.10.25.7 10/21/23 11:27 BMF Document 10/28/23 11:29 BMF 10.10.25.7 10/28/23 11:37 BMF Document 11/04/23 10:35 BMF 10.10.25.7 11/04/23 10:46 BMF Document 11/11/23 11:24 BMF 10.10.25.7 11/11/23 11:33 BMF Document 11/18/23 11:08 BMF 10.10.25.7 11/18/23 11:13 BMF 10/21/23 10/28/23 11/04/23 11:21 11:29 10:35 Wound Center Nurse 2 #4- R LAT LE -Time 11:21 11:29 10:36 -Correct Patient Yes Yes Yes -Correct Side, Site, Position Yes Yes Yes -Correct Procedure Yes Yes Yes -Procedure Performed Yes Yes Yes -Type of Procedure Debridement Debridement Debridement -Clinical Debridement Subcutaneous Subcutaneous Subcutaneous -Tissue Removed Subcutaneous Subcutaneous Subcutaneous -Post Debridement (cm) - Length 3.7 1.5 1 -Post Debridement (cm) - Width 1.4 3.5 3 -Post Debridement (cm) - Depth 0.1 0.1 0.1 -Total Square (Post) (cm) 5.18 5.25 3 -Area of Debridement (cm) - Length 3.7 1.5 1 -Area of Debridement (cm) - Width 1.4 3.5 3 -Total Square (Area) (cm) 5.18 5.25 3 -Tunneling No No No -Undermining/Tunneling No No No -Circular Undermining No No No -Wound/Ulcer Outcome Not Healed Not Healed Not Healed -Ulcer Cleansing Rinsed/ Rinsed/ Rinsed/ Irrigated with Irrigated with Irrigated with Saline Saline Saline -Foul Odor after Cleansing No No No -Bioengineered Tissue No Yes Yes -Type of Bioengineered Tissue Epifix Mesh Epifix Mesh Epifix -Expiration Date 04/20/28 04/20/28 06/18/28 -Product Lot Number [id number] -Percent Used 100 100 100 -Lot number of Saline Used [id number] -Bleeding Controlled with Pressure Pressure Pressure -Treatment Response Procedure Procedure Procedure Tolerated Well Tolerated Well Tolerated Well -Debridement - Subq, 1st 20sq cm No No No -Apply Skin Sub - 1st 25 sq cm - Legs 1 1 1 -Epifix (per sq cm) 4 -Epifix Mesh (per sq cm) 11 11 Pain Scale: 0-10 Numeric Is Patient Pain Free? Yes Yes Yes 11/11/23 11/18/23 11:24 11:08 Wound Center Nurse 2 #4- R LAT LE -Time 11:24 11:09 -Correct Patient Yes Yes -Correct Side, Site, Position Yes Yes -Correct Procedure Yes Yes -Procedure Performed Yes Yes -Type of Procedure Debridement Debridement -Clinical Debridement Subcutaneous Subcutaneous -Tissue Removed Subcutaneous Subcutaneous -Post Debridement (cm) - Length 1.7 2 -Post Debridement (cm) - Width 3.6 4 -Post Debridement (cm) - Depth 0.1 0.4 -Total Square (Post) (cm) 6.12 8 -Area of Debridement (cm) - Length 1.7 2 -Area of Debridement (cm) - Width 3.6 4 -Total Square (Area) (cm) 6.12 8 -Tunneling No No -Undermining/Tunneling No No -Circular Undermining No No -Wound/Ulcer Outcome Not Healed Not Healed -Ulcer Cleansing Rinsed/ Rinsed/ Irrigated with Irrigated with Saline Saline -Foul Odor after Cleansing No No -Bioengineered Tissue Yes Yes -Type of Bioengineered Tissue Epifix Mesh -Expiration Date 04/20/28 04/20/28 -Product Lot Number [id number] -Percent Used 100 100 -Lot number of Saline Used [id number] -Bleeding Controlled with Pressure Pressure -Treatment Response Procedure Procedure Tolerated Well Tolerated Well -Debridement - Subq, 1st 20sq cm No No -Apply Skin Sub - 1st 25 sq cm - Legs 1 1 -Epifix (per sq cm) -Epifix Mesh (per sq cm) 11 11 Pain Scale: 0-10 Numeric Is Patient Pain Free? Yes Yes WC - Nurse 3 - General Ulcer D/C NN Start: 10/21/23 11:13 Freq: Status: Active Protocol: Activity Type Activity Date Activity User E-sign Co-sign Detail Recorded Client Recorded Date Recorded By Document 10/21/23 11:40 RB wound 10/21/23 11:43 RB Document 10/28/23 11:50 DL 10.10.25.7 10/28/23 11:52 DL Document 11/04/23 11:18 RB WOUND 11/04/23 11:19 RB Document 11/11/23 11:40 MT [id number] 11/11/23 11:41 MT Document 11/18/23 11:35 RB wound 11/18/23 11:35 RB 10/21/23 10/28/23 11/04/23 11:40 11:50 11:18 Wound Care Center Nurse 3 #4- R LAT LE -Foul Odor after Cleansing No -Primary Dressing Applied NonAdherent NonAdherent Contact Layer Contact Layer -Other Dressing Epifix abd -Primary Dressing Covered/Secured with Dry Gauze,Dry Dry Gauze & Dry Gauze,Dry Gauze & Roll Roll Gauze, Gauze & Roll Gauze,Secured Secured with Gauze,Secured with Tape Tape with Tape Right -Other single layer G tubigrip G single layer G tubigrip Treatment Response Procedure Procedure Procedure Tolerated Well Tolerated Well Tolerated Well Pain Scale: 0-10 Numeric Is Patient Pain Free? Yes Yes Yes WC - Visit Discharge Discharge Condition Stable Stable Stable Ambulatory Status Ambulatory Ambulatory, Ambulatory, Walker Walker Transportation Private Auto Private Auto Private Auto Medication Reconcilliation completed & No No provided to patient/care provider Clinical Summary of Care Provided Yes Yes 11/11/23 11/18/23 11:40 11:35 Wound Care Center Nurse 3 #4- R LAT LE -Foul Odor after Cleansing -Primary Dressing Applied -Other Dressing abd, adaptic abd -Primary Dressing Covered/Secured with Dry Gauze, Dry Gauze,Dry Secured with Gauze & Roll Tape Gauze,Secured with Tape Right -Other size G tubigrip Treatment Response Procedure Tolerated Well Pain Scale: 0-10 Numeric Is Patient Pain Free? Yes Yes WC - Visit Discharge Discharge Condition Stable Ambulatory Status Ambulatory, Walker Transportation Private Auto Medication Reconcilliation completed & No provided to patient/care provider Clinical Summary of Care Provided Yes Assessment/Plan Assessment/Plan (1) Morbid obesity: CODE(S): E66.01 - Morbid (severe) obesity due to excess calories (2) Venous insufficiency of both lower extremities: CODE(S): I87.2 - Venous insufficiency (chronic) (peripheral) (3) Ulcer of right lower extremity with fat layer exposed: CODE(S): L97.912 - Non-pressure chronic ulcer of unspecified part of right lower leg with fat layer exposed PLAN: EpiFix #6 applied with a mesh covering and Steri-Strips. over top with a gauze dressing and compression. Patient is to start Chavo we gave him samples needs to go over to the cafeteria and picker and sorter load and unload more for wound healing. Follow-up in 1 week (4) Dyshidrotic eczema: CODE(S): L30.1 - Dyshidrosis [pompholyx] PLAN: amLactin cream to all dried Flaky areas of skin
== END 2023-11-18 23:59 | disposition home or self-care (01) ==
LOC: WC 10:45
PROVIDERS: PCP Preventive Medicine Occupational Medicine; Referring Provider Preventive Medicine Occupational Medicine; Visit Provider Nurse Practitioner
DX: I87.2 Venous insufficiency (chronic) (peripheral) (principal); L97.812 Non-pressure chronic ulcer of other part of right lower leg with fat layer exposed; I48.91 Unspecified atrial fibrillation; E66.01 Morbid (severe) obesity due to excess calories; Z68.43 Body mass index [BMI] 50.0-59.9, adult; Z86.718 Personal history of other venous thrombosis and embolism; R60.0 Localized edema; L30.1 Dyshidrosis [pompholyx]
CPT/HCPCS: 15271; Q4186

== ENCOUNTER 2023-12-16 11:00 | Outpatient (RCR) | payer MEDICARE, OTHER, SELFPAY ==
[2023-11-19 00:44] VITALS: BP 132/71; PULSE 76; RESP 22; TEMP 35.7; BMI 59.1
[2023-11-25 11:10] VITALS: BP 123/65; PULSE 74; RESP 18; TEMP 36.2; BMI 59.1
--- NOTE | 2023-11-25 13:02 | PCM.WC.PN ---
History of Present Illness Date of Service: 11/25/23 Chief Complaint: Right lateral leg ulcer History of Wound: 66-year-old white obese male. He appears here with a very large deep wound on his right posterior lower leg. He suffers from venous ulcers, and this 1 has been going on for 2 to 3 months. Other than covering it with a gauze dressing he has done nothing else. These are reoccurring ulcer openings have never been taking care of properly because of COVID. Patient did have arterial brachial and venous studies done and 2020 but never got to see the vascular surgeon for repair. Arterial studies fine its his venous he is got a lot of incompetence sees right where all of his wounds are. Patient suffers from cellulitis and also overgrowth of keratosis. He states that he has a history of an infected ulcer from 2013 and he was being seen at the [place] wound center. He states that he has had issues with this ulcer on an off for years. He states had a fracture of his left ankle which required him to be placed in a SNF and the ulcer on the right improved during that time. 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 He is obese with a BMI 59.1. He sleeps in a recliner because his mattress makes his back hurt. He has significant amount of lower extremity edema. 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 Right AFIA by posterior tibial artery is 1.01. Left AFIA by posterior tibial artery is 0.98. The left AFIA by dorsalis pedis is 1.02. Bilateral triphasic doppler wavelength at ankle level. Venous Duplex ultrasound on 01/28/21 showed segmental valvular incompetence is noted within the great saphenous veins bilaterally. The right small saphenous vein is patent and competent. The left small saphenous vein is patent and incompetent. The accessory saphenous vein in the right mid-thigh is incompetent. We will refer him to Dr. Solis for further evaluation. Today he denies fever, chills, nausea or vomiting. He states his appetite is good. We did discuss weight loss and maybe he needs to try getting those injections from his doctor. 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 Progress of Wound: Starting to see some real healing occur with the epi fix he is on epi #8 applied today. Flatter edges looks good no sign of infection Subjective Subjective and patient are happy with outcomes Objective Data Objective Data Will apply epi #8 to the right lower leg with the Steri-Strips and Aquacel extra over top patient is to leave alone and follow-up in 1 week Vital Signs: Vital Signs Temp Pulse Resp BP 97.2 F L 74 18 123/65 H 11/25/23 11:10 11/25/23 11:10 11/25/23 11:10 11/25/23 11:10 Weight: 400 lb Body Mass Index (BMI) 59.1 Physical Exam Const alert, oriented x3 and no apparent distress General Appearance: cooperative; Negative for combative or lethargic Orientation / Consciousness: awake Exam Limitations: no limitations HEENT Head and Scalp: normocephalic and atraumatic Eyes EOMs intact bilaterally General Eye: normal appearance of both eyes Neck full ROM and thyroid normal General: trachea midline Thyroid: thyroid normal Resp normal respiratory effort and no use of accessory muscles Effort and Inspection: Negative for labored, stridor or audible wheezes Cardio regular rate and regular rhythm GI non-tender Back/Spine Cervical Spine: cervical ROM normal Extremity full ROM and normal capillary refill General Extremity: edema Skin no rashes or lesions noted Skin Narrative: lateral right lowerr leg wound Neuro oriented x3 and CN's II-XII intact bilaterally Psych thought process normal, cooperative, affect normal, speech normal and activity/motor behavior normal Debridement Note Debridement Note Wound debrided: Right lower leg posterior venous ulcer Type of Debridement: Excisional debridement Anesthesia Used: 5% Lidocaine Gel Depth: in the subcutaneous layer Percentage of wound debrided: 100 Instrument Used: 5mm curette Tissue Removed: Fibrin Severity: Fat Layer Exposed Amount of bleeding with debridement: Mild Bleeding Controlled with: Compression and gauze Patient tolerated procedure: Patient tolerated procedure well Post-Debridement Measurements and Additional Note: Post-Debridement Measurements/Treatment WC - Nurse 1 - General Ulcer Assessment Start: 11/25/23 11:10 Freq: Status: Active Protocol: JADEN Activity Type Activity Date Activity User E-sign Co-sign Detail Recorded Client Recorded Date Recorded By Document 11/25/23 11:10 RB woun 11/25/23 11:12 11/25/23 11:10 - Today's Visit Information Type of service Follow-up Visit (Physician/VOLUNTEER PATIENT REPRESENTATIVE ) Arrival Mode Ambulatory, Walker Transfer Assistance None Patient Identification Verified (Name & Yes ) Patient Requires Transmission-Based No Precautions Height and Weight Body Mass Index (BMI) 59.1 BMI Classification Obese Vital Signs Temperature (97.8 F-99.1 F) 97.2 F L Temperature Source Temporal Pulse Rate (60-100) 74 Pulse Location Monitor Respiratory Rate (12-18) 18 Respiratory rate source Observation Blood Pressure (90/60-120/80) 123/65 H Blood Pressure Mean (mm Hg) 84 Source Monitor Position Semi-Fowlers Blood Pressure Location Left Arm History Since Last Visit- (Skip if this is Patient's initial visit) Have you changed medications since your No last visit? Any new allergies or adverse reactions No Had a fall/change in ADL's that may No increase risk of falls Signs or symptoms of abuse and/or No neglect since last visit Have you been in the hospital since your No last visit? Has dressing in place as prescribed Yes Has compression in place as prescribed Yes Has offloadiing in place as prescribed No Experienced any changes in pain level or No management Pain Scale: 0-10 Numeric Is Patient Pain Free? Yes - Nurse 1 - General Ulcer Measurement Start: 11/25/23 11:10 Freq: Status: Active Protocol: Activity Type Activity Date Activity User E-sign Co-sign Detail Recorded Client Recorded Date Recorded By Document 11/25/23 11:10 MOUSTAPHA velasco 11/25/23 11:12 11/25/23 11:10 Wound Center Nurse 1 #4- R LAT LE -Combined with other wound No -Current Size (cm) - Length 1.2 -Current Size (cm) - Width 4.2 -Current Size (cm) - Depth 0.1 -Total Square Cm 5.04 -Tunneling No -Undermining/Tunneling No -Circular Undermining No -Exudate Amt Medium -Exudate Type Serosanguineous -Wound Margin Distinct, Outline Attached -Granulation Amt Medium (34-66%) -Granulation Quality [place] -Slough/Fibrin Yes -Necrosis Amt Medium (34-66%) -Necrotic Tissue Type Adherent Slough -Structure Exposed N/A -Texture (Bertha-wound Skin Appearance) Friable -Moisture (Bertha-wound Skin Appearance) Dry/Scaly -Color (Bertha-wound Skin Appearance) Assessed -Temperature (Bertha-wound Skin No Abnormality Appearance) (Pt Warm) -Tenderness on Palpation (Bertha-wound No Skin Appearance) -Ulcer Cleansing Wound Cleanser -Foul Odor after Cleansing No -Anesthetic Used 5% Lidocaine Gel Lower Limb Edema Present Yes Right Calf (cm) 69 Right Ankle (cm) 31.6 - Nurse 2 - General Ulcer CM Notes Start: 11/25/23 11:10 Freq: Status: Active Protocol: Activity Type Activity Date Activity User E-sign Co-sign Detail Recorded Client Recorded Date Recorded By Document 11/25/23 11:28 DS 1 11/25/23 11:34 DS 11/25/23 11:28 Wound Center Nurse 2 #4- R LAT LE -Time 11:28 -Correct Patient Yes -Correct Side, Site, Position Yes -Correct Procedure Yes -Procedure Performed Yes -Type of Procedure Debridement -Clinical Debridement Subcutaneous -Tissue Removed Subcutaneous -Tunneling No -Undermining/Tunneling No -Circular Undermining No -Wound/Ulcer Outcome Not Healed -Ulcer Cleansing Rinsed/ Irrigated with Saline -Type of Bioengineered Tissue Epifix Mesh -Expiration Date 05/21/28 -Product Lot Number [id number] -Percent Used 100 -Lot number of Saline Used [id number] -Bleeding Controlled with Pressure -Treatment Response Procedure Tolerated Well -Debridement - Subq, 1st 20sq cm No -Apply Skin Sub - 1st 25 sq cm - Legs 1 -Epifix Mesh (per sq cm) 11 Pain Scale: 0-10 Numeric Is Patient Pain Free? Yes - Nurse 3 - General Ulcer D/C NN Start: 11/25/23 11:10 Freq: Status: Active Protocol: Activity Type Activity Date Activity User E-sign Co-sign Detail Recorded Client Recorded Date Recorded By Document 11/25/23 12:03 RB woun 11/25/23 12:04 RB 11/25/23 12:03 Wound Care Center Nurse 3 #4- R LAT LE -Primary Dressing Applied Aquacel Extra -Other Dressing abd, kerlix -Aquacel Extra 1 Right -Stockings No -Other tubigrip size G Treatment Response Procedure Tolerated Well Pain Scale: 0-10 Numeric Is Patient Pain Free? Yes WC - Visit Discharge Discharge Condition Stable Ambulatory Status Ambulatory, Walker Transportation Private Auto Medication Reconcilliation completed & No provided to patient/care provider Clinical Summary of Care Provided Yes Assessment/Plan Assessment/Plan (1) Morbid obesity: CODE(S): E66.01 - Morbid (severe) obesity due to excess calories (2) Venous insufficiency of both lower extremities: CODE(S): I87.2 - Venous insufficiency (chronic) (peripheral) (3) Ulcer of right lower extremity with fat layer exposed: CODE(S): L97.912 - Non-pressure chronic ulcer of unspecified part of right lower leg with fat layer exposed PLAN: EpiFix #8 applied with a mesh covering and Steri-Strips. over top with a gauze dressing and compression. Patient is to start Chavo we gave him samples needs to go over to the cafeteria and grain picker more for wound healing. Follow-up in 1 week (4) Dyshidrotic eczema: CODE(S): L30.1 - Dyshidrosis [pompholyx] PLAN: amLactin cream to all dried Flaky areas of skin
[2023-12-09 11:14] VITALS: BP 128/78; PULSE 66; RESP 20; TEMP 35.8; BMI 59.1
--- NOTE | 2023-12-09 13:15 | PCM.WC.PN ---
History of Present Illness Date of Service: 12/09/23 Chief Complaint: Right lateral leg ulcer History of Wound: 66-year-old white obese male. He appears here with a very large deep wound on his right posterior lower leg. He suffers from venous ulcers, and this 1 has been going on for 2 to 3 months. Other than covering it with a gauze dressing he has done nothing else. These are reoccurring ulcer openings have never been taking care of properly because of COVID. Patient did have arterial brachial and venous studies done and 2020 but never got to see the vascular surgeon for repair. Arterial studies fine its his venous he is got a lot of incompetence sees right where all of his wounds are. Patient suffers from cellulitis and also overgrowth of keratosis. He states that he has a history of an infected ulcer from 2013 and he was being seen at the [place] wound center. He states that he has had issues with this ulcer on an off for years. He states had a fracture of his left ankle which required him to be placed in a SNF and the ulcer on the right improved during that time. 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 He is obese with a BMI 59.1. He sleeps in a recliner because his mattress makes his back hurt. He has significant amount of lower extremity edema. 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 Right AFIA by posterior tibial artery is 1.01. Left AFIA by posterior tibial artery is 0.98. The left AFIA by dorsalis pedis is 1.02. Bilateral triphasic doppler wavelength at ankle level. Venous Duplex ultrasound on 01/28/21 showed segmental valvular incompetence is noted within the great saphenous veins bilaterally. The right small saphenous vein is patent and competent. The left small saphenous vein is patent and incompetent. The accessory saphenous vein in the right mid-thigh is incompetent. We will refer him to Dr. Solis for further evaluation. Today he denies fever, chills, nausea or vomiting. He states his appetite is good. We did discuss weight loss and maybe he needs to try getting those injections from his doctor. 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 Progress of Wound: Have not seen patient for 2 weeks and it has an odor and red a standstill on her measurements we are going to get a culture of the wound. Then we will hold on the EpiFix #9 today and wait and see if he needs treatment before we start that. Will start him on Dakin's wet to dry dressings to see if they can clean it up a little bit. Subjective Subjective Patient and are agreeable to plan Objective Data Objective Data Not wanting to waste any or EpiFix is on infected wound we will first culture and then do a wet-to-dry for now and then have him follow-up in a week. Vital Signs: Vital Signs Temp Pulse Resp BP 96.5 F L 66 20 H 128/78 H 12/09/23 11:14 12/09/23 11:14 12/09/23 11:14 12/09/23 11:14 Weight: 400 lb Body Mass Index (BMI) 59.1 Lab / Micro Data Attestation: I reviewed the patient's lab results. Physical Exam Const alert, oriented x3 and no apparent distress General Appearance: cooperative; Negative for combative or lethargic Orientation / Consciousness: awake Exam Limitations: no limitations HEENT Head and Scalp: normocephalic and atraumatic Eyes EOMs intact bilaterally General Eye: normal appearance of both eyes Neck full ROM and thyroid normal General: trachea midline Thyroid: thyroid normal Resp normal respiratory effort and no use of accessory muscles Effort and Inspection: Negative for labored, stridor or audible wheezes Cardio regular rate and regular rhythm GI non-tender Back/Spine Cervical Spine: cervical ROM normal Extremity full ROM and normal capillary refill General Extremity: edema Skin no rashes or lesions noted Skin Narrative: lateral right lowerr leg wound Neuro oriented x3 and CN's II-XII intact bilaterally Psych thought process normal, cooperative, affect normal, speech normal and activity/motor behavior normal Debridement Note Debridement Note Wound debrided: Right lower leg posterior venous ulcer Type of Debridement: Excisional debridement Anesthesia Used: 5% Lidocaine Gel Depth: in the subcutaneous layer Percentage of wound debrided: 100 Instrument Used: 5mm curette Tissue Removed: Fibrin Severity: Fat Layer Exposed Amount of bleeding with debridement: Mild Bleeding Controlled with: Compression and gauze Patient tolerated procedure: Patient tolerated procedure well Post-Debridement Measurements and Additional Note: Post-Debridement Measurements/Treatment WC - Nurse 1 - General Ulcer Assessment Start: 11/25/23 11:10 Freq: Status: Active Protocol: JADEN Activity Type Activity Date Activity User E-sign Co-sign Detail Recorded Client Recorded Date Recorded By Document 11/25/23 11:10 RB woun 11/25/23 11:12 RB Document 12/09/23 11:14 DL [id number] 12/09/23 11:19 DL 11/25/23 12/09/23 11:10 11:14 WC - Today's Visit Information Type of service Follow-up Visit Follow-up Visit (Physician/BUSINESS CONSULTANT (Physician/BUSINESS CONSULTANT ) ) Arrival Mode Ambulatory, Ambulatory, Walker Walker Transfer Assistance None None Patient Identification Verified (Name & Yes Yes ) Patient Requires Transmission-Based No No Precautions Height and Weight Body Mass Index (BMI) 59.1 59.1 BMI Classification Obese Obese Vital Signs Temperature (97.8 F-99.1 F) 97.2 F L 96.5 F L Temperature Source Temporal Temporal Pulse Rate (60-100) 74 66 Pulse Location Monitor Monitor Respiratory Rate (12-18) 18 20 H Respiratory rate source Observation Monitor Blood Pressure (90/60-120/80) 123/65 H 128/78 H Blood Pressure Mean (mm Hg) 84 94 Source Monitor Monitor Position Semi-Fowlers Blood Pressure Location Left Arm History Since Last Visit- (Skip if this is Patient's initial visit) Have you changed medications since your No No last visit? Any new allergies or adverse reactions No No Had a fall/change in ADL's that may No No increase risk of falls Signs or symptoms of abuse and/or No No neglect since last visit Have you been in the hospital since your No No last visit? Has dressing in place as prescribed Yes Yes Has compression in place as prescribed Yes Yes Has offloadiing in place as prescribed No Yes Experienced any changes in pain level or No No management Pain Scale: 0-10 Numeric Is Patient Pain Free? Yes Yes - Nurse 1 - General Ulcer Measurement Start: 11/25/23 11:10 Freq: Status: Active Protocol: Activity Type Activity Date Activity User E-sign Co-sign Detail Recorded Client Recorded Date Recorded By Document 11/25/23 11:10 RB woun 11/25/23 11:12 RB Document 12/09/23 11:14 DL [id number] 12/09/23 11:19 DL 11/25/23 12/09/23 11:10 11:14 Wound Center Nurse 1 #4- R LAT LE -Combined with other wound No -Current Size (cm) - Length 1.2 2.1 -Current Size (cm) - Width 4.2 4.2 -Current Size (cm) - Depth 0.1 0.2 -Total Square Cm 5.04 8.82 -Photo Taken Yes -Tunneling No -Undermining/Tunneling No -Circular Undermining No -Exudate Amt Medium Medium -Exudate Type Serosanguineous Serosanguineous -Wound Margin Distinct, Distinct, Outline Outline Attached Attached -Granulation Amt Medium (34-66%) Large (67-100%) -Granulation Quality [place] Red -Slough/Fibrin Yes -Necrosis Amt Medium (34-66%) Small (1-33%) -Necrotic Tissue Type Adherent Slough Adherent Slough -Structure Exposed N/A N/A -Texture (Bertha-wound Skin Appearance) Friable Scarring -Moisture (Bertha-wound Skin Appearance) Dry/Scaly Maceration -Color (Bertha-wound Skin Appearance) Assessed Hemosiderin Staining -Temperature (Bertha-wound Skin No Abnormality No Abnormality Appearance) (Pt Warm) (Pt Warm) -Tenderness on Palpation (Bertha-wound No No Skin Appearance) -Ulcer Cleansing Wound Cleanser Soap and Water -Foul Odor after Cleansing No Yes -Anesthetic Used 5% Lidocaine 4% Lidocaine Gel Solution Lower Limb Edema Present Yes Right Calf (cm) 69 Right Ankle (cm) 31.6 WC - Nurse 2 - General Ulcer CM Notes Start: 11/25/23 11:10 Freq: Status: Active Protocol: Activity Type Activity Date Activity User E-sign Co-sign Detail Recorded Client Recorded Date Recorded By Document 11/25/23 11:28 DS 1 11/25/23 11:34 DS Document 12/09/23 11:46 [facility] [id number] 12/09/23 11:53 [facility] 11/25/23 12/09/23 11:28 11:46 Wound Center Nurse 2 #4- R LAT LE -Time 11:28 11:46 -Correct Patient Yes Yes -Correct Side, Site, Position Yes Yes -Correct Procedure Yes Yes -Procedure Performed Yes Yes -Type of Procedure Debridement Debridement -Clinical Debridement Subcutaneous Subcutaneous -Tissue Removed Subcutaneous Subcutaneous -Post Debridement (cm) - Length 4 -Post Debridement (cm) - Width 2 -Post Debridement (cm) - Depth 0.1 -Total Square (Post) (cm) 8 -Area of Debridement (cm) - Length 4 -Area of Debridement (cm) - Width 2 -Total Square (Area) (cm) 8 -Tunneling No No -Undermining/Tunneling No No -Circular Undermining No No -Wound/Ulcer Outcome Not Healed Not Healed -Ulcer Cleansing Rinsed/ Rinsed/ Irrigated with Irrigated with Saline Saline -Foul Odor after Cleansing No -Bioengineered Tissue No -Type of Bioengineered Tissue Epifix Mesh -Expiration Date 05/21/28 -Product Lot Number [id number] -Percent Used 100 -Lot number of Saline Used [id number] -Bleeding Controlled with Pressure Pressure -Treatment Response Procedure Procedure Tolerated Well Tolerated Well -Debridement - Subq, 1st 20sq cm No Yes -Apply Skin Sub - 1st 25 sq cm - Legs 1 -Epifix Mesh (per sq cm) 11 Pain Scale: 0-10 Numeric Is Patient Pain Free? Yes Yes - Nurse 3 - General Ulcer D/C NN Start: 11/25/23 11:10 Freq: Status: Active Protocol: Activity Type Activity Date Activity User E-sign Co-sign Detail Recorded Client Recorded Date Recorded By Document 11/25/23 12:03 RB woun 11/25/23 12:04 RB Document 12/09/23 12:04 DL [id number] 12/09/23 12:05 DL 11/25/23 12/09/23 12:03 12:04 Wound Care Center Nurse 3 #4- R LAT LE -Ulcer Cleansing Rinsed/ Irrigated with Saline -Foul Odor after Cleansing No -Primary Dressing Applied Aquacel Extra -Other Dressing abd, kerlix dakins -Primary Dressing Covered/Secured with Dry Gauze,Dry Gauze & Roll Gauze,Secured with Tape -Other Covering tubigrip G -Aquacel Extra 1 Right -Stockings No -Other tubigrip size G Treatment Response Procedure Procedure Tolerated Well Tolerated Well Pain Scale: 0-10 Numeric Is Patient Pain Free? Yes Yes - Visit Discharge Discharge Condition Stable Stable Ambulatory Status Ambulatory, Ambulatory Walker Transportation Private Auto Private Auto Medication Reconcilliation completed & No provided to patient/care provider Clinical Summary of Care Provided Yes Assessment/Plan Assessment/Plan (1) Morbid obesity: CODE(S): E66.01 - Morbid (severe) obesity due to excess calories (2) Venous insufficiency of both lower extremities: CODE(S): I87.2 - Venous insufficiency (chronic) (peripheral) (3) Ulcer of right lower extremity with fat layer exposed: CODE(S): L97.912 - Non-pressure chronic ulcer of unspecified part of right lower leg with fat layer exposed PLAN: Cultures obtained after debridement and patient will be notified this week if there is any growth. Hold on EpiFix #9 this week and we will instead do Dakin's soaked in dressings and applied to wound wet to dry covered with dry dressings for daily dressings till next week Patient is to follow-up in 1 week (4) Dyshidrotic eczema: CODE(S): L30.1 - Dyshidrosis [pompholyx] PLAN: amLactin cream to all dried Flaky areas of skin
--- NOTE | 2023-12-10 14:09 | WC ---
PHOTO 12/09/23 RIGHT LAT LEG
--- NOTE | 2023-12-14 15:35 | WC ---
CX'S REVIEWED PER Antoni CLARK NP. N.O.'S RECEIVED FOR 2 ATB'S- LINEZOLID AND CIPRO. ALLERGIES REVIEWED. [facility] PREFERENCE. PT UPDATED AND AGREEABLE.
[2023-12-16 11:06] VITALS: BP 147/87; PULSE 80; RESP 22; TEMP 36.3; BMI 59.1
--- NOTE | 2023-12-16 12:40 | PCM.WC.PN ---
History of Present Illness Date of Service: 12/16/23 Chief Complaint: Right lateral leg ulcer History of Wound: 66-year-old white obese male. He appears here with a very large deep wound on his right posterior lower leg. He suffers from venous ulcers, and this 1 has been going on for 2 to 3 months. Other than covering it with a gauze dressing he has done nothing else. These are reoccurring ulcer openings have never been taking care of properly because of COVID. Patient did have arterial brachial and venous studies done and 2020 but never got to see the vascular surgeon for repair. Arterial studies fine its his venous he is got a lot of incompetence sees right where all of his wounds are. Patient suffers from cellulitis and also overgrowth of keratosis. He states that he has a history of an infected ulcer from 2013 and he was being seen at the [facility] wound [facility]. He states that he has had issues with this ulcer on an off for years. He states had a fracture of his left ankle which required him to be placed in a SNF and the ulcer on the right improved during that time. 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 He is obese with a BMI 59.1. He sleeps in a recliner because his mattress makes his back hurt. He has significant amount of lower extremity edema. 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 Right AFIA by posterior tibial artery is 1.01. Left AFIA by posterior tibial artery is 0.98. The left AFIA by dorsalis pedis is 1.02. Bilateral triphasic doppler wavelength at ankle level. Venous Duplex ultrasound on 01/28/21 showed segmental valvular incompetence is noted within the great saphenous veins bilaterally. The right small saphenous vein is patent and competent. The left small saphenous vein is patent and incompetent. The accessory saphenous vein in the right mid-thigh is incompetent. We will refer him to Dr. Solis for further evaluation. Today he denies fever, chills, nausea or vomiting. He states his appetite is good. We did discuss weight loss and maybe he needs to try getting those injections from his doctor. 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 Progress of Wound: Cultures came back positive for bacteria and patient was started on Chantal avoid but he has not gotten the medication yet he will start today. In the meantime we used Dakin's instead of wasting the EpiFix and that seems to cleaned up the wound and so today we will apply EpiFix #9 to the area since he starting the antibiotics today he had at least 4 or 5 different bacteria is growing and will be on antibiotics for the next month. Subjective Subjective Family is in agreeable to plan Objective Data Objective Data As stated above we will start with epi #9 today wound looks good does not have any odor no discharge measurements are good. Will start on the Chantal avoid as soon as he leaves here so we will go ahead and apply the EpiFix #9 patient will follow-up in 1 week Vital Signs: Vital Signs Temp Pulse Resp BP 97.4 F L 80 22 H 147/87 H 12/16/23 11:06 12/16/23 11:06 12/16/23 11:06 12/16/23 11:06 Weight: 400 lb Body Mass Index (BMI) 59.1 Lab / Micro Data Attestation: I reviewed the patient's lab results. Micro: Microbiology 12/09/23 11:50 Wound - Leg, Right Gram Stain - Final 12/09/23 11:50 Wound - Leg, Right Wound Culture - Final Enterobacter cloacae complex Proteus mirabilis Enterococcus faecalis Staphylococcus aureus 12/09/23 11:50 Wound - Leg, Right Anaerobic Culture - Final No anaerobic bacteria isolated. Physical Exam Const alert, oriented x3 and no apparent distress General Appearance: cooperative; Negative for combative or lethargic Orientation / Consciousness: awake Exam Limitations: no limitations HEENT Head and Scalp: normocephalic and atraumatic Eyes EOMs intact bilaterally General Eye: normal appearance of both eyes Neck full ROM and thyroid normal General: trachea midline Thyroid: thyroid normal Resp normal respiratory effort and no use of accessory muscles Effort and Inspection: Negative for labored, stridor or audible wheezes Cardio regular rate and regular rhythm GI non-tender Back/Spine Cervical Spine: cervical ROM normal Extremity full ROM and normal capillary refill General Extremity: edema Skin no rashes or lesions noted Skin Narrative: lateral right lowerr leg wound Neuro oriented x3 and CN's II-XII intact bilaterally Psych thought process normal, cooperative, affect normal, speech normal and activity/motor behavior normal Debridement Note Debridement Note Wound debrided: Right lower leg posterior venous ulcer Type of Debridement: Excisional debridement Anesthesia Used: 5% Lidocaine Gel Depth: in the subcutaneous layer Percentage of wound debrided: 100 Instrument Used: 5mm curette Tissue Removed: Fibrin Severity: Fat Layer Exposed Amount of bleeding with debridement: Mild Bleeding Controlled with: Compression and gauze Patient tolerated procedure: Patient tolerated procedure well Post-Debridement Measurements and Additional Note: Post-Debridement Measurements/Treatment - Nurse 1 - General Ulcer Assessment Start: 11/25/23 11:10 Freq: Status: Active Protocol: JADEN Activity Type Activity Date Activity User E-sign Co-sign Detail Recorded Client Recorded Date Recorded By Document 11/25/23 11:10 RB woun 11/25/23 11:12 RB Document 12/09/23 11:14 DL [id number] 12/09/23 11:19 DL Document 12/16/23 11:06 DL [id number] 12/16/23 11:12 DL 11/25/23 12/09/23 12/16/23 11:10 11:14 11:06 - Today's Visit Information Type of service Follow-up Visit Follow-up Visit Follow-up Visit (Physician/PURIFYING PLANT OPERATOR (Physician/PURIFYING PLANT OPERATOR (Physician/PURIFYING PLANT OPERATOR ) ) ) Arrival Mode Ambulatory, Ambulatory, Ambulatory, Walker Walker Walker Transfer Assistance None None None Patient Identification Verified (Name & Yes Yes Yes ) Patient Requires Transmission-Based No No No Precautions Height and Weight Body Mass Index (BMI) 59.1 59.1 59.1 BMI Classification Obese Obese Obese Vital Signs Temperature (97.8 F-99.1 F) 97.2 F L 96.5 F L 97.4 F L Temperature Source Temporal Temporal Temporal Pulse Rate (60-100) 74 66 80 Pulse Location Monitor Monitor Monitor Respiratory Rate (12-18) 18 20 H 22 H Respiratory rate source Observation Monitor Observation Blood Pressure (90/60-120/80) 123/65 H 128/78 H 147/87 H Blood Pressure Mean (mm Hg) 84 94 107 Source Monitor Monitor Monitor Position Semi-Fowlers Blood Pressure Location Left Arm History Since Last Visit- (Skip if this is Patient's initial visit) Have you changed medications since your No No No last visit? Any new allergies or adverse reactions No No No Had a fall/change in ADL's that may No No No increase risk of falls Signs or symptoms of abuse and/or No No No neglect since last visit Have you been in the hospital since your No No No last visit? Has dressing in place as prescribed Yes Yes Yes Has compression in place as prescribed Yes Yes Yes Has offloadiing in place as prescribed No Yes N/A Experienced any changes in pain level or No No No management Pain Scale: 0-10 Numeric Is Patient Pain Free? Yes Yes Yes WC - Nurse 1 - General Ulcer Measurement Start: 11/25/23 11:10 Freq: Status: Active Protocol: Activity Type Activity Date Activity User E-sign Co-sign Detail Recorded Client Recorded Date Recorded By Document 11/25/23 11:10 RB woun 11/25/23 11:12 RB Document 12/09/23 11:14 DL [id number] 12/09/23 11:19 DL Document 12/16/23 11:06 DL [id number] 12/16/23 11:12 DL 11/25/23 12/09/23 12/16/23 11:10 11:14 11:06 Wound Center Nurse 1 #4- R LAT LE -Combined with other wound No -Current Size (cm) - Length 1.2 2.1 2.2 -Current Size (cm) - Width 4.2 4.2 4 -Current Size (cm) - Depth 0.1 0.2 0.1 -Total Square Cm 5.04 8.82 8.8 -Photo Taken Yes Yes -Tunneling No -Undermining/Tunneling No -Circular Undermining No -Exudate Amt Medium Medium Medium -Exudate Type Serosanguineous Serosanguineous Serosanguineous -Wound Margin Distinct, Distinct, Distinct, Outline Outline Outline Attached Attached Attached -Granulation Amt Medium (34-66%) Large (67-100%) Large (67-100%) -Granulation Quality [place] -Slough/Fibrin Yes -Necrosis Amt Medium (34-66%) Small (1-33%) Small (1-33%) -Necrotic Tissue Type Adherent Slough Adherent Slough Adherent Slough -Structure Exposed N/A N/A N/A -Texture (Bertha-wound Skin Appearance) Friable Scarring Scarring,Rash -Moisture (Bertha-wound Skin Appearance) Dry/Scaly Maceration Maceration, Weeping -Color (Bertha-wound Skin Appearance) Assessed Hemosiderin Hemosiderin Staining Staining -Temperature (Bertha-wound Skin No Abnormality No Abnormality No Abnormality Appearance) (Pt Warm) (Pt Warm) (Pt Warm) -Tenderness on Palpation (Bertha-wound No No No Skin Appearance) -Ulcer Cleansing Wound Cleanser Soap and Water Soap and Water -Foul Odor after Cleansing No Yes No -Anesthetic Used 5% Lidocaine 4% Lidocaine 5% Lidocaine Gel Solution Gel Lower Limb Edema Present Yes Right Calf (cm) 69 Right Ankle (cm) 31.6 WC - Nurse 2 - General Ulcer CM Notes Start: 11/25/23 11:10 Freq: Status: Active Protocol: Activity Type Activity Date Activity User E-sign Co-sign Detail Recorded Client Recorded Date Recorded By Document 11/25/23 11:28 DS 1 11/25/23 11:34 DS Document 12/09/23 11:46 BMF [id number] 12/09/23 11:53 BMF Document 12/16/23 11:37 DL [id number] 12/16/23 11:45 DL 11/25/23 12/09/23 12/16/23 11:28 11:46 11:37 Wound Center Nurse 2 #4- R LAT LE -Time 11:28 11:46 11:38 -Correct Patient Yes Yes Yes -Correct Side, Site, Position Yes Yes Yes -Correct Procedure Yes Yes Yes -Procedure Performed Yes Yes Yes -Type of Procedure Debridement Debridement Debridement -Clinical Debridement Subcutaneous Subcutaneous Subcutaneous -Tissue Removed Subcutaneous Subcutaneous Subcutaneous -Post Debridement (cm) - Length 4 2.3 -Post Debridement (cm) - Width 2 4.2 -Post Debridement (cm) - Depth 0.1 0.3 -Total Square (Post) (cm) 8 9.66 -Area of Debridement (cm) - Length 4 2.3 -Area of Debridement (cm) - Width 2 4.2 -Total Square (Area) (cm) 8 9.66 -Tunneling No No No -Undermining/Tunneling No No No -Circular Undermining No No No -Wound/Ulcer Outcome Not Healed Not Healed Not Healed -Ulcer Cleansing Rinsed/ Rinsed/ Rinsed/ Irrigated with Irrigated with Irrigated with Saline Saline Saline -Foul Odor after Cleansing No No -Bioengineered Tissue No No -Type of Bioengineered Tissue Epifix Mesh Epifix Mesh -Expiration Date 05/21/28 05/21/28 -Product Lot Number [id number] -Percent Used 100 100 -Lot number of Saline Used [id number] -Bleeding Controlled with Pressure Pressure Pressure -Treatment Response Procedure Procedure Procedure Tolerated Well Tolerated Well Tolerated Well -Debridement - Subq, 1st 20sq cm No Yes No -Apply Skin Sub - 1st 25 sq cm - Legs 1 1 -Epifix Mesh (per sq cm) 11 11 Pain Scale: 0-10 Numeric Is Patient Pain Free? Yes Yes Yes - Nurse 3 - General Ulcer D/C NN Start: 11/25/23 11:10 Freq: Status: Active Protocol: Activity Type Activity Date Activity User E-sign Co-sign Detail Recorded Client Recorded Date Recorded By Document 11/25/23 12:03 RB woun 11/25/23 12:04 RB Document 12/09/23 12:04 DL [id number] 12/09/23 12:05 DL Document 12/16/23 11:53 DL [id number] 12/16/23 11:55 DL 11/25/23 12/09/23 12/16/23 12:03 12:04 11:53 Wound Care Center Nurse 3 #4- R LAT LE -Ulcer Cleansing Rinsed/ Irrigated with Saline -Foul Odor after Cleansing No No -Primary Dressing Applied Aquacel Extra Aquacel Extra -Other Dressing abd, kerlix dakins -Primary Dressing Covered/Secured with Dry Gauze,Dry Gauze & Roll Gauze,Secured with Tape -Other Covering tubigrip G abd -Aquacel Extra 1 1 Right -Stockings No -Other tubigrip size G tubigrip G Treatment Response Procedure Procedure Procedure Tolerated Well Tolerated Well Tolerated Well Pain Scale: 0-10 Numeric Is Patient Pain Free? Yes Yes Yes WC - Visit Discharge Discharge Condition Stable Stable Stable Ambulatory Status Ambulatory, Ambulatory Ambulatory, Walker Walker Transportation Private Auto Private Auto Private Auto Medication Reconcilliation completed & No provided to patient/care provider Clinical Summary of Care Provided Yes Assessment/Plan Assessment/Plan (1) Morbid obesity: CODE(S): E66.01 - Morbid (severe) obesity due to excess calories (2) Venous insufficiency of both lower extremities: CODE(S): I87.2 - Venous insufficiency (chronic) (peripheral) (3) Ulcer of right lower extremity with fat layer exposed: CODE(S): L97.912 - Non-pressure chronic ulcer of unspecified part of right lower leg with fat layer exposed PLAN: Cultures obtained were positive and patient is going to start on linezolid 600 mg twice daily for 14 days and then he will follow with ciprofloxacin 500 twice a day for 14 days. EpiFix #9 applied this week and tolerated well will cover with Aquacel extra for added protection against any more bacteria Patient is to take his Chantal avoid twice a day for 14 days to start Follow-up in 1 week (4) Dyshidrotic eczema: CODE(S): L30.1 - Dyshidrosis [pompholyx] PLAN: amLactin cream to all dried Flaky areas of skin
--- NOTE | 2023-12-17 09:15 | WC ---
PHOTO 12/16/23 RIGHT LATERAL LEG
== END 2023-12-19 23:59 | disposition home or self-care (01) ==
LOC: WC 11:00
PROVIDERS: PCP Preventive Medicine Occupational Medicine; Referring Provider Preventive Medicine Occupational Medicine; Visit Provider Nurse Practitioner
DX: I87.2 Venous insufficiency (chronic) (peripheral) (principal); L97.812 Non-pressure chronic ulcer of other part of right lower leg with fat layer exposed; I48.91 Unspecified atrial fibrillation; Z68.43 Body mass index [BMI] 50.0-59.9, adult; E66.01 Morbid (severe) obesity due to excess calories; R60.0 Localized edema; Z86.718 Personal history of other venous thrombosis and embolism; Z86.16 Personal history of COVID-19; Z79.01 Long term (current) use of anticoagulants; L30.1 Dyshidrosis [pompholyx]
CPT/HCPCS: 11042; 15271; 87070; 87075; 87077; 87186; 87205; Q4186

== ENCOUNTER 2024-01-13 11:00 | Outpatient (RCR) | payer MEDICARE, OTHER, SELFPAY ==
[2023-12-20 00:25] VITALS: BP 132/71; PULSE 76; RESP 22; TEMP 35.7; BMI 59.1
[2023-12-23 11:19] VITALS: BP 121/74; PULSE 76; RESP 20; TEMP 36.1; BMI 59.1
[2024-01-06 11:18] VITALS: BP 132/72; PULSE 79; RESP 18; TEMP 36.3; BMI 59.1
[2024-01-13 11:16] VITALS: BP 153/79; PULSE 82; RESP 20; TEMP 36.1; BMI 59.1
== END 2024-01-18 23:59 | disposition home or self-care (01) ==
LOC: WC 11:00
PROVIDERS: PCP Preventive Medicine Occupational Medicine; Referring Provider Preventive Medicine Occupational Medicine; Visit Provider Nurse Practitioner
DX: L97.912 Non-pressure chronic ulcer of unspecified part of right lower leg with fat layer exposed (principal); L88 Pyoderma gangrenosum; I48.91 Unspecified atrial fibrillation; E66.01 Morbid (severe) obesity due to excess calories; I87.2 Venous insufficiency (chronic) (peripheral); R60.0 Localized edema; Z86.718 Personal history of other venous thrombosis and embolism; L30.1 Dyshidrosis [pompholyx]; Z86.16 Personal history of COVID-19; Z79.01 Long term (current) use of anticoagulants
CPT/HCPCS: 11042; 97597; 99213; G0463

== ENCOUNTER 2024-01-27 10:55 | Outpatient (RCR) | payer MEDICARE, OTHER, SELFPAY ==
[2024-01-19 00:37] VITALS: BP 132/71; PULSE 76; RESP 22; TEMP 35.7; BMI 59.1
[2024-01-27 11:10] VITALS: BP 179/85; PULSE 84; RESP 18; TEMP 35.8; BMI 59.1
--- NOTE | 2024-01-27 12:20 | PN.PCM_ITS ---
History of Present Illness Date of Service: 01/27/24 Chief Complaint: Right lateral leg ulcer History of Wound: 66-year-old white obese male. He appears here with a very large deep wound on his right posterior lower leg. He suffers from venous ulcers, and this 1 has been going on for 2 to 3 months. Other than covering it with a gauze dressing he has done nothing else. These are reoccurring ulcer openings have never been taking care of properly because of COVID. Patient did have arterial brachial and venous studies done and 2020 but never got to see the vascular surgeon for repair. Arterial studies fine its his venous he is got a lot of incompetence sees right where all of his wounds are. Patient suffers from cellulitis and also overgrowth of keratosis. He states that he has a history of an infected ulcer from 2013 and he was being seen at the [facility] wound center. He states that he has had issues with this ulcer on an off for years. He states had a fracture of his left ankle which required him to be placed in a SNF and the ulcer on the right improved during that time. 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 He is obese with a BMI 59.1. He sleeps in a recliner because his mattress makes his back hurt. He has significant amount of lower extremity edema. 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 Right AFIA by posterior tibial artery is 1.01. Left AFIA by posterior tibial artery is 0.98. The left AFIA by dorsalis pedis is 1.02. Bilateral triphasic doppler wavelength at ankle level. Venous Duplex ultrasound on 01/28/21 showed segmental valvular incompetence is noted within the great saphenous veins bilaterally. The right small saphenous vein is patent and competent. The left small saphenous vein is patent and incompetent. The accessory saphenous vein in the right mid- thigh is incompetent. We will refer him to Dr. Solis for further evaluation. Today he denies fever, chills, nausea or vomiting. He states his appetite is good. We did discuss weight loss and maybe he needs to try getting those injections from his doctor. 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 No redness no odor noted doing well no maceration noted the wound looks very good is healing nicely Subjective Subjective and are pleased with outcomes tolerating the steroids well Objective Data Objective Data Will continue the oral steroids but now start to taper after the next 2 weeks. Vital Signs: Vital Signs Temp Pulse Resp BP 96.4 F L 84 18 179/85 H 01/27/24 11:10 01/27/24 11:10 01/27/24 11:10 01/27/24 11:10 Weight: 400 lb Body Mass Index (BMI) 59.1 Lab / Micro Data Attestation: I reviewed the patient's lab results. Physical Exam Const alert, oriented x3 and no apparent distress General Appearance: cooperative; Negative for combative or lethargic Orientation / Consciousness: awake Exam Limitations: no limitations HEENT Head and Scalp: normocephalic and atraumatic Eyes EOMs intact bilaterally General Eye: normal appearance of both eyes Neck full ROM and thyroid normal General: trachea midline Thyroid: thyroid normal Resp normal respiratory effort and no use of accessory muscles Effort and Inspection: Negative for labored, stridor or audible wheezes Cardio regular rate and regular rhythm GI non-tender Back/Spine Cervical Spine: cervical ROM normal Extremity full ROM and normal capillary refill General Extremity: edema Skin no rashes or lesions noted Skin Narrative: lateral right lowerr leg wound Neuro oriented x3 and CN's II-XII intact bilaterally Psych thought process normal, cooperative, affect normal, speech normal and activity/motor behavior normal Debridement Note Debridement Note Wound debrided: Right lower leg posterior venous ulcer Type of Debridement: Excisional debridement Anesthesia Used: 5% Lidocaine Gel Depth: in the subcutaneous layer Percentage of wound debrided: 100 Instrument Used: 3mm curette Tissue Removed: Fibrin Severity: Fat Layer Exposed Amount of bleeding with debridement: None Bleeding Controlled with: Pressure Patient tolerated procedure: Patient tolerated procedure well Post-Debridement Measurements and Additional Note: Post-Debridement Measurements/Treatment WC - Nurse 1 - General Ulcer Assessment Start: 01/27/24 11:10 Freq: Status: Active Protocol: JADEN Activity Type Activity Date Activity User E-sign Co-sign Detail Recorded Client Recorded Date Recorded By Document 01/27/24 11:10 MOUSTAPHA [id number] 01/27/24 11:13 RB 01/27/24 11:10 - Today's Visit Information Type of service Follow-up Visit (Physician/RAYMOND MILL OPERATOR ) Arrival Mode Ambulatory Transfer Assistance None Patient Identification Verified (Name & Yes ) Patient Requires Transmission-Based No Precautions Height and Weight Body Mass Index (BMI) 59.1 BMI Classification Obese Vital Signs Temperature (97.8 F-99.1 F) 96.4 F L Temperature Source Temporal Pulse Rate (60-100) 84 Pulse Location Monitor Respiratory Rate (12-18) 18 Respiratory rate source Observation Blood Pressure (90/60-120/80) 179/85 H Blood Pressure Mean (mm Hg) 116 Source Monitor Position Semi-Fowlers Blood Pressure Location Left Arm History Since Last Visit- (Skip if this is Patient's initial visit) Have you changed medications since your No last visit? Any new allergies or adverse reactions No Had a fall/change in ADL's that may No increase risk of falls Signs or symptoms of abuse and/or No neglect since last visit Have you been in the hospital since your No last visit? Has dressing in place as prescribed Yes Has compression in place as prescribed No Has offloadiing in place as prescribed No Experienced any changes in pain level or No management Pain Scale: 0-10 Numeric Is Patient Pain Free? Yes - Nurse 1 - General Ulcer Measurement Start: 01/27/24 11:10 Freq: Status: Active Protocol: Activity Type Activity Date Activity User E-sign Co-sign Detail Recorded Client Recorded Date Recorded By Document 01/27/24 11:10 MOUSTAPHA [id number] 01/27/24 11:13 RB 01/27/24 11:10 Wound Center Nurse 1 #4- R LAT LE -Combined with other wound No -Current Size (cm) - Length 0.4 -Current Size (cm) - Width 2.5 -Current Size (cm) - Depth 0.3 -Total Square Cm 1.00 -Photo Taken Yes -Tunneling No -Undermining/Tunneling No -Circular Undermining No -Exudate Amt Medium -Exudate Type Serosanguineous -Wound Margin Thickened & Rolled Under -Granulation Amt Medium (34-66%) -Granulation Quality [place] -Slough/Fibrin Yes -Necrosis Amt Medium (34-66%) -Necrotic Tissue Type Adherent Slough -Structure Exposed N/A -Texture (Bertha-wound Skin Appearance) Assessed -Moisture (Bertha-wound Skin Appearance) Assessed,Dry/ Scaly -Color (Bertha-wound Skin Appearance) Assessed -Temperature (Bertha-wound Skin No Abnormality Appearance) (Pt Warm) -Tenderness on Palpation (Bertha-wound No Skin Appearance) -Ulcer Cleansing Wound Cleanser -Foul Odor after Cleansing No -Anesthetic Used 5% Lidocaine Gel Lower Limb Edema Present Yes Right Calf (cm) 64 Right Ankle (cm) 31.8 WC - Nurse 2 - General Ulcer CM Notes Start: 01/27/24 11:10 Freq: Status: Active Protocol: Activity Type Activity Date Activity User E-sign Co-sign Detail Recorded Client Recorded Date Recorded By Document 01/27/24 11:19 [facility] [id number] 01/27/24 11:24 [facility] 01/27/24 11:19 Wound Center Nurse 2 #4- R LAT LE -Time 11:20 -Correct Patient Yes -Correct Side, Site, Position Yes -Correct Procedure Yes -Procedure Performed Yes -Type of Procedure Debridement -Clinical Debridement Subcutaneous -Post Debridement (cm) - Length 0.5 -Post Debridement (cm) - Width 2.7 -Post Debridement (cm) - Depth 0.2 -Total Square (Post) (cm) 1.35 -Area of Debridement (cm) - Length 0.5 -Area of Debridement (cm) - Width 2.7 -Total Square (Area) (cm) 1.35 -Tunneling No -Undermining/Tunneling No -Circular Undermining No -Wound/Ulcer Outcome Not Healed -Ulcer Cleansing Rinsed/ Irrigated with Saline -Foul Odor after Cleansing No -Bleeding Controlled with Pressure -Treatment Response Procedure Tolerated Well -Debridement - Subq, 1st 20sq cm Yes Pain Scale: 0-10 Numeric Is Patient Pain Free? Yes - Nurse 3 - General Ulcer D/C NN Start: 01/27/24 11:10 Freq: Status: Active Protocol: Activity Type Activity Date Activity User E-sign Co-sign Detail Recorded Client Recorded Date Recorded By Document 01/27/24 11:53 [id number] 01/27/24 11:54 01/27/24 11:53 Wound Care Center Nurse 3 #4- R LAT LE -Ulcer Cleansing Not Cleansed -Foul Odor after Cleansing No -Primary Dressing Applied Other -Other Dressing abd pad -Primary Dressing Covered/Secured with Dry Gauze & Roll Gauze, Secured with Tape -Wound Comment(s) clobetasol applied to periwound Pain Scale: 0-10 Numeric Is Patient Pain Free? Yes WC - Visit Discharge Discharge Condition Stable Ambulatory Status Ambulatory, Walker Transportation Private Auto Assessment/Plan Assessment/Plan (1) Morbid obesity: CODE(S): E66.01 - Morbid (severe) obesity due to excess calories (2) Venous insufficiency of both lower extremities: CODE(S): I87.2 - Venous insufficiency (chronic) (peripheral) (3) Ulcer of right lower extremity with fat layer exposed: CODE(S): L97.912 - Non-pressure chronic ulcer of unspecified part of right lower leg with fat layer exposed (4) Dyshidrotic eczema: CODE(S): L30.1 - Dyshidrosis [pompholyx] PLAN: amLactin cream to all dried Flaky areas of skin (5) Pyoderma gangrenosa: CODE(S): L88 - Pyoderma gangrenosum PLAN: Wash the leg with antibacterial soap and water and pat dry apply the clobetasol 0.5% twice a day for x 1 week. Apply dry dressing over top with Coban or wrap. Continue the 40 mg of prednisone daily for healing follow-up in 3 weeks
== END 2024-02-18 23:59 | disposition home or self-care (01) ==
LOC: WC 10:55
PROVIDERS: PCP Preventive Medicine Occupational Medicine; Referring Provider Preventive Medicine Occupational Medicine; Visit Provider Nurse Practitioner
DX: L97.912 Non-pressure chronic ulcer of unspecified part of right lower leg with fat layer exposed (principal); L88 Pyoderma gangrenosum; I48.91 Unspecified atrial fibrillation; E66.01 Morbid (severe) obesity due to excess calories; Z68.43 Body mass index [BMI] 50.0-59.9, adult; R60.0 Localized edema; I87.2 Venous insufficiency (chronic) (peripheral); Z86.718 Personal history of other venous thrombosis and embolism; L30.1 Dyshidrosis [pompholyx]; Z86.16 Personal history of COVID-19; Z79.01 Long term (current) use of anticoagulants
CPT/HCPCS: 11042; 99213; G0463

== ENCOUNTER 2024-03-16 11:00 | Outpatient (RCR) | payer MEDICARE, OTHER, SELFPAY ==
[2024-02-19 00:43] VITALS: BP 132/71; PULSE 76; RESP 22; TEMP 35.7; BMI 59.1
[2024-02-24 15:46] VITALS: BP 143/83; PULSE 90; RESP 18; TEMP 35.8; BMI 59.1
--- NOTE | 2024-02-24 16:41 | PN.PCM_ITS ---
History of Present Illness Date of Service: 02/24/24 Chief Complaint: Right lateral leg ulcer History of Wound: 66-year-old white obese male. He appears here with a very large deep wound on his right posterior lower leg. He suffers from venous ulcers, and this 1 has been going on for 2 to 3 months. Other than covering it with a gauze dressing he has done nothing else. These are reoccurring ulcer openings have never been taking care of properly because of COVID. Patient did have arterial brachial and venous studies done and 2020 but never got to see the vascular surgeon for repair. Arterial studies fine its his venous he is got a lot of incompetence sees right where all of his wounds are. Patient suffers from cellulitis and also overgrowth of keratosis. He states that he has a history of an infected ulcer from 2013 and he was being seen at the [place] wound center. He states that he has had issues with this ulcer on an off for years. He states had a fracture of his left ankle which required him to be placed in a SNF and the ulcer on the right improved during that time. 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 He is obese with a BMI 59.1. He sleeps in a recliner because his mattress makes his back hurt. He has significant amount of lower extremity edema. 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 Right AFIA by posterior tibial artery is 1.01. Left AFIA by posterior tibial artery is 0.98. The left AFIA by dorsalis pedis is 1.02. Bilateral triphasic doppler wavelength at ankle level. Venous Duplex ultrasound on 01/28/21 showed segmental valvular incompetence is noted within the great saphenous veins bilaterally. The right small saphenous vein is patent and competent. The left small saphenous vein is patent and incompetent. The accessory saphenous vein in the right mid- thigh is incompetent. We will refer him to Dr. Solis for further evaluation. Today he denies fever, chills, nausea or vomiting. He states his appetite is good. 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 Progress of Wound: Courtesy visit today. Patient came in for a nurse's visit and really wanted to be seen since he was not able to make his last appointment. Ulcer to right lateral leg. Nice beefy pink. It is measuring larger than his previous visit. Objective Data Objective Data Vital Signs: Vital Signs Temp Pulse Resp BP O2 Del Method 96.4 F L 90 18 143/83 H Room Air 02/24/24 15:46 02/24/24 15:46 02/24/24 15:46 02/24/24 15:46 02/24/24 15:46 Oxygen Delivery Method Room Air Weight: 400 lb Body Mass Index (BMI) 59.1 Charges/Coding Procedures Integumentary [id number]: [id number] Jannette subq tissue 20 sq cm/< Debridement Note Debridement Note Wound debrided: Right lower leg posterior venous ulcer Wound Grade/Stage: Stage 3 Type of Debridement: Excisional debridement Anesthesia Used: 5% Lidocaine Gel Depth: in the subcutaneous layer Percentage of wound debrided: 100 Instrument Used: 3mm curette Tissue Removed: Non viable tissue and slough Severity: Fat Layer Exposed Amount of bleeding with debridement: None Bleeding Controlled with: Pressure Patient tolerated procedure: Patient tolerated procedure well Post-Debridement Measurements and Additional Note: Post-Debridement Measurements/Treatment - Nurse 1 - General Ulcer Assessment Start: 02/24/24 15:46 Freq: Status: Active Protocol: JADEN Activity Type Activity Date Activity User E-sign Co-sign Detail Recorded Client Recorded Date Recorded By Document 02/24/24 15:46 [id number] 02/24/24 16:03 02/24/24 15:46 - Today's Visit Information Type of service Nurse-only Visit Arrival Mode Ambulatory, Walker Accompanied by Patient Identification Verified (Name & Yes ) Height and Weight Body Mass Index (BMI) 59.1 BMI Classification Obese Vital Signs Temperature (97.8 F-99.1 F) 96.4 F L Temperature Source Temporal Pulse Rate (60-100) 90 Pulse Location Monitor Respiratory Rate (12-18) 18 Respiratory rate source Observation Oxygen Delivery Method Room Air Blood Pressure (90/60-120/80) 143/83 H Blood Pressure Mean (mm Hg) 103 Source Monitor Position Sitting Blood Pressure Location Left Forearm History Since Last Visit- (Skip if this is Patient's initial visit) Have you changed medications since your No last visit? Any new allergies or adverse reactions No Had a fall/change in ADL's that may No increase risk of falls Signs or symptoms of abuse and/or No neglect since last visit Have you been in the hospital since your No last visit? Has dressing in place as prescribed Yes Has compression in place as prescribed Yes Has offloadiing in place as prescribed N/A Experienced any changes in pain level or No management Left Footwear Regular Shoe Right Footwear Regular Shoe Pain Scale: 0-10 Numeric Is Patient Pain Free? Yes - Nurse 1 - General Ulcer Measurement Start: 02/24/24 15:46 Freq: Status: Active Protocol: Activity Type Activity Date Activity User E-sign Co-sign Detail Recorded Client Recorded Date Recorded By Document 02/24/24 16:03 KW [id number] 02/24/24 16:09 02/24/24 16:03 Wound Center Nurse 1 #4- R LAT LE -Current Size (cm) - Length 1 -Current Size (cm) - Width 4 -Current Size (cm) - Depth 0.3 -Total Square Cm 4 -Date of Last Picture (Recall this 02/24/24 field) -Texture (Bertha-wound Skin Appearance) Assessed -Moisture (Bertha-wound Skin Appearance) Assessed -Color (Bertha-wound Skin Appearance) Not Assessed -Temperature (Bertha-wound Skin No Abnormality Appearance) (Pt Warm) -Tenderness on Palpation (Bertha-wound No Skin Appearance) -Ulcer Cleansing Soap and Water -Foul Odor after Cleansing No -Anesthetic Used 5% Lidocaine Gel - Nurse 2 - General Ulcer CM Notes Start: 02/24/24 15:46 Freq: Status: Active Protocol: Activity Type Activity Date Activity User E-sign Co-sign Detail Recorded Client Recorded Date Recorded By Document 02/24/24 16:14 [id number] 02/24/24 16:18 02/24/24 16:14 Wound Center Nurse 2 -Time 16:16 -Correct Patient Yes -Correct Side, Site, Position Yes -Correct Procedure Yes -Procedure Performed Yes -Type of Procedure Debridement -Clinical Debridement Subcutaneous -Tissue Removed Subcutaneous -Post Debridement (cm) - Length 1.7 -Post Debridement (cm) - Width 4.0 -Post Debridement (cm) - Depth 0.3 -Total Square (Post) (cm) 6.80 -Area of Debridement (cm) - Length 1.7 -Area of Debridement (cm) - Width 4.0 -Total Square (Area) (cm) 6.80 -Tunneling No -Undermining/Tunneling No -Circular Undermining No -Wound/Ulcer Outcome Not Healed -Ulcer Cleansing Rinsed/ Irrigated with Saline -Foul Odor after Cleansing No -Bioengineered Tissue No -Bleeding Controlled with Pressure -Treatment Response Procedure Tolerated Well -Debridement - Subq, 1st 20sq cm Yes Pain Scale: 0-10 Numeric Is Patient Pain Free? Yes - Nurse 3 - General Ulcer D/C NN Start: 02/24/24 15:46 Freq: Status: Active Protocol: Activity Type Activity Date Activity User E-sign Co-sign Detail Recorded Client Recorded Date Recorded By Document 02/24/24 15:46 KW [id number] 02/24/24 16:03 Document 02/24/24 16:37 [id number] 02/24/24 16:38 02/24/24 02/24/24 15:46 16:37 Vital Signs Temperature (97.8 F-99.1 F) 96.4 F L Temperature Source Temporal Pulse Rate (60-100) 90 Pulse Location Monitor Respiratory Rate (12-18) 18 Respiratory rate source Observation Oxygen Delivery Method Room Air Blood Pressure (90/60-120/80) 143/83 H Blood Pressure Mean (mm Hg) 103 Source Monitor Position Sitting Blood Pressure Location Left Forearm Pain Scale: 0-10 Numeric Is Patient Pain Free? Yes Yes Wound Care Center Nurse 3 #4- R LAT LE -Ulcer Cleansing Not Cleansed -Foul Odor after Cleansing No -Primary Dressing Covered/Secured with Dry Gauze & Roll Gauze, Secured with Tape WC - Visit Discharge Discharge Condition Stable Ambulatory Status Ambulatory Transportation Private Auto Assessment/Plan Assessment/Plan (1) Morbid obesity: CODE(S): E66.01 - Morbid (severe) obesity due to excess calories (2) Venous insufficiency of both lower extremities: CODE(S): I87.2 - Venous insufficiency (chronic) (peripheral) (3) Ulcer of right lower extremity with fat layer exposed: CODE(S): L97.912 - Non-pressure chronic ulcer of unspecified part of right lower leg with fat layer exposed (4) Dyshidrotic eczema: CODE(S): L30.1 - Dyshidrosis [pompholyx] PLAN: amLactin cream to all dried Flaky areas of skin (5) Pyoderma gangrenosa: CODE(S): 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 Wash the leg with antibacterial soap and water and pat dry apply the clobetasol 0.5% twice a day for x 1 week. Apply dry dressing over top with Coban or wrap. Continue the prednisone taper. Follow-up in 1-2 weeks with Krystin.
--- NOTE | 2024-02-25 11:15 | WC ---
PHOTO 02/24/24 RIGHT LATERAL LE
[2024-03-02 11:09] VITALS: BP 128/82; PULSE 90; RESP 22; TEMP 35.5; BMI 59.1
--- NOTE | 2024-03-02 12:11 | PN.PCM_ITS ---
History of Present Illness Date of Service: 03/02/24 Chief Complaint: Right lateral leg ulcer History of Wound: 66-year-old white obese male. He appears here with a very large deep wound on his right posterior lower leg. He suffers from venous ulcers, and this 1 has been going on for 2 to 3 months. Other than covering it with a gauze dressing he has done nothing else. These are reoccurring ulcer openings have never been taking care of properly because of COVID. Patient did have arterial brachial and venous studies done and 2020 but never got to see the vascular surgeon for repair. Arterial studies fine its his venous he is got a lot of incompetence sees right where all of his wounds are. Patient suffers from cellulitis and also overgrowth of keratosis. He states that he has a history of an infected ulcer from 2013 and he was being seen at the [place] wound center. He states that he has had issues with this ulcer on an off for years. He states had a fracture of his left ankle which required him to be placed in a SNF and the ulcer on the right improved during that time. 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 He is obese with a BMI 59.1. He sleeps in a recliner because his mattress makes his back hurt. He has significant amount of lower extremity edema. 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 Right AFIA by posterior tibial artery is 1.01. Left AFIA by posterior tibial artery is 0.98. The left AFIA by dorsalis pedis is 1.02. Bilateral triphasic doppler wavelength at ankle level. Venous Duplex ultrasound on 01/28/21 showed segmental valvular incompetence is noted within the great saphenous veins bilaterally. The right small saphenous vein is patent and competent. The left small saphenous vein is patent and incompetent. The accessory saphenous vein in the right mid- thigh is incompetent. We will refer him to Dr. Solis for further evaluation. Today he denies fever, chills, nausea or vomiting. He states his appetite is good. 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 Progress of Wound: Wound is still there healing is slow still has depth but improving. The coloring around the skin looks very normal and all flesh colored with no sign of irritation or redness or infection. No swelling noted no odor noted. We will try using timolol gel in the wound base and see if that helps with healing.. Subjective Subjective Patient was okay with change of material using to heal Objective Data Objective Data Healing is slowly still dealing with the pyoderma gangrenosum. Will try using timolol ophthalmic gel twice a day to his lower leg and see if that helps close it patient will follow-up in a week. No sign of infection or smell or swelling or redness Vital Signs: Vital Signs Temp Pulse Resp BP O2 Del Method 96 F L 90 22 H 128/82 H Room Air 03/02/24 11:09 03/02/24 11:09 03/02/24 11:09 03/02/24 11:02/24/24 15:46 Oxygen Delivery Method Room Air Weight: 400 lb Body Mass Index (BMI) 59.1 Physical Exam Const alert, oriented x3 and no apparent distress General Appearance: cooperative; Negative for combative or lethargic Orientation / Consciousness: awake Exam Limitations: no limitations HEENT Head and Scalp: normocephalic and atraumatic Eyes EOMs intact bilaterally General Eye: normal appearance of both eyes Neck full ROM and thyroid normal General: trachea midline Thyroid: thyroid normal Resp normal respiratory effort and no use of accessory muscles Effort and Inspection: Negative for labored, stridor or audible wheezes Cardio regular rate and regular rhythm GI non-tender Back/Spine Cervical Spine: cervical ROM normal Extremity full ROM and normal capillary refill General Extremity: edema Skin no rashes or lesions noted Skin Narrative: lateral right lowerr leg wound Neuro oriented x3 and CN's II-XII intact bilaterally Psych thought process normal, cooperative, affect normal, speech normal and activity/motor behavior normal Debridement Note Debridement Note Wound debrided: Right lower leg posterior venous ulcer Type of Debridement: Excisional debridement Anesthesia Used: 5% Lidocaine Gel Depth: in the subcutaneous layer Percentage of wound debrided: 100 Instrument Used: 3mm curette Tissue Removed: Fibrin Severity: Fat Layer Exposed Amount of bleeding with debridement: None Bleeding Controlled with: Pressure Patient tolerated procedure: Patient tolerated procedure well Post-Debridement Measurements and Additional Note: Post-Debridement Measurements/Treatment WC - Nurse 1 - General Ulcer Assessment Start: 02/24/24 15:46 Freq: Status: Active Protocol: JADEN Activity Type Activity Date Activity User E-sign Co-sign Detail Recorded Client Recorded Date Recorded By Document 02/24/24 15:46 KW [id number] 02/24/24 16:03 KW Document 03/02/24 11:09 MT [id number] 03/02/24 11:19 MT 02/24/24 03/02/24 15:46 11:09 - Today's Visit Information Type of service Nurse-only Visit Arrival Mode Ambulatory, Walker Accompanied by Patient Identification Verified (Name & Yes ) Height and Weight Body Mass Index (BMI) 59.1 59.1 BMI Classification Obese Obese Vital Signs Temperature (97.8 F-99.1 F) 96.4 F L 96 F L Temperature Source Temporal Temporal Pulse Rate (60-100) 90 90 Pulse Location Monitor Monitor Respiratory Rate (12-18) 18 22 H Respiratory rate source Observation Observation Oxygen Delivery Method Room Air Blood Pressure (90/60-120/80) 143/83 H 128/82 H Blood Pressure Mean (mm Hg) 103 97 Source Monitor Monitor Position Sitting Sitting Blood Pressure Location Left Forearm Left Forearm History Since Last Visit- (Skip if this is Patient's initial visit) Have you changed medications since your No last visit? Any new allergies or adverse reactions No Had a fall/change in ADL's that may No increase risk of falls Signs or symptoms of abuse and/or No neglect since last visit Have you been in the hospital since your No last visit? Has dressing in place as prescribed Yes Yes Has compression in place as prescribed Yes Yes Has offloadiing in place as prescribed N/A Yes Experienced any changes in pain level or No Yes management Left Footwear Regular Shoe Regular Shoe Right Footwear Regular Shoe Regular Shoe Pain Scale: 0-10 Numeric Is Patient Pain Free? Yes Yes - Nurse 1 - General Ulcer Measurement Start: 02/24/24 15:46 Freq: Status: Active Protocol: Activity Type Activity Date Activity User E-sign Co-sign Detail Recorded Client Recorded Date Recorded By Document 02/24/24 16:03 KW [id number] 02/24/24 16:09 KW Document 03/02/24 11:09 MT [id number] 03/02/24 11:19 MT 02/24/24 03/02/24 16:03 11:09 Wound Center Nurse 1 #4- R LAT LE -Current Size (cm) - Length 1 1.5 -Current Size (cm) - Width 4 4.0 -Current Size (cm) - Depth 0.3 0.2 -Total Square Cm 4 6.00 -Date of Last Picture (Recall this 02/24/24 field) -Tunneling No -Undermining/Tunneling No -Circular Undermining No -Exudate Amt Small -Exudate Type Serosanguineous -Wound Margin Thickened & Rolled Under -Granulation Amt Medium (34-66%) -Granulation Quality Pale,[place] -Necrosis Amt Medium (34-66%) -Necrotic Tissue Type Adherent Slough -Texture (Bertha-wound Skin Appearance) Assessed Assessed -Moisture (Bertha-wound Skin Appearance) Assessed Assessed, Maceration -Color (Bertha-wound Skin Appearance) Not Assessed Assessed, Erythema, Hemosiderin Staining -Temperature (Bertha-wound Skin No Abnormality No Abnormality Appearance) (Pt Warm) (Pt Warm) -Tenderness on Palpation (Bertha-wound No No Skin Appearance) -Ulcer Cleansing Soap and Water Soap and Water -Foul Odor after Cleansing No No -Anesthetic Used 5% Lidocaine 5% Lidocaine Gel Gel Right Calf (cm) 66 Right Ankle (cm) 31 - Nurse 2 - General Ulcer CM Notes Start: 02/24/24 15:46 Freq: Status: Active Protocol: Activity Type Activity Date Activity User E-sign Co-sign Detail Recorded Client Recorded Date Recorded By Document 02/24/24 16:14 [id number] 02/24/24 16:18 Document 03/02/24 11:28 [facility] [id number] 03/02/24 11:37 [facility] 02/24/24 03/02/24 16:14 11:28 Wound Center Nurse 2 #4- R LAT LE -Time 16:16 11:28 -Correct Patient Yes Yes -Correct Side, Site, Position Yes Yes -Correct Procedure Yes Yes -Procedure Performed Yes Yes -Type of Procedure Debridement Debridement -Clinical Debridement Subcutaneous Subcutaneous -Tissue Removed Subcutaneous Subcutaneous -Post Debridement (cm) - Length 1.7 1.2 -Post Debridement (cm) - Width 4.0 3 -Post Debridement (cm) - Depth 0.3 0.3 -Total Square (Post) (cm) 6.80 3.6 -Area of Debridement (cm) - Length 1.7 1.2 -Area of Debridement (cm) - Width 4.0 3 -Total Square (Area) (cm) 6.80 3.6 -Tunneling No No -Undermining/Tunneling No No -Circular Undermining No No -Wound/Ulcer Outcome Not Healed Not Healed -Ulcer Cleansing Rinsed/ Rinsed/ Irrigated with Irrigated with Saline Saline -Foul Odor after Cleansing No No -Bioengineered Tissue No No -Bleeding Controlled with Pressure Pressure -Treatment Response Procedure Procedure Tolerated Well Tolerated Well -Debridement - Subq, 1st 20sq cm Yes Yes Pain Scale: 0-10 Numeric Is Patient Pain Free? Yes Yes - Nurse 3 - General Ulcer D/C NN Start: 02/24/24 15:46 Freq: Status: Active Protocol: Activity Type Activity Date Activity User E-sign Co-sign Detail Recorded Client Recorded Date Recorded By Document 02/24/24 15:46 KW [id number] 02/24/24 16:03 KW Document 02/24/24 16:37 [id number] 02/24/24 16:38 Document 03/02/24 11:47 CP [id number] 03/02/24 11:58 CP 02/24/24 02/24/24 03/02/24 15:46 16:37 11:47 Vital Signs Temperature (97.8 F-99.1 F) 96.4 F L Temperature Source Temporal Pulse Rate (60-100) 90 Pulse Location Monitor Respiratory Rate (12-18) 18 Respiratory rate source Observation Oxygen Delivery Method Room Air Blood Pressure (90/60-120/80) 143/83 H Blood Pressure Mean (mm Hg) 103 Source Monitor Position Sitting Blood Pressure Location Left Forearm Pain Scale: 0-10 Numeric Is Patient Pain Free? Yes Yes Yes Wound Care Center Nurse 3 #4- R LAT LE -Ulcer Cleansing Not Cleansed Rinsed/ Irrigated with Saline -Foul Odor after Cleansing No -Other Dressing CLOBETASOL CREAM -Primary Dressing Covered/Secured with Dry Gauze & Secured with Roll Gauze, Tape Secured with Tape -Other Covering ABD, KERLIX Treatment Response Procedure Tolerated Well WC - Visit Discharge Discharge Condition Stable Stable Ambulatory Status Ambulatory Ambulatory, Walker Transportation Private Auto Private Auto Clinical Summary of Care Provided Yes Assessment/Plan Assessment/Plan (1) Morbid obesity: CODE(S): E66.01 - Morbid (severe) obesity due to excess calories (2) Venous insufficiency of both lower extremities: CODE(S): I87.2 - Venous insufficiency (chronic) (peripheral) (3) Ulcer of right lower extremity with fat layer exposed: CODE(S): L97.912 - Non-pressure chronic ulcer of unspecified part of right lower leg with fat layer exposed (4) Dyshidrotic eczema: CODE(S): L30.1 - Dyshidrosis [pompholyx] PLAN: amLactin cream to all dried Flaky areas of skin (5) Pyoderma gangrenosa: CODE(S): L88 - Pyoderma gangrenosum PLAN: Continue washing the right lower leg with antibacterial soap and water apply timolol gel to wound base cover with a gauze dressing and ABD compression stocking 2 times a day and follow-up in 1 week
[2024-03-09 10:28] VITALS: BP 133/63; PULSE 75; RESP 22; TEMP 36.3; BMI 59.1
--- NOTE | 2024-03-09 12:24 | PN.PCM_ITS ---
History of Present Illness Date of Service: 03/09/24 Chief Complaint: Right lateral leg ulcer History of Wound: 66-year-old white obese male. He appears here with a very large deep wound on his right posterior lower leg. He suffers from venous ulcers, and this 1 has been going on for 2 to 3 months. Other than covering it with a gauze dressing he has done nothing else. These are reoccurring ulcer openings have never been taking care of properly because of COVID. Patient did have arterial brachial and venous studies done and 2020 but never got to see the vascular surgeon for repair. Arterial studies fine its his venous he is got a lot of incompetence sees right where all of his wounds are. Patient suffers from cellulitis and also overgrowth of keratosis. He states that he has a history of an infected ulcer from 2013 and he was being seen at the [facility]. He states that he has had issues with this ulcer on an off for years. He states had a fracture of his left ankle which required him to be placed in a SNF and the ulcer on the right improved during that time. 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 He is obese with a BMI 59.1. He sleeps in a recliner because his mattress makes his back hurt. He has significant amount of lower extremity edema. 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 Right AFIA by posterior tibial artery is 1.01. Left AFIA by posterior tibial artery is 0.98. The left AFIA by dorsalis pedis is 1.02. Bilateral triphasic doppler wavelength at ankle level. Venous Duplex ultrasound on 01/28/21 showed segmental valvular incompetence is noted within the great saphenous veins bilaterally. The right small saphenous vein is patent and competent. The left small saphenous vein is patent and incompetent. The accessory saphenous vein in the right mid- thigh is incompetent. We will refer him to Dr. Solis for further evaluation. Today he denies fever, chills, nausea or vomiting. He states his appetite is good. 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 Progress of Wound: Wound is closed on the lower half of the wound the upper half is smaller measurements are improved no sign of infection no odor and this is using the timolol ophthalmic liquid and his wound daily. So to move things along better were going to have him use the timolol in the morning and the steroid cream in the evening and do it 2 times a day dressing change. Patient is still to follow-up next week to make sure it is closing and it looks really good Subjective Subjective and are agreeable to plan is his patient care associate and does the dressings. Objective Data Objective Data So the bottom half of the wound has closed and we just try to get the upper half to close over. Patient was using timolol since Thursday and it seems to be making it improved. Vital Signs: Vital Signs Temp Pulse Resp BP O2 Del Method 97.3 F L 75 22 H 133/63 H Room Air 03/09/24 10:28 03/09/24 10:28 03/09/24 10:28 03/09/24 10:28 02/24/24 15:46 Oxygen Delivery Method Room Air Weight: 400 lb Body Mass Index (BMI) 59.1 Lab / Micro Data Attestation: I reviewed the patient's lab results. Physical Exam Const alert, oriented x3 and no apparent distress General Appearance: cooperative; Negative for combative or lethargic Orientation / Consciousness: awake Exam Limitations: no limitations HEENT Head and Scalp: normocephalic and atraumatic Eyes EOMs intact bilaterally General Eye: normal appearance of both eyes Neck full ROM and thyroid normal General: trachea midline Thyroid: thyroid normal Resp normal respiratory effort and no use of accessory muscles Effort and Inspection: Negative for labored, stridor or audible wheezes Cardio regular rate and regular rhythm GI non-tender Back/Spine Cervical Spine: cervical ROM normal Extremity full ROM and normal capillary refill General Extremity: edema Skin no rashes or lesions noted Skin Narrative: lateral right lowerr leg wound Neuro oriented x3 and CN's II-XII intact bilaterally Psych thought process normal, cooperative, affect normal, speech normal and activity/motor behavior normal Debridement Note Debridement Note Wound debrided: Right lower leg posterior venous ulcer Type of Debridement: Selective debridement Anesthesia Used: 5% Lidocaine Gel Depth: Down to and including healthy tissue and in the subcutaneous layer Percentage of wound debrided: 100 Instrument Used: - (Dermabrasion) Tissue Removed: Fibrin Severity: Limited To Skin Breakdown Amount of bleeding with debridement: Mild Bleeding Controlled with: Pressure Patient tolerated procedure: Patient tolerated procedure well Post-Debridement Measurements and Additional Note: Post-Debridement Measurements/Treatment WC - Nurse 1 - General Ulcer Assessment Start: 02/24/24 15:46 Freq: Status: Active Protocol: JADEN Activity Type Activity Date Activity User E-sign Co-sign Detail Recorded Client Recorded Date Recorded By Document 02/24/24 15:46 KW [id number] 02/24/24 16:03 KW Document 03/02/24 11:09 MT [id number] 03/02/24 11:19 MT Document 03/09/24 10:28 DL [id number] 03/09/24 10:34 DL 02/24/24 03/02/24 03/09/24 15:46 11:09 10:28 - Today's Visit Information Type of service Nurse-only Follow-up Visit Visit (Physician/BOXING INSPECTOR ) Arrival Mode Ambulatory, Ambulatory, Walker Walker Transfer Assistance None Accompanied by Patient Identification Verified (Name & Yes Yes ) Patient Requires Transmission-Based No Precautions Height and Weight Body Mass Index (BMI) 59.1 59.1 59.1 BMI Classification Obese Obese Obese Vital Signs Temperature (97.8 F-99.1 F) 96.4 F L 96 F L 97.3 F L Temperature Source Temporal Temporal Temporal Pulse Rate (60-100) 90 90 75 Pulse Location Monitor Monitor Monitor Respiratory Rate (12-18) 18 22 H 22 H Respiratory rate source Observation Observation Observation Oxygen Delivery Method Room Air Blood Pressure (90/60-120/80) 143/83 H 128/82 H 133/63 H Blood Pressure Mean (mm Hg) 103 97 86 Source Monitor Monitor Monitor Position Sitting Sitting Blood Pressure Location Left Forearm Left Forearm History Since Last Visit- (Skip if this is Patient's initial visit) Have you changed medications since your No No last visit? Any new allergies or adverse reactions No No Had a fall/change in ADL's that may No No increase risk of falls Signs or symptoms of abuse and/or No No neglect since last visit Have you been in the hospital since your No Yes last visit? Has dressing in place as prescribed Yes Yes Yes Has compression in place as prescribed Yes Yes Yes Has offloadiing in place as prescribed N/A Yes N/A Experienced any changes in pain level or No Yes No management Left Footwear Regular Shoe Regular Shoe Right Footwear Regular Shoe Regular Shoe Pain Scale: 0-10 Numeric Is Patient Pain Free? Yes Yes Yes WC - Nurse 1 - General Ulcer Measurement Start: 02/24/24 15:46 Freq: Status: Active Protocol: Activity Type Activity Date Activity User E-sign Co-sign Detail Recorded Client Recorded Date Recorded By Document 02/24/24 16:03 KW [id number] 02/24/24 16:09 KW Document 03/02/24 11:09 MT [id number] 03/02/24 11:19 MT Document 03/09/24 10:28 DL [id number] 03/09/24 10:34 DL 02/24/24 03/02/24 03/09/24 16:03 11:09 10:28 Wound Center Nurse 1 #4- R LAT LE -Current Size (cm) - Length 1 1.5 1.2 -Current Size (cm) - Width 4 4.0 3 -Current Size (cm) - Depth 0.3 0.2 0.2 -Total Square Cm 4 6.00 3.6 -Date of Last Picture (Recall this 02/24/24 field) -Photo Taken Yes -Tunneling No -Undermining/Tunneling No -Circular Undermining No -Exudate Amt Small Medium -Exudate Type Serosanguineous Serosanguineous -Wound Margin Thickened & Thickened & Rolled Under Rolled Under -Granulation Amt Medium (34-66%) Medium (34-66%) -Granulation Quality Pale,[place] Red -Necrosis Amt Medium (34-66%) Medium (34-66%) -Necrotic Tissue Type Adherent Slough Adherent Slough -Structure Exposed N/A -Texture (Bertha-wound Skin Appearance) Assessed Assessed Scarring -Moisture (Bertha-wound Skin Appearance) Assessed Assessed, Dry/Scaly Maceration -Color (Bertha-wound Skin Appearance) Not Assessed Assessed, Hemosiderin Erythema, Staining Hemosiderin Staining -Temperature (Bertha-wound Skin No Abnormality No Abnormality No Abnormality Appearance) (Pt Warm) (Pt Warm) (Pt Warm) -Tenderness on Palpation (Bertha-wound No No Skin Appearance) -Ulcer Cleansing Soap and Water Soap and Water Soap and Water -Foul Odor after Cleansing No No No -Anesthetic Used 5% Lidocaine 5% Lidocaine 5% Lidocaine Gel Gel Gel Right Calf (cm) 66 Right Ankle (cm) 31 - Nurse 2 - General Ulcer CM Notes Start: 02/24/24 15:46 Freq: Status: Active Protocol: Activity Type Activity Date Activity User E-sign Co-sign Detail Recorded Client Recorded Date Recorded By Document 02/24/24 16:14 [id number] 02/24/24 16:18 Document 03/02/24 11:28 [facility] [id number] 03/02/24 11:37 [facility] Document 03/09/24 10:37 [facility] [id number] 03/09/24 10:45 [facility] 02/24/24 03/02/24 03/09/24 16:14 11:28 10:37 Wound Center Nurse 2 #4- R LAT LE -Time 16:16 11:28 10:38 -Correct Patient Yes Yes Yes -Correct Side, Site, Position Yes Yes Yes -Correct Procedure Yes Yes Yes -Procedure Performed Yes Yes Yes -Type of Procedure Debridement Debridement Debridement -Clinical Debridement Subcutaneous Subcutaneous Epidermis / Dermis -Tissue Removed Subcutaneous Subcutaneous Epidermis, Dermis -Post Debridement (cm) - Length 1.7 1.2 1.7 -Post Debridement (cm) - Width 4.0 3 3.4 -Post Debridement (cm) - Depth 0.3 0.3 0.2 -Total Square (Post) (cm) 6.80 3.6 5.78 -Area of Debridement (cm) - Length 1.7 1.2 1.7 -Area of Debridement (cm) - Width 4.0 3 3.4 -Total Square (Area) (cm) 6.80 3.6 5.78 -Tunneling No No No -Undermining/Tunneling No No No -Circular Undermining No No No -Wound/Ulcer Outcome Not Healed Not Healed Not Healed -Ulcer Cleansing Rinsed/ Rinsed/ Rinsed/ Irrigated with Irrigated with Irrigated with Saline Saline Saline -Foul Odor after Cleansing No No No -Bioengineered Tissue No No No -Bleeding Controlled with Pressure Pressure Pressure -Treatment Response Procedure Procedure Procedure Tolerated Well Tolerated Well Tolerated Well -Debridement - Open, 1st 20sq cm Yes -Debridement - Subq, 1st 20sq cm Yes Yes Pain Scale: 0-10 Numeric Is Patient Pain Free? Yes Yes Yes - Nurse 3 - General Ulcer D/C NN Start: 02/24/24 15:46 Freq: Status: Active Protocol: Activity Type Activity Date Activity User E-sign Co-sign Detail Recorded Client Recorded Date Recorded By Document 02/24/24 15:46 KW [id number] 02/24/24 16:03 KW Document 02/24/24 16:37 GM [id number] 02/24/24 16:38 GM Document 03/02/24 11:47 CP [id number] 03/02/24 11:58 CP Document 03/09/24 10:58 DL [id number] 03/09/24 10:59 DL 02/24/24 02/24/24 03/02/24 15:46 16:37 11:47 Vital Signs Temperature (97.8 F-99.1 F) 96.4 F L Temperature Source Temporal Pulse Rate (60-100) 90 Pulse Location Monitor Respiratory Rate (12-18) 18 Respiratory rate source Observation Oxygen Delivery Method Room Air Blood Pressure (90/60-120/80) 143/83 H Blood Pressure Mean (mm Hg) 103 Source Monitor Position Sitting Blood Pressure Location Left Forearm Pain Scale: 0-10 Numeric Is Patient Pain Free? Yes Yes Yes Wound Care Center Nurse 3 #4- R LAT LE -Ulcer Cleansing Not Cleansed Rinsed/ Irrigated with Saline -Foul Odor after Cleansing No -Other Dressing CLOBETASOL CREAM -Primary Dressing Covered/Secured with Dry Gauze & Secured with Roll Gauze, Tape Secured with Tape -Other Covering ABD, KERLIX Treatment Response Procedure Tolerated Well WC - Visit Discharge Discharge Condition Stable Stable Ambulatory Status Ambulatory Ambulatory, Walker Transportation Private Auto Private Auto Clinical Summary of Care Provided Yes 03/09/24 10:58 Vital Signs Temperature (97.8 F-99.1 F) Temperature Source Pulse Rate (60-100) Pulse Location Respiratory Rate (12-18) Respiratory rate source Oxygen Delivery Method Blood Pressure (90/60-120/80) Blood Pressure Mean (mm Hg) Source Position Blood Pressure Location Pain Scale: 0-10 Numeric Is Patient Pain Free? Yes Wound Care Center Nurse 3 #4- R LAT LE -Ulcer Cleansing Rinsed/ Irrigated with Saline -Foul Odor after Cleansing No -Other Dressing Timolol, Colbetasol -Primary Dressing Covered/Secured with Dry Gauze & Roll Gauze, Secured with Tape -Other Covering Tubigrip G Treatment Response Procedure Tolerated Well WC - Visit Discharge Discharge Condition Stable Ambulatory Status Ambulatory, Walker Transportation Private Auto Clinical Summary of Care Provided Assessment/Plan Assessment/Plan (1) Morbid obesity: CODE(S): E66.01 - Morbid (severe) obesity due to excess calories PLAN: Continue eat a high-protein diet and monitor calories (2) Venous insufficiency of both lower extremities: CODE(S): I87.2 - Venous insufficiency (chronic) (peripheral) PLAN: Compression stockings to legs Christiano wrap or stockinettes (3) Ulcer of right lower extremity with fat layer exposed: CODE(S): L97.912 - Non-pressure chronic ulcer of unspecified part of right lower leg with fat layer exposed (4) Dyshidrotic eczema: CODE(S): L30.1 - Dyshidrosis [pompholyx] PLAN: amLactin cream to all dried Flaky areas of skin (5) Pyoderma gangrenosa: CODE(S): L88 - Pyoderma gangrenosum PLAN: Continue washing the right lower leg with antibacterial soap and water apply timolol gel to wound base cover with a gauze dressing and ABD compression stocking in the a.m. and use the clobetasol cream in the p.m. 2 times a day and follow-up in 1 week Continue the compression and follow-up in 1 week
[2024-03-16 11:02] VITALS: BP 124/80; PULSE 85; RESP 18; TEMP 36.1; BMI 59.1
--- NOTE | 2024-03-16 12:16 | PN.PCM_ITS ---
History of Present Illness Date of Service: 03/16/24 Chief Complaint: Right lateral leg ulcer History of Wound: 66-year-old white obese male. He appears here with a very large deep wound on his right posterior lower leg. He suffers from venous ulcers, and this 1 has been going on for 2 to 3 months. Other than covering it with a gauze dressing he has done nothing else. These are reoccurring ulcer openings have never been taking care of properly because of COVID. Patient did have arterial brachial and venous studies done and 2020 but never got to see the vascular surgeon for repair. Arterial studies fine its his venous he is got a lot of incompetence sees right where all of his wounds are. Patient suffers from cellulitis and also overgrowth of keratosis. He states that he has a history of an infected ulcer from 2013 and he was being seen at the [place] [facility]. He states that he has had issues with this ulcer on an off for years. He states had a fracture of his left ankle which required him to be placed in a SNF and the ulcer on the right improved during that time. 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 He is obese with a BMI 59.1. He sleeps in a recliner because his mattress makes his back hurt. He has significant amount of lower extremity edema. 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 Right AFIA by posterior tibial artery is 1.01. Left AFIA by posterior tibial artery is 0.98. The left AFIA by dorsalis pedis is 1.02. Bilateral triphasic doppler wavelength at ankle level. Venous Duplex ultrasound on 01/28/21 showed segmental valvular incompetence is noted within the great saphenous veins bilaterally. The right small saphenous vein is patent and competent. The left small saphenous vein is patent and incompetent. The accessory saphenous vein in the right mid- thigh is incompetent. We will refer him to Dr. Solis for further evaluation. Today he denies fever, chills, nausea or vomiting. He states his appetite is good. 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 Progress of Wound: The wound is started finally to flatten and fill and and now it had just needs skin cover the top part of it is completely closed. Patient is tolerating the timolol topically and the clobetasol over top every day Subjective Subjective and are very pleased with outcomes Objective Data Objective Data Today shows a little bit of hypergranulation will hit him with some nitrous sticks and then he can start the dressing changes again tomorrow leave a dry dressing on it today Vital Signs: Vital Signs Temp Pulse Resp BP O2 Del Method 97 F L 85 18 124/80 H Room Air 03/16/24 11:02 03/16/24 11:02 03/16/24 11:02 03/16/24 11:02 02/24/24 15:46 Oxygen Delivery Method Room Air Weight: 400 lb Body Mass Index (BMI) 59.1 Lab / Micro Data Attestation: I reviewed the patient's lab results. Physical Exam Const alert, oriented x3 and no apparent distress General Appearance: cooperative; Negative for combative or lethargic Orientation / Consciousness: awake Exam Limitations: no limitations HEENT Head and Scalp: normocephalic and atraumatic Eyes EOMs intact bilaterally General Eye: normal appearance of both eyes Neck full ROM and thyroid normal General: trachea midline Thyroid: thyroid normal Resp normal respiratory effort and no use of accessory muscles Effort and Inspection: Negative for labored, stridor or audible wheezes Cardio regular rate and regular rhythm GI non-tender Back/Spine Cervical Spine: cervical ROM normal Extremity full ROM and normal capillary refill General Extremity: edema Skin no rashes or lesions noted Skin Narrative: lateral right lowerr leg wound Neuro oriented x3 and CN's II-XII intact bilaterally Psych thought process normal, cooperative, affect normal, speech normal and activity/motor behavior normal Debridement Note Debridement Note Wound debrided: Right lower leg posterior venous ulcer Type of Debridement: Selective debridement Anesthesia Used: 5% Lidocaine Gel Depth: Down to and including healthy tissue and in the subcutaneous layer Percentage of wound debrided: 100 Instrument Used: - (Dermabrasion) Tissue Removed: Fibrin Severity: Limited To Skin Breakdown Amount of bleeding with debridement: Mild Bleeding Controlled with: Pressure Patient tolerated procedure: Patient tolerated procedure well Post-Debridement Measurements and Additional Note: Post-Debridement Measurements/Treatment WC - Nurse 1 - General Ulcer Assessment Start: 02/24/24 15:46 Freq: Status: Active Protocol: WC.LOWEXT Activity Type Activity Date Activity User E-sign Co-sign Detail Recorded Client Recorded Date Recorded By Document 02/24/24 15:46 KW [id number] 02/24/24 16:03 KW Document 03/02/24 11:09 MT [id number] 03/02/24 11:19 MT Document 03/09/24 10:28 DL [id number] 03/09/24 10:34 DL Document 03/16/24 11:02 MT [id number] 03/16/24 11:07 MT 02/24/24 03/02/24 03/09/24 15:46 11:09 10:28 WC - Today's Visit Information Type of service Nurse-only Follow-up Visit Visit (Physician/MEDICAL OFFICE TECHNICIAN ) Arrival Mode Ambulatory, Ambulatory, Walker Walker Transfer Assistance None Accompanied by Patient Identification Verified (Name & Yes Yes ) Patient Requires Transmission-Based No Precautions Safety Precautions Height and Weight Body Mass Index (BMI) 59.1 59.1 59.1 BMI Classification Obese Obese Obese Vital Signs Temperature (97.8 F-99.1 F) 96.4 F L 96 F L 97.3 F L Temperature Source Temporal Temporal Temporal Pulse Rate (60-100) 90 90 75 Pulse Location Monitor Monitor Monitor Respiratory Rate (12-18) 18 22 H 22 H Respiratory rate source Observation Observation Observation Oxygen Delivery Method Room Air Blood Pressure (90/60-120/80) 143/83 H 128/82 H 133/63 H Blood Pressure Mean (mm Hg) 103 97 86 Source Monitor Monitor Monitor Position Sitting Sitting Blood Pressure Location Left Forearm Left Forearm History Since Last Visit- (Skip if this is Patient's initial visit) Have you changed medications since your No No last visit? Any new allergies or adverse reactions No No Had a fall/change in ADL's that may No No increase risk of falls Signs or symptoms of abuse and/or No No neglect since last visit Have you been in the hospital since your No Yes last visit? Has dressing in place as prescribed Yes Yes Yes Has compression in place as prescribed Yes Yes Yes Has offloadiing in place as prescribed N/A Yes N/A Experienced any changes in pain level or No Yes No management Left Footwear Regular Shoe Regular Shoe Right Footwear Regular Shoe Regular Shoe Pain Scale: 0-10 Numeric Is Patient Pain Free? Yes Yes Yes 03/16/24 11:02 - Today's Visit Information Type of service Follow-up Visit (Physician/MEDICAL OFFICE TECHNICIAN ) Arrival Mode Ambulatory,Cane Transfer Assistance Accompanied by Patient Identification Verified (Name & Yes ) Patient Requires Transmission-Based Precautions Safety Precautions Fall Prevention Height and Weight Body Mass Index (BMI) 59.1 BMI Classification Obese Vital Signs Temperature (97.8 F-99.1 F) 97 F L Temperature Source Temporal Pulse Rate (60-100) 85 Pulse Location Monitor Respiratory Rate (12-18) 18 Respiratory rate source Observation Oxygen Delivery Method Blood Pressure (90/60-120/80) 124/80 H Blood Pressure Mean (mm Hg) 94 Source Monitor Position Sitting Blood Pressure Location Left Arm History Since Last Visit- (Skip if this is Patient's initial visit) Have you changed medications since your last visit? Any new allergies or adverse reactions Had a fall/change in ADL's that may increase risk of falls Signs or symptoms of abuse and/or neglect since last visit Have you been in the hospital since your last visit? Has dressing in place as prescribed Yes Has compression in place as prescribed Yes Has offloadiing in place as prescribed Yes Experienced any changes in pain level or Yes management Left Footwear Regular Shoe Right Footwear Regular Shoe Pain Scale: 0-10 Numeric Is Patient Pain Free? Yes - Nurse 1 - General Ulcer Measurement Start: 02/24/24 15:46 Freq: Status: Active Protocol: Activity Type Activity Date Activity User E-sign Co-sign Detail Recorded Client Recorded Date Recorded By Document 02/24/24 16:03 KW [id number] 02/24/24 16:09 KW Document 03/02/24 11:09 MT [id number] 03/02/24 11:19 MT Document 03/09/24 10:28 DL [id number] 03/09/24 10:34 DL Document 03/16/24 11:02 MT [id number] 03/16/24 11:07 MT 02/24/24 03/02/24 03/09/24 16:03 11:09 10:28 Wound Center Nurse 1 #4- R LAT LE -Current Size (cm) - Length 1 1.5 1.2 -Current Size (cm) - Width 4 4.0 3 -Current Size (cm) - Depth 0.3 0.2 0.2 -Total Square Cm 4 6.00 3.6 -Date of Last Picture (Recall this 02/24/24 field) -Photo Taken Yes -Tunneling No -Undermining/Tunneling No -Circular Undermining No -Exudate Amt Small Medium -Exudate Type Serosanguineous Serosanguineous -Wound Margin Thickened & Thickened & Rolled Under Rolled Under -Granulation Amt Medium (34-66%) Medium (34-66%) -Granulation Quality Pale,[place] Red -Necrosis Amt Medium (34-66%) Medium (34-66%) -Necrotic Tissue Type Adherent Slough Adherent Slough -Structure Exposed N/A -Texture (Bertha-wound Skin Appearance) Assessed Assessed Scarring -Moisture (Bertha-wound Skin Appearance) Assessed Assessed, Dry/Scaly Maceration -Color (Bertha-wound Skin Appearance) Not Assessed Assessed, Hemosiderin Erythema, Staining Hemosiderin Staining -Temperature (Bertha-wound Skin No Abnormality No Abnormality No Abnormality Appearance) (Pt Warm) (Pt Warm) (Pt Warm) -Tenderness on Palpation (Bertha-wound No No Skin Appearance) -Ulcer Cleansing Soap and Water Soap and Water Soap and Water -Foul Odor after Cleansing No No No -Anesthetic Used 5% Lidocaine 5% Lidocaine 5% Lidocaine Gel Gel Gel Right Calf (cm) 66 Right Ankle (cm) 31 03/16/24 11:02 Wound Center Nurse 1 #4- R LAT LE -Current Size (cm) - Length 1.6 -Current Size (cm) - Width 3.2 -Current Size (cm) - Depth 0.1 -Total Square Cm 5.12 -Date of Last Picture (Recall this field) -Photo Taken No -Tunneling No -Undermining/Tunneling No -Circular Undermining No -Exudate Amt Small -Exudate Type Serosanguineous -Wound Margin Thickened & Rolled Under -Granulation Amt Medium (34-66%) -Granulation Quality Pale,[place] -Necrosis Amt Medium (34-66%) -Necrotic Tissue Type Adherent Slough -Structure Exposed -Texture (Bertha-wound Skin Appearance) Assessed -Moisture (Bertha-wound Skin Appearance) Assessed -Color (Bertha-wound Skin Appearance) Assessed -Temperature (Bertha-wound Skin No Abnormality Appearance) (Pt Warm) -Tenderness on Palpation (Bertha-wound No Skin Appearance) -Ulcer Cleansing Soap and Water -Foul Odor after Cleansing No -Anesthetic Used 5% Lidocaine Gel Right Calf (cm) 65.2 Right Ankle (cm) 31.0 WC - Nurse 2 - General Ulcer CM Notes Start: 02/24/24 15:46 Freq: Status: Active Protocol: Activity Type Activity Date Activity User E-sign Co-sign Detail Recorded Client Recorded Date Recorded By Document 02/24/24 16:14 GM [id number] 02/24/24 16:18 GM Document 03/02/24 11:28 BMF [id number] 03/02/24 11:37 BMF Document 03/09/24 10:37 BMF [id number] 03/09/24 10:45 BMF Document 03/16/24 11:32 CP [id number] 03/16/24 11:38 CP 02/24/24 03/02/24 03/09/24 16:14 11:28 10:37 Wound Center Nurse 2 #4- R LAT LE -Time 16:16 11:28 10:38 -Correct Patient Yes Yes Yes -Correct Side, Site, Position Yes Yes Yes -Correct Procedure Yes Yes Yes -Procedure Performed Yes Yes Yes -Type of Procedure Debridement Debridement Debridement -Clinical Debridement Subcutaneous Subcutaneous Epidermis / Dermis -Tissue Removed Subcutaneous Subcutaneous Epidermis, Dermis -Post Debridement (cm) - Length 1.7 1.2 1.7 -Post Debridement (cm) - Width 4.0 3 3.4 -Post Debridement (cm) - Depth 0.3 0.3 0.2 -Total Square (Post) (cm) 6.80 3.6 5.78 -Area of Debridement (cm) - Length 1.7 1.2 1.7 -Area of Debridement (cm) - Width 4.0 3 3.4 -Total Square (Area) (cm) 6.80 3.6 5.78 -Tunneling No No No -Undermining/Tunneling No No No -Circular Undermining No No No -Wound/Ulcer Outcome Not Healed Not Healed Not Healed -Ulcer Cleansing Rinsed/ Rinsed/ Rinsed/ Irrigated with Irrigated with Irrigated with Saline Saline Saline -Foul Odor after Cleansing No No No -Bioengineered Tissue No No No -Topical Lidocaine (%) -Bleeding Controlled with Pressure Pressure Pressure -Treatment Response Procedure Procedure Procedure Tolerated Well Tolerated Well Tolerated Well -Debridement - Open, 1st 20sq cm Yes -Debridement, Open, ea addt'l 20sq cm or part thereof -Debridement - Subq, 1st 20sq cm Yes Yes Pain Scale: 0-10 Numeric Is Patient Pain Free? Yes Yes Yes 03/16/24 11:32 Wound Center Nurse 2 #4- R LAT LE -Time 11:32 -Correct Patient Yes -Correct Side, Site, Position Yes -Correct Procedure Yes -Procedure Performed Yes -Type of Procedure Debridement -Clinical Debridement Epidermis / Dermis -Tissue Removed Dermis -Post Debridement (cm) - Length 4 -Post Debridement (cm) - Width 1.5 -Post Debridement (cm) - Depth 0.1 -Total Square (Post) (cm) 6.0 -Area of Debridement (cm) - Length 4 -Area of Debridement (cm) - Width 1.5 -Total Square (Area) (cm) 6.0 -Tunneling -Undermining/Tunneling -Circular Undermining -Wound/Ulcer Outcome Not Healed -Ulcer Cleansing -Foul Odor after Cleansing No -Bioengineered Tissue -Topical Lidocaine (%) 4 -Bleeding Controlled with Pressure -Treatment Response Procedure Tolerated Well -Debridement - Open, 1st 20sq cm Yes -Debridement, Open, ea addt'l 20sq cm 1 or part thereof -Debridement - Subq, 1st 20sq cm Pain Scale: 0-10 Numeric Is Patient Pain Free? Yes - Nurse 3 - General Ulcer D/C NN Start: 02/24/24 15:46 Freq: Status: Active Protocol: Activity Type Activity Date Activity User E-sign Co-sign Detail Recorded Client Recorded Date Recorded By Document 02/24/24 15:46 KW [id number] 02/24/24 16:03 KW Document 02/24/24 16:37 GM [id number] 02/24/24 16:38 GM Document 03/02/24 11:47 CP [id number] 03/02/24 11:58 CP Document 03/09/24 10:58 DL [id number] 03/09/24 10:59 DL Document 03/16/24 11:52 DL [id number] 03/16/24 11:54 DL 02/24/24 02/24/24 03/02/24 15:46 16:37 11:47 Vital Signs Temperature (97.8 F-99.1 F) 96.4 F L Temperature Source Temporal Pulse Rate (60-100) 90 Pulse Location Monitor Respiratory Rate (12-18) 18 Respiratory rate source Observation Oxygen Delivery Method Room Air Blood Pressure (90/60-120/80) 143/83 H Blood Pressure Mean (mm Hg) 103 Source Monitor Position Sitting Blood Pressure Location Left Forearm Pain Scale: 0-10 Numeric Is Patient Pain Free? Yes Yes Yes Wound Care Center Nurse 3 #4- R LAT LE -Ulcer Cleansing Not Cleansed Rinsed/ Irrigated with Saline -Foul Odor after Cleansing No -Other Dressing CLOBETASOL CREAM -Primary Dressing Covered/Secured with Dry Gauze & Secured with Roll Gauze, Tape Secured with Tape -Other Covering ABD, KERLIX -Wound Comment(s) Treatment Response Procedure Tolerated Well WC - Visit Discharge Discharge Condition Stable Stable Ambulatory Status Ambulatory Ambulatory, Walker Transportation [place] Clinical Summary of Care Provided Yes 03/09/24 03/16/24 10:58 11:52 Vital Signs Temperature (97.8 F-99.1 F) Temperature Source Pulse Rate (60-100) Pulse Location Respiratory Rate (12-18) Respiratory rate source Oxygen Delivery Method Blood Pressure (90/60-120/80) Blood Pressure Mean (mm Hg) Source Position Blood Pressure Location Pain Scale: 0-10 Numeric Is Patient Pain Free? Yes Yes Wound Care Center Nurse 3 #4- R LAT LE -Ulcer Cleansing Rinsed/ Rinsed/ Irrigated with Irrigated with Saline Saline -Foul Odor after Cleansing No No -Other Dressing Timolol, Timolol/ Colbetasol clobetasol -Primary Dressing Covered/Secured with Dry Gauze & Dry Gauze & Roll Gauze, Roll Gauze, Secured with Secured with Tape Tape -Other Covering Tubigrip G -Wound Comment(s) tubigrip G. Treatment Response Procedure Procedure Tolerated Well Tolerated Well WC - Visit Discharge Discharge Condition Stable Stable Ambulatory Status Ambulatory, Ambulatory, Walker Walker Transportation [employer] Clinical Summary of Care Provided Assessment/Plan Assessment/Plan (1) Morbid obesity: CODE(S): E66.01 - Morbid (severe) obesity due to excess calories PLAN: Continue eat a high-protein diet and monitor calories (2) Venous insufficiency of both lower extremities: CODE(S): I87.2 - Venous insufficiency (chronic) (peripheral) PLAN: Compression stockings to legs Christiano wrap or stockinettes (3) Ulcer of right lower extremity with fat layer exposed: CODE(S): L97.912 - Non-pressure chronic ulcer of unspecified part of right lower leg with fat layer exposed (4) Dyshidrotic eczema: CODE(S): L30.1 - Dyshidrosis [pompholyx] PLAN: amLactin cream to all dried Flaky areas of skin (5) Pyoderma gangrenosa: CODE(S): L88 - Pyoderma gangrenosum PLAN: Continue washing the right lower leg with antibacterial soap and water apply timolol gel to wound base then clobetasol and then cover with a gauze dressing and ABD compression stocking in the a.m. and use the clobetasol Continue the compression and follow-up in 2 week
== END 2024-03-19 23:59 | disposition home or self-care (01) ==
LOC: WC 11:00
PROVIDERS: PCP Preventive Medicine Occupational Medicine; Referring Provider Preventive Medicine Occupational Medicine; Visit Provider Nurse Practitioner
DX: L97.912 Non-pressure chronic ulcer of unspecified part of right lower leg with fat layer exposed (principal); L88 Pyoderma gangrenosum; I48.91 Unspecified atrial fibrillation; E66.01 Morbid (severe) obesity due to excess calories; Z68.43 Body mass index [BMI] 50.0-59.9, adult; I87.2 Venous insufficiency (chronic) (peripheral); Z86.718 Personal history of other venous thrombosis and embolism; R60.0 Localized edema; Z86.16 Personal history of COVID-19; Z79.01 Long term (current) use of anticoagulants; L30.1 Dyshidrosis [pompholyx]; M21.40 Flat foot [pes planus] (acquired), unspecified foot; L85.9 Epidermal thickening, unspecified
CPT/HCPCS: 11042; 97597; 97598

== ENCOUNTER 2024-04-12 11:15 | Outpatient (RCR) | payer MEDICARE, OTHER, SELFPAY ==
[2024-03-20 00:49] VITALS: BP 132/71; PULSE 76; RESP 22; TEMP 35.7; BMI 59.1
[2024-04-12 11:33] VITALS: BP 137/59; PULSE 80; RESP 20; TEMP 35.7; BMI 59.1
--- NOTE | 2024-04-14 09:27 | WC ---
PHOTO 04/12/24 RIGHT LATERAL LEG
--- NOTE | 2024-04-14 16:24 | PCM.WC.HP ---
History of Present Illness Date of Service: 04/12/24 Chief Complaint: Right posterior calf History of Wound: This is a 68-year-old white male with morbid obesity. His BMI is recorded as 59.1. [facility] under the care of Krystin Johnson NP. Her description of the patient's medical history and management appears below within the History of Wound. It appears today for follow-up because he has missed several scheduled appointments with his long-term medical provider. He appears here with a very large deep wound on his right posterior lower leg. He suffers from venous ulcers, and this 1 has been going on for 2 to 3 months. Other than covering it with a gauze dressing he has done nothing else. These are reoccurring ulcer openings have never been taking care of properly because of COVID. Patient did have arterial brachial and venous studies done and 2020 but never got to see the vascular surgeon for repair. Arterial studies fine its his venous he is got a lot of incompetence sees right where all of his wounds are. Patient suffers from cellulitis and also overgrowth of keratosis. He states that he has a history of an infected ulcer from 2013 and he was being seen at the [facility]. He states that he has had issues with this ulcer on an off for years. He states had a fracture of his left ankle which required him to be placed in a SNF and the ulcer on the right improved during that time. 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 He is obese with a BMI 59.1. He sleeps in a recliner because his mattress makes his back hurt. He has significant amount of lower extremity edema. 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 Right AFIA by posterior tibial artery is 1.01. Left AFIA by posterior tibial artery is 0.98. The left AFIA by dorsalis pedis is 1.02. Bilateral triphasic doppler wavelength at ankle level. Venous Duplex ultrasound on 01/28/21 showed segmental valvular incompetence is noted within the great saphenous veins bilaterally. The right small saphenous vein is patent and competent. The left small saphenous vein is patent and incompetent. The accessory saphenous vein in the right mid-thigh is incompetent. We will refer him to Dr. Solis for further evaluation. He denies fever, chills, nausea or vomiting. He states his appetite is good. 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 [facility] Medical History (Updated 04/14/24 @ 16:[address] Mike Santos MD) Lipodermatosclerosis of right lower extremity Chronic venous hypertension w/ulcer and inflammation involv right side Venous insufficiency of both lower extremities Morbid obesity Home Medications ?Medication ?Instructions ?Recorded ?Last Taken ?Type allopurinol 300 mg tablet 300 mg PO DAILY 01/15/21 11/26/22 History betamethasone dipropionate 0.05 % 1 applic topical DAILY PRN Rash 01/15/21 Unknown History topical cream metoprolol succinate 100 mg 25 mg PO DAILY 01/15/21 Unknown History tablet,extended release 24 hr rivaroxaban 20 mg tablet (Xarelto) 20 mg PO DAILY 01/15/21 11/26/22 History diltiazem HCl 120 mg tablet 120 mg PO Q8H 11/26/22 Unknown History (Cardizem) levothyroxine 50 mcg tablet 50 mcg PO DAILY 11/26/22 Unknown History (Levo-T) furosemide 20 mg tablet (Lasix) 20 mg PO DAILY swelling 12/11/22 Unknown History doxycycline hyclate 100 mg tablet 100 mg PO BID 07/31/23 Unknown History Allergy/AdvReac Type Severity Reaction Status Date / Time silver AdvReac Rash Verified 06/17/23 09:55 Social History Smoking Status: Never smoker Vital Signs Vital Signs Vital Signs: Weight Weight: 400 lb Body Mass Index (BMI) 59.1 Physical Exam Const alert, oriented x3 and no apparent distress Constitutional Narrative: The patient is morbidly obese, and not very mobile. His recorded BMI is 59.1. Exam limitations relate to the patient's difficulty in repositioning himself to allow examination of his wounds. In this regard, he requires assistance. General Appearance: cooperative Orientation / Consciousness: awake, oriented to person, oriented to place and oriented to time HEENT normocephalic, head/scalp atraumatic and hearing grossly normal bilaterally Head and Scalp: normal to inspection Face and Sinus: normal facial exam Nose: external nose normal External Ear: external ears normal Eyes EOMs intact bilaterally General Eye: normal appearance of both eyes Sclera: sclera normal Neck full ROM General: normal visual inspection Resp normal respiratory effort, normal air movement, no retractions and no use of accessory muscles Effort and Inspection: able to speak in complete sentences GI GI Narrative: The patient's abdomen is morbidly obese. Skin Wound Narrative: Severe swelling, edema, and lymphedema are noted in the patient's lower extremities bilaterally. With focus on the right lower extremity, severe dermatitic changes are noted, with scaling and exfoliating epidermis in the gaiter area. Severe thickening and fibrosis of the skin is noted in the gaiter area, consistent with lipodermatosclerosis. 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 A chronic wound is noted on the patient's right posterior calf, extending into the subcutaneous adipose tissues. The wound is pink, with a moderate amount of bioburden and nonviable tissue. Wound margins are reasonably well beveled. Dimensions are documented elsewhere. There is no sign of infection or cellulitis. There now appears to be a new wound on the right anterolateral calf, extending through all layers of the dermis and into the subcutaneous adipose tissues. The base of the ulceration is generally pink, with a moderate amount of bioburden and nonviable tissue. Dimensions are documented elsewhere. There is no sign of infection or cellulitis. The distal right lower extremity appears to be warm and well-perfused. Hair: normal Neuro oriented x3, CN's II-XII intact bilaterally, moves all extremities, no focal motor deficits and no sensory deficits noted Sensorium / Orientation: awake, alert, oriented to person, oriented to place and oriented to time Speech: speech normal Psych mental status grossly normal Attitude: calm and engaged Speech: normal speech Attention / Concentration: attention grossly intact Debridement Note Debridement Note Wound debrided: Right posterior calf and anterolateral calf Laterality: Right Type of Debridement: Excisional debridement Anesthesia Used: 5% Lidocaine Gel and Cetacaine Depth: Down to and including healthy tissue and in the subcutaneous layer Percentage of wound debrided: 100 Instrument Used: 5mm curette Tissue Removed: Bioburden and nonviable, fibrotic tissue Severity: Fat Layer Exposed Amount of bleeding with debridement: Mild Bleeding Controlled with: Compression and gauze Patient tolerated procedure: Patient tolerated procedure well Post-Debridement Measurements and Additional Note: Post-Debridement Measurements/Treatment - Nurse 1 - General Ulcer Assessment Start: 04/12/24 11:29 Freq: Status: Active Protocol: JADEN Activity Type Activity Date Activity User E-sign Co-sign Detail Recorded Client Recorded Date Recorded By Document 04/12/24 11:33 KW [id number] 04/12/24 11:45 04/12/24 11:33 WC - Today's Visit Information Type of service Follow-up Visit (Physician/REGISTERED NURSE AMBULATORY ) Arrival Mode Ambulatory, Walker Accompanied by Patient Identification Verified (Name & Yes ) Height and Weight Body Mass Index (BMI) 59.1 BMI Classification Obese Vital Signs Temperature (97.8 F-99.1 F) 96.3 F L Temperature Source Temporal Pulse Rate (60-100) 80 Pulse Location Monitor Respiratory Rate (12-18) 20 H Respiratory rate source Observation Oxygen Delivery Method Room Air Blood Pressure (90/60-120/80) 137/59 H Blood Pressure Mean 85 Source Monitor Position Sitting Blood Pressure Location Left Forearm History Since Last Visit- (Skip if this is Patient's initial visit) Have you changed medications since your No last visit? Any new allergies or adverse reactions No Had a fall/change in ADL's that may No increase risk of falls Signs or symptoms of abuse and/or No neglect since last visit Have you been in the hospital since your No last visit? Has dressing in place as prescribed Yes Has compression in place as prescribed Yes Has offloadiing in place as prescribed N/A Experienced any changes in pain level or No management Left Footwear Regular Shoe Right Footwear Regular Shoe Pain Scale: 0-10 Numeric Is Patient Pain Free? Yes - Nurse 1 - General Ulcer Measurement Start: 04/12/24 11:29 Freq: Status: Active Protocol: Activity Type Activity Date Activity User E-sign Co-sign Detail Recorded Client Recorded Date Recorded By Document 04/12/24 11:33 KW [id number] 04/12/24 11:45 04/12/24 11:33 Wound Center Nurse 1 #4- R LAT LE -Current Size (cm) - Length 1 -Current Size (cm) - Width 4 -Current Size (cm) - Depth 0.4 -Total Square Cm 4 -Date of Last Picture (Recall this 04/12/24 field) -Exudate Amt Small -Exudate Type Serosanguineous -Wound Margin Distinct, Outline Attached -Granulation Amt Large (67-100%) -Granulation Quality Red -Necrosis Amt Small (1-33%) -Necrotic Tissue Type Adherent Slough -Texture (Bertha-wound Skin Appearance) Assessed, Scarring -Moisture (Bertha-wound Skin Appearance) Assessed,Dry/ Scaly -Color (Bertha-wound Skin Appearance) Assessed, Hemosiderin Staining -Temperature (Bertha-wound Skin No Abnormality Appearance) (Pt Warm) -Tenderness on Palpation (Bertha-wound No Skin Appearance) -Ulcer Cleansing Rinsed/ Irrigated with Saline -Foul Odor after Cleansing No WC - Nurse 2 - General Ulcer CM Notes Start: 04/12/24 11:29 Freq: Status: Active Protocol: Activity Type Activity Date Activity User E-sign Co-sign Detail Recorded Client Recorded Date Recorded By Document 04/12/24 12:07 DS [id number] 04/12/24 12:08 DS 04/12/24 12:07 Wound Center Nurse 2 #5 right LE superior -Time 12:00 -Correct Patient Yes -Correct Side, Site, Position Yes -Correct Procedure Yes -Procedure Performed Yes -Type of Procedure Debridement -Clinical Debridement Subcutaneous -Tissue Removed Subcutaneous -Post Debridement (cm) - Length 1.0 -Post Debridement (cm) - Width 1.0 -Post Debridement (cm) - Depth 0.3 -Total Square (Post) (cm) 1.00 -Area of Debridement (cm) - Length 1.0 -Area of Debridement (cm) - Width 1.0 -Total Square (Area) (cm) 1.00 -Tunneling No -Undermining/Tunneling No -Circular Undermining No -Wound/Ulcer Outcome Not Healed -Ulcer Cleansing Rinsed/ Irrigated with Saline -Bioengineered Tissue No -Bleeding Controlled with Silver Nitrate -Treatment Response Procedure Tolerated Well -Debridement - Subq, 1st 20sq cm No #4- R LAT LE -Time 12:00 -Correct Patient Yes -Correct Side, Site, Position Yes -Correct Procedure Yes -Procedure Performed Yes -Type of Procedure Debridement -Clinical Debridement Subcutaneous -Tissue Removed Subcutaneous -Post Debridement (cm) - Length 0.8 -Post Debridement (cm) - Width 2.6 -Post Debridement (cm) - Depth 0.5 -Total Square (Post) (cm) 2.08 -Area of Debridement (cm) - Length 0.8 -Area of Debridement (cm) - Width 2.6 -Total Square (Area) (cm) 2.08 -Tunneling No -Undermining/Tunneling No -Circular Undermining No -Wound/Ulcer Outcome Not Healed -Ulcer Cleansing Rinsed/ Irrigated with Saline -Bioengineered Tissue No -Bleeding Controlled with Pressure -Treatment Response Procedure Tolerated Well -Debridement - Subq, 1st 20sq cm Yes Pain Scale: 0-10 Numeric Is Patient Pain Free? Yes - Nurse 3 - General Ulcer D/C NN Start: 04/12/24 11:29 Freq: Status: Active Protocol: Activity Type Activity Date Activity User E-sign Co-sign Detail Recorded Client Recorded Date Recorded By Document 04/12/24 12:32 KW [id number] 04/12/24 12:34 KW Edit Result 04/12/24 12:32 KW (1) [id number] 04/12/24 12:35 KW (1) Notes: => pt refused the use of timolol drops as ordered. 04/12/24 12:32 Wound Care Center Nurse 3 #5 right LE superior -Other Dressing clobetasol cream -Primary Dressing Covered/Secured with Dry Gauze #4- R LAT LE -Other Dressing clobetasol -Primary Dressing Covered/Secured with Dry Gauze & Roll Gauze, Secured with Tape Right -Compression Wrap Christiano Wrap -Other pt own tubigrip G Pain Scale: 0-10 Numeric Is Patient Pain Free? Yes - Visit Discharge Discharge Condition Stable Ambulatory Status Ambulatory, Walker Transportation Private Auto Medication Reconcilliation completed & No provided to patient/care provider Clinical Summary of Care Provided Yes Notes: pt refused the use of timolol drops as ordered. Charges/Coding Multi Select Codes Visit Charges Office Visit/Consults: 14306 OV L4 New 45 min Integumentary Integumentary CPT Codes: 18506 Jannette subq tissue 20 sq cm/< Assessment/Plan Assessment/Plan (1) Venous stasis ulcer with fat layer exposed with varicose veins: CODE(S): I83.009 - Varicose veins of unspecified lower extremity with ulcer of unspecified site; L97.902 - Non-pressure chronic ulcer of unspecified part of unspecified lower leg with fat layer exposed QUALIFIERS: Venous stasis ulcer site: calf Laterality: right Qualified Code(s): I83.012 - Varicose veins of right lower extremity with ulcer of calf; L97.212 - Non-pressure chronic ulcer of right calf with fat layer exposed (2) Chronic venous hypertension w/ulcer and inflammation involv right side: CODE(S): I87.331 - Chronic venous hypertension (idiopathic) with ulcer and inflammation of right lower extremity (3) Ulcer of right lower extremity with fat layer exposed: CODE(S): L97.912 - Non-pressure chronic ulcer of unspecified part of right lower leg with fat layer exposed (4) Venous insufficiency of both lower extremities: CODE(S): I87.2 - Venous insufficiency (chronic) (peripheral) (5) Lipodermatosclerosis of right lower extremity: CODE(S): M79.3 - Panniculitis, unspecified (6) Morbid obesity: CODE(S): E66.01 - Morbid (severe) obesity due to excess calories (7) Bilateral edema of lower extremity: CODE(S): R60.0 - Localized edema (8) Lymphedema associated with obesity: CODE(S): I89.0 - Lymphedema, not elsewhere classified; E66.9 - Obesity, unspecified (9) Pyoderma gangrenosa: CODE(S): L88 - Pyoderma gangrenosum (10) History of venous thromboembolism: CODE(S): Z86.718 - Personal history of other venous thrombosis and embolism PLAN: Plan This is a morbidly obese 68-year-old male who is a patient of Krystin Johnson NP. As the patient has missed several recent scheduled appointments, he presented today for follow-up relative to ulcerations in his right lower extremity. The patient is morbidly obese, and has characteristics of chronic venous disease in his right lower extremity, with 2 open ulcerations. Patient has a history of venous thromboembolism, and suffers from severe swelling and edema in his lower extremities. In addition to the 2 ulcerations in the right calf, the patient appears to have severe lipodermatosclerosis, scaly venous stasis dermatitis, and champagne bottle leg. This entity occurs due to severe fibrosis of the skin and soft tissues in the lower leg, which restricts expansion due to the swelling and edema which is evident in the calf more superiorly. Therefore, the patient has been counseled as to the appropriate conservative measures relative to the management of his chronic venous disease. He has indicated that he sleeps in a chair, rather than on a flat mattress. We have discussed the need for leg elevation as much as possible. The patient's legs should be at heart level, or higher, as much as possible. Therefore, he has been encouraged to sleep on a flat mattress at night, or in a recliner which allows for his legs to be elevated adequately to heart level. Prolonged idle sitting has been discouraged. Weight loss has been discussed, though significant weight loss is not likely within the immediate short-term. Tubigrip's have been used for compression recently, though are poorly fitted due to the severe disparity in circumference between the patient's upper calf and lower calf. Therefore, to accommodate this differential, Tubigrip's will be continued, though compression in the lower calf will be augmented using Christiano wraps. A multilayer compression wrap would likely be more optimal, but the differential in size between the patient's upper and lower calf is such that wraps of this sort would likely not remain in position. The patient is to continue the management previously implemented relative to suspected pyoderma gangrenosum. It is noted that the patient previously underwent chemical ablation of the right great saphenous vein on January 14, 2023. Partial recanalization was noted on venous duplex study shortly thereafter. A venous duplex examination is to be obtained to reassess the status of the venous system in the patient's right lower extremity. The patient is to follow-up in 1 to 2 weeks with his established provider, Krystin Johnson NP. Total time:45 minutes
--- NOTE | 2024-06-25 14:09 | HP.PCM_ITS ---
History of Present Illness Date of Service: 06/22/24 Chief Complaint: Right posterior calf History of Wound: This is a 68-year-old white male with morbid obesity. His BMI is recorded as 59.1. [facility] under the care of Krystin Johnson NP. Her description of the patient's medical history and management appears below. He appeared today for follow-up. He appears here with a very large deep wound on his right posterior lower leg. He suffers from venous ulcers, and this 1 has been going on for 2 to 3 months. Other than covering it with a gauze dressing he has done nothing else. These are reoccurring ulcer openings have never been taking care of properly because of COVID. Patient did have arterial brachial and venous studies done and 2020 but never got to see the vascular surgeon for repair. Arterial studies fine its his venous he is got a lot of incompetence sees right where all of his wounds are. Patient suffers from cellulitis and also overgrowth of keratosis. He states that he has a history of an infected ulcer from 2013 and he was being seen at the [facility]. He states that he has had issues with this ulcer on an off for years. He states had a fracture of his left ankle which required him to be placed in a SNF and the ulcer on the right improved during that time. 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 He is obese with a BMI 59.1. He sleeps in a recliner because his mattress makes his back hurt. He has significant amount of lower extremity edema. 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 Right AFIA by posterior tibial artery is 1.01. Left AFIA by posterior tibial artery is 0.98. The left AFIA by dorsalis pedis is 1.02. Bilateral triphasic doppler wavelength at ankle level. Venous Duplex ultrasound on 01/28/21 showed segmental valvular incompetence is noted within the great saphenous veins bilaterally. The right small saphenous vein is patent and competent. The left small saphenous vein is patent and incompetent. The accessory saphenous vein in the right mid- thigh is incompetent. We will refer him to Dr. Solis for further evaluation. He denies fever, chills, nausea or vomiting. He states his appetite is good. 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 [facility] Medical History Lipodermatosclerosis of right lower extremity Chronic venous hypertension w/ulcer and inflammation involv right side Venous insufficiency of both lower extremities Morbid obesity Home Medications ?Medication ?Instructions ?Recorded ?Last Taken ?Type allopurinol 300 mg tablet 300 mg PO DAILY 01/15/2101/10 History metoprolol succinate 100 mg 25 mg PO DAILY 01/15/21 Un known History tablet,extended release 24 hr rivaroxaban 20 mg tablet (Xarelto) 20 mg PO DAILY 12/2011/26/22 History diltiazem HCl 120 mg tablet 120 mg PO Q8H 11/26/22 Unk nown History (Cardizem) levothyroxine 50 mcg tablet 50 mcg PO DAILY 11/26/22 U nknown History (Levo-T) furosemide 20 mg tablet (Lasix) 20 mg PO DAILY swellin g 12/11/22 Unknown History Allergy/AdvReac Type Severity Reaction Status Date / Time silver AdvReac Rash Verified 06/22/24 10:42 Social History Smoking Status: Never smoker Vital Signs Vital Signs Vital Signs: Weight Weight: 400 lb Body Mass Index (BMI) 59.1 Physical Exam Const alert, oriented x3 and no apparent distress Constitutional Narrative: The patient is morbidly obese, and not very mobile. His recorded BMI is 59.1. General Appearance: cooperative and comfortable Orientation / Consciousness: awake, oriented to person, oriented to place and oriented to time HEENT normocephalic, head/scalp atraumatic and hearing grossly normal bilaterally Head and Scalp: normal to inspection Face and Sinus: normal facial exam Nose: external nose normal External Ear: external ears normal Eyes EOMs intact bilaterally General Eye: normal appearance of both eyes Sclera: sclera normal Neck full ROM General: normal visual inspection Resp normal respiratory effort, normal air movement, no retractions and no use of accessory muscles Effort and Inspection: able to speak in complete sentences GI GI Narrative: The patient's abdomen is morbidly obese. Skin Wound Narrative: Moderate swelling, edema, and lymphedema are noted in the patient's lower extremities bilaterally. Mild dermatitic changes are noted, with scaling and exfoliating epidermis in the gaiter area. Thickening and fibrosis of the skin is noted in the right gaiter area, consistent with lipodermatosclerosis. 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 The patient's right lower extremity ulceration is now completely healed and epithelialized. There are no remaining wounds or ulcerations in the patient's right lower extremity. There is no sign of infection or cellulitis. The distal right lower extremity appears to be warm and well-perfused. Hair: normal Neuro oriented x3, CN's II-XII intact bilaterally, moves all extremities, no focal motor deficits and no sensory deficits noted Sensorium / Orientation: awake, alert, oriented to person, oriented to place and oriented to time Speech: speech normal Psych mental status grossly normal Attitude: calm and engaged Speech: normal speech Attention / Concentration: attention grossly intact Debridement Note Debridement Note No debridement was completed: No debridement was completed today (There are no open wounds or ulcerations.) Charges/Coding Visit Charges Office Visits / Consults: 60249 OV L3 Est 20min Assessment/Plan Assessment/Plan (1) Venous stasis ulcer with fat layer exposed with varicose veins: CODE(S): I83.009 - Varicose veins of unspecified lower extremity with ulcer of unspecified site; L97.902 - Non-pressure chronic ulcer of unspecified part of unspecified lower leg with fat layer exposed QUALIFIERS: Venous stasis ulcer site: calf Laterality: right Qualified Code(s): I83.012 - Varicose veins of right lower extremity with ulcer of calf; L97.212 - Non-pressure chronic ulcer of right calf with fat layer exposed (2) Chronic venous hypertension w/ulcer and inflammation involv right side: CODE(S): I87.331 - Chronic venous hypertension (idiopathic) with ulcer and inflammation of right lower extremity (3) Ulcer of right lower extremity with fat layer exposed: CODE(S): L97.912 - Non-pressure chronic ulcer of unspecified part of right lower leg with fat layer exposed (4) Venous insufficiency of both lower extremities: CODE(S): I87.2 - Venous insufficiency (chronic) (peripheral) (5) Lipodermatosclerosis of right lower extremity: CODE(S): M79.3 - Panniculitis, unspecified (6) Morbid obesity: CODE(S): E66.01 - Morbid (severe) obesity due to excess calories (7) Bilateral edema of lower extremity: CODE(S): R60.0 - Localized edema (8) Lymphedema associated with obesity: CODE(S): I89.0 - Lymphedema, not elsewhere classified; E66.9 - Obesity, unspecified (9) Pyoderma gangrenosa: CODE(S): L88 - Pyoderma gangrenosum (10) History of venous thromboembolism: CODE(S): Z86.718 - Personal history of other venous thrombosis and embolism PLAN: Plan This is a morbidly obese 68-year-old male who is a patient of Krystin Johnson NP. He presented today for follow-up relative to ulcerations in his right lower extremity. The patient is morbidly obese, and has characteristics of chronic venous disease in his right lower extremity. However, all ulcerations in the right lower extremity are now completely healed and epithelialized. The patient has a history of venous thromboembolism, and suffers from severe swelling and edema in his lower extremities. He also suffers from lipodermatosclerosis and champagne bottle leg. This entity occurs due to severe fibrosis of the skin and soft tissues in the lower leg, which restricts expansion due to the swelling and edema which is evident in the calf more superiorly. Therefore, the patient has been counseled as to the appropriate conservative measures relative to the management of his chronic venous disease. He has indicated that he sleeps in a chair, rather than on a flat mattress. We have discussed the need for leg elevation as much as possible. The patient's legs should be at heart level, or higher, as much as possible. Therefore, he has been encouraged to sleep on a flat mattress at night, or in a recliner which allows for his legs to be elevated adequately to heart level. Prolonged idle sitting has been discouraged. Weight loss has been discussed. Tubigrip's have been used for compression recently, and the patient insists on using Tubigrip's for compression in the long-term. He rejects the use of graduated compression stockings or CircAid Velcro compression garments. He states that he has ready availability of Tubigrips, which can be replaced as needed. As all ulcerations are now completely healed, the patient is to be discharged, and will follow-up henceforth on an as-needed basis. Total time: 24 minutes
== END 2024-04-19 23:59 | disposition home or self-care (01) ==
LOC: WC 11:15
PROVIDERS: PCP Preventive Medicine Occupational Medicine; Referring Provider Preventive Medicine Occupational Medicine; Visit Provider Nurse Practitioner
DX: I83.012 Varicose veins of right lower extremity with ulcer of calf (principal); L97.212 Non-pressure chronic ulcer of right calf with fat layer exposed; L88 Pyoderma gangrenosum; E66.01 Morbid (severe) obesity due to excess calories; Z68.43 Body mass index [BMI] 50.0-59.9, adult; R60.0 Localized edema; Z86.718 Personal history of other venous thrombosis and embolism; I89.0 Lymphedema, not elsewhere classified; M79.3 Panniculitis, unspecified
CPT/HCPCS: 11042

== ENCOUNTER 2024-06-22 09:56 | Outpatient (RCR) | payer MEDICARE, OTHER, SELFPAY ==
[2024-04-20 00:46] VITALS: BP 132/71; PULSE 76; RESP 22; TEMP 35.7; BMI 59.1
[2024-06-22 10:21] VITALS: BP 250/77; PULSE 68; RESP 22; TEMP 36; BMI 62.5
--- NOTE | 2024-06-22 14:58 | WC ---
PHOTO 06/22/24 RIGHT LATERAL LE
== END 2024-07-18 16:20 | disposition home or self-care (01) ==
LOC: WC 09:56
PROVIDERS: PCP Preventive Medicine Occupational Medicine; Referring Provider Preventive Medicine Occupational Medicine; Visit Provider Nurse Practitioner
DX: Z09 Encounter for follow-up examination after completed treatment for conditions other than malignant neoplasm (principal); L88 Pyoderma gangrenosum; I48.91 Unspecified atrial fibrillation; E66.01 Morbid (severe) obesity due to excess calories; Z68.43 Body mass index [BMI] 50.0-59.9, adult; I87.2 Venous insufficiency (chronic) (peripheral); M79.3 Panniculitis, unspecified; I89.0 Lymphedema, not elsewhere classified; Z86.718 Personal history of other venous thrombosis and embolism; Z79.899 Other long term (current) drug therapy; Z79.01 Long term (current) use of anticoagulants; I83.11 Varicose veins of right lower extremity with inflammation
CPT/HCPCS: 99213; G0463